=== PATIENT | female | born 1950 | race Caucasian/White ===

== ENCOUNTER 2023-12-30 10:17 | Inpatient (IN) | payer MEDICARE, SELFPAY ==
[2023-12-30] VITALS (24 sets, daily range): BP systolic 133–184; BP diastolic 42–66; PULSE 55–78; RESP 16–25; TEMP 36.4–36.9; O2SAT 89–100; BMI 45.6
--- NOTE | ~2023-12-30 | XR_ITS ---
EXAMINATION: XR chest 1V portable DATE: 12/30/2023 11:42 INDICATION: Cough. Chest pain. TECHNIQUE: A single frontal view of the chest was obtained. COMPARISON: Chest 2 views 08/08/2015 FINDINGS: There is mild atelectasis in left lower lung zone. No pleural effusion or pneumothorax. The heart size is normal. Epidural electrodes are noted. IMPRESSION: 1. Mild atelectasis in left lower lung zone. Reviewed, dictated and finalized at location A.
--- NOTE | ~2023-12-30 | US_ITS ---
EXAMINATION: US venous doppler [facility] DATE: 12/31/2023 09:12 INDICATION: Bilateral lower limb pain and swelling TECHNIQUE: Grayscale ultrasound images without and with compression and Doppler ultrasound images of the bilateral lower extremity veins were obtained. COMPARISON: None. FINDINGS: The visualized portions of right common femoral vein, profunda (deep) femoral vein, femoral vein, pop liteal vein, posterior tibial veins, peroneal veins, gastrocnemius vein and greater saphenous vein ou tflow are patent. The visualized portions of left common femoral vein, profunda femoral vein, femoral vein, popliteal v ein, posterior tibial veins, peroneal veins, gastrocnemius vein and greater saphenous vein outflow ar e patent. Small anechoic Harris's cyst at the left popliteal fossa. IMPRESSION: 1. No deep venous thrombosis in either lower limb. 2. Small left Harris's cyst. Reviewed, dictated and finalized at location B.
--- NOTE | ~2023-12-30 | US_ITS ---
EXAMINATION: US retroperitoneal comp DATE: 12/31/2023 14:00 INDICATION: Renal failure TECHNIQUE: Multiple ultrasound grayscale images of the kidneys were obtained. COMPARISON: CT dated 11/30/2013 and 11/02/2010 FINDINGS: The right kidney measures 11.1 x 4.9 x 5.1 cm. The left kidney measures 11.2 x 5.3 x 2.5 cm. The kidn eys demonstrate normal echogenicity. 1.2 cm hypoechoic lesion at the periphery of the left kidney. Th ere is no hydronephrosis in either kidney. No stones identified. The bladder is normal. IMPRESSION: 1. Indeterminate 1.2 cm hypoechoic lesion at the periphery of the left kidney which is too small to definitively characterize by ultrasound but appears to correspond to a low-attenuation cyst which can be seen on CT dating back to contrast-enhanced CT dated 11/02/2010 at which time it measured 5 mm in maximal diameter. Otherwise normal kidneys without hydronephrosis. Reviewed, dictated and finalized at location B. IMPRESSION: 1. Indeterminate 1.2 cm hypoechoic lesion at the periphery of the left kidney which is too small to definitively characterize by ultrasound but appears to co rrespond to a low-attenuation cyst which can be seen on CT dating back to contr ast-enhanced CT dated 11/02/2010 at which time it measured [address] maximal [address] ter. Otherwise normal kidneys without hydronephrosis.
--- NOTE | 2023-12-30 10:21 | ECG_ITS ---
Measurements Intervals [place] Rate: 58 P: 68 GA: 181 QRS: 9 QRSD: 85 T: 83 QT: 401 QTc: 397 Interpretive Statements SINUS BRADYCARDIA NONSPECIFIC ST-T WAVE ABNORMALITY- HIGH LATERAL LEADS BASELINE ARTIFACT- I, II, III, AVR, AVL, AVF BORDERLINE ECG NO PREVIOUS ECG AVAILABLE FOR COMPARISON Electronically Signed On 12-30-2023 10:40:54 CDT by Misha Reyez D.O.
--- NOTE | 2023-12-30 10:54 | ED.SOB ---
HPI - SOB/Dyspnea General Chief Complaint: Shortness of Breath/Dyspnea Stated Complaint: sob Time Seen by Provider: 12/30/23 10:32 History of Present Illness HPI Narrative: Patient has history of COPD, CAD, presents here with cough, difficulty breathing, chest tightness for the last 5 days. Also having some nasal congestion. Has been trying breathing treatments at home without much improvement. Related Data Home Medications Medication Instructions Recorded Confirmed rosuvastatin 20 mg tablet 20 mg DAILY 10/30/19 04/18/21 bumetanide 2 mg tablet 2 mg PO DAILY 11/24/23 Allergies Allergy/AdvReac Type Severity Reaction Status Date / Time morphine Allergy Unknown Itching Verified 02/24/23 13:44 Sulfa (Sulfonamide Allergy Unknown HIVES Verified 02/24/23 13:44 Antibiotics) Review of Systems Review of Systems: CONST: No fever. HEENT: Congestion C/V: Chest tightness RESP: Cough GI: Epigastric pain : No dysuria. M/S: No joint pain. SKIN: No rash. NEURO: [No headache or focal numbness or weakness] PSYCH: [No depression] [facility] Past Medical History Medical History (Updated 12/30/23 @ 13:58 by Ileana Gonzales MD) Diabetes mellitus HLD (hyperlipidemia) Tobacco abuse Family History Family History Mother Family history of malignant neoplasm Patient's mother is Father Family history of diabetes mellitus in first degree relative Patient's father is Social History Social History Smoking status: Current every day smoker Alcohol intake: never Lack of Transportation: No Lack of Food: Never True Current Housing: I Have Housing Concerned About Future Housing: No Difficulty Paying Gas/Electric Bills: No Difficulty Paying for Meds: No Currently Unemployed: No Education: High School Diploma/GED Difficulty w/ Childcare or Family Care: No Exam Narrative: EXAMINATION OF ORGAN SYSTEMS/BODY AREAS: Constitutional: Vital signs per nursing GENERAL: Mild respiratory distress HEAD: Normal with no signs of head trauma. EYES: EOMI, conjunctiva normal ENT: Hearing grossly intact LUNGS: Wheezing bilaterally, tachypneic with some distress and accessory muscle usage HEART: [Regular rate and rhythm] ABD: [Soft], [nontender to palpation] EXT: Normal range of motion SKIN: [No rashes or lesions.] NEURO: [Alert and oriented x 3. No gross focal sensory or strength deficits.] PSYCH: Normal affect Course Vital Signs Vital signs: Vital Signs Temperature 97.5 F L 12/30/23 10:17 Pulse Rate 63 12/30/23 10:17 Respiratory Rate 25 H 12/30/23 10:17 Blood Pressure 149/53 H 12/30/23 10:17 Pulse Oximetry 89 L 12/30/23 10:17 Oxygen Delivery Room Air 12/30/23 10:17 Temperature 97.5 F L 12/30/23 10:17 Pulse Rate 61 12/30/23 13:30 Respiratory Rate 22 H 12/30/23 13:30 Blood Pressure 149/50 H 12/30/23 13:30 Pulse Oximetry 100 12/30/23 12:15 Oxygen Delivery Nasal Cannula 12/30/23 10:41 Oxygen Flow Rate 2 12/30/23 10:41 MDM - SOB/Dyspnea MDM Narrative Medical decision making narrative: 1) Differential diagnosis: COPD, CAD, HTN, pneumonia 2) Comorbidities: CAD, hypertension, diabetes, COPD 3) External notes reviewed: PCP notes 4) History sources independently obtained from: The patient's daughter at bedside, PCP notes 5) Discussion of management with: Hospitalist, flavor room worker 6) Independent interpretation of: EKG: Shows sinus bradycardia at rate 58, normal WA interval, QRS, QTC, normal axis. No obvious signs of ischemia. Chest x-ray without any obvious opacities. 7) Diagnostic tests or therapies considered but not ordered: n/a 8) Social determinants of health: n/a 9) Shared decision makin-year-old female history of COPD, CAD, CKD, presents here with cough and shortness of breath for the last 5 d
[2023-12-30 11:20] LABS: Basophils Absolute Auto 0.1 K/mm3 (0.0-0.1); Basophils Percent Auto 0.4 % (0.2-1.2); Eosinophils Absolute Auto 0.4 K/mm3 (0-0.3); Eosinophils Percent Auto 3.2 % (0-4.4); Hemoglobin 9.5 g/dL (12.0-15.0); Immature Granulocyte Absolute 0.11 K/mm3 (0.00-0.031); Immature Granulocyte Percent A 0.9 % (0-0.5); Lymphocytes Absolute Auto 3.17 K/mm3 (0.9-3.2); Lymphocytes Percent Auto 26.4 % (18.3-44.2); Mean Corpuscular HGB Conc 28.8 g/dl (32-36); Mean Corpuscular Hemoglobin 24.1 pg (26-34); Mean Corpuscular Volume 83.5 fl (80-100); Monocytes Absolute Auto 0.7 K/mm3 (0.1-0.6); Monocytes Percent Auto 5.4 % (2.6-8.5); Neutrophils Absolute Auto 7.7 K/mm3 (1.3-6.7); Neutrophils Percent Auto 63.7 % (45.5-73.1); Platelet Count Result 266 k/mm3 (150-375); Red Blood Count 3.95 M/mm3 (4.2-5.4); Red Cell Distribution Width 19.9 % (11.5-14.5)
[2023-12-30] MEDS: ALBUTEROL SULFATE NEB 2.5 MG/3 ML INH 15 MG INHALATION (11:20)
[2023-12-30] MEDS: IPRATROPIUM BR 0.02% INH SOLN 0.5 MG/2.5 ML VIAL 1 MG INHALATION (11:21)
[2023-12-30] MEDS: predniSONE 20 MG TABLET 40 MG PO (11:37)
[2023-12-30 11:52] LABS: Hypochromasia 1+ (NORMAL); Ovalocytes 1+ (NORMAL); Platelet Estimate Adequate (Adequate); Schistocytes None Seen (NORMAL)
[2023-12-30 11:56] LABS: Influenza A QL RT-PCR Negative (Negative); Influenza B QL RT-PCR Negative (Negative); RSV RNA, RT-PCR Negative (Negative); SARS-CoV-2 RNA PCR Negative (Negative)
[2023-12-30 12:15] LABS: NT Pro B Type Natriuretic Pept 498 pg/mL (19.9-100); Troponin I < 0.012 ng/mL (0.000-0.034)
[2023-12-30 12:18] LABS: Alanine Aminotransferase 13 U/L (6-35); Albumin Level 4.1 g/dL (3.5-5.1); Alkaline Phosphatase 116 U/L (38-126); Anion Gap 7 mmol/L (8-16); Aspartate Amino Transferase 16 U/L (14-36); Bilirubin,Total 0.3 mg/dL (0.2-1.3); Blood Urea Nitrogen 56 mg/dL (7-17); Calcium 8.8 mg/dL (8.4-10.2); Carbon Dioxide 22 mmol/L (22-30); Chloride 112 mmol/L (98-107); Estimated CRCL calculation 29 ml/min; Estimated Glomerular Filt Rate 26; Glucose 95 mg/dL (65-110); Potassium 6.2 mmol/L (3.4-5.0); Sodium 141 mmol/L (137-145)
[2023-12-30] MEDS: LACTATED RINGERS 1,000 ML 999 ML IV CONT (12:35)
[2023-12-30 13:06] LABS: Anion Gap 7 mmol/L (8-16); Blood Urea Nitrogen 56 mg/dL (7-17); Calcium 8.6 mg/dL (8.4-10.2); Carbon Dioxide 23 mmol/L (22-30); Chloride 111 mmol/L (98-107); Estimated CRCL calculation 29 ml/min; Estimated Glomerular Filt Rate 26; Glucose 91 mg/dL (65-110); Potassium 6.6 mmol/L (3.4-5.0); Sodium 141 mmol/L (137-145)
[2023-12-30] MEDS: FUROSEMIDE INJ 40 MG/4 ML VIAL IV PUSH (13:49)
[2023-12-30] MEDS: DEXTROSE 50% 25 GM/50 ML SYRINGE IV PUSH ×2 (13:49→19:19)
[2023-12-30] MEDS: SODIUM POLYSTYRENE SULFONONATE 15 GM/60 ML BTL 30 GM PO (13:49)
[2023-12-30] MEDS: CALCIUM GLUCONATE 1,000 MG/10 ML VIAL 1000 MG IV PUSH (13:49)
[2023-12-30] MEDS: INSULIN HUMAN REGULAR (*BKC) 100 UNITS/ML 10 UNITS IV PUSH ×2 (13:49→19:22)
[2023-12-30] MEDS: ALBUTEROL SULFATE NEB 2.5 MG/3 ML INH 10 MG INHALATION (13:59)
--- NOTE | 2023-12-30 14:41 | ADMGEN ---
This patient, Giovanna Hurtado, was admitted to IMU Room 214-01. Patient/family oriented to hospital policies and general routines including ID bracelet, bed and alarms, visiting hours, pain management, procedures, bathroom and other care routines, personal items, smoking policy, room service/diet, and visiting hours. Information on how to activate the Rapid Response Team has been discussed. Patient/Family are encouraged to report perceived risks to care and to ask questions if they do not understand what they are told or what they should do.
--- NOTE | 2023-12-30 16:53 | PM.IMHP ---
H&P: HPI History of Present Illness Date/Time: 12/30/23 17:00 Chief Complaint: Cough and shortness of breath. Narrative: This is a 73-year-old female smoker with chronic obstructive pulmonary disease, coronary artery disease with history of multiple stents, chronic kidney disease, hypertension, hyperlipidemia, type 2 diabetes mellitus, gastroesophageal reflux disease, and other comorbidities who presented to the emergency department from home for evaluation of cough and shortness of breath. The patient provides the following history. She reports multiple symptoms ongoing for last 5 days including cough, sinus congestion, shortness of breath with exertion, and mild chest tightness which thinks may be related to GERD (not tender to palpation, not similar to prior MA). She has been using her nebulizer treatments which are not providing much relief. She has significant swelling in her legs but denies calf pain, orthopnea, and paroxysmal nocturnal dyspnea. She denies fever, chills, sweats, nausea, vomiting, pleuritic pain, palpitations, diarrhea, and dysuria. In the ED: She was afebrile on arrival. Blood pressures have been running in the 140s to 160s systolic. SpO2 was 89% and she is currently on 2 L nasal cannula. Labs were significant for WBC count of 12.0, hemoglobin 9.5, potassium 6.2, BUN 56, creatinine 1.90, proBNP 498, troponin less than 0.012. She tested negative for influenza, RSV, and COVID. Chest x-ray showed mild atelectasis in the left lung zone. EKG showed sinus bradycardia with nonspecific ST-T-wave abnormalities in the high lateral leads. She was given a nebulizer treatment and appropriate therapy for hyperkalemia and she is being admitted to the IMU for further treatment and evaluation. With further questioning she reports that she was recently referred to Nephrology but has no known history of chronic kidney disease. She has not noticed a decrease in urine output. Several hours after she was admitted to the floor she began complaining of chest tightness. Repeat troponin was negative an EKG did not demonstrate any acute ST segment changes. Suspect GI related though given her strong cardiac history she is requesting to see her construction recruiter in consultation. Review of Systems Review of Systems: 12 systems were reviewed and are negative except for as per HPI. [facility] Past Medical History Medical History (Updated 12/30/23 @ 21:54 by Roseann Yoo PA-C) Chronic kidney disease Chronic obstructive pulmonary disease Chronic pain syndrome Coronary artery disease Hyperlipidemia Hypertension Osteoarthritis Tobacco abuse Type 2 diabetes mellitus Surgical History Surgical History (Updated 12/30/23 @ 16:58 by Roseann Yoo PA-C) History of cardiac catheterization History of cholecystectomy History of coronary artery stent placement Stents to right coronary artery x3, left anterior descending, circumflex, 2nd marginal, and known occlusion of stent to 1st marginal branch History of tonsillectomy Status post insertion of spinal cord stimulator Family History Family History Mother Family history of malignant neoplasm Patient's mother is Ovarian cancer Father Family history of diabetes mellitus in first degree relative Patient's father is Coronary atherosclerosis of bypass graft Social History Social History Social History: Surrogate medical decision maker: Serina Campos, daughter. Code status: Full code. Smoking packs per day: 1 Smoking cigarettes per day: 20.0 Years smoked: 60 Smoking pack-years: 60.00 Smoking status: Current every day smoker Tobacco type: cigarettes Alcohol intake: never Substance use: never Do You Feel Safe in your Home?: Yes Lack of Transportation: No Lack of Food: Never True Current Housing: I Have Housing Co
--- NOTE | 2023-12-30 17:51 | ECG_ITS ---
Measurements Intervals [place] Rate: 76 P: 66 [place]: 181 QRS: 6 QRSD: 84 T: 86 QT: 367 QTc: 413 Interpretive Statements SINUS RHYTHM LOW QRS VOLTAGE IN PRECORDIAL LEADS CONSIDER ANTERIOR INFARCT, AGE INDETERMINATE ST-T WAVE ABNORMALITY IN HIGH LATERAL LEADS- CONSIDER ISCHEMIA BASELINE ARTIFACT- I, II, AVR, V3 ABNORMAL ECG COMPARED TO ECG 12/30/2023 10:38:01 SINUS RHYTHM NOW PRESENT ST-T WAVE ABNORMALITY NOW PRESENT Electronically Signed On 12-30-2023 20:06:16 CDT by Misha Reyez D.O.
[2023-12-30 18:09] LABS: Anion Gap 8 mmol/L (8-16); Blood Urea Nitrogen 56 mg/dL (7-17); Calcium 9.1 mg/dL (8.4-10.2); Carbon Dioxide 22 mmol/L (22-30); Chloride 109 mmol/L (98-107); Estimated CRCL calculation 27 ml/min; Estimated Glomerular Filt Rate 24; Glucose 191 mg/dL (65-110); Magnesium 2.4 mg/dL (1.6-2.3); Potassium 6.4 mmol/L (3.4-5.0); Sodium 139 mmol/L (137-145)
[2023-12-30] MEDS: NITROGLYCERIN SL 0.4 MG TABLET SUBLINGUAL (18:09)
[2023-12-30 18:16] LABS: Troponin I < 0.012 ng/mL (0.000-0.034)
--- NOTE | 2023-12-30 18:38 | ECG_ITS ---
Measurements Intervals [place] Rate: 71 P: 62 NM: 186 QRS: 10 QRSD: 88 T: 95 QT: 377 QTc: 410 Interpretive Statements SINUS RHYTHM CONSIDER ANTERIOR INFARCT, AGE INDETERMINATE ST-T WAVE ABNORMALITY IN HIGH LATERAL LEADS- CONSIDER ISCHEMIA BASELINE ARTIFACT- I, III, AVR, AVL, AVF, V1-V2 ABNORMAL ECG COMPARED TO ECG 12/30/2023 17:56:33 NO SIGNIFICANT CHANGES Electronically Signed On 12-30-2023 20:20:43 CDT by Misha Reyez D.O.
[2023-12-30 18:41] LABS: Iron 48 ug/dL (37-170)
[2023-12-30 18:51] LABS: Percent Iron Saturation 12 % (20-50)
[2023-12-30 19:11] LABS: Folic Acid 5.4 ng/mL (2.76->20)
[2023-12-30 19:18] LABS: Ferritin 5.68 ng/mL (11.1-264)
[2023-12-30] MEDS: CALCIUM GLUC 1,000 MG/NS 50 ML 1,000 MG/50 ML BAG 100 MG IVPB (20:20)
[2023-12-30] MEDS: guaiFENesin 12 HR 600 MG TABCR PO (20:20)
[2023-12-30] MEDS: SODIUM ZIRCONIUM CYCLOSILICATE 10 GM POWD.PACK PO (20:20)
[2023-12-30] MEDS: cloNIDine HCL 0.1 MG TABLET PO (20:20)
[2023-12-30] MEDS: INSULIN ASPART (*BKC) 100 UNITS/ML SUB-Q (20:21)
[2023-12-30 20:25] LABS: Glucose Point of Care 334 mg/dl (65-105)
[2023-12-30] MEDS: IPRATROPIUM 0.5 MG/ALBUTEROL SULFATE 2.5 MG AMPUL.NEB 3 ML INHALATION (21:15)
[2023-12-30 21:35] LABS: Troponin I < 0.012 ng/mL (0.000-0.034)
[2023-12-30] MEDS: BELLADONNA ALK/PHENOB ELIX 10 ML, MAG HYDROX/ALUMINUM HYD/SIMETH 30 ML, LIDOCAINE HCL 2... PO (22:26)
[2023-12-30 23:19] LABS: Anion Gap 10 mmol/L (8-16); Blood Urea Nitrogen 55 mg/dL (7-17); Calcium 9.2 mg/dL (8.4-10.2); Carbon Dioxide 22 mmol/L (22-30); Chloride 106 mmol/L (98-107); Estimated CRCL calculation 27 ml/min; Estimated Glomerular Filt Rate 24; Glucose 318 mg/dL (65-110); Potassium 5.5 mmol/L (3.4-5.0); Sodium 138 mmol/L (137-145)
[2023-12-30 23:31] LABS: Troponin I < 0.012 ng/mL (0.000-0.034)
[2023-12-30] MEDS: FUROSEMIDE INJ 40 MG/4 ML VIAL 20 MG IV PUSH (23:48)
[2023-12-31] VITALS (28 sets, daily range): BP systolic 129–155; BP diastolic 37–88; PULSE 60–129; RESP 16–18; TEMP 36.4–37.1; O2SAT 90–99
[2023-12-31] MEDS: PANTOPRAZOLE SODIUM IV 40 MG VIAL IV PUSH (00:04)
[2023-12-31 05:00] LABS: Hematocrit 31.5 % (37.0-47.0); Hemoglobin 8.9 g/dL (12.0-15.0); Mean Corpuscular HGB Conc 28.3 g/dl (32-36); Mean Corpuscular Hemoglobin 23.5 pg (26-34); Mean Corpuscular Volume 83.1 fl (80-100); Mean Platelet Volume 10.9 fl (7.4-10.4); Platelet Count Result 256 k/mm3 (150-375); Red Blood Count 3.79 M/mm3 (4.2-5.4); Red Cell Distribution Width 19.4 % (11.5-14.5); White Blood Count 13.5 K/mm3 (4.5-10.0)
[2023-12-31 05:08] LABS: Anion Gap 8 mmol/L (8-16); Blood Urea Nitrogen 56 mg/dL (7-17); Carbon Dioxide 25 mmol/L (22-30); Chloride 106 mmol/L (98-107); Estimated CRCL calculation 27 ml/min; Estimated Glomerular Filt Rate 24; Glucose 108 mg/dL (65-110); Sodium 139 mmol/L (137-145)
[2023-12-31 07:18] LABS: Glucose Point of Care 101 mg/dl (65-105)
[2023-12-31] MEDS: IPRATROPIUM 0.5 MG/ALBUTEROL SULFATE 2.5 MG AMPUL.NEB 3 ML INHALATION ×3 (08:18→20:27)
[2023-12-31] MEDS: BUMETANIDE 1 MG TABLET 2 MG PO (09:14)
[2023-12-31] MEDS: ENOXAPARIN 40 MG/0.4 ML SYRINGE SUB-Q (09:14)
[2023-12-31] MEDS: ROSUVASTATIN 10 MG TABLET 20 MG PO (09:14)
[2023-12-31] MEDS: ISOSORBIDE MONONITRATE 30 MG TAB.ER.24H 90 MG PO (09:14)
[2023-12-31] MEDS: LORATADINE 10 MG TABLET PO (09:15)
[2023-12-31] MEDS: cloNIDine HCL 0.1 MG TABLET PO (09:15)
[2023-12-31] MEDS: PANTOPRAZOLE 40 MG TABLET PO (09:15)
[2023-12-31] MEDS: amLODIPine BESYLATE 5 MG TABLET PO (09:15)
[2023-12-31] MEDS: predniSONE 20 MG TABLET 40 MG PO (09:15)
[2023-12-31] MEDS: guaiFENesin 12 HR 600 MG TABCR PO ×2 (09:15→20:15)
[2023-12-31] MEDS: carvediloL 12.5 MG TABLET PO ×2 (09:16→20:15)
--- NOTE | 2023-12-31 09:43 | PM.CNNEP ---
Assessment and Plan Assessment and plan (1) Chronic kidney disease, stage 3b: Code(s): N18.32 - Chronic kidney disease, stage 3b Status: Acute Assessment and Plan: The patient has chronic kidney disease. Her baseline creatinine seems to range between 1 and 1.5. In April a little higher than it had been in 2021. In December of this year the creatinine was up to 1.83 and while in the hospital is been 1.9-2.0. Etiology of the chronic kidney disease may be related to diabetes and hypertension. She also has coronary artery disease, hyperlipidemia, and she smokes so she likely has some vascular disease in the kidneys as well. There other causes of chronic kidney disease as well including inflammation infiltration etc.. Will check labs to rule these out but they are unlikely to be playing much of a role. Patient also has acute kidney injury as her creatinine has risen over the last few days. This could be progression of kidney disease. Between April and February her creatinine erlin from 1.5-1.8. The patient is also on diuretics which could make the creatinine higher. She also has a URI and infection can make the creatinine higher as well. Will check urine electrolytes, fraction excretion of urea, CPK, renal ultrasound, and evaluation for chronic kidney disease as above. (2) Hyperkalemia: Code(s): E87.5 - Hyperkalemia Status: Acute Assessment and Plan: Hyperkalemia is probably due to the worsening creatinine, intake of bananas, and meloxicam plus losartan. The patient's potassium is down. She was advised to avoid high potassium foods. Will stop the meloxicam. Hold losartan but possibly reintroduce this later on if the GFR stabilizes or improves. (3) Hypertension: Code(s): I10 - Essential (primary) hypertension Status: Acute Assessment and Plan: Blood pressure is mildly high. She is currently on amlodipine 5 bumetanide to carvedilol 12.5 clonidine 0.1. Will stop the clonidine because this can interact with carvedilol. Increase the carvedilol to twice a day. Consider increasing amlodipine depending on how much protein she is spilling. (4) Diabetes mellitus: Qualifiers: Diabetes mellitus type: type 2 Diabetes mellitus intermediate manager insulin use: without mcfp use Diabetes mellitus complication status: without complication Qualified Code(s): E11.9 - Type 2 diabetes mellitus without complications Code(s): E11.9 - Type 2 diabetes mellitus without complications Status: Acute Assessment and Plan: On Accu-Cheks and sliding-scale insulin. Management per hospitalists. (5) Tobacco abuse: Code(s): Z72.0 - Tobacco use Status: Acute Assessment and Plan: Patient was advised to stop smoking she has tried in the past. She is working with her primary care physician. (6) Coronary artery disease: Code(s): I25.10 - Atherosclerotic heart disease of [place] coronary artery without angina pectoris Status: Acute Assessment and Plan: Multiple stents in place. Troponins were negative on admission. History of Present Illness Reason for Consult Consult date: 12/31/23 Chief Complaint Chief complaint: Hyperkalemia History of Present Illness Narrative: Giovanna is a very pleasant 73-year-old lady who has multiple medical problems including chronic kidney disease, COPD, diabetes, hypertension, ongoing cigarette smoking, osteoarthritis, high body mass index, hyperlipidemia, coronary disease status post stents. Patient sees Dr. robertson in the office. He noted that her creatinine had been slowly rising so she was referred to Nephrology. The visit in our office is in January. The patient was well in till about 5 days before admission when she started developing cough and shortness of breath. She had some chest tightness as well. She went to the ER and she was evaluated. Her blood pressure was a bit high. Test for viruses were negative. Creatinine wa
--- NOTE | 2023-12-31 10:37 | PM.CNCAR ---
Assessment and Plan Assessment and plan (1) Chest discomfort: Code(s): R07.89 - Other chest pain Status: Acute Assessment and Plan: Atypical. Troponins are negative. In the setting of COPD exacerbation. No further cardiac workup at this time. Follow up with me in clinic as already scheduled. (2) Coronary artery disease: Code(s): I25.10 - Atherosclerotic heart disease of [place] coronary artery without angina pectoris Status: Acute Assessment and Plan: Stable. Continue ASA, statin, home antianginal regimen. (3) Acute exacerbation of chronic obstructive pulmonary disease: Code(s): J44.1 - Chronic obstructive pulmonary disease with (acute) exacerbation Status: Acute Assessment and Plan: Management as per primary team. (4) Acute hyperkalemia: Code(s): E87.5 - Hyperkalemia Status: Acute Assessment and Plan: Potassium was 6.6 on admission, now improved. Nephrology consulted. (5) Hypertension: Code(s): I10 - Essential (primary) hypertension Status: Acute Assessment and Plan: Dr. Shahid stopping Clonidine, increased Coreg (6) HLD (hyperlipidemia): Code(s): E78.5 - Hyperlipidemia, unspecified Status: Acute Assessment and Plan: Continue statin (7) Diabetes mellitus: Qualifiers: Diabetes mellitus type: type 2 Diabetes mellitus cattle dipper insulin use: without cattle dipper use Diabetes mellitus complication status: without complication Qualified Code(s): E11.9 - Type 2 diabetes mellitus without complications Code(s): E11.9 - Type 2 diabetes mellitus without complications Status: Acute Assessment and Plan: Management as per primary team. Plan Cardiology will sign off at this time. She already has an upcoming appointment with me in the office. History of Present Illness History of Present Illness Consult date/time: 12/31/23 10:37 Requesting physician: Roseann Yoo PA-C Consult reason: chest pain Reason For Visit: Hyperkalemia Narrative: We are consulted for chest pain. This is a 73 year old female who is a patient of Dr. Garcia's (will be seeing me as a new patient once Dr. Garcia retires). Giovanna has known coronary artery disease s/p multiple interventions (proximal and distal RCA stents, occluded OM stent, mid LAD stent), hypertension, hyperlipidemia, diabetes mellitus, CKD stage 3, tobacco dependence. She presented to [facility] for shortness of breath and chest pain. She is admitted with a COPD exacerbation. Given her chest pain, patient has requested to be seen by us. Patient states this morning that she is feeling much better now and her chest pain has resolved. Describes central chest pain that occasionally gets worse with movement and with laying down. Does not worsen with inspiration. Troponins are negative. EKGs with sinus rhythm with nonspecific STTW abnormalites. Review of Systems Review of Systems: All systems reviewed & are unremarkable except as noted in HPI and below (HPI) [facility] Past Medical History Medical History Chronic kidney disease Chronic obstructive pulmonary disease Chronic pain syndrome Coronary artery disease Hyperlipidemia Hypertension Osteoarthritis Tobacco abuse Type 2 diabetes mellitus Surgical History Surgical History History of cardiac catheterization History of cholecystectomy History of coronary artery stent placement Stents to right coronary artery x3, left anterior descending, circumflex, 2nd marginal, and known occlusion of stent to 1st marginal branch History of tonsillectomy Status post insertion of spinal cord stimulator Family History Family History Mother Family history of malignant neoplasm Patient's mother is Ovarian cancer Father
[2023-12-31 11:18] LABS: Creatine Kinase 60 U/L (30-135)
[2023-12-31 11:25] LABS: Complement C3 141 mg/dL (88-165)
[2023-12-31 11:39] LABS: Parathyroid Intact 143.1 pg/mL (7.5-53.5)
[2023-12-31 11:52] LABS: Glucose Point of Care 146 mg/dl (65-105)
[2023-12-31 12:04] LABS: Erythrocyte Sedimentation Rate 113 mm/hr (0-20)
[2023-12-31 12:08] LABS: Cortisol Random 7.86 ug/dL
[2023-12-31 17:36] LABS: Glucose Point of Care 406 mg/dl (65-105)
[2023-12-31] MEDS: INSULIN ASPART (*BKC) 100 UNITS/ML SUB-Q ×2 (17:44→20:14)
--- NOTE | 2023-12-31 18:16 | PM.IMPN ---
Progress Note: A&P Assessment and Plan (1) URI with cough and congestion: Code(s): J06.9 - Acute upper respiratory infection, unspecified Status: Acute (2) Sinus congestion: Code(s): R09.81 - Nasal congestion Status: Acute (3) Diabetes mellitus: Qualifiers: Diabetes mellitus type: type 2 Diabetes mellitus joint terminal attack controller insulin use: without joint terminal attack controller use Diabetes mellitus complication status: without complication Qualified Code(s): E11.9 - Type 2 diabetes mellitus without complications Code(s): E11.9 - Type 2 diabetes mellitus without complications Status: Acute (4) HLD (hyperlipidemia): Code(s): E78.5 - Hyperlipidemia, unspecified Status: Acute (5) Tobacco abuse: Code(s): Z72.0 - Tobacco use Status: Acute (6) Hypertension: Code(s): I10 - Essential (primary) hypertension Status: Acute (7) Post-menopause: Code(s): Z78.0 - Asymptomatic menopausal state Status: Acute (8) Dysuria: Code(s): R30.0 - Dysuria Status: Acute (9) Urinary frequency: Code(s): R35.0 - Frequency of micturition Status: Acute (10) Lumbar spondylosis: Code(s): M47.816 - Spondylosis without myelopathy or radiculopathy, lumbar region Status: Acute (11) CHF (congestive heart failure): Code(s): I50.9 - Heart failure, unspecified Status: Acute (12) URI with cough and congestion: Code(s): J06.9 - Acute upper respiratory infection, unspecified Status: Acute (13) Hyperlipidemia: Code(s): E78.5 - Hyperlipidemia, unspecified Status: Acute (14) Coronary artery disease: Code(s): I25.10 - Atherosclerotic heart disease of [place] coronary artery without angina pectoris Status: Acute (15) Chest discomfort: Code(s): R07.89 - Other chest pain Status: Acute Plan Admit patient to medical unit under full inpatient status Came with the mild hyperkalemia which has resolved with treatment in the ER on the floor Continue with supportive management for cough and URI Patient has mild worsening of her renal functions Nephrology consult ordered for evaluation and further treatment recommendations Patient complaining of atypical chest pains with the negative cardiac enzymes Cardiology consult given for evaluation Fluid and electrolyte management as per Nephrology DC planning in a.m. if patient remains stable and cleared by both Nephrology and cardiology ? Patient seen and examined at bedside during my morning rounds ? Collaborated with patient's nurse at the bedside in detail and addressed all concerns ? Labs, electrolytes, radiology, investigations and test results reviewed ? Consult/Nursing/Ancilliary notes on the chart reviewed and appreciated ? Spoke with patient/family at the bedside and answered all the questions that they had Repeat labs in a.m. Electrolyte replacement as per protocol. Patient will be monitored very closely on the floor. Further recommendations as per the hospital course. Dependence on nicotine from cigarettes: Tobacco abuse counseling: Patient smokes cigarettes on a chronic basis. Strictly advised patient to cut down on or quit smoking. Nicotine patch ordered. ~5 minutes spent on tobacco cessation counseling with the patient. Websites - http://smokefree.gov & http://www.goBramble.com ? Quitlines - 0-342-JSZP-NOW ( ) ? [employer] Apps - [employer] Aristides ? Text Messages - SmokefreeTXT ([place] [id number]) Time Spent With Patient Time with patient: 15 - 25 minutes Subjective Date/time seen: 12/31/23 18:16 Interval history: Patient seen in bed side. Feeling weak and tired but better since yesterday. She wants to go home Review of Systems Review of Systems: 14 systems were reviewed with pertinent positives and negatives per HPI. Except as documented in the HPI/progress notes, all other systems were reviewed and are n
[2023-12-31 19:41] LABS: Sodium Urine Random 80 meq/L
[2023-12-31 19:46] LABS: Creatinine Urine 54.2 mg/dL; Total Protein Urine Random 8 mg/dL; Ur Ttl Prot Creatinine Ratio 0.15 mg/mg (0-0.20); Urea Random Urine 426 MG/DL
[2023-12-31 20:25] LABS: Glucose Point of Care 328 mg/dl (65-105)
--- NOTE | 2023-12-31 23:00 | PC.NURSE ---
Patient endorsing chest discomfort at the beginning of shift around 1999. Patient describes chest pain as dull, aching pain that worsens on inspiration. RN asked patient if she had been coughing and patient states that I've had a cough for the last week. RN explained to patient that chest pain was most likely musculoskeletal in nature. Previous 3 troponins resulted negative (<0.012) and EKG's obtained showed no change per MD. Patient stated that she has a history of GERD and was thinking that maybe the pain was more heartburn related. CHRISTIAN Chahuan, notified of patient's complaints and orders were received for stat troponin and to administer a GI cocktail. Fourth troponin obtained and resulted negative (<0.012). GI cocktail administered and patient found no relief. Patient continues to endorse chest discomfort. Patient stated that she does take 40 mg protonix PO daily and had not had her dose for the day. CHRISTIAN Chauhan, notified of this and received an order for a one time dose of 40 mg IVP Protonix. Patient found relief with Protonix IV and did not endorse anymore chest pain or discomfort throughout the night. Will continue to monitor.
[2024-01-01] VITALS (16 sets, daily range): BP systolic 160–169; BP diastolic 43–73; PULSE 59–131; RESP 16–22; TEMP 36.2–36.6; O2SAT 91–100
--- NOTE | 2024-01-01 01:38 | PC.NURSE ---
Orders acknowledged for 24 hour urine specimen to be obtained. Collection began 12/31/2023 at 1999 and will end 01/01/2024 at 1999. Patient aware of collection and all questions answered. Will continue to monitor.
[2024-01-01] MEDS: IPRATROPIUM 0.5 MG/ALBUTEROL SULFATE 2.5 MG AMPUL.NEB 3 ML INHALATION ×4 (02:37→21:35)
[2024-01-01 04:55] LABS: Basophils Percent Auto 0.1 % (0.2-1.2); Eosinophils Percent Auto 0.1 % (0-4.4); Hematocrit 29.4 % (37.0-47.0); Hemoglobin 8.6 g/dL (12.0-15.0); Immature Granulocyte Absolute 0.12 K/mm3 (0.00-0.031); Lymphocytes Absolute Auto 3.48 K/mm3 (0.9-3.2); Lymphocytes Percent Auto 30.2 % (18.3-44.2); Mean Corpuscular HGB Conc 29.3 g/dl (32-36); Mean Corpuscular Volume 81.9 fl (80-100); Mean Platelet Volume 11.3 fl (7.4-10.4); Monocytes Absolute Auto 0.8 K/mm3 (0.1-0.6); Monocytes Percent Auto 6.5 % (2.6-8.5); Neutrophils Absolute Auto 7.2 K/mm3 (1.3-6.7); Neutrophils Percent Auto 62.1 % (45.5-73.1); Platelet Count Result 252 k/mm3 (150-375); Red Blood Count 3.59 M/mm3 (4.2-5.4); Red Cell Distribution Width 19.3 % (11.5-14.5); White Blood Count 11.5 K/mm3 (4.5-10.0)
[2024-01-01 05:10] LABS: Albumin Level 3.8 g/dL (3.5-5.1); Anion Gap 4 mmol/L (8-16); Blood Urea Nitrogen 59 mg/dL (7-17); Calcium 8.5 mg/dL (8.4-10.2); Carbon Dioxide 27 mmol/L (22-30); Chloride 105 mmol/L (98-107); Estimated CRCL calculation 27 ml/min; Estimated Glomerular Filt Rate 26; Glucose 156 mg/dL (65-110); Phosphorus 4.8 mg/dL (2.5-4.5); Potassium 4.8 mmol/L (3.4-5.0); Sodium 136 mmol/L (137-145)
[2024-01-01 05:27] LABS: Platelet Estimate Adequate (Adequate)
[2024-01-01 05:28] LABS: Hypochromasia 1+; Ovalocytes 1+
[2024-01-01 05:37] LABS: Schistocytes None Seen
[2024-01-01 08:22] LABS: Glucose Point of Care 156 mg/dl (65-105)
[2024-01-01] MEDS: ISOSORBIDE MONONITRATE 30 MG TAB.ER.24H 90 MG PO (09:51)
[2024-01-01] MEDS: carvediloL 12.5 MG TABLET PO ×2 (09:51→20:11)
[2024-01-01] MEDS: guaiFENesin 12 HR 600 MG TABCR PO ×2 (09:51→20:11)
[2024-01-01] MEDS: BUMETANIDE 1 MG TABLET 2 MG PO (09:52)
[2024-01-01] MEDS: amLODIPine BESYLATE 5 MG TABLET PO (09:52)
[2024-01-01] MEDS: predniSONE 20 MG TABLET 40 MG PO (09:52)
[2024-01-01] MEDS: ROSUVASTATIN 10 MG TABLET 20 MG PO (09:52)
[2024-01-01] MEDS: ENOXAPARIN 40 MG/0.4 ML SYRINGE SUB-Q (09:52)
[2024-01-01] MEDS: PANTOPRAZOLE 40 MG TABLET PO (09:52)
[2024-01-01] MEDS: LORATADINE 10 MG TABLET PO (09:52)
[2024-01-01] MEDS: FLUTICASONE PROPIONATE 0.05% NA SPR 16 GM BTL (*BKC) 1 SPRAY NASAL ×2 (12:20→12:21)
[2024-01-01 12:22] LABS: Glucose Point of Care 161 mg/dl (65-105)
--- NOTE | 2024-01-01 13:43 | PM.PNNEP ---
Progress Note: A&P Assessment and Plan (1) Chronic kidney disease, stage 3b: Code(s): N18.32 - Chronic kidney disease, stage 3b Status: Acute Assessment and Plan: The patient has chronic kidney disease. Her baseline creatinine seems to have ranged between 1 and 1.5. a couple of years ago but lately had crept up to the 1.5 to 2 range. Etiology of the chronic kidney disease may be related to diabetes and hypertension. She may have ascular disease in the kidneys as well. evaluation pending She may have an element of EMERITA as well. FeUrea is prerenal. UA bland US shows good kidneys without echogenicity but a small hypoechoic lesion which is in the same place but larger than the cyst seen on CT in 2014. creatinine is stable (2) Hyperkalemia: Code(s): E87.5 - Hyperkalemia Status: Acute Assessment and Plan: resolved. (3) Hypertension: Code(s): I10 - Essential (primary) hypertension Status: Acute Assessment and Plan: Blood pressure is mildly high. She is currently on amlodipine 5 bumetanide to carvedilol 12.5 clonidine 0.1. Will stop the clonidine because this can interact with carvedilol. Increase the carvedilol to twice a day. increase amlodipine since she is spilling very little protein (4) Diabetes mellitus: Qualifiers: Diabetes mellitus type: type 2 Diabetes mellitus buttermaker insulin use: without buttermaker use Diabetes mellitus complication status: without complication Qualified Code(s): E11.9 - Type 2 diabetes mellitus without complications Code(s): E11.9 - Type 2 diabetes mellitus without complications Status: Acute Assessment and Plan: On Accu-Cheks and sliding-scale insulin. Management per hospitalists. (5) Tobacco abuse: Code(s): Z72.0 - Tobacco use Status: Acute Assessment and Plan: Patient was advised to stop smoking she has tried in the past. She is working with her primary care physician. (6) Coronary artery disease: Code(s): I25.10 - Atherosclerotic heart disease of [place] coronary artery without angina pectoris Status: Acute Assessment and Plan: Multiple stents in place. Troponins were negative on admission. Subjective Date/time seen: 01/01/24 13:43 Interval history: alert. feels okay no sob Review of Systems Cardiovascular: Cardiovascular: Reports no additional cardiovascular complaints Respiratory: Respiratory: Reports no additional respiratory complaints Gastrointestinal: Gastrointestinal: Reports no additional gastrointestinal complaints Genitourinary: Genitourinary: Reports no additional female genitourinary complaints Exam Narrative: WDWN in NAD skin no rash head ncat lungs clear cor reg no rub abd BS+ nontender and soft ext no edema. Objective Data Vital Signs Vital Signs: Vital Signs - 24 hr 12/31/23 13:54 12/31/23 14:01 12/31/23 14:00 Temperature Pulse Rate 86 82 109 H Respiratory Rate 18 18 Blood Pressure Pulse Oximetry Oxygen Delivery Oxygen Flow Rate Fraction of Inspired Oxygen 12/31/23 16:00 12/31/23 16:00 12/31/23 16:00 Temperature 98.8 F Pulse Rate 129 H 65 65 Respiratory Rate 18 18 Blood Pressure 140/51 L Pulse Oximetry 98 98 Oxygen Delivery Nasal Cannula Oxygen Flow Rate 1 Fraction of Inspired Oxygen 21 12/31/23 18:00 12/31/23 19:50 12/31/23 20:15 Temperature 97.7 F Pulse Rate 65 65 67 Respiratory Rate 18 Blood Pressure 137/46 L Pulse Oximetry 95 Oxygen Delivery Oxygen Flow Rate Fraction of Inspired Oxygen 12/31/23 20:28 12/31/23 20:35 12/31/23 20:00 Temperature Pulse Rate 63 62 Respiratory Rate 18 Blood Pressure Pulse Oximetry 96 Oxygen Delivery Room Air Oxygen Flow Rate Fraction of Inspired Oxygen 12/31/23 20:00 12/31/23 22:00 12/31/23 23:02 Temperature 97.6 F Pulse Rate 63 64 66 Respiratory Rate 18 18
--- NOTE | 2024-01-01 13:50 | PC.NURSE ---
This patient, Giovanna Potter Rolen, was received from IMU on 01/01/24 at 1325. Report received from ROSY Shrestha. Patient/family oriented to unit policies and routines
--- NOTE | 2024-01-01 15:04 | PC.NURSE ---
This patient, Giovanna Hurtado, was transferred to [[id number] ] on 01/01/24 at 1320. Personal belongings sent with patient. Report given to [ROSY Wolfe @ 1300]. Appropriate documentation sent with patient.
[2024-01-01 16:31] LABS: Glucose Point of Care 317 mg/dl (65-105)
[2024-01-01] MEDS: INSULIN ASPART (*BKC) 100 UNITS/ML SUB-Q ×2 (16:56→20:13)
--- NOTE | 2024-01-01 17:54 | PM.IMPN ---
Progress Note: A&P Assessment and Plan (1) URI with cough and congestion: Code(s): J06.9 - Acute upper respiratory infection, unspecified Status: Acute (2) Sinus congestion: Code(s): R09.81 - Nasal congestion Status: Acute (3) Diabetes mellitus: Qualifiers: Diabetes mellitus type: type 2 Diabetes mellitus assistant terminal manager insulin use: without assistant terminal manager use Diabetes mellitus complication status: without complication Qualified Code(s): E11.9 - Type 2 diabetes mellitus without complications Code(s): E11.9 - Type 2 diabetes mellitus without complications Status: Acute (4) HLD (hyperlipidemia): Code(s): E78.5 - Hyperlipidemia, unspecified Status: Acute (5) Tobacco abuse: Code(s): Z72.0 - Tobacco use Status: Acute (6) Hypertension: Code(s): I10 - Essential (primary) hypertension Status: Acute (7) Post-menopause: Code(s): Z78.0 - Asymptomatic menopausal state Status: Acute (8) Dysuria: Code(s): R30.0 - Dysuria Status: Acute (9) Urinary frequency: Code(s): R35.0 - Frequency of micturition Status: Acute (10) Lumbar spondylosis: Code(s): M47.816 - Spondylosis without myelopathy or radiculopathy, lumbar region Status: Acute (11) CHF (congestive heart failure): Code(s): I50.9 - Heart failure, unspecified Status: Acute (12) Coronary artery disease: Code(s): I25.10 - Atherosclerotic heart disease of [place] coronary artery without angina pectoris Status: Acute (13) Chest discomfort: Code(s): R07.89 - Other chest pain Status: Acute Plan Admit patient to medical unit under full inpatient status Came with the mild hyperkalemia which has resolved with treatment in the ER on the floor Continue with supportive management for cough and URI Her leukocytosis is slowly downtrending Patient has mild worsening of her renal functions Nephrology consult ordered for evaluation and further treatment recommendations Nephrology ordered 24 hours urine collection Phosphate level is the elevated at 4.8 today, to be addressed by Nephrology Fluid and electrolyte management as per Nephrology Patient complaining of atypical chest pains with negative cardiac enzymes Cardiology consult given for evaluation who evaluated the patient and sign of as she needs no further workup Patient has an upcoming appointment with rink rat in the office DC planning in a.m. if patient remains stable and cleared by Nephrology ? Patient seen and examined at bedside during my morning rounds ? Collaborated with patient's nurse at the bedside in detail and addressed all concerns ? Labs, electrolytes, radiology, investigations and test results reviewed ? Consult/Nursing/Ancilliary notes on the chart reviewed and appreciated ? Spoke with patient/family at the bedside and answered all the questions that they had Repeat labs in a.m. Electrolyte replacement as per protocol. Patient will be monitored very closely on the floor. Further recommendations as per the hospital course. Dependence on nicotine from cigarettes: Tobacco abuse counseling: Patient smokes cigarettes on a chronic basis. Strictly advised patient to cut down on or quit smoking. Nicotine patch ordered. ~5 minutes spent on tobacco cessation counseling with the patient. Websites - http://smokefree.gov & http://www.Purplu.com ? Quitlines - 5-568-RWJZ-NOW ( ) ? [employer] Apps - [employer]ert[employer] Aristides ? Text Messages - SmokefreeTXT ([place] [id number]) Time Spent With Patient Time with patient: 15 - 25 minutes Subjective Date/time seen: 01/01/24 17:54 Interval history: Patient lying in bed during my morning rounds. She is under 24 hour urine collection. She wants to go home. Review of Systems Review of Systems: 14 systems were reviewed with pertinent positives and negatives per HPI. Except as documented in the
[2024-01-01] MEDS: BELLADONNA ALK/PHENOB ELIX 10 ML, MAG HYDROX/ALUMINUM HYD/SIMETH 30 ML, LIDOCAINE HCL 2... PO (18:23)
[2024-01-01 20:55] LABS: Glucose Point of Care 337 mg/dl (65-105)
[2024-01-02] VITALS (9 sets, daily range): BP systolic 170; BP diastolic 62–68; PULSE 64–83; RESP 18–20; TEMP 36.1–36.3; O2SAT 92–95
[2024-01-02] MEDS: IPRATROPIUM 0.5 MG/ALBUTEROL SULFATE 2.5 MG AMPUL.NEB 3 ML INHALATION ×3 (02:52→13:36)
[2024-01-02 07:43] LABS: Anion Gap 6 mmol/L (8-16); Blood Urea Nitrogen 56 mg/dL (7-17); Carbon Dioxide 28 mmol/L (22-30); Chloride 105 mmol/L (98-107); Estimated CRCL calculation 34 ml/min; Estimated Glomerular Filt Rate 31; Glucose 148 mg/dL (65-110); Potassium 4.4 mmol/L (3.4-5.0); Sodium 139 mmol/L (137-145)
[2024-01-02 07:52] LABS: Basophils Percent Auto 0.3 % (0.2-1.2); Eosinophils Percent Auto 0.2 % (0-4.4); Hematocrit 34.1 % (37.0-47.0); Hemoglobin 9.9 g/dL (12.0-15.0); Immature Granulocyte Absolute 0.15 K/mm3 (0.00-0.031); Immature Granulocyte Percent A 1.2 % (0-0.5); Lymphocytes Absolute Auto 3.65 K/mm3 (0.9-3.2); Lymphocytes Percent Auto 29.3 % (18.3-44.2); Mean Corpuscular Hemoglobin 23.9 pg (26-34); Mean Corpuscular Volume 82.4 fl (80-100); Mean Platelet Volume 11.3 fl (7.4-10.4); Monocytes Absolute Auto 1.1 K/mm3 (0.1-0.6); Monocytes Percent Auto 8.7 % (2.6-8.5); Neutrophils Absolute Auto 7.5 K/mm3 (1.3-6.7); Neutrophils Percent Auto 60.3 % (45.5-73.1); Platelet Count Result 293 k/mm3 (150-375); Red Blood Count 4.14 M/mm3 (4.2-5.4); Red Cell Distribution Width 19.1 % (11.5-14.5); White Blood Count 12.5 K/mm3 (4.5-10.0)
[2024-01-02] MEDS: predniSONE 20 MG TABLET 40 MG PO (08:15)
[2024-01-02] MEDS: guaiFENesin 12 HR 600 MG TABCR PO (08:15)
[2024-01-02] MEDS: amLODIPine BESYLATE 5 MG TABLET 10 MG PO (08:16)
[2024-01-02] MEDS: FLUTICASONE PROPIONATE 0.05% NA SPR 16 GM BTL (*BKC) 1 SPRAY NASAL (08:16)
[2024-01-02] MEDS: BUMETANIDE 1 MG TABLET 2 MG PO (08:16)
[2024-01-02] MEDS: LORATADINE 10 MG TABLET PO (08:16)
[2024-01-02] MEDS: PANTOPRAZOLE 40 MG TABLET PO (08:16)
[2024-01-02] MEDS: ISOSORBIDE MONONITRATE 30 MG TAB.ER.24H 90 MG PO (08:16)
[2024-01-02] MEDS: ROSUVASTATIN 10 MG TABLET 20 MG PO (08:16)
[2024-01-02] MEDS: carvediloL 12.5 MG TABLET PO (08:16)
[2024-01-02] MEDS: ENOXAPARIN 40 MG/0.4 ML SYRINGE SUB-Q (08:19)
[2024-01-02 08:38] LABS: Glucose Point of Care 150 mg/dl (65-105)
--- NOTE | 2024-01-02 09:05 | PM.PNNEP ---
Progress Note: A&P Assessment and Plan (1) Chronic kidney disease, stage 3b: Code(s): N18.32 - Chronic kidney disease, stage 3b Status: Acute Assessment and Plan: The patient has chronic kidney disease. Her baseline creatinine seems to have ranged between 1 and 1.5. a couple of years ago but lately had crept up to the 1.5 to 2 range. Etiology of the chronic kidney disease may be related to diabetes and hypertension. She may have ascular disease in the kidneys as well. Complements are okay. ESR is 113 LINN, immunofixation, and kappa lambda pending Urine protein is only 150. UA shows small blood Most likely the chronic kidney disease is due to hypertension and vascular disease. The high sed rate is a little bit of a concern. It is unclear whether this is related will see what the rest of the serology shows. She may have an element of EMERITA as well. FeUrea is prerenal. UA bland US shows good kidneys without echogenicity but a small hypoechoic lesion which is in the same place but larger than the cyst seen on CT in 2013. Most likely her higher creatinine is a result of pre renal azotemia, and meloxicam. creatinine is stable (2) Hyperkalemia: Code(s): E87.5 - Hyperkalemia Status: Acute Assessment and Plan: resolved. (3) Hypertension: Code(s): I10 - Essential (primary) hypertension Status: Acute Assessment and Plan: Blood pressure is mildly high. She is currently on amlodipine 5 bumetanide to carvedilol 12.5 clonidine 0.1. Yesterday we stopped the clonidine because this can interact with carvedilol. Now on carvedilol twice a day and higher dose of amlodipine. She received the 1st dose of the latter today. Down the line, when hydration okay, she might do better with the addition of a diuretic. (4) Diabetes mellitus: Qualifiers: Diabetes mellitus type: type 2 Diabetes mellitus fci insulin use: without termite treater helper use Diabetes mellitus complication status: without complication Qualified Code(s): E11.9 - Type 2 diabetes mellitus without complications Code(s): E11.9 - Type 2 diabetes mellitus without complications Status: Acute Assessment and Plan: On Accu-Cheks and sliding-scale insulin. Management per hospitalists. (5) Tobacco abuse: Code(s): Z72.0 - Tobacco use Status: Acute Assessment and Plan: Patient was advised to stop smoking she has tried in the past. She is working with her primary care physician. (6) Coronary artery disease: Code(s): I25.10 - Atherosclerotic heart disease of [place] coronary artery without angina pectoris Status: Acute Assessment and Plan: Multiple stents in place. Troponins were negative on admission. Subjective Date/time seen: 01/02/24 09:05 Interval history: Patient feels okay. Sitting up at the side of the bed. No chest pain or shortness of breath cough is better. Exam Narrative: WDWN in NAD skin no rash or subcu nodule head ncat lungs clear cor reg no rub or gallop abd BS+ nontender and soft ext no edema. Objective Data Vital Signs Vital Signs: Vital Signs - 24 hr 01/01/24 09:51 01/01/24 14:00 01/01/24 14:00 Temperature 97.6 F Pulse Rate 69 65 71 Respiratory Rate 18 18 Blood Pressure 166/43 H Pulse Oximetry 91 Oxygen Delivery 01/01/24 14:13 01/01/24 20:11 01/01/24 20:00 Temperature 97.5 F L Pulse Rate 77 79 77 Respiratory Rate 18 16 Blood Pressure 169/73 H Pulse Oximetry 94 Oxygen Delivery 01/01/24 21:48 01/01/24 21:48 01/02/24 02:52 Temperature Pulse Rate 68 65 Respiratory Rate 18 18 Blood Pressure Pulse Oximetry 92 Oxygen Delivery Room Air 01/02/24 03:00 01/02/24 06:00 01/02/24 06:00 Temperature 97.0 F L Pulse Rate 72 64 Respiratory Rate 18 20 Blood Pressure 170/68 H Pulse Oximetry 95 Oxygen Delivery 01/02/24 08:54 01/02/24 08:54 Tem
[2024-01-02 11:53] LABS: Glucose Point of Care 231 mg/dl (65-105)
[2024-01-02] MEDS: INSULIN ASPART (*BKC) 100 UNITS/ML SUB-Q (12:13)
--- NOTE | 2024-01-02 15:04 | PM.DS ---
DS: Admitting Diagnosis Discharge Date 01/02/2024: Admitting Diagnosis (1) Acute exacerbation of chronic obstructive pulmonary disease: ?Code(s): J44.1 - Chronic obstructive pulmonary disease with (acute) exacerbation ?Status:?Acute (2) Hyperkalemia: ?Code(s): E87.5 - Hyperkalemia ?Status:?Acute (3) Chest discomfort: ?Code(s): R07.89 - Other chest pain ?Status:?Acute (4) Chronic kidney disease: ?Code(s): N18.9 - Chronic kidney disease, unspecified ?Status:?Acute (5) Normocytic anemia: ?Code(s): D64.9 - Anemia, unspecified ?Status:?Acute (6) Type 2 diabetes mellitus: ?Code(s): E11.9 - Type 2 diabetes mellitus without complications ?Status:?Acute (7) Hypertension: ?Code(s): I10 - Essential (primary) hypertension ?Status:?Acute (8) Coronary artery disease: ?Code(s): I25.10 - Atherosclerotic heart disease of [place] coronary artery without angina pectoris ?Status:?Acute (9) Tobacco abuse: ?Code(s): Z72.0 - Tobacco use ?Status:?Acute DS: Discharge Diagnosis Discharge Diagnosis (1) URI with cough and congestion: Code(s): J06.9 - Acute upper respiratory infection, unspecified Status: Acute (2) Diabetes mellitus: Qualifiers: Diabetes mellitus type: type 2 Diabetes mellitus long-term insulin use: without long-term use Diabetes mellitus complication status: without complication Qualified Code(s): E11.9 - Type 2 diabetes mellitus without complications Code(s): E11.9 - Type 2 diabetes mellitus without complications Status: Acute (3) HLD (hyperlipidemia): Code(s): E78.5 - Hyperlipidemia, unspecified Status: Acute (4) Tobacco abuse: Code(s): Z72.0 - Tobacco use Status: Acute (5) Hypertension: Code(s): I10 - Essential (primary) hypertension Status: Acute (6) Post-menopause: Code(s): Z78.0 - Asymptomatic menopausal state Status: Acute (7) Sinus congestion: Code(s): R09.81 - Nasal congestion Status: Acute (8) Dysuria: Code(s): R30.0 - Dysuria Status: Acute (9) Lumbar spondylosis: Code(s): M47.816 - Spondylosis without myelopathy or radiculopathy, lumbar region Status: Acute (10) Hyperlipidemia: Code(s): E78.5 - Hyperlipidemia, unspecified Status: Acute (11) Coronary artery disease: Code(s): I25.10 - Atherosclerotic heart disease of [place] coronary artery without angina pectoris Status: Acute (12) Chronic obstructive pulmonary disease: Code(s): J44.9 - Chronic obstructive pulmonary disease, unspecified Status: Acute (13) Chronic kidney disease: Code(s): N18.9 - Chronic kidney disease, unspecified Status: Acute DS: Summary Hospital Course Reason for hospitalization: Patient admitted with cough and shortness of breath Hospital Course: H&P: HPI History of Present Illness Date/Time: 12/30/23? 17:00 Chief Complaint: Cough and shortness of breath. Narrative: This is a 73-year-old female smoker with chronic obstructive pulmonary disease, coronary artery disease with history of multiple stents, chronic kidney disease, hypertension, hyperlipidemia, type 2 diabetes mellitus, gastroesophageal reflux disease, and other comorbidities who presented to the emergency department from home for evaluation of cough and shortness of breath. The patient provides the following history. She reports multiple symptoms ongoing for last 5 days including cough, sinus congestion, shortness of breath with exertion, and mild chest tightness which thinks may be related to GERD (not tender to palpation, not similar to prior AR). She has been using her nebulizer treatments which are not providing much relief. She has significant swelling in her legs but denies calf pain, orthopnea, and paroxysmal nocturnal dyspnea. She denies fever, chills, sweats, nausea, vomiting, pleuritic pain, palp
[2024-01-02 21:11] LABS: Kappa\\Lambda Light Chains 2.06 (0.26-1.65)
[2024-01-03 15:42] LABS: Complement Total CH50 >60 U/mL (31-60)
[2024-01-05 18:10] LABS: ANA Pattern Nuclear, Speckled
== END 2024-01-02 16:09 | disposition home or self-care (01) | DRG 191 ==
LOC: ANHED 13:58 → ANHIMU 14:34 → ANH3MEDSUR 01-01 13:20
PROVIDERS: Internal Medicine Nephrology; Physician Assistant; Admitting Provider Internal Medicine; Emergency Provider Emergency Medicine; PCP Emergency Medicine; Visit Provider Family Medicine
DX: J44.1 Chronic obstructive pulmonary disease with (acute) exacerbation (principal); N17.9 Acute kidney failure, unspecified; Z68.42 Body mass index [BMI] 45.0-49.9, adult; E87.5 Hyperkalemia; J06.9 Acute upper respiratory infection, unspecified; R07.89 Other chest pain; E11.22 Type 2 diabetes mellitus with diabetic chronic kidney disease; I12.9 Hypertensive chronic kidney disease with stage 1 through stage 4 chronic kidney disease, or unspecified chronic kidney disease; N18.32 Chronic kidney disease, stage 3b; Z20.822 Contact with and (suspected) exposure to COVID-19; M47.816 Spondylosis without myelopathy or radiculopathy, lumbar region; K21.9 Gastro-esophageal reflux disease without esophagitis; E78.5 Hyperlipidemia, unspecified; I25.10 Atherosclerotic heart disease of native coronary artery without angina pectoris; M19.90 Unspecified osteoarthritis, unspecified site; G89.4 Chronic pain syndrome; D64.9 Anemia, unspecified; F17.210 Nicotine dependence, cigarettes, uncomplicated; Z95.5 Presence of coronary angioplasty implant and graft; Z90.49 Acquired absence of other specified parts of digestive tract; Z79.4 Long term (current) use of insulin; E66.01 Morbid (severe) obesity due to excess calories
CPT/HCPCS: 36415; 71045; 76770; 80048; 80053; 80069; 82533; 82550; 82570; 82607; 82728; 82746; 82948; 83540; 83550; 83735; 83880; 83883; 83970; 84156; 84300; 84443; 84484; 84540; 85025; 85027; 85652; 86038; 86039; 86160; 86162; 86334; 86335; 87637; 93005; 93970; 94640; 96360; 99285; A9270; C9113; J0612; J1650; J1815; J1940; J2060; J7120; J7512

== ENCOUNTER 2024-01-12 09:51 | Emergency (ER) | payer MEDICARE, SELFPAY ==
--- NOTE | ~2024-01-12 | XR_ITS ---
XR chest 1V portable 01/12/2024 10:24 Indication: Chest pain Procedure: AP portable chest Comparison: 12/30/2023 Findings: Heart size normal. Chronic bibasilar atelectasis. No focal air space disease, pulmonary yolande ma, pleural effusion or suspected pneumothorax. Spinal stimulator leads overlie the mid thoracic spin e. Impression: 1: No acute cardiopulmonary disease. Reviewed, dictated and finalized at location B. Impression: 1: No acute cardiopulmonary disease.
[2024-01-12 09:48] VITALS: BP 176/43; PULSE 69; RESP 17; TEMP 36.6; O2SAT 94
--- NOTE | 2024-01-12 10:00 | ECG_ITS ---
Measurements Intervals [place] Rate: 67 P: 62 IN: 185 QRS: 15 QRSD: 89 T: 75 QT: 367 QTc: 390 Interpretive Statements SINUS RHYTHM NONSPECIFIC ST-TWAVE ABNORMALITY- LAT/HIGH LAT LEADS BASELINE ARTIFACT- I, II, III, AVR, AVL, AVF, V1, V3 BORDERLINE ECG COMPARED TO ECG 12/30/2023 18:47:23 NO SIGNIFICANT CHANGES Electronically Signed On 01-12-2024 10:03:15 CDT by Misha Reyez D.O.
[2024-01-12 10:02] VITALS: PULSE 69; O2SAT 95
[2024-01-12 10:03] LABS: Glucose Point of Care 274 mg/dl (65-105)
[2024-01-12 10:08] LABS: Basophils Percent Auto 0.3 % (0.2-1.2); Eosinophils Absolute Auto 0.4 K/mm3 (0-0.3); Eosinophils Percent Auto 3.2 % (0-4.4); Hematocrit 34.4 % (37.0-47.0); Immature Granulocyte Absolute 0.07 K/mm3 (0.00-0.031); Immature Granulocyte Percent A 0.6 % (0-0.5); Lymphocytes Absolute Auto 3.08 K/mm3 (0.9-3.2); Lymphocytes Percent Auto 24.3 % (18.3-44.2); Mean Corpuscular HGB Conc 29.1 g/dl (32-36); Mean Corpuscular Hemoglobin 24.1 pg (26-34); Mean Corpuscular Volume 82.9 fl (80-100); Mean Platelet Volume 11.6 fl (7.4-10.4); Monocytes Percent Auto 7.6 % (2.6-8.5); Neutrophils Absolute Auto 8.1 K/mm3 (1.3-6.7); Platelet Count Result 242 k/mm3 (150-375); Red Blood Count 4.15 M/mm3 (4.2-5.4); Red Cell Distribution Width 19.5 % (11.5-14.5); White Blood Count 12.7 K/mm3 (4.5-10.0)
[2024-01-12 10:19] LABS: Alanine Aminotransferase 15 U/L (6-35); Albumin Level 3.8 g/dL (3.5-5.1); Alkaline Phosphatase 110 U/L (38-126); Anion Gap 7 mmol/L (8-16); Aspartate Amino Transferase 15 U/L (14-36); Bilirubin,Total 0.3 mg/dL (0.2-1.3); Blood Urea Nitrogen 49 mg/dL (7-17); Calcium 8.9 mg/dL (8.4-10.2); Carbon Dioxide 22 mmol/L (22-30); Chloride 108 mmol/L (98-107); Estimated CRCL calculation 33 ml/min; Estimated Glomerular Filt Rate 31; Glucose 258 mg/dL (65-110); Lipase 285 U/L (23-300); Potassium 5.1 mmol/L (3.4-5.0); Sodium 137 mmol/L (137-145)
[2024-01-12 10:25] LABS: Anisocytosis 1+; Platelet Estimate Adequate (Adequate); Schistocytes None Seen
[2024-01-12 10:30] LABS: Troponin I < 0.012 ng/mL (0.000-0.034)
[2024-01-12] MEDS: MAG HYDROX/AL HYDROX/SIMETH 30 ML UDC PO (10:46)
[2024-01-12] MEDS: FAMOTIDINE 20 MG/2 ML VIAL IV PUSH (10:47)
[2024-01-12 10:59] VITALS: PULSE 66; RESP 20; O2SAT 95
--- NOTE | 2024-01-12 11:05 | ED.CHESTPAIN ---
HPI - Chest Pain General Chief Complaint: Chest Pain Stated Complaint: CP & upper abd pain Time Seen by Provider: 01/12/24 10:20 History of Present Illness HPI narrative: Pt describes epigastric abdominal pain radiating through to back for two days constantly. Pt had this while in hospital recently and thinks it's GERD. Pt says they gave her pill and it got better. Pt denies SOB. Pain is not exertional. Pt has history of CAD. Related Data Home Medications Medication Instructions Recorded Confirmed rosuvastatin 20 mg tablet 20 mg PO DAILY 10/30/19 01/12/24 bumetanide 2 mg tablet 2 mg PO DAILY 11/24/23 01/12/24 carvedilol 12.5 mg tablet 12.5 mg PO DAILY 12/30/23 01/12/24 clonidine HCl 0.1 mg tablet 0.1 mg PO BID 12/30/23 01/12/24 fluticasone propionate 50 1 spray intranasal DAILY 12/30/23 01/12/24 mcg/actuation nasal spray,suspension isosorbide mononitrate 60 mg 90 mg PO DAILY 12/30/23 01/12/24 tablet,extended release 24 hr meloxicam 7.5 mg tablet 7.5 mg PO DAILY 12/30/23 01/12/24 metformin 1,000 mg tablet 1,000 mg PO BID 12/30/23 01/12/24 pantoprazole 40 mg tablet,delayed 40 mg PO DAILY 12/30/23 01/12/24 release Allergies Allergy/AdvReac Type Severity Reaction Status Date / Time morphine Allergy Unknown Itching Verified 01/12/24 10:04 Sulfa (Sulfonamide Allergy Unknown HIVES Verified 01/12/24 10:04 Antibiotics) Review of Systems Review of Systems: All systems reviewed & are unremarkable except as noted in HPI and below PMFSH Past Medical History Medical History Chronic kidney disease Chronic obstructive pulmonary disease Chronic pain syndrome Coronary artery disease Hyperlipidemia Hypertension Osteoarthritis Tobacco abuse Type 2 diabetes mellitus Surgical History Surgical History History of cardiac catheterization History of cholecystectomy History of coronary artery stent placement Stents to right coronary artery x3, left anterior descending, circumflex, 2nd marginal, and known occlusion of stent to 1st marginal branch History of tonsillectomy Status post insertion of spinal cord stimulator Family History Family History Mother Family history of malignant neoplasm Patient's mother is Ovarian cancer Father Family history of diabetes mellitus in first degree relative Patient's father is Coronary atherosclerosis of bypass graft Social History Social History Social History: Surrogate medical decision maker: Serina Campos, daughter. Code status: Full code. Smoking packs per day: 1 Smoking cigarettes per day: 20.0 Years smoked: 50 Smoking pack-years: 50.00 Smoking status: Current every day smoker Tobacco type: cigarettes Alcohol intake: never Substance use: never Do You Feel Safe in your Home?: Yes Lack of Transportation: No Lack of Food: Never True Current Housing: I Have Housing Concerned About Future Housing: No Difficulty Paying Gas/Electric Bills: No Difficulty Paying for Meds: No Currently Unemployed: No Education: High School Diploma/GED Difficulty w/ Childcare or Family Care: No Spiritual care concerns: No Exam Const: General: healthy appearing Nutritional Appearance: well nourished Orientation/consciousness: patient oriented x3 Limitations: no limitations Neck: Neck: normal visual inspection and no lymphadenopathy Resp: Effort & Inspection: normal respiratory effort Auscultation: clear to auscultation bilaterally Cardio: Rate: regular rate Rhythm: regular rhythm GI: GI Palp: Yes Soft to palpation Auscultation: normal bowel sounds Skin: General skin exam: normal color Rashes: no rashes Wounds: no wounds Neuro: General: patient oriented x3, moves all extremities, n
== END 2024-01-12 11:44 | disposition home or self-care (01) ==
PROVIDERS: Emergency Provider Emergency Medicine; PCP Emergency Medicine
DX: K21.9 Gastro-esophageal reflux disease without esophagitis (principal); E11.22 Type 2 diabetes mellitus with diabetic chronic kidney disease; I12.9 Hypertensive chronic kidney disease with stage 1 through stage 4 chronic kidney disease, or unspecified chronic kidney disease; N18.9 Chronic kidney disease, unspecified; I25.10 Atherosclerotic heart disease of native coronary artery without angina pectoris; J44.9 Chronic obstructive pulmonary disease, unspecified; M19.90 Unspecified osteoarthritis, unspecified site; Z95.5 Presence of coronary angioplasty implant and graft; Z96.82 Presence of neurostimulator; Z90.49 Acquired absence of other specified parts of digestive tract; Z79.84 Long term (current) use of oral hypoglycemic drugs; F17.210 Nicotine dependence, cigarettes, uncomplicated; R94.31 Abnormal electrocardiogram [ECG] [EKG]
CPT/HCPCS: 36415; 71045; 80053; 82948; 83690; 84484; 85025; 85610; 85730; 93005; 96374; 99284; A9270

== ENCOUNTER 2024-01-12 13:11 | Inpatient (IN) | payer MEDICARE, SELFPAY ==
[2024-01-12] VITALS (11 sets, daily range): BP systolic 143–188; BP diastolic 37–74; PULSE 63–73; RESP 12–22; TEMP 36.2–36.6; O2SAT 94–100
--- NOTE | ~2024-01-12 | XR_ITS ---
XR chest 2V 01/12/2024 14:28 Indication: Chest pain Procedure: 2 view chest Comparison: Comparison to multiple prior studies sequentially, with oldest reviewed study dated 12/2014. Findings: Borderline heart size. Mild interstitial edema. No significant effusion. No pneumothorax. S piyush leads are present. Impression: 1: Cardiomegaly with mild interstitial edema. Reviewed, dictated and finalized at location B. Impression: 1: Cardiomegaly with mild interstitial edema.
--- NOTE | ~2024-01-12 | CT_ITS ---
EXAMINATION: CT abdomen pelvis w con DATE: 01/12/2024 14:17 INDICATION: Epigastric pain TECHNIQUE: Computed tomography (CT) of the abdomen and pelvis was performed with 100 mL Omnipaque-350 intravenous contrast. Automated exposure control and iterative reconstruction technique were employe d. The dose-length product was 1363.87 mGy-cm. COMPARISON: 11/30/2013 FINDINGS: There are few small calcified nodules in the left lower lobe consistent with old granulomatous diseas e. Additional 3 mm noncalcified subpleural granuloma in the left lower lobe unchanged since thoracic spine CT dated 09/09/2012. Mild dependent atelectasis in the right lower lobe. Mild cardiomegaly. Ath erosclerotic coronary artery calcific lesion. No pericardial or pleural effusion. Cholecystectomy cli ps the gallbladder fossa. Liver, spleen, pancreas, bilateral adrenal glands are normal. Multiple smal l bilateral renal lesions which are of lower density than the surrounding kidney statistically most l ikely to represent renal cysts, many of which are too small to definitively characterized. There are however a couple larger lesions measuring 1.5 cm on the right and 1.2 cm on the left which demonstrat es greater than simple fluid attenuation which remain indeterminate for complex bony/hemorrhagic cyst versus solid neoplasm. There are few scattered clonic diverticula predominantly along the sigmoid co maria esther which are without adjacent inflammation presenting to suggest diverticular colitis. Small bowel a nd appendix are normal. Bladder, uterus and bilateral adnexa are unremarkable. No free intraperitonea l gas or fluid. No pathologically enlarged abdominal aorta lymphadenopathy. There is moderate 50-70% stenosis at the proximal superior mesenteric artery. Spinal stimulator power supply in the subcutaneo us tissues at the left flank with leads extending cephalad within the lower thoracic central canal ex tending to at least the cephalad margin of the field of imaging at T7. Severe disc height loss with v acuum phenomena at L4-L5. L5 is partially sacralized on the right. There are also bilateral hypoplast ic riblets at T12. IMPRESSION: 1. No acute intra-abdominal/pelvic process. 2. Cardiomegaly. 3. A couple indeterminate renal lesions measuring 1.5 cm on the right and 1.2 cm on the left most lik stella proteinaceous/hemorrhagic cysts although differential includes renal cell carcinoma. Recommend fu rther evaluation with pre and postcontrast MRI. 4. Scattered atherosclerotic calcification with 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 Reviewed, dictated and finalized at location A. IMPRESSION: 1. No acute intra-abdominal/pelvic process. 2. Cardiomegaly. 3. A couple indeterminate renal lesions measuring 1.5 cm on the right and 1.2 c m on the left most likely proteinaceous/hemorrhagic cysts although differential includes renal cell carcinoma. Recommend further evaluation with pre and postc ontrast MRI. 4. Scattered atherosclerotic calcification with moderate stenosis at the proxim al superior mesenteric artery.
--- NOTE | 2024-01-12 13:11 | ECG_ITS ---
Measurements Intervals [place] Rate: 73 P: 54 [place]: 189 QRS: 5 QRSD: 84 T: 85 QT: 361 QTc: 399 Interpretive Statements SINUS RHYTHM ST-T WAVE ABNORMALITY IN HIGH LATERAL LEADS- CONSIDER ISCHEMIA BASELINE ARTIFACT- I, III, AVR, AVL, AVF, V1-V3 ABNORMAL ECG COMPARED TO ECG 01/12/2024 09:58:10 ST-T WAVE ABNORMALITY NOW PRESENT Electronically Signed On 01-12-2024 13:22:06 CDT by Misha Reyez D.O.
--- NOTE | 2024-01-12 13:27 | ED.CHESTPAIN ---
HPI - Chest Pain General Chief Complaint: Chest Pain Stated Complaint: chest pain Time Seen by Provider: 01/12/24 13:23 History of Present Illness HPI narrative: Pt seen here this morning for same complaint by me. Pt had epigastric pain which resolved here with Mylanta and pepcid. Cardiac work up fine here. Pt says when she left the epigastric pain came back and is worse. Pt denies SOB. Related Data Home Medications Medication Instructions Recorded Confirmed rosuvastatin 20 mg tablet 20 mg PO DAILY 10/30/19 01/12/24 bumetanide 2 mg tablet 2 mg PO DAILY 11/24/23 01/12/24 carvedilol 12.5 mg tablet 12.5 mg PO DAILY 12/30/23 01/12/24 clonidine HCl 0.1 mg tablet 0.1 mg PO BID 12/30/23 01/12/24 fluticasone propionate 50 1 spray intranasal DAILY 12/30/23 01/12/24 mcg/actuation nasal spray,suspension isosorbide mononitrate 60 mg 90 mg PO DAILY 12/30/23 01/12/24 tablet,extended release 24 hr meloxicam 7.5 mg tablet 7.5 mg PO DAILY 12/30/23 01/12/24 metformin 1,000 mg tablet 1,000 mg PO BID 12/30/23 01/12/24 pantoprazole 40 mg tablet,delayed 40 mg PO DAILY 12/30/23 01/12/24 release Allergies Allergy/AdvReac Type Severity Reaction Status Date / Time morphine Allergy Unknown Itching Verified 01/12/24 10:04 Sulfa (Sulfonamide Allergy Unknown HIVES Verified 01/12/24 10:04 Antibiotics) Review of Systems Review of Systems: All systems reviewed & are unremarkable except as noted in HPI and below PMFSH Past Medical History Medical History Chronic kidney disease Chronic obstructive pulmonary disease Chronic pain syndrome Coronary artery disease Hyperlipidemia Hypertension Osteoarthritis Tobacco abuse Type 2 diabetes mellitus Surgical History Surgical History History of cardiac catheterization History of cholecystectomy History of coronary artery stent placement Stents to right coronary artery x3, left anterior descending, circumflex, 2nd marginal, and known occlusion of stent to 1st marginal branch History of tonsillectomy Status post insertion of spinal cord stimulator Family History Family History Mother Family history of malignant neoplasm Patient's mother is Ovarian cancer Father Family history of diabetes mellitus in first degree relative Patient's father is Coronary atherosclerosis of bypass graft Social History Social History Social History: Surrogate medical decision maker: Serina Campos, daughter. Code status: Full code. Smoking packs per day: 1 Smoking cigarettes per day: 20.0 Years smoked: 50 Smoking pack-years: 50.00 Smoking status: Current every day smoker Tobacco type: cigarettes Alcohol intake: never Substance use: never Do You Feel Safe in your Home?: Yes Lack of Transportation: No Lack of Food: Never True Current Housing: I Have Housing Concerned About Future Housing: No Difficulty Paying Gas/Electric Bills: No Difficulty Paying for Meds: No Currently Unemployed: No Education: High School Diploma/GED Difficulty w/ Childcare or Family Care: No Spiritual care concerns: No Exam Const: General: healthy appearing Nutritional Appearance: obese Orientation/consciousness: patient oriented x3 Limitations: no limitations Resp: Effort & Inspection: normal respiratory effort Auscultation: clear to auscultation bilaterally Cardio: Rate: regular rate Rhythm: regular rhythm GI: GI Palp: Yes Soft to palpation and Yes Tenderness to palpation present (GI) (epigastric) Skin: General skin exam: normal color Rashes: no rashes Neuro: General: patient oriented x3, moves all extremities, no meningeal signs, no focal motor deficits and CN's II-XI intact bilaterally Speech: normal speech Extrem:
[2024-01-12] MEDS: fentaNYL CITRATE INJ (*CRX) 100 MCG/2 ML VIAL 50 MCG IV PUSH (13:42)
[2024-01-12 13:49] LABS: Basophils Percent Auto 0.2 % (0.2-1.2); Eosinophils Absolute Auto 0.3 K/mm3 (0-0.3); Eosinophils Percent Auto 2.5 % (0-4.4); Hematocrit 34.1 % (37.0-47.0); Immature Granulocyte Absolute 0.09 K/mm3 (0.00-0.031); Immature Granulocyte Percent A 0.7 % (0-0.5); Lymphocytes Absolute Auto 3.34 K/mm3 (0.9-3.2); Lymphocytes Percent Auto 24.5 % (18.3-44.2); Mean Corpuscular HGB Conc 29.3 g/dl (32-36); Mean Corpuscular Volume 81.8 fl (80-100); Mean Platelet Volume 11.6 fl (7.4-10.4); Monocytes Absolute Auto 0.8 K/mm3 (0.1-0.6); Monocytes Percent Auto 6.1 % (2.6-8.5); Platelet Count Result 263 k/mm3 (150-375); Red Blood Count 4.17 M/mm3 (4.2-5.4); Red Cell Distribution Width 19.3 % (11.5-14.5); White Blood Count 13.6 K/mm3 (4.5-10.0)
[2024-01-12 13:58] LABS: Alanine Aminotransferase 15 U/L (6-35); Alkaline Phosphatase 121 U/L (38-126); Anion Gap 7 mmol/L (8-16); Aspartate Amino Transferase 16 U/L (14-36); Bilirubin,Total 0.3 mg/dL (0.2-1.3); Blood Urea Nitrogen 46 mg/dL (7-17); Calcium 9.1 mg/dL (8.4-10.2); Carbon Dioxide 22 mmol/L (22-30); Chloride 108 mmol/L (98-107); Estimated CRCL calculation 36 ml/min; Estimated Glomerular Filt Rate 34; Glucose 225 mg/dL (65-110); Lipase 254 U/L (23-300); Potassium 5.4 mmol/L (3.4-5.0); Sodium 137 mmol/L (137-145)
[2024-01-12 14:21] LABS: Troponin I 0.042 ng/mL (0.000-0.034)
--- NOTE | 2024-01-12 14:27 | ECG_ITS ---
Measurements Intervals [place] Rate: 67 P: 58 CO: 193 QRS: 12 QRSD: 90 T: 96 QT: 378 QTc: 402 Interpretive Statements SINUS RHYTHM ST-T WAVE ABNORMALITY IN HIGH LATERAL LEADS- CONSIDER ISCHEMIA BASELINE ARTIFACT- I, II, AVR, AVL, AVF ABNORMAL ECG COMPARED TO ECG 01/12/2024 13:16:54 NO SIGNIFICANT CHANGES Electronically Signed On 01-12-2024 14:38:33 CDT by Misha Reyez D.O.
[2024-01-12 14:28] LABS: INR 1.1; Prothrombin Time 14.2 Seconds (11.1-14.7)
[2024-01-12 14:29] LABS: Partial Thromboplastin Time 31.2 Seconds (22.3-36.8)
--- NOTE | 2024-01-12 14:30 | ECG_ITS ---
Measurements Intervals [place] Rate: 63 P: 56 [place]: 200 QRS: 8 QRSD: 85 T: 79 QT: 383 QTc: 392 Interpretive Statements SINUS RHYTHM ST-T WAVE ABNORMALITY IN HIGH LATERAL LEADS- CONSIDER ISCHEMIA BASELINE WANDER- II, III, AVL, AVF ABNORMAL ECG COMPARED TO ECG 01/12/2024 14:35:36 NO SIGNIFICANT CHANGES Electronically Signed On 01-12-2024 16:57:05 CDT by Misha Reyez D.O.
[2024-01-12] MEDS: HYDROmorphone HCL INJ (*CRX) 1 MG/ML SYR 0.5 MG IV PUSH (15:08)
[2024-01-12 15:13] LABS: Hypochromasia 1+; Platelet Estimate Adequate (Adequate); Schistocytes None Seen
[2024-01-12 15:14] LABS: Anisocytosis 2+
[2024-01-12] MEDS: NITROGLYCERIN SL 0.4 MG TABLET SUBLINGUAL (15:23)
[2024-01-12] MEDS: NITROGLYCERIN OINTMENT 1 INCH DOSE TRANSDERM (16:41)
[2024-01-12 17:13] LABS: Troponin I 0.092 ng/mL (0.000-0.034)
--- NOTE | 2024-01-12 17:29 | ADMGEN ---
This patient, Giovanna Hurtado, was admitted to IMU Room 200-01. Patient/family oriented to hospital policies and general routines including ID bracelet, bed and alarms, visiting hours, pain management, procedures, bathroom and other care routines, personal items, smoking policy, room service/diet, and visiting hours. Information on how to activate the Rapid Response Team has been discussed. Patient/Family are encouraged to report perceived risks to care and to ask questions if they do not understand what they are told or what they should do.
[2024-01-12 19:42] LABS: Troponin I 0.247 ng/mL (0.000-0.034)
[2024-01-12 20:23] LABS: Glucose Point of Care 281 mg/dl (65-105)
--- NOTE | 2024-01-12 21:48 | ECG_ITS ---
Measurements Intervals [place] Rate: 65 P: 68 CT: 211 QRS: 17 QRSD: 85 T: 80 QT: 394 QTc: 412 Interpretive Statements SINUS RHYTHM WITH FIRST DEGREE AV BLOCK NONSPECIFIC ST & T-WAVE ABNORMALITY- LAT/HIGH LAT LEADS BORDERLINE ECG COMPARED TO ECG 01/12/2024 16:19:21 FIRST DEGREE AV BLOCK NOW PRESENT Electronically Signed On 01-13-2024 6:22:07 CDT by Misha Reyez D.O.
[2024-01-12] MEDS: NITROGLYCERIN OINTMENT 1 INCH DOSE 0.5 INCH TRANSDERM (21:54)
[2024-01-12] MEDS: fentaNYL CITRATE INJ (*CRX) 100 MCG/2 ML VIAL 25 MCG IV PUSH (21:55)
--- NOTE | 2024-01-12 21:59 | PM.IMHP ---
H&P: HPI History of Present Illness Date/Time: 01/12/24 19:00 Chief Complaint: Chest/epigastric pain. Narrative: This is a very pleasant 73-year-old female smoker with chronic obstructive pulmonary disease, coronary artery disease with history of multiple stents, chronic kidney disease, hypertension, hyperlipidemia, type 2 diabetes mellitus, gastroesophageal reflux disease, and other comorbidities who presented to the emergency department from home for evaluation of chest pain. The patient provides the following history. She is known to myself and the hospitalist service from an admission about 2 weeks ago for COPD exacerbation and chest pain. Troponins were negative for acute coronary syndrome and she was evaluated by Cardiology who felt her chest discomfort was not cardiac related and was likely due to GERD. She has been doing okay since discharge however the last 2 days she has once again developed pain in the mid to low chest and it sometimes into the epigastric region. It is described as tight but occasionally burning in sensation. It does not radiate, is not exertional, and does not seem to be related to food. She has some mild shortness of breath when the pain is severe. She denies lightheadedness, dizziness, sweats, pleuritic pain, palpitations, sensations of racing heart, bloating, belching, nausea, and vomiting. She was seen emergency department this morning for these complaints and her symptoms improved with a GI cocktail. She was discharged home with plans for follow-up however after couple of hours her pain returned and was more severe and she came back to the ER. Her EKG looked similar to prior tracings but her troponin was mildly elevated and she was given aspirin 324 mg and nitro paste. She is being admitted in this setting for close monitoring and further workup. Review of Systems Review of Systems: Twelve systems were reviewed and are negative except for as per HPI. [facility] Past Medical History Medical History (Updated 01/12/24 @ 22:08 by Roseann Yoo PA-C) Atherosclerosis Scattered atherosclerotic calcification with 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 Chronic kidney disease Chronic obstructive pulmonary disease Chronic pain syndrome Coronary artery disease Hyperlipidemia Hypertension Osteoarthritis Tobacco abuse Type 2 diabetes mellitus Surgical History Surgical History History of cardiac catheterization History of cholecystectomy History of coronary artery stent placement Stents to right coronary artery x3, left anterior descending, circumflex, 2nd marginal, and known occlusion of stent to 1st marginal branch History of tonsillectomy Status post insertion of spinal cord stimulator Family History Family History Mother Family history of malignant neoplasm Patient's mother is Ovarian cancer Father Family history of diabetes mellitus in first degree relative Patient's father is Coronary atherosclerosis of bypass graft Social History Social History Social History: Surrogate medical decision maker: Serina Campos, daughter. Code status: Full code. Smoking packs per day: 1 Smoking cigarettes per day: 20.0 Years smoked: 50 Smoking pack-years: 50.00 Smoking status: Current every day smoker Tobacco type: cigarettes Alcohol intake: never Substance use: never Do You Feel Safe in your Home?: Yes Lack of Transportation: No Lack of Food: Never True Current Housing: I Have Housing Concerned About Future Housing: No Difficulty Paying Gas/Electric Bills: No Difficulty Paying for Meds: No Currently Unemployed: No Education: High School Diploma/GED Difficulty w/ Childcare or Family Care: No Spiritual care concerns: No Meds Bruce
[2024-01-12] MEDS: HEPARIN SODIUM 5,000 UNITS/ML VIAL 4000 UNITS IV PUSH (22:36)
[2024-01-12] MEDS: HEPARIN SOD/D5W 100 UNITS/ML 25,000 UNITS/250 ML BAG 9 UNITS IV CONT (22:37)
[2024-01-12 22:38] LABS: Glucose Point of Care 229 mg/dl (65-105)
[2024-01-12] MEDS: INSULIN ASPART (*BKC) 100 UNITS/ML SUB-Q (22:40)
[2024-01-12 22:45] LABS: Basophils Percent Auto 0.2 % (0.2-1.2); Eosinophils Absolute Auto 0.2 K/mm3 (0-0.3); Hematocrit 31.7 % (37.0-47.0); Hemoglobin 9.1 g/dL (12.0-15.0); Immature Granulocyte Absolute 0.08 K/mm3 (0.00-0.031); Immature Granulocyte Percent A 0.7 % (0-0.5); Lymphocytes Absolute Auto 3.66 K/mm3 (0.9-3.2); Lymphocytes Percent Auto 30.2 % (18.3-44.2); Mean Corpuscular HGB Conc 28.7 g/dl (32-36); Mean Corpuscular Hemoglobin 23.7 pg (26-34); Mean Corpuscular Volume 82.6 fl (80-100); Mean Platelet Volume 11.1 fl (7.4-10.4); Monocytes Percent Auto 8.5 % (2.6-8.5); Neutrophils Absolute Auto 7.1 K/mm3 (1.3-6.7); Neutrophils Percent Auto 58.4 % (45.5-73.1); Platelet Count Result 197 k/mm3 (150-375); Red Blood Count 3.84 M/mm3 (4.2-5.4); Red Cell Distribution Width 19.3 % (11.5-14.5); White Blood Count 12.1 K/mm3 (4.5-10.0)
[2024-01-12] MEDS: FAMOTIDINE 20 MG TABLET PO (22:53)
[2024-01-12 23:15] LABS: Troponin I 0.354 ng/mL (0.000-0.034)
[2024-01-12 23:25] LABS: Anisocytosis 1+; Platelet Estimate Adequate (Adequate)
[2024-01-12 23:26] LABS: Hypochromasia 1+; Ovalocytes 1+; Schistocytes None Seen
[2024-01-13] VITALS (33 sets, daily range): BP systolic 104–156; BP diastolic 31–111; PULSE 53–84; RESP 12–22; TEMP 36.1–36.5; O2SAT 91–100
--- NOTE | 2024-01-13 | ECHO_ITS ---
Patient Info Name: Giovanna Hurtado Age: 73 years : 1950 Gender: Female Ht: 63 in Wt: 262 lbs BSA: 2.37 m2 HR: 77 bpm BP: 153 / 48 mmHg Heart Rhythm: Sinus Rhythm Technical Quality: Fair Exam Date: 01/13/2024 9:14 AM Exam Location: Echo Lab Patient Status: Inpatient Admit Date: 01/13/2024 Staff Ordering Physician: Sophia Rangel APRN Priest: Katty Elizabeth RDCS Attending Provider: Jaime Kaur MD Referring Physician: Juan Carlos ROSE; Exam Type: CA echo dop color flow w con Study Info Indications R07.9 - Chest pain, unspecified I21.4 - Non-ST elevation (NSTEMI) myocardial infarction Complete two-dimensional, color flow and Doppler transthoracic echocardiogram is performed with contrast to opacify the left ventricle and to improve the deliniation of the left ventricle endocardial borders. Contrast/Agitated Saline Contrast/Ag. Saline: Definity Amount: 3.00 ml Existing IV Access: Yes Summary 1. Left ventricular chamber dimension is normal. 2. Left ventricular systolic function is normal, estimated at >70%. 3. There is mildly increased left ventricular wall thickness. 4. The left ventricular diastolic function is grade I diastolic dysfunction. 5. Right ventricular systolic function is normal. 6. There is mild tricuspid valve regurgitation. Left Ventricle Left ventricular chamber dimension is normal. Left ventricular systolic function is normal, estimated at >70%. There is mildly increased left ventricular wall thickness. The left ventricular diastolic function is grade I diastolic dysfunction. Right Ventricle Right ventricular chamber dimension is normal. Right ventricular systolic function is normal. Left Atria Left atrial chamber dimension is normal. Right Atria Right atrial chamber dimension is normal. Atrial Septum Intact interatrial septum visualized by color flow imaging. Aortic Valve The aortic valve is probable trileaflet. There is no aortic valve stenosis. There is no aortic valve regurgitation. There is mild aortic valve calcification. Pulmonic Valve The pulmonic valve is not well visualized. There is trace pulmonic regurgitation. Mitral Valve There is trace mitral valve regurgitation. The mitral valve annulus is moderately calcified. Tricuspid Valve There is mild tricuspid valve regurgitation. Pericardium/Pleural The pericardium appears epicardial fat pad. There is no pericardial effusion. Inferior Vena Cava Normal inferior vena cava with >50% collapse upon inspiration consistent with normal right atrial pressure, 3 mmHg. Aorta The aortic root size at the sinus of Valsalva is normal. Left Ventricular Outflow Tract Name Value Normal LVOT 2D LVOT Diameter 2.10 cm LVOT Doppler LVOT Peak Gradient 9 mmHg LVOT Mean Gradient 4 mmHg LVOT VTI 35.64 cm LVOT VTI/AV VTI Ratio 0.82 LVOT Stroke Volume 123.57 ml LVOT CO 6.73 l/min LVOT CI 2.84 L/min/m2 Pulmonic Valve
[2024-01-13 00:09] LABS: INR 1.1; Prothrombin Time 14.1 Seconds (11.1-14.7)
[2024-01-13 00:10] LABS: Partial Thromboplastin Time 32.1 Seconds (22.3-36.8)
[2024-01-13] MEDS: ACETAMINOPHEN 325 MG TABLET 650 MG PO (04:46)
[2024-01-13 04:55] LABS: Basophils Percent Auto 0.3 % (0.2-1.2); Eosinophils Absolute Auto 0.3 K/mm3 (0-0.3); Eosinophils Percent Auto 2.8 % (0-4.4); Hematocrit 31.5 % (37.0-47.0); Immature Granulocyte Absolute 0.06 K/mm3 (0.00-0.031); Immature Granulocyte Percent A 0.5 % (0-0.5); Lymphocytes Absolute Auto 3.39 K/mm3 (0.9-3.2); Lymphocytes Percent Auto 28.3 % (18.3-44.2); Mean Corpuscular HGB Conc 28.6 g/dl (32-36); Mean Corpuscular Hemoglobin 23.6 pg (26-34); Mean Corpuscular Volume 82.7 fl (80-100); Mean Platelet Volume 11.4 fl (7.4-10.4); Monocytes Absolute Auto 1.3 K/mm3 (0.1-0.6); Monocytes Percent Auto 10.6 % (2.6-8.5); Neutrophils Absolute Auto 6.9 K/mm3 (1.3-6.7); Neutrophils Percent Auto 57.5 % (45.5-73.1); Platelet Count Result 206 k/mm3 (150-375); Red Blood Count 3.81 M/mm3 (4.2-5.4); Red Cell Distribution Width 19.2 % (11.5-14.5)
[2024-01-13 05:06] LABS: Partial Thromboplastin Time 54.3 Seconds (22.3-36.8)
[2024-01-13 05:15] LABS: Anion Gap 4 mmol/L (8-16); Blood Urea Nitrogen 39 mg/dL (7-17); Calcium 8.5 mg/dL (8.4-10.2); Carbon Dioxide 24 mmol/L (22-30); Chloride 108 mmol/L (98-107); Estimated CRCL calculation 36 ml/min; Estimated Glomerular Filt Rate 34; Glucose 129 mg/dL (65-110); Magnesium 2.3 mg/dL (1.6-2.3); Potassium 5.1 mmol/L (3.4-5.0); Sodium 136 mmol/L (137-145)
[2024-01-13] MEDS: HEPARIN SODIUM 5,000 UNITS/ML VIAL 4000 UNITS IV PUSH (05:20)
[2024-01-13] MEDS: ISOSORBIDE MONONITRATE 30 MG TAB.ER.24H 90 MG PO (08:15)
[2024-01-13] MEDS: ROSUVASTATIN 10 MG TABLET 20 MG PO (08:16)
[2024-01-13] MEDS: carvediloL 12.5 MG TABLET PO (08:16)
[2024-01-13] MEDS: PANTOPRAZOLE 40 MG TABLET PO (08:16)
[2024-01-13] MEDS: cloNIDine HCL 0.1 MG TABLET PO ×2 (08:16→20:47)
[2024-01-13] MEDS: LOSARTAN POTASSIUM 100 MG TABLET PO (08:17)
[2024-01-13] MEDS: FAMOTIDINE 20 MG TABLET PO (08:17)
[2024-01-13 08:27] LABS: Glucose Point of Care 153 mg/dl (65-105)
[2024-01-13] MEDS: amLODIPine BESYLATE 5 MG TABLET 10 MG PO (08:41)
--- NOTE | 2024-01-13 08:47 | P.PNIM_ITS ---
Progress Note: A&P Assessment and Plan (1) Non-ST elevation myocardial infarction (NSTEMI): Code(s): I21.4 - Non-ST elevation (NSTEMI) myocardial infarction Status: Acute (2) Epigastric pain: Code(s): R10.13 - Epigastric pain Status: Acute (3) Atherosclerosis: Code(s): I70.90 - Unspecified atherosclerosis Status: Acute (4) Chronic kidney disease: Code(s): N18.9 - Chronic kidney disease, unspecified Status: Acute (5) Chronic obstructive pulmonary disease: Code(s): J44.9 - Chronic obstructive pulmonary disease, unspecified Status: Acute (6) Coronary artery disease: Code(s): I25.10 - Atherosclerotic heart disease of [place] coronary artery without angina pectoris Status: Acute (7) Hypertension: Code(s): I10 - Essential (primary) hypertension Status: Acute (8) Type 2 diabetes mellitus: Code(s): E11.9 - Type 2 diabetes mellitus without complications Status: Acute (9) Renal lesion: Code(s): N28.9 - Disorder of kidney and ureter, unspecified Status: Acute (10) Tobacco abuse: Code(s): Z72.0 - Tobacco use Status: Acute Plan Chest pain/NSTEMI * Intermittent chest pain * HX of stents * serial troponins x3 q.6 hours continue to trend up follow-up the same 0.042->0.092->0.247->0.354 * Heparin GTT per protocol * EKG without ischemic changes q.6 hours * cardiology consulted * NPO after midnight * Cardiac cath with successful PCI of the restenosis of the RCA * continuous cardiac monitoring * cardiac risk factors: CAD, HTN, COPD, DM, SMoker * smoking cessation * lifestyle modifications/heart healthy diet CAD * HX of stents * Monitor hemoglobin A1c * adjust or add statin * lipid panel * LDL goal less than 80. * Keep BMI less than 25. * Advised low-salt low carb diet. . * echocardiogram pending HTN * Mild hypertensive * resume home medications * BP per protocol Diabetes * Accu-Cheks a.c. HS * sliding scale insulin * hold oral diabetic medications * resume patient's home long-acting * Hemoglobin A1c goal less than 7 pending * lipid panel pending * Diabetic diet * consult to dietitian * encourage lifestyle modifications and weight loss * Optimize Michael inhibitors and statins. * Watch for hypoglycemia/hypoglycemic protocol ordered chronic renal failure * Stage III * 1.5 at baseline * nephrology consulted * Avoid nephrotoxic drugs. * Monitor antihypertensive drug therapy. * Avoid NSAIDs. * Routine CMP monitoring GFR. * Monitor electrolytes especially potassium. * Antibiotic doses depending on creatinine clearance. * Pharmacy does medications. COPD * Stable * Inhaler PRN * Smoking cessation counseling done * Follow-up with engineering illustrator as an outpatient Smoking * smoking cessation education * nicotine patch daily * remove at night * recommend prescription for nicotine patches at discharge Obesity * encourage increased on physical activity and lifestyle modifications * Stress monitoring and eating disorder evaluation. * encourage outpatient weight loss clinic * BMI . * Diet exercise counseling done. * consult to dietitian Code status: Full code per patient DVT prophylaxis: Heparin GTT Stress ulcer prophylaxis: Protonix 40 daily PT/OT notes: On hold Disposition: Patient admitted to the cardiac unit in the
--- NOTE | 2024-01-13 08:47 | PM.IMPN ---
Progress Note: A&P Assessment and Plan (1) Non-ST elevation myocardial infarction (NSTEMI): Code(s): I21.4 - Non-ST elevation (NSTEMI) myocardial infarction Status: Acute (2) Epigastric pain: Code(s): R10.13 - Epigastric pain Status: Acute (3) Atherosclerosis: Code(s): I70.90 - Unspecified atherosclerosis Status: Acute (4) Chronic kidney disease: Code(s): N18.9 - Chronic kidney disease, unspecified Status: Acute (5) Chronic obstructive pulmonary disease: Code(s): J44.9 - Chronic obstructive pulmonary disease, unspecified Status: Acute (6) Coronary artery disease: Code(s): I25.10 - Atherosclerotic heart disease of [place] coronary artery without angina pectoris Status: Acute (7) Hypertension: Code(s): I10 - Essential (primary) hypertension Status: Acute (8) Type 2 diabetes mellitus: Code(s): E11.9 - Type 2 diabetes mellitus without complications Status: Acute (9) Renal lesion: Code(s): N28.9 - Disorder of kidney and ureter, unspecified Status: Acute (10) Tobacco abuse: Code(s): Z72.0 - Tobacco use Status: Acute Plan Chest pain/NSTEMI Intermittent chest pain HX of stents serial troponins x3 q.6 hours continue to trend up follow-up the same 0.042->0.092->0.247->0.354 Heparin GTT per protocol EKG without ischemic changes q.6 hours cardiology consulted NPO after midnight Cardiac cath with successful PCI of the restenosis of the RCA continuous cardiac monitoring cardiac risk factors: CAD, HTN, COPD, DM, SMoker smoking cessation lifestyle modifications/heart healthy diet CAD HX of stents Monitor hemoglobin A1c adjust or add statin lipid panel LDL goal less than 80. Keep BMI less than 25. Advised low-salt low carb diet. . echocardiogram pending HTN Mild hypertensive resume home medications BP per protocol Diabetes Accu-Cheks a.c. HS sliding scale insulin hold oral diabetic medications resume patient's home long-acting Hemoglobin A1c goal less than 7 pending lipid panel pending Diabetic diet consult to dietitian encourage lifestyle modifications and weight loss Optimize Michael inhibitors and statins. Watch for hypoglycemia/hypoglycemic protocol ordered chronic renal failure Stage III 1.5 at baseline nephrology consulted Avoid nephrotoxic drugs. Monitor antihypertensive drug therapy. Avoid NSAIDs. Routine CMP monitoring GFR. Monitor electrolytes especially potassium. Antibiotic doses depending on creatinine clearance. Pharmacy does medications. COPD Stable Inhaler PRN Smoking cessation counseling done Follow-up with shovel loader operator as an outpatient Smoking smoking cessation education nicotine patch daily remove at night recommend prescription for nicotine patches at discharge Obesity encourage increased on physical activity and lifestyle modifications Stress monitoring and eating disorder evaluation. encourage outpatient weight loss clinic BMI . Diet exercise counseling done. consult to dietitian Code status: Full code per patient DVT prophylaxis: Heparin GTT Stress ulcer prophylaxis: Protonix 40 daily PT/OT notes: On hold Disposition: Patient admitted to the cardiac unit in the setting of NSTEMI, remains on a heparin drip, cardiology consult in if need for cardiac catheterization patient will need to be transferred out currently laboratory mechanical technician is non operational due to recall. Time Spent With Patient Time with patient: 15 - 25 minutes Subjective Date/time seen: 01/13/24 08:47 Interval history: Admission: Medical Record This is a very pleasant 73-year-old female smoker with chronic obstructive pulmonary disease, coronary artery disease with history of multiple stents, chronic kidney disease, hypertension, hyperlipidemia, type 2 diabetes mellitus,
[2024-01-13] MEDS: PERFLUTREN LIPID MICROSPHERES 1.5 ML VIAL DILUTED TO 10 ML TOTAL VOLUME IV PUSH (10:15)
--- NOTE | 2024-01-13 11:09 | PM.CNCAR ---
Assessment and Plan Assessment and plan (1) Acute non-ST elevation myocardial infarction (NSTEMI): Code(s): I21.4 - Non-ST elevation (NSTEMI) myocardial infarction Status: Acute Assessment and Plan: Troponin trend: 0.042 / 0.092 / 0.247 / 0.354 / 0.380 EKGs show sinus rhythm with nonspecific STTW abnormality, no changes compared to prior EKGs. Given NSTEMI, recommended cardiac catheterization. Discussed indication for the procedure, procedure details, risks vs benefits, alternative management options, etc. with the patient. Patient agreeable to proceed with [facility]. Will plan for [facility] today. ASA 81mg once daily. Continue Heparin drip. Continue Rosuvastatin 20mg once daily. Continue Imdur 90mg once daily. Continue Coreg 12.5mg BID. Further recommendations and plan pending results of LHC. (2) Coronary artery disease: Code(s): I25.10 - Atherosclerotic heart disease of [place] coronary artery without angina pectoris Status: Acute Assessment and Plan: S/p multiple interventions (proximal and distal RCA stents, occluded OM stent, mid LAD stent). As above. (3) HLD (hyperlipidemia): Code(s): E78.5 - Hyperlipidemia, unspecified Status: Acute Assessment and Plan: LDL 70 as of 12/20/2023. Continue Rosuvastatin 20mg once daily. 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 (5) Hypertension: Code(s): I10 - Essential (primary) hypertension Status: Acute Assessment and Plan: Blood pressures are elevated. Will need to optimize her antihypertensive regmien. (6) Tobacco abuse: Code(s): Z72.0 - Tobacco use Status: Acute Assessment and Plan: Counseled on smoking cessation. (7) Chronic kidney disease: Code(s): N18.9 - Chronic kidney disease, unspecified Status: Acute Assessment and Plan: Renal function is stable. History of Present Illness History of Present Illness Consult date/time: 01/13/24 11:09 Requesting physician: Roseann Yoo PA-C Consult reason: chest pain Reason For Visit: NSTEMI/CP Narrative: We are consulted for NSTEMI. This is a 73 year old female who is a patient of Dr. Garcia's (will be seeing me as a new patient once Dr. Garcia retires). Giovanna has known coronary artery disease s/p multiple interventions (proximal and distal RCA stents, occluded OM stent, mid LAD stent), hypertension, hyperlipidemia, type 2 diabetes mellitus, CKD stage 3, tobacco dependence, COPD, GERD, morbid obesity with BMI of 47. Patient was recently admitted to [facility] for COPD exacerbation. She had atypical chest pain at that time. Troponins were negative at that time. She had been doing well since hospital discharge on 01/01, however, patient reports severe pain that began on Friday and lasted for about 2 days. She is currently without any chest pain. Reports she had chest pain last night that occurred with laying down and improved with sitting up. She was initially seen in the ER yesterday morning, and her symptoms improved with a GI cocktail. She was discharged home with plans for outpatient follow up, however, she returned to the ER later yesterday for recurrence of chest pain. Her EKGs show sinus rhythm with nonspecific STTW abnormality, no changes compared to prior EKGs. However, her troponins are now positive. She was started on Heparin drip. Review of Systems Review of Systems: All systems reviewed & are unremarkable except as noted in HPI and below (HPI) [facility] Past Medical History Medical History (Reviewed 01/13/24 @ 11:14 by Wilfrido Fuentes
--- NOTE | 2024-01-13 11:11 | PC.NURSE ---
Pt to [employer] via bed. Heparin gtt paused for procedure
--- NOTE | 2024-01-13 11:22 | WPDMODSED ---
Moderate Sedation Note-Pt Data Patient Data Diagnosis: NSTEMI Present Complaint: NSTEMI Procedure to be performed/Plan: Coronary angiography, left heart cath, +/- PCI Allergies Allergy/AdvReac Type Severity Reaction Status Date / Time morphine Allergy Unknown Itching Verified 01/12/24 10:04 Sulfa (Sulfonamide Allergy Unknown HIVES Verified 01/12/24 10:04 Antibiotics) Home Medications Medication Instructions Recorded Confirmed Type rosuvastatin 20 mg tablet 20 mg PO DAILY 10/30/19 01/12/24 History insulin syringe-needle U-100 0.5 #200 ea 02/20/22 01/12/24 Rx mL 29 gauge x 1/2 (BD Insulin Syringe) losartan 100 mg tablet 100 mg PO DAILY #90 tabs 11/11/22 01/12/24 Rx loratadine 10 mg tablet (Claritin) 10 mg PO DAILY #90 tabs 03/24/23 01/12/24 Rx albuterol sulfate 2.5 mg/3 mL 2.5 mg (3 mL) inhalation Q4-6H PRN 10/14/23 01/12/24 Rx (0.083 %) solution for nebulization shortness of breath or wheezing #180 mL bumetanide 2 mg tablet 2 mg PO DAILY 11/24/23 01/12/24 History carvedilol 12.5 mg tablet 12.5 mg PO DAILY 12/30/23 01/12/24 History clonidine HCl 0.1 mg tablet 0.1 mg PO BID 12/30/23 01/12/24 History fluticasone propionate 50 1 spray intranasal DAILY 12/30/23 01/12/24 History mcg/actuation nasal spray,suspension isosorbide mononitrate 60 mg 90 mg PO DAILY 12/30/23 01/12/24 History tablet,extended release 24 hr meloxicam 7.5 mg tablet 7.5 mg PO DAILY 12/30/23 01/12/24 History metformin 1,000 mg tablet 1,000 mg PO BID 12/30/23 01/12/24 History pantoprazole 40 mg tablet,delayed 40 mg PO DAILY 12/30/23 01/12/24 History release amlodipine 5 mg tablet (Norvasc) 10 mg PO DAILY #30 tabs 01/02/24 01/12/24 Rx famotidine 20 mg tablet (Pepcid) 20 mg PO BID #30 tabs 01/12/24 01/12/24 Rx lansoprazole 30 mg capsule,delayed 30 mg PO DAILY #30 caps 01/12/24 01/12/24 Rx release (Prevacid) Current Medications: Active Medications Acetaminophen (Acetaminophen 325 Mg Tablet) 650 mg PO Q6H PRN PRN Reason: Mild Pain (1-3) or Fever Last Admin: 01/13/24 04:46 Dose: 650 mg Albuterol (Albuterol Sulfate Neb 2.5 Mg/3 Ml Inh) 2.5 mg INHALATION Q4-6H PRN PRN Reason: shortness of breath or wheezing Amlodipine Besylate (Amlodipine Besylate 5 Mg Tablet) 10 mg PO DAILY [facility] Last Admin: 01/13/24 08:41 Dose: 10 mg Aspirin (Aspirin 81 Mg Enteric Tablet) 81 mg PO QAM [facility] Bumetanide (Bumetanide 1 Mg Tablet) 2 mg PO DAILY [facility] Carvedilol (Carvedilol 12.5 Mg Tablet) 12.5 mg PO DAILY [facility] Last Admin: 01/13/24 08:16 Dose: 12.5 mg Clonidine HCl (Clonidine Hcl 0.1 Mg Tablet) 0.1 mg PO Q12HR [facility] Last Admin: 01/13/24 08:16 Dose: 0.1 mg Dextrose (Dextrose 50% 25 Gm/50 Ml Syringe) 12.5 gm IV PUSH PRN PRN; Protocol PRN Reason: Hypoglycemia Famotidine (Famotidine 20 Mg Tablet) 20 mg PO BID [facility] Last Admin: 01/13/24 08:17 Dose: 20 mg Fluticasone Propionate (Fluticasone Propionate 0.05% Na Spr 16 Gm Btl (*Bkc)) 1 spray NASAL DAILY [facility] Glucagon (Glucagon For Inj 1 Mg Vial) 1 mg IM PRN PRN; Protocol PRN Reason: Hypoglycemia Glucose (Glucose Oral Gel 15 Gm Of Glucse In 37.5 Gm Tube) 15 gm PO PRN PRN; Protocol PRN Reason: Hypoglycemia Heparin Sodium (Porcine) (Heparin Sodium 5,000 Units/Ml Vial) 4,000 units IV PUSH PRN PRN PRN Reason: aPTT less than 55 seconds Last Admin: 01/13/24 05:20 Dose: 4,000 units Heparin Sodium (Porcine) (Heparin Sodium 5,000 Units/Ml Vial) 3,000 units IV PUSH PRN PRN PRN Reason: aPTT 55 - 70 seconds Dextrose (Dextrose 5% 1,000 Ml) 1,000 mls @ 100 mls/hr IVPB PRN PRN; Protocol PRN Reason: Hypoglycemia Heparin Sodium/Dextrose (Heparin Sodium/D5w 100 Units/Ml) 25,000 units in 250 mls @ 0 mls/hr IV CONT .Q0M ADRIAN; Protocol Last Titration: 01/13/24 11:12 Dose: 0 units/hr, 0 mls/hr Insulin Aspart (Insulin Aspart (*Bkc) 100 Units/Ml) 3 - 6 units SUB-Q TIDWM ADRIAN; Protocol Last Admin: 01/13/24 08:12 Dose: Not Given Insulin Aspart (Insulin Aspart (*Bkc) 100 Units/Ml) 1 - 3
--- NOTE | 2024-01-13 11:25 | WPDCARDPROC ---
Cardiac Cath Procedure Note Date of procedure:: 01/13/24 Performing physician:: CATHETERIZATION LABORATORY REPORT Procedure Date: 01/13/2024 Environmental Coordinator: Wilfrido Hernandez M.D., [facility]? Referring Physician: Wilfrido Hernandez M.D. ? Anesthesia: Versed and Fentanyl were ordered and given in my presence at 11:37, procedure ended at 12:44. Supervision of nurse monitored moderate sedation with Versed and Fentanyl was provided for 67 minutes. Total of Versed 3mg and Fentanyl 150mcg were administered by the Special Procedure Technologist RN Carmen Lucas. Pre-op Diagnosis: NSTEMI Post-op Diagnosis: 1. Significant in-stent restenosis of the mid RCA s/p successful PCI with GLYNN x 1 (3.5mm x 35mm Orsiro GLYNN, proximal portion of the stent post-dilated to 4.0mm). 2. EQUITIES TRADER of OM 3. Patent mid LAD stent Procedure(s): 1. Moderate sedation. 2. Ultrasound-guided access of the right radial artery 3. Coronary angiography 4. PCI of the RCA with GLYNN x 1, with pre and post dilatation 5. IVUS of the RCA Access Site: Right radial artery Brief History and Clinical Indications: Patient is a 73 year old female with coronary artery disease s/p multiple interventions (proximal and distal RCA stents, occluded OM stent, mid LAD stent), hypertension, hyperlipidemia, type 2 diabetes mellitus, CKD stage 3, tobacco dependence, COPD, GERD, morbid obesity with BMI of 47. Patient is referred for [facility] for NSTEMI. All risks, benefits and alternatives to left heart catheterization with or without percutaneous coronary intervention was discussed at length with the patient. Risk of complications including but not limited to bleeding, infection, arrhythmia, stroke, worsening kidney function, blood loss, groin hematoma, limb loss, emergency coronary artery bypass grafting, and even were discussed with the patient and all questions were answered. The patient understood and wished to proceed. Time out called, patient name, date of , medical record number, allergies, procedure performed, identify Environmental Coordinator, patient and staff member concurred with accurate data, procedure carried on. Findings: LEFT HEART CATHETERIZATION FINDINGS: 1. Left main: The left main coronary artery is widely patent without any significant obstructive disease. 2. Left anterior descending: The LAD has a patent stent in the mid portion. Distal to the stent, there is a moderate stenosis of 50-60%. The diagonal branch has mild diffuse disease. 3. Ramus: The Ramus has moderate disease in its proximal portion, with mild diffuse disease in remainder of vessel. 4. Left circumflex: The left circumflex artery has mild diffuse disease. The OM is EQUITIES TRADER in its proximal portion. 5. Right coronary artery: The RCA is the dominant vessel. There is significant in-stent restenosis of the mid RCA of about 70-80%. There are [id number] collaterals to the distal RCA territory. Description of Procedure and PCI: Informed consent signed and placed in the chart. Patient transferred to cathodic protection technician room. Prepped and draped in usual sterile fashion. 2% lidocaine injected subcutaneously in right wrist area. 22-gauge venipuncture catheter used to access the right radial artery under ultrasound guidance. 6-FR slender sheath placed in right radial artery. Nitroglycerine and Verapamil were given intraarterial through the sheath. Versacore wire advanced under fluoroscopy 5F Tig 4 diagnostic catheter engaged Left Main Coronary Artery. 5F Tig 4 diagnostic catheter engaged Right Coronary Artery Multiple orthogonal angiogram obtained and reviewed. Angiomax was used for anticoagulation. 6F FR 4 guide catheter was used to intubate the RCA. 0.014 [place] coronary wire was passed in to the distal RCA. The lesion was pre-dilated with a 2.5 mm x 15 mm balloon inflated to high KAREN. IVUS catheter advanced distal to the lesion. IVUS showed that the mid-distal stent was slightly underexpanded, calcific disease in the mid RC noted. The lesion
--- NOTE | 2024-01-13 11:51 | IVDEFINITY ---
Prior to administration of IV Definity the patient was educated on the risks and benefits of the imaging enhancing agent including potential adverse side effects. The patient verbalized understanding. Allergies were verified. No exclusion criteria were identified and at least one of the following inclusion criteria were met: 1) physician request, 2) patient technically difficult to image (per the [place] [employer] guidelines of two or more segments not discernable within the apical view), or 3) questionable left ventricular function. ?
--- NOTE | 2024-01-13 17:27 | PC.NURSE ---
Pt returned from microbiological laboratory technician via bed. No issues noted
[2024-01-13] MEDS: SODIUM CHLORIDE 0.9% IV 1,000 ML 125 ML IV CONT (17:32)
[2024-01-13] MEDS: BUMETANIDE 1 MG TABLET 2 MG PO (17:33)
[2024-01-13] MEDS: INSULIN ASPART (*BKC) 100 UNITS/ML SUB-Q ×2 (17:33→20:48)
[2024-01-13 17:41] LABS: Glucose Point of Care 290 mg/dl (65-105)
[2024-01-13 20:32] LABS: Glucose Point of Care 258 mg/dl (65-105)
[2024-01-13] MEDS: TICAGRELOR 90 MG TABLET PO (20:47)
[2024-01-14] VITALS (8 sets, daily range): BP systolic 131–148; BP diastolic 42–63; PULSE 65–102; RESP 17–20; TEMP 36.4–36.8; O2SAT 93–97
[2024-01-14] MEDS: ACETAMINOPHEN 325 MG TABLET 650 MG PO (03:44)
[2024-01-14 04:59] LABS: Hematocrit 29.5 % (37.0-47.0); Hemoglobin 8.4 g/dL (12.0-15.0); Mean Corpuscular HGB Conc 28.5 g/dl (32-36); Mean Corpuscular Hemoglobin 23.3 pg (26-34); Mean Corpuscular Volume 81.9 fl (80-100); Mean Platelet Volume 11.6 fl (7.4-10.4); Platelet Count Result 233 k/mm3 (150-375); Red Cell Distribution Width 19.3 % (11.5-14.5); White Blood Count 13.6 K/mm3 (4.5-10.0)
[2024-01-14 05:13] LABS: Alanine Aminotransferase 14 U/L (6-35); Albumin Level 3.6 g/dL (3.5-5.1); Alkaline Phosphatase 100 U/L (38-126); Anion Gap 6 mmol/L (4-12); Aspartate Amino Transferase 16 U/L (14-36); Bilirubin,Total 0.3 mg/dL (0.2-1.3); Blood Urea Nitrogen 38 mg/dL (7-17); Calcium 8.3 mg/dL (8.4-10.2); Carbon Dioxide 22 mmol/L (22-30); Chloride 108 mmol/L (98-107); Estimated CRCL calculation 29 ml/min; Estimated Glomerular Filt Rate 26; Glucose 139 mg/dL (65-110); Potassium 5.1 mmol/L (3.4-5.0); Sodium 136 mmol/L (137-145)
[2024-01-14 07:40] LABS: Glucose Point of Care 199 mg/dl (65-105)
[2024-01-14] MEDS: LORATADINE 10 MG TABLET PO (08:13)
[2024-01-14] MEDS: ROSUVASTATIN 10 MG TABLET 20 MG PO (08:13)
[2024-01-14] MEDS: carvediloL 12.5 MG TABLET PO (08:13)
[2024-01-14] MEDS: FLUTICASONE PROPIONATE 0.05% NA SPR 16 GM BTL (*BKC) 1 SPRAY NASAL (08:13)
[2024-01-14] MEDS: ASPIRIN 81 MG ENTERIC TABLET PO (08:13)
[2024-01-14] MEDS: PANTOPRAZOLE 40 MG TABLET PO (08:14)
[2024-01-14] MEDS: LOSARTAN POTASSIUM 100 MG TABLET PO (08:14)
[2024-01-14] MEDS: amLODIPine BESYLATE 5 MG TABLET 10 MG PO (08:14)
[2024-01-14] MEDS: BUMETANIDE 1 MG TABLET 2 MG PO (08:14)
[2024-01-14] MEDS: TICAGRELOR 90 MG TABLET PO (08:15)
[2024-01-14] MEDS: FAMOTIDINE 20 MG TABLET PO (08:15)
[2024-01-14] MEDS: ISOSORBIDE MONONITRATE 60 MG TAB.ER.24H 120 MG PO (08:15)
[2024-01-14] MEDS: cloNIDine HCL 0.1 MG TABLET PO (08:15)
[2024-01-14 11:38] LABS: Glucose Point of Care 234 mg/dl (65-105)
--- NOTE | 2024-01-14 11:51 | PM.PNCARD ---
Progress Note: A&P Assessment and Plan (1) Acute non-ST elevation myocardial infarction (NSTEMI): Code(s): I21.4 - Non-ST elevation (NSTEMI) myocardial infarction Status: Acute Assessment and Plan: Troponin trend: 0.042 / 0.092 / 0.247 / 0.354 / 0.380 EKGs show sinus rhythm with nonspecific STTW abnormality, no changes compared to prior EKGs. Given NSTEMI, recommended cardiac catheterization, which showed: 1. Significant in-stent restenosis of the mid RCA s/p successful PCI with GLYNN x 1 (3.5mm x 35mm Orsiro GLYNN, proximal portion of the stent post-dilated to 4.0mm). 2. 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 Patent mid LAD stent Continue ASA 81mg once daily. Loaded with Brilinta 180mg x 1 prior to PCI, continue Brilinta 90mg BID. Will need to be on DAPT for at least 1 year. Continue Rosuvastatin 20mg once daily. Increased Imdur to 120mg once daily. Continue Coreg 12.5mg BID. Okay to discharge home from a cardiac standpoint. She will follow up with me in clinic. (2) Coronary artery disease: Code(s): I25.10 - Atherosclerotic heart disease of [place] coronary artery without angina pectoris Status: Acute Assessment and Plan: S/p multiple interventions (proximal and distal RCA stents, occluded OM stent, mid LAD stent). As above. (3) HLD (hyperlipidemia): Code(s): E78.5 - Hyperlipidemia, unspecified Status: Acute Assessment and Plan: LDL 70 as of 12/20/2023. Continue Rosuvastatin 20mg once daily. (4) Diabetes mellitus: Qualifiers: Diabetes mellitus type: type 2 Diabetes mellitus group home insulin use: without group home use Diabetes mellitus complication status: without complication Qualified Code(s): E11.9 - Type 2 diabetes mellitus without complications Code(s): E11.9 - Type 2 diabetes mellitus without complications Status: Acute Assessment and Plan: Management as per primary team. (5) Hypertension: Code(s): I10 - Essential (primary) hypertension Status: Acute Assessment and Plan: Continue current antihypertensive regimen. (6) Tobacco abuse: Code(s): Z72.0 - Tobacco use Status: Acute Assessment and Plan: Needs to stop smoking. Counseled on smoking cessation. (7) Chronic kidney disease: Code(s): N18.9 - Chronic kidney disease, unspecified Status: Acute Assessment and Plan: Renal function is stable. Subjective Date/time seen: 01/14/24 11:51 Interval history: Reason for visit: NSTEMI HPI: We are consulted for NSTEMI. This is a 73 year old female who is a patient of Dr. Garcia's (will be seeing me as a new patient once Dr. Garcia retires). Giovanna has known coronary artery disease s/p multiple interventions (proximal and distal RCA stents, occluded OM stent, mid LAD stent), hypertension, hyperlipidemia, type 2 diabetes mellitus, CKD stage 3, tobacco dependence, COPD, GERD, morbid obesity with BMI of 47. Patient was recently admitted to [facility] for COPD exacerbation. She had atypical chest pain at that time. Troponins were negative at that time. She had been doing well since hospital discharge on 01/01, however, patient reports severe pain that began on Friday and lasted for about 2 days. She is currently without any chest pain. Reports she had chest pain last night that occurred with laying down and improved with sitting up. She was initially seen in the ER yesterday morning, and her symptoms improved with a GI cocktail. She was discharged home with plans for outpatient follow up, however, she returned to the ER later yesterday for recurrence of chest pain. Her EKGs show sinus rhythm with nonspecific STTW abnormality, no changes compared to prior EKGs. However, her troponins are now positive. She was started on Heparin drip. Date of service 01/13: Feeling well this morning. Wants to go home. Review of Systems Review of Systems: All systems reviewed & are unremarkable except as noted in HPI and below
--- NOTE | 2024-01-14 12:11 | PM.DS ---
DS: Admitting Diagnosis Discharge Date 01/14/24 Admitting Diagnosis Chest pain DS: Discharge Diagnosis Discharge Diagnosis (1) Non-ST elevation myocardial infarction (NSTEMI): Code(s): I21.4 - Non-ST elevation (NSTEMI) myocardial infarction Status: Acute (2) Epigastric pain: Code(s): R10.13 - Epigastric pain Status: Acute (3) Atherosclerosis: Code(s): I70.90 - Unspecified atherosclerosis Status: Acute (4) Chronic kidney disease: Code(s): N18.9 - Chronic kidney disease, unspecified Status: Acute (5) Chronic obstructive pulmonary disease: Code(s): J44.9 - Chronic obstructive pulmonary disease, unspecified Status: Acute (6) Coronary artery disease: Code(s): I25.10 - Atherosclerotic heart disease of [place] coronary artery without angina pectoris Status: Acute (7) Hypertension: Code(s): I10 - Essential (primary) hypertension Status: Acute (8) Type 2 diabetes mellitus: Code(s): E11.9 - Type 2 diabetes mellitus without complications Status: Acute (9) Renal lesion: Code(s): N28.9 - Disorder of kidney and ureter, unspecified Status: Acute (10) Tobacco abuse: Code(s): Z72.0 - Tobacco use Status: Acute DS: Summary Hospital Course Hospital Course: This is a 73-year-old female with a past medical history of tobacco dependence, COPD, CAD, multiple cardiac stents, CKD, hypertension, hyperlipidemia, type 2 diabetes, GERD that presented to the ED on 01/12/2024 for evaluation of chest pain. Patient recently admitted the hospital for COPD exacerbation and chest pain. Troponins were negative for acute coronary syndrome and she was evaluated by Cardiology who felt her chest discomfort was not cardiac related and was likely due to GERD. She has been doing okay since discharge however the 2 days prior to presentation she once again developed pain in the mid to low chest and it sometimes into the epigastric region. It is described as tight but occasionally burning in sensation. It does not radiate, is not exertional, and does not seem to be related to food. She has some mild shortness of breath when the pain is severe. She denies lightheadedness, dizziness, sweats, pleuritic pain, palpitations, sensations of racing heart, bloating, belching, nausea, and vomiting. She was seen emergency department this morning for these complaints and her symptoms improved with a GI cocktail. She was discharged home with plans for follow-up however after couple of hours her pain returned and was more severe and she came back to the ER. Her EKG looked similar to prior tracings but her troponin was mildly elevated and she was given aspirin 324 mg and nitro paste. Due to elevated troponins patient was started on a heparin drip. Cardiology was consulted and patient underwent restenoses of the RCA with a successful PCI. Patient was then transitioned off of heparin drip and put back on aspirin. Brilinta ordered for the patient per per Cardiology request. Patient did well post procedure. Cardiology cleared patient for discharge. Her labs above signs are stable she is negative for discharge at this time. Time Spent with Patient Time attestation: Total time spent providing and/or coordinating discharge services: Exam Narrative: GENERAL: Comfortable, no acute distress, obesity HENMT: moist mucous membranes EYES: EOM intact b/l NECK: no lymphadenopathy RESPIRATORY: clear to auscultation, no increased respiratory effort CARDIO: Regular rate and rhythm GI: soft, nontender, bowel sounds present SKIN/EXTREMITIES: no rashes, no edema, no redness or tenderness NEURO: PROM intact, answers questions appropriately, A&O x4 DS: Data Data Completed and Pending Labs on day of discharge: Labs from last 24 hours 01/14/24 01/14/24 01/14/24 11:16 07:23 03:44 WBC 13.6 H RBC 3.60 L Hgb 8.4 L Hct 29.5 L MCV 81.9 MCH 23.3 L MCH
[2024-01-14] MEDS: INSULIN ASPART (*BKC) 100 UNITS/ML SUB-Q (12:24)
--- NOTE | 2024-01-14 14:20 | WPDGICN ---
Assessment and Plan Assessment and plan (1) Epigastric pain: Code(s): R10.13 - Epigastric pain Status: Acute Assessment and Plan: this was cardiac in nature most likely treated with a new stent no EGD since she had recent cardiac cath after NSTEMI she is tolerating diet, denies dysphagia if more gerd symptom then she can follow-up in office (2) Acute non-ST elevation myocardial infarction (NSTEMI): Code(s): I21.4 - Non-ST elevation (NSTEMI) myocardial infarction Status: Acute Assessment and Plan: treated with cardiac cath and stent placement (3) Gastroesophageal reflux disease: Code(s): K21.9 - Gastro-esophageal reflux disease without esophagitis Status: Inactive (4) Diabetes mellitus: Qualifiers: Diabetes mellitus type: type 2 Diabetes mellitus alf insulin use: without alf use Diabetes mellitus complication status: without complication Qualified Code(s): E11.9 - Type 2 diabetes mellitus without complications Code(s): E11.9 - Type 2 diabetes mellitus without complications Status: Acute (5) Chronic obstructive pulmonary disease: Code(s): J44.9 - Chronic obstructive pulmonary disease, unspecified Status: Acute GI Consult Note Consult date/time: 01/14/24 14:20 Reason for consult: gerd, chest pain HPI: Giovanna Hurtado is a 73 year old female with?known coronary artery disease s/p multiple interventions (proximal and distal RCA stents, occluded OM stent, mid LAD stent), hypertension, hyperlipidemia, type 2 diabetes mellitus, CKD stage 3, tobacco dependence, COPD, GERD, morbid obesity with BMI of 47. She had recent hospitalization for COPD and chest pain, this time she is back after more severe epigastric/chest pain, also had positive troponin, started on heparin gtt and cardiology evaluated patient. She underwent cardiac cath and had significant in-stent restenosis of the mid RCA s/p successful PCI with GLYNN x 1 (3.5mm x 35mm Orsiro GLYNN, proximal portion of the stent post-dilated to 4.0mm). She is feeling better now. No recent EGD. Review of Systems Constitutional: Constitutional: Denies chills Eyes: Eyes: Denies blurry vision ENT: Reports Normal hearing present Cardiovascular: Cardiovascular: Reports chest pain Respiratory: Respiratory: Reports dyspnea on exertion Gastrointestinal: Gastrointestinal: Reports abdominal pain Genitourinary: Genitourinary: Denies hematuria Musculoskeletal: Musculoskeletal: Denies neck pain Integumentary/Breasts: Skin/Breast: Denies rash Neurologic: Denies Abnormal speech present Psychiatric: Psychiatric: Denies behavioral changes [facility] Past Medical History Medical History Atherosclerosis Scattered atherosclerotic calcification with 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 Chronic kidney disease Chronic obstructive pulmonary disease Chronic pain syndrome Coronary artery disease Hyperlipidemia Hypertension Osteoarthritis Tobacco abuse Type 2 diabetes mellitus Surgical History Surgical History History of cardiac catheterization History of cholecystectomy History of coronary artery stent placement Stents to right coronary artery x3, left anterior descending, circumflex, 2nd marginal, and known occlusion of stent to 1st marginal branch History of tonsillectomy Status post insertion of spinal cord stimulator Family History Family History Mother Family history of malignant neoplasm Patient's mother is Ovarian cancer Father Family history of diabetes mellitus in first degree relative Patient's father is Coronary atherosclerosis of bypass graft Social History Social History Social History: Surrogate medica
== END 2024-01-14 13:32 | disposition home or self-care (01) | DRG 321 ==
LOC: ANHED 14:59 → ANHIMU 16:48
PROVIDERS: Emergency Medicine; Internal Medicine; Nurse Practitioner Family; Physician Assistant; Admitting Provider Internal Medicine; Emergency Provider Emergency Medicine; PCP Emergency Medicine; Visit Provider Family Medicine
PROC: 027034Z Dilation of Coronary Artery, One Artery with Drug-eluting Intraluminal Device, Percutaneous Approach (ICD-10-PCS; CPT 93454; principal; 2024-01-13 11:00)
PROC: 027034Z Dilation of Coronary Artery, One Artery with Drug-eluting Intraluminal Device, Percutaneous Approach (ICD-10-PCS; 2024-01-13 11:00)
PROC: 027034Z Dilation of Coronary Artery, One Artery with Drug-eluting Intraluminal Device, Percutaneous Approach (ICD-10-PCS; 2024-01-13 11:00)
DX: T82.855A Stenosis of coronary artery stent, initial encounter (principal); I21.4 Non-ST elevation (NSTEMI) myocardial infarction; Z68.42 Body mass index [BMI] 45.0-49.9, adult; I70.90 Unspecified atherosclerosis; J44.9 Chronic obstructive pulmonary disease, unspecified; I12.9 Hypertensive chronic kidney disease with stage 1 through stage 4 chronic kidney disease, or unspecified chronic kidney disease; E11.22 Type 2 diabetes mellitus with diabetic chronic kidney disease; N18.30 Chronic kidney disease, stage 3 unspecified; I25.10 Atherosclerotic heart disease of native coronary artery without angina pectoris; N28.9 Disorder of kidney and ureter, unspecified; K21.9 Gastro-esophageal reflux disease without esophagitis; E66.01 Morbid (severe) obesity due to excess calories; E78.5 Hyperlipidemia, unspecified; F17.210 Nicotine dependence, cigarettes, uncomplicated; Z95.5 Presence of coronary angioplasty implant and graft; Z79.4 Long term (current) use of insulin
CPT/HCPCS: 36415; 71045; 71046; 74177; 80048; 80053; 82948; 83690; 83735; 84484; 85025; 85027; 85610; 85730; 92978; 93005; 93454; 96365; 96366; 96374; 96375; 96376; 99284; 99285; A9270; C1725; C1753; C1769; C1887; C1894; C8929; C9600; G0378; J0461; J0583; J1170; J1644; J1815; J2250; J2305; J2405; J3010; J7030; J7040; Q9957; Q9967

== ENCOUNTER 2024-01-18 13:13 | Inpatient (IN) | payer MEDICARE, SELFPAY ==
[2024-01-18] VITALS (63 sets, daily range): BP systolic 69–174; BP diastolic 44–116; PULSE 55–122; RESP 15–32; TEMP 36.6–37.3; O2SAT 88–100
--- NOTE | ~2024-01-18 | XR_ITS ---
XR chest 1V portable DATE: 01/18/2024 13:33 INDICATION: Shortness of breath. Weakness. TECHNIQUE: Portable upright AP chest on 01/18/2024 at 1332 hours COMPARISON: 01/12/2024 AP and lateral chest FINDINGS: This is a limited rotated single portable AP view of the chest. Normal transmitted leads overlie the lower thoracic spinal canal. Cardiomegaly. Aortic calcification and unfolding. There is pulmonary vascular redistribution consistent with pulmonary venous hypertension. There is mi ld infiltrate or atelectasis in the lower lung zones. Small pleural effusions are suggested. No pneum othorax. IMPRESSION: Cardiomegaly, mild congestive heart failure, appearing slightly increased since 01/12/2024 Mild bilateral lower lung infiltrate and/or atelectasis Reviewed, dictated and finalized at location A. IMPRESSION: Cardiomegaly, mild congestive heart failure, appearing slightly inc reased since 01/12/2024 Mild bilateral lower lung infiltrate and/or atelectasis
--- NOTE | ~2024-01-18 | XR_ITS ---
XR chest 1V portable 01/20/2024 08:54 Indication: Dyspnea Procedure: AP portable chest Comparison: 01/19/2024 Findings: Heart size normal. Left basilar atelectasis. No focal pneumonia, edema or pneumothorax. No acute osseous abnormality. Impression: 1: Left basilar atelectasis. Reviewed, dictated and finalized at location B. Impression: 1: Left basilar atelectasis.
--- NOTE | ~2024-01-18 | CT_ITS ---
EXAMINATION: CT brain wo con DATE: 01/18/2024 14:58 INDICATION: Numbness of the lower extremity. Left-sided weakness. TECHNIQUE: Computed tomography (CT) of the head was performed without intravenous contrast. The mA wa s adjusted according to patient size. Iterative reconstruction technique was employed. The dose-lengt h product was 681.00 mGy-cm. COMPARISON: Head CT 09/15/2006 FINDINGS: There are scattered areas of low attenuation in the cerebral white matter. There is no intr acranial hemorrhage, acute infarction, or abnormal intracranial mass lesion. The ventricles are kylee l in size. There is mild mucosal thickening in the ethmoid sinuses. The mastoid air cells are normal. The orbits are normal. IMPRESSION: 1. Moderate nonspecific cerebral white matter disease, which likely represents chronic small vessel i schemic disease. Reviewed, dictated and finalized at location E. IMPRESSION: 1. Moderate nonspecific cerebral white matter disease, which likely represents chronic small vessel ischemic disease.
--- NOTE | ~2024-01-18 | XR_ITS ---
EXAMINATION: XR chest 1V portable DATE: 01/19/2024 08:31 INDICATION: Pulmonary edema. TECHNIQUE: A single frontal view of the chest was obtained. COMPARISON: Chest single view 01/18/2024, chest CT 01/18/2024 FINDINGS: There is mild atelectasis at the lung bases. No pleural effusion or pneumothorax. Cardiomeg marcy is noted. Epidural electrodes overlie the spine. IMPRESSION: 1. Mild atelectasis at the lung bases. 2. Cardiomegaly. Reviewed, dictated and finalized at location A.
--- NOTE | ~2024-01-18 | US_ITS ---
EXAMINATION: US renal BI DATE: 01/21/2024 17:06 INDICATION: Acute renal insufficiency TECHNIQUE: Multiple ultrasound grayscale images of the kidneys were obtained. COMPARISON: 01/12/2024 FINDINGS: The right kidney measures 11.7 x 5.3 x 4.5 cm. The left kidney measures 11.9 x 6.3 x 5.5 cm. The kidn eys demonstrate normal echogenicity. There is no hydronephrosis in either kidney. No stones identifi ed. The bladder is nonvisualized and likely decompressed with a Brown catheter reportedly in place. IMPRESSION: 1. Normal kidneys without hydronephrosis. Reviewed, dictated and finalized at location A.
--- NOTE | ~2024-01-18 | CT_ITS ---
EXAMINATION:CT diagnostic chest wo con DATE: 01/18/2024 15:13 INDICATION: Shortness of breath. TECHNIQUE: Computed tomography (CT) of the chest was performed without intravenous contrast. Automate d exposure control and iterative reconstruction technique were employed. The dose-length product (DLP ) was 968.64 mGy-cm. COMPARISON: CT abdomen and pelvis 01/12/2024, chest CT 08/23/2011 FINDINGS: There is mild emphysema. There is mild atelectasis bilaterally. There are a few scattered n odules in the lungs measuring up to 5 mm, likely benign. There is mild bronchiectasis in the inferior lungs. Calcified left lung nodules and calcified left hilar lymph nodes are consistent with old gran ulomatous disease. No pleural effusion. Cardiomegaly is noted. There are coronary artery calcificatio ns. No pericardial effusion. There is a 12 mm cyst in left kidney. There are changes of cholecystecto my. There are persistent bilateral contrast nephrograms, consistent with decreased kidney function. T here is mild thoracic spondylosis. Epidural electrodes are noted. IMPRESSION: 1. Mild emphysema. 2. Mild bronchiectasis in the inferior lungs. Reviewed, dictated and finalized at location E.
--- NOTE | 2024-01-18 13:19 | ED.SOB ---
HPI - SOB/Dyspnea General Chief Complaint: Shortness of Breath/Dyspnea Stated Complaint: SOB Time Seen by Provider: 01/18/24 13:58 History of Present Illness HPI Narrative: 73 YEARS OLD WHITE FEMALE LIVES ALONE, CALL 911 TODAY BECAUSE OF SHORTNESS OF BREATH STARTED THIS MORNING. PATIENT REPORTS COUGHING AND CHILLS FOR THE LAST 4 DAYS. NOT ON OXYGEN. SHE RECEIVED DUONEB AND SOLU-MEDROL 125 MG IV BY AMBULANCE PRIOR TO ARRIVAL. PATIENT IS STATUS POST CORONARY STENT PLACEMENT 1 WEEK AGO HISTORY OF N STEMI 1 WEEK AGO, ATHEROSCLEROSIS, CHRONIC KIDNEY DISEASE, COPD, CORONARY ARTERY DISEASE, HYPERTENSION, TYPE 2 DIABETES, TOBACCO ABUSE, Related Data Home Medications Medication Instructions Recorded Confirmed rosuvastatin 20 mg tablet 20 mg PO DAILY 10/30/19 01/12/24 bumetanide 2 mg tablet 2 mg PO DAILY 11/24/23 01/12/24 carvedilol 12.5 mg tablet 12.5 mg PO DAILY 12/30/23 01/12/24 clonidine HCl 0.1 mg tablet 0.1 mg PO BID 12/30/23 01/12/24 fluticasone propionate 50 1 spray intranasal DAILY 12/30/23 01/12/24 mcg/actuation nasal spray,suspension meloxicam 7.5 mg tablet 7.5 mg PO DAILY 12/30/23 01/12/24 metformin 1,000 mg tablet 1,000 mg PO BID 12/30/23 01/12/24 pantoprazole 40 mg tablet,delayed 40 mg PO DAILY 12/30/23 01/12/24 release Allergies Allergy/AdvReac Type Severity Reaction Status Date / Time morphine Allergy Unknown Itching Verified 01/18/24 13:26 Sulfa (Sulfonamide Allergy Unknown HIVES Verified 01/18/24 13:26 Antibiotics) Review of Systems Review of Systems: All systems reviewed & are unremarkable except as noted in HPI and below PMFSH Past Medical History Medical History Atherosclerosis Scattered atherosclerotic calcification with 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 Chronic kidney disease Chronic obstructive pulmonary disease Chronic pain syndrome Coronary artery disease Hyperlipidemia Hypertension Osteoarthritis Tobacco abuse Type 2 diabetes mellitus Surgical History Surgical History History of cardiac catheterization History of cholecystectomy History of coronary artery stent placement Stents to right coronary artery x3, left anterior descending, circumflex, 2nd marginal, and known occlusion of stent to 1st marginal branch History of tonsillectomy Status post insertion of spinal cord stimulator Family History Family History Mother Family history of malignant neoplasm Patient's mother is Ovarian cancer Father Family history of diabetes mellitus in first degree relative Patient's father is Coronary atherosclerosis of bypass graft Social History Social History Social History: Surrogate medical decision maker: Serina Campos, daughter. Code status: Full code. Smoking packs per day: 1 Smoking cigarettes per day: 20.0 Years smoked: 50 Smoking pack-years: 50.00 Smoking status: Current every day smoker Tobacco type: cigarettes Alcohol intake: never Substance use: never Do You Feel Safe in your Home?: Yes Lack of Transportation: No Lack of Food: Never True Current Housing: I Have Housing Concerned About Future Housing: No Difficulty Paying Gas/Electric Bills: No Difficulty Paying for Meds: No Currently Unemployed: No Education: Grade School Difficulty w/ Childcare or Family Care: No Spiritual care concerns: No Exam Narrative: GENERAL APPEARANCE: WELL-DEVELOPED, WELL-NOURISHED WITH SLIGHT LABORED BREATHING SKIN: NORMAL COLOR HEAD: NORMOCEPHALIC, NONTRAUMATIC EYES: CLEAR CONJUNCTIVA ENT: OROPHARYNX NORMAL, EARS NORMAL, NOSE NORMAL NECK: SUPPLE, NONTENDER CHEST AND RESPIRATORY: GENERALIZE FIND WHEEZING BILATERALLY, INTERMITTENT PRODUCTIVE COUGH HEART: REGULAR RAT
--- NOTE | 2024-01-18 13:25 | ECG_ITS ---
Measurements Intervals [place] Rate: 53 P: ND: 0 QRS: -45 QRSD: 112 T: 77 QT: 437 QTc: 411 Interpretive Statements SINUS BRADYCARDIA WITH MARKED FIRST DEGREE AV BLOCK LOW QRS VOLTAGE IN PRECORDIAL LEADS LEFT ANTERIOR FASCICULAR BLOCK BORDERLINE ST-T WAVE ABNORMALITY- HIGH LATERAL LEADS BASELINE ARTIFACT- I, III, AVR, AVL, AVF ABNORMAL ECG COMPARED TO ECG 01/12/2024 22:03:19 SINUS BRADYCARDIA NOW PRESENT LEFT ANTERIOR FASCICULAR BLOCK NOW PRESENT Electronically Signed On 01-18-2024 19:49:51 CDT by Misha Reyez D.O.
[2024-01-18] MEDS: IPRATROPIUM 0.5 MG/ALBUTEROL SULFATE 2.5 MG AMPUL.NEB 3 ML INHALATION ×4 (13:41→21:18)
[2024-01-18] MEDS: MORPHINE SULFATE (*CRX) 2 MG/ML INJ IV PUSH (14:05)
[2024-01-18] MEDS: ONDANSETRON INJ 4 MG/2 ML VIAL IV PUSH ×2 (14:05→19:57)
[2024-01-18 14:15] LABS: Alveolar/Arterial O2 Gradient 100.7 mmHg; Base Excess ABG -12.1 mEq/l (+/-2.0); Fractional Inspired Oxygen 30 %; HCO3 ABG 13.6 mEq/l (22.0-26.0); Oxygen Content ABG 12.5 %vol (16.0-22.0); Oxygen Saturation ABG 94.2 % (95.0-100.0); Oxyhemoglobin 91.6 % THb (90.0-100.0); Total Hemoglobin 9.6 g/dL (12.0-18.0)
--- NOTE | 2024-01-18 14:16 | ECG_ITS ---
Measurements Intervals [place] Rate: 56 P: NE: 0 QRS: -46 QRSD: 97 T: 81 QT: 413 QTc: 401 Interpretive Statements SINUS BRADYCARDIA WITH FIRST DEGREE AV BLOCK LOW QRS VOLTAGE IN PRECORDIAL LEADS LEFT ANTERIOR FASCICULAR BLOCK BORDERLINE ST-T WAVE ABNORMALITY- HIGH LATERAL LEADS BASELINE ARTIFACT- I, III, AVL ABNORMAL ECG COMPARED TO ECG 01/18/2024 13:27:56 SINUS BRADYCARDIA NOW PRESENT LEFT ANTERIOR FASCICULAR BLOCK NOW PRESENT Electronically Signed On 01-18-2024 19:58:51 CDT by Misha Reyez D.O.
[2024-01-18 14:18] LABS: Device NON-INVASIVE VENT; Modified Allen's Test Pass; Site Drawn LEFT RADIAL; pH ABG 7.273 (7.350-7.450)
[2024-01-18 14:19] LABS: Non-Invasive Expiratory Pressure 6 CMH2O; Non-Invasive Inspiratory Pressure 12 CMH2O; Non-Invasive Vent Rate 14 /MIN
[2024-01-18 14:24] LABS: Basophils Percent Auto 0.3 % (0.2-1.2); Eosinophils Percent Auto 0.3 % (0-4.4); Hematocrit 30.2 % (37.0-47.0); Hemoglobin 8.6 g/dL (12.0-15.0); Immature Granulocyte Absolute 0.06 K/mm3 (0.00-0.031); Immature Granulocyte Percent A 0.6 % (0-0.5); Lymphocytes Percent Auto 18.8 % (18.3-44.2); Mean Corpuscular HGB Conc 28.5 g/dl (32-36); Mean Corpuscular Hemoglobin 23.8 pg (26-34); Mean Corpuscular Volume 83.7 fl (80-100); Mean Platelet Volume 11.6 fl (7.4-10.4); Monocytes Absolute Auto 0.2 K/mm3 (0.1-0.6); Monocytes Percent Auto 2.3 % (2.6-8.5); Neutrophils Absolute Auto 7.9 K/mm3 (1.3-6.7); Neutrophils Percent Auto 77.7 % (45.5-73.1); Platelet Count Result 253 k/mm3 (150-375); Red Blood Count 3.61 M/mm3 (4.2-5.4); Red Cell Distribution Width 19.5 % (11.5-14.5); White Blood Count 10.1 K/mm3 (4.5-10.0)
[2024-01-18] MEDS: FUROSEMIDE INJ 40 MG/4 ML VIAL 60 MG IV PUSH (14:24)
[2024-01-18 14:39] LABS: Lactic Acid Reflex 3.8 mmol/L (0.7-2.0)
[2024-01-18 14:40] LABS: INR 1.1; Prothrombin Time 14.5 Seconds (11.1-14.7)
[2024-01-18 14:41] LABS: Partial Thromboplastin Time 34.2 Seconds (22.3-36.8)
[2024-01-18 14:47] LABS: Alanine Aminotransferase 19 U/L (6-35); Albumin Level 4.1 g/dL (3.5-5.1); Alkaline Phosphatase 107 U/L (38-126); Anion Gap 13 mmol/L (4-12); Aspartate Amino Transferase 16 U/L (14-36); Bilirubin,Total 0.3 mg/dL (0.2-1.3); Blood Urea Nitrogen 66 mg/dL (7-17); Calcium 8.2 mg/dL (8.4-10.2); Carbon Dioxide 13 mmol/L (22-30); Chloride 110 mmol/L (98-107); Estimated CRCL calculation 6 ml/min; Estimated Glomerular Filt Rate 4; Glucose 127 mg/dL (65-110); Magnesium 2.3 mg/dL (1.6-2.3); Platelet Estimate Adequate (Adequate); Potassium 8.8 mmol/L (3.4-5.0); Sodium 136 mmol/L (137-145)
[2024-01-18 14:48] LABS: Anisocytosis 3+; Hypochromasia 1+; Schistocytes None Seen
[2024-01-18 14:53] LABS: Glucose Point of Care 164 mg/dl (65-105)
[2024-01-18 14:54] LABS: NT Pro B Type Natriuretic Pept 2740 pg/mL (19.9-100); Troponin I 0.088 ng/mL (0.000-0.034)
[2024-01-18 15:35] LABS: Alanine Aminotransferase 18 U/L (6-35); Albumin Level 3.8 g/dL (3.5-5.1); Alkaline Phosphatase 101 U/L (38-126); Anion Gap 11 mmol/L (4-12); Aspartate Amino Transferase 19 U/L (14-36); Bilirubin,Total 0.3 mg/dL (0.2-1.3); Blood Urea Nitrogen 68 mg/dL (7-17); Calcium 7.8 mg/dL (8.4-10.2); Carbon Dioxide 13 mmol/L (22-30); Chloride 111 mmol/L (98-107); Estimated CRCL calculation 6 ml/min; Estimated Glomerular Filt Rate 4; Glucose 138 mg/dL (65-110); Potassium 9.3 mmol/L (3.4-5.0); Sodium 135 mmol/L (137-145)
[2024-01-18] MEDS: INSULIN HUMAN REGULAR (*BKC) 100 UNITS/ML 10 UNITS IV PUSH ×2 (15:35→17:56)
[2024-01-18] MEDS: DEXTROSE 50% 25 GM/50 ML SYRINGE IV PUSH ×2 (15:36→17:55)
[2024-01-18] MEDS: SODIUM BICARBONATE 8.4% 50 MEQ/50 ML SYRINGE IV PUSH (15:44)
[2024-01-18] MEDS: CALCIUM GLUCONATE 1,000 MG/10 ML VIAL 1000 MG IV PUSH ×2 (15:46→18:03)
[2024-01-18] MEDS: SODIUM POLYSTYRENE SULFONONATE 15 GM/60 ML BTL 30 GM PO (15:46)
--- NOTE | 2024-01-18 16:06 | PC.NURSE ---
provider aware of heart rhythm and rate and BP. provider spoke with family and update given.
[2024-01-18] MEDS: ALBUTEROL SULFATE NEB 2.5 MG/3 ML INH 15 MG INHALATION (16:21)
--- NOTE | 2024-01-18 16:25 | PM.IMHP ---
H&P: HPI History of Present Illness Date/Time: 01/18/24 16:05 Chief Complaint: Shortness of breath. Narrative: This is a very pleasant 73-year-old female smoker with chronic obstructive pulmonary disease, coronary artery disease with history of multiple stents, chronic kidney disease, hypertension, hyperlipidemia, type 2 diabetes mellitus, gastroesophageal reflux disease, and other comorbidities who presented to the emergency department via EMS from home for evaluation of shortness of breath. The patient provides the following history. She is known to myself and the hospitalist service from a few recent admissions, the last being 01/12/2024 at which time she was admitted with non STEMI after presenting with chest pain. Cardiac catheterization done at that time showed significant in stent restenoses of the mid RCA status post successful PCI with drug-eluting stent x1. She was discharged home 4 days ago feeling okay however she has had a cough since that time with occasional chills and some loose stools. This morning she was much more short of breath from baseline, was wheezing, and she called 911. She was reportedly hypoxic on EMS arrival and was placed on CPAP at 12 L. She denies known fever, headache, sinus congestion, sore throat, chest pain, pleuritic pain, abdominal pain nausea, and vomiting. In the ED: She was afebrile on arrival with stable blood pressures. She was bradycardic with heart rates occasionally in the low 30s. Labs were significant for a WBC count of 10.1, hemoglobin 8.6, sodium 135, potassium 9.3, chloride 111, carbon dioxide 13, BUN 68, creatinine 9.00, lactic acid 3.8, calcium 7.8, troponin 0.088, proBNP 2740. Head CT did not show any acute findings. Chest CT showed mild emphysema with mild bronchiectasis in the inferior lungs. With further questioning she has not noticed a decrease in urine output. She was started on aspirin, Brilinta, and isosorbide mononitrate with her most recent hospitalizations and those are her only new medications. She endorses weakness in the extremities without focal findings at this time. Review of Systems Review of Systems: Twelve systems were reviewed and are negative except for as per HPI. [facility] Past Medical History Medical History Atherosclerosis Scattered atherosclerotic calcification with 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 Chronic anemia Chronic kidney disease Chronic obstructive pulmonary disease Chronic pain syndrome Coronary artery disease Hyperlipidemia Hypertension Osteoarthritis Tobacco abuse Type 2 diabetes mellitus Surgical History Surgical History History of cardiac catheterization History of cholecystectomy History of coronary artery stent placement Stents to right coronary artery x4, left anterior descending, circumflex, 2nd marginal, and known occlusion of stent to 1st marginal branch. History of tonsillectomy Status post insertion of spinal cord stimulator Family History Family History Mother Family history of malignant neoplasm Patient's mother is Ovarian cancer Father Family history of diabetes mellitus in first degree relative Patient's father is Coronary atherosclerosis of bypass graft Social History Social History Social History: Surrogate medical decision maker: Serina Campos, daughter. Code status: Full code. Smoking packs per day: 1 Smoking cigarettes per day: 20.0 Years smoked: 50 Smoking pack-years: 50.00 Smoking status: Current every day smoker Tobacco type: cigarettes Alcohol intake: never Substance use: never Do You Feel Safe in your Home?: Yes Lack of Transportation: No Lack of Food: Never True Current Housing: I Hav
--- NOTE | 2024-01-18 16:30 | PC.NURSE ---
Patient arrived via stretcher from ED without distress on BiPaP. Dr. Michael notified by [employer].
[2024-01-18 16:41] LABS: Influenza A QL RT-PCR Negative (Negative); Influenza B QL RT-PCR Negative (Negative); RSV RNA, RT-PCR Negative (Negative); SARS-CoV-2 RNA PCR Negative (Negative)
--- NOTE | 2024-01-18 16:51 | PM.CNNEP ---
Assessment and Plan Assessment and plan (1) Acute on chronic kidney failure: Code(s): N17.9 - Acute kidney failure, unspecified; N18.9 - Chronic kidney disease, unspecified Status: Acute Plan The patient has acute kidney injury. Her creatinine went from 1.9-9.1. Etiology of this may be contrast or cholesterol emboli. She does not have any lesions on her feet to suggest the latter though. This is too fast to rise in the creatinine to be explained by allergic interstitial nephritis and she also does not have a rash or eosinophilia. Vascular issues could be going on as well, however liver enzymes are not elevated which would usually be the case if she had an arterial embolism. Would be unusual for her to have had this high a rise in creatinine if 1 kidney was lost to obstruction or stones etc. bilateral obstruction is possible if bladder outlet obstructions going on. Will get an ultrasound and a bladder ultrasound as well. We can get a bladder scan today as well. Other causes such as rhabdomyolysis and glomerulonephritis are less likely. At this point we will get the dialysis catheter placed. Will put her on dialysis. I had a long discussion with the patient and also a separate discussion with the family. We discussed the risk benefits alternatives in the process of hemodialysis and they agree to proceed. Her very high potassium as well as her heart situation could make things relatively unstable making nurse a little higher risk for something happening during the treatment. However if we do not treat her than I do not think she could survive with this level of potassium and creatinine. We will dialyze with a 1 K bath for an hour and a 2 K bath for 2-1/2 hours. We should be able to remove some fluid hopefully. Will start removing fluid 1 hour after she starts dialysis so this gives a chance for the potassium to come down and make things more stable for fluid removal. Will also give her IV diuretics since she is making some urine and possibly this will help us get rid of fluid as well. Hopefully the renal function will recover. Because of her underlying chronic kidney disease and her other comorbidities the likelihood for recovery is less than if she was completely healthy otherwise. However there is a good chance that the kidneys might recover. The patient has chronic kidney disease as well pain most likely this is due to hypertension and diabetes and possibly vascular disease. The serology showed a high sed rate and a positive LINN. Will repeat the sed rate and get expanded serology to investigate this. The potassium is high. It has been high in the past. She does not eat a whole lot of high potassium foods by her description. She was on meloxicam and losartan and metformin before. Not sure if she still on these currently. But these will all be held. Lactic acid is slightly high at 3.8. Will repeat this in a few hours. If metformin is why her lactic acid is high, dialysis will remove the metformin. Notably she does have a low CO2 but her anion gap is normal so I doubt if lactic acid is playing a role. Most likely the low CO2 was due to the renal failure. The patient has hypertension. Her blood pressure is under good control. The patient has anemia. Will follow this along. Long discussion with the patient, the family could Dr. Barrow, and CHRISTIAN Yoo. 25 min in all were spent in discussions apart from clinical activity. History of Present Illness Reason for Consult Consult date: 01/18/24 Chief Complaint Chief complaint: Hyperkalemia/EMERITA History of Present Illness Narrative: Giovanna is a very pleasant 73-year-old lady who has multiple medical problems including diabetes, current cigarette smoking, hypertension, hyperlipidemia, coronary disease status post recent stent, peripheral vascular disease with moderate stenosis of the proximal superior mesenteric artery, COPD with some reversible airways disease, chronic
--- NOTE | 2024-01-18 17:03 | ADMGEN ---
This patient, Giovanna Hurtado, was admitted to Intensive Care Unit-6. Patient/family oriented to hospital policies and general routines including ID bracelet, bed and alarms, visiting hours, pain management, procedures, bathroom and other care routines, personal items, smoking policy, room service/diet, and visiting hours. Information on how to activate the Rapid Response Team has been discussed. Patient/Family are encouraged to report perceived risks to care and to ask questions if they do not understand what they are told or what they should do.
--- NOTE | 2024-01-18 17:11 | PCRCNOTE ---
PT. WAS TRANSPORTED FROM ED TO ICU ON THE V60 BIPAP WITH A CONTINUOUS NEBULIZER RUNNING. THE TREATMENT WAS STARTED AT 1621, REPORT WAS GIVEN TO THE ICU THERAPIST WHO TOOK OVER UPON ARRIVAL TO ICU.
[2024-01-18 17:18] LABS: Reflex Lactic Acid Yes or No Add Lactic
[2024-01-18] MEDS: SODIUM BICARBONATE 8.4% 50 MEQ/50 ML SYRINGE 100 MEQ IV PUSH (17:54)
[2024-01-18] MEDS: ALBUTEROL SULFATE NEB 2.5 MG/3 ML INH 10 MG INHALATION (17:56)
[2024-01-18] MEDS: fentaNYL CITRATE INJ (*CRX) 100 MCG/2 ML VIAL 25 MCG IV PUSH (18:18)
[2024-01-18 18:23] LABS: Lactic Acid 3.9 mmol/L (0.7-2.0)
[2024-01-18 18:23] LABS: Creatine Kinase 71 U/L (30-135)
[2024-01-18 18:26] LABS: MRSA (PCR) NOT DETECTED (NOT DETECTE)
[2024-01-18 18:30] LABS: CRP 1.7 mg/dL (<1.0); Creatine Kinase 70 U/L (30-135); Magnesium 2.3 mg/dL (1.6-2.3)
[2024-01-18 18:31] LABS: Complement C3 156 mg/dL (88-165)
[2024-01-18 18:32] LABS: Anion Gap 15 mmol/L (4-12); Blood Urea Nitrogen 71 mg/dL (7-17); Calcium 8.4 mg/dL (8.4-10.2); Carbon Dioxide 14 mmol/L (22-30); Chloride 109 mmol/L (98-107); Estimated CRCL calculation 6 ml/min; Estimated Glomerular Filt Rate 4; Glucose 121 mg/dL (65-110); Potassium 8.6 mmol/L (3.4-5.0); Sodium 138 mmol/L (137-145)
[2024-01-18 18:34] LABS: Erythrocyte Sedimentation Rate 111 mm/hr (0-20)
--- NOTE | 2024-01-18 18:47 | P.OP_ITS ---
Procedure Note - Detailed Date of Procedure 01/18/24 Pre-op Diagnosis Hyperkalemia/EMERITA Post-op Diagnosis Same Procedure Performed Placement right femoral central venous catheter with pigtail catheter for acute dialysis Surgeon Rufus Michael MD Anesthesia Local Indications Patient is short of breath and came to the emergency room. She was noted to have acute kidney injury with creatinine of 8, congestive heart failure, and severe hyperkalemia. I was asked to place a central venous catheter for acute dialysis emergently. Findings Catheter placed right femoral vein-flushed and aspirated blood easily. Description of Procedure Patient is morbidly obese with a large panniculus. She was in her intensive care unit bed. We moved her abdominal panniculus so that the right groin was visible and easily accessed. The panniculus was taped in place to keep it there for the procedure. We then washed the right groin with soap and water. The groin was prepped with ChloraPrep. Sterile gown, gloves, and a mask were used. Full sterile draping was used. Local anesthetic was infiltrated in the area of the right femoral vein. The right femoral vein was then cannulated and venous blood returned. A guidewire was then able to be passed through the needle in Seldinger technique. The needle was removed. A small skin opening was made at the entrance of the guidewire. Serial dilators were then passed over the guidewire and the fully flushed dual lumen central venous catheter with pigtail was passed over the guidewire and the guidewire removed. Additional local was infiltrated where the catheter would be sutured to the skin. 3-0 nylon suture was used to secure it with 2 such sutures. Both of the dialysis ports aspirated blood and flushed easily with saline. Each of these ports was capped and cla mped. The pigtail port was flushed with saline as well and capped, then clamped. The area was then cleaned and the draping removed. Sterile Tegaderm dressing was then placed over the entrance site. 4x4s were placed over the Tegaderm. The abdominal panniculus was placed in its normal position. The patient tolerated the procedure well. No complications were evident. Estimated Blood Loss -10 Drains No Packing No Pathology None sent Complications No immediate complications Condition Critical Disposition No change (ICU) [facility] Billing Surgery - Charge Forward: Surgery Billing (Placement right femoral central venous catheter for acute dialysis.)
--- NOTE | 2024-01-18 19:38 | PC.NURSE ---
Dr. Michael at bedside, right groin dialysis catheter placed per MD. Fentanyl IVP given for chest pain. Chest pain resolved.
[2024-01-18 20:10] LABS: Glucose Point of Care 100 mg/dl (65-105)
[2024-01-18 20:29] LABS: Hepatitis B Surface Antigen Negative (Negative)
[2024-01-18 20:46] LABS: Hepatitis B Surface Anti Res Negative
--- NOTE | 2024-01-18 21:49 | PC.NURSE ---
Called Roseann re elevated BP during dialysis, inquired if any BP medication intervention was needed at this time (173/57) - no. May order home dose of Clonidine later, call back if SBP sustains over 180. Will continue to monitor.
[2024-01-18] MEDS: CENTRAL LINE FLUSH 10 ML IV PUSH (22:00)
[2024-01-18] MEDS: TICAGRELOR 90 MG TABLET PO (22:12)
[2024-01-19] VITALS (46 sets, daily range): BP systolic 99–179; BP diastolic 33–86; PULSE 70–88; RESP 15–27; TEMP 37–37.8; O2SAT 86–98
[2024-01-19] MEDS: carvediloL 12.5 MG TABLET PO ×2 (00:47→08:44)
[2024-01-19 01:42] LABS: Lactic Acid Reflex 1.9 mmol/L (0.7-2.0)
[2024-01-19 01:44] LABS: Anion Gap 11 mmol/L (4-12); Blood Urea Nitrogen 27 mg/dL (7-17); Calcium 8.3 mg/dL (8.4-10.2); Carbon Dioxide 29 mmol/L (22-30); Chloride 97 mmol/L (98-107); Estimated CRCL calculation 13 ml/min; Estimated Glomerular Filt Rate 10; Glucose 76 mg/dL (65-110); Potassium 4.6 mmol/L (3.4-5.0); Sodium 137 mmol/L (137-145)
--- NOTE | 2024-01-19 05:15 | PC.NURSE ---
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 patient did have Albuterol. No new orders at this time.
[2024-01-19 05:24] LABS: Hematocrit 27.9 % (37.0-47.0); Hemoglobin 8.3 g/dL (12.0-15.0); Mean Corpuscular HGB Conc 29.7 g/dl (32-36); Mean Corpuscular Hemoglobin 23.6 pg (26-34); Mean Corpuscular Volume 79.5 fl (80-100); Mean Platelet Volume 11.4 fl (7.4-10.4); Platelet Count Result 221 k/mm3 (150-375); Red Blood Count 3.51 M/mm3 (4.2-5.4); Red Cell Distribution Width 19.5 % (11.5-14.5); White Blood Count 13.3 K/mm3 (4.5-10.0)
[2024-01-19 05:26] LABS: Appearance Urine Clear (Clear); Bacteria Urine 1+ /hpf; Bilirubin Urine Negative (Negative); Blood Urine 2+ (Negative); Color Urine Yellow (Yellow); Glucose Urine UA Negative (Negative); Ketones Urine Negative (Negative); Leukocyte Esterase Ur 2+ LEU/UL (Negative); Nitrate Urine Negative (Negative); Protein Urine 3+ mg/dL (Negative); RBC Urine >100 /hpf (0-2); Specific Grav Ur 1.011 (1.001-1.035); Squamous Epithelial Cell Urine Occasional /hpf (Few); Urobilinogen Urine 0.2 mg/dL (<2.0); WBC Urine 51-100 /hpf (0-3); pH Urine 7.5 (5.0-9.0)
[2024-01-19 05:34] LABS: Alanine Aminotransferase 21 U/L (6-35); Albumin Level 3.8 g/dL (3.5-5.1); Alkaline Phosphatase 106 U/L (38-126); Anion Gap 8 mmol/L (4-12); Aspartate Amino Transferase 22 U/L (14-36); Bilirubin,Total 0.4 mg/dL (0.2-1.3); Blood Urea Nitrogen 28 mg/dL (7-17); Calcium 8.2 mg/dL (8.4-10.2); Carbon Dioxide 30 mmol/L (22-30); Chloride 98 mmol/L (98-107); Estimated CRCL calculation 11 ml/min; Estimated Glomerular Filt Rate 8; Glucose 92 mg/dL (65-110); Phosphorus 6.5 mg/dL (2.5-4.5); Potassium 5.7 mmol/L (3.4-5.0); Sodium 136 mmol/L (137-145)
[2024-01-19 05:36] LABS: Creatinine Urine 31.7 mg/dL; Urea Random Urine 112 MG/DL
[2024-01-19 05:42] LABS: Sodium Urine Random 114 meq/L
[2024-01-19 05:55] LABS: Eosinophil Urine None Seen % (None Seen)
[2024-01-19 05:56] LABS: Urine Eos QC 2nd Tech Confirmed
[2024-01-19] MEDS: CENTRAL LINE FLUSH 10 ML IV PUSH ×3 (06:00→23:01)
[2024-01-19 06:03] LABS: Total Protein Urine Random 268 mg/dL; Ur Ttl Prot Creatinine Ratio 8.45 mg/mg (0-0.20)
[2024-01-19 06:14] LABS: Add Urine Microscopic? YES
[2024-01-19] MEDS: IPRATROPIUM 0.5 MG/ALBUTEROL SULFATE 2.5 MG AMPUL.NEB 3 ML INHALATION ×3 (07:44→21:27)
[2024-01-19 07:45] LABS: Glucose Point of Care 126 mg/dl (65-105)
--- NOTE | 2024-01-19 08:17 | WPDCNINT ---
Assessment and Plan Assessment and plan (1) Acute hyperkalemia: Code(s): E87.5 - Hyperkalemia Status: Acute Assessment and Plan: Patient initially presented with shortness of breath, on admission was found to have severe hyperkalemia with potassium levels of 9.1 and repeat potassium levels of 9.3 along with acute on chronic kidney disease with a creatinine of 8.8 -patient was initially treated in the ER for her hyperkalemia -nephrology was consulted, given the level of hyperkalemia surgery was consulted for dialysis catheter placement and patient was started on dialysis on 01/18/2024 with 2500 mL in fluid removal -potassium did come down to 4.6 post dialysis -this morning patient's potassium is 5.7 -hyperkalemia could be multifactorial -nephrology following -will possibly get dialysis again today (2) Acute on chronic kidney failure: Code(s): N17.9 - Acute kidney failure, unspecified; N18.9 - Chronic kidney disease, unspecified Status: Acute Assessment and Plan: Acute on chronic kidney failure likely related to multiple factors, patient recently got contrast for NSTEMI and stent placement, history of chronic kidney disease, hypertension, diabetes, patient on losartan, metformin, bumetanide at home -dialyzed on 01/18/2024 -nephrology following the patient -dialysis will be done per Nephrology -low urine output, will continue to monitor urine output, renal function and electrolyte (3) Acute hypoxic respiratory failure: Code(s): J96.01 - Acute respiratory failure with hypoxia Status: Acute Assessment and Plan: Acute respiratory failure likely related to volume overload secondary to acute on chronic kidney disease -chest x-ray showed mild pulmonary edema -this could also be related to COPD exacerbation -patient dialyzed with 2500 mL in fluid removal on 01/18/2024 -continue bronchodilators -currently on 2 L nasal cannula with adequate O2 sat -patient is feeling much better (4) Chronic obstructive pulmonary disease: Code(s): J44.9 - Chronic obstructive pulmonary disease, unspecified Status: Acute Assessment and Plan: Continue DuoNebs and supplemental oxygen -no wheezing was noted, hold steroids for now (5) Hypertension: Code(s): I10 - Essential (primary) hypertension Status: Acute Assessment and Plan: Continue carvedilol, clonidine for now, will add hydralazine p.r.n. (6) Hyperlipidemia: Code(s): E78.5 - Hyperlipidemia, unspecified Status: Acute Assessment and Plan: Continue rosuvastatin (7) Diabetes mellitus: Qualifiers: Diabetes mellitus type: type 2 Diabetes mellitus correction insulin use: without correction use Diabetes mellitus complication status: without complication Qualified Code(s): E11.9 - Type 2 diabetes mellitus without complications Code(s): E11.9 - Type 2 diabetes mellitus without complications Status: Acute Assessment and Plan: Accu-Cheks and sliding scale insulin (8) Coronary artery disease: Code(s): I25.10 - Atherosclerotic heart disease of [place] coronary artery without angina pectoris Status: Acute Assessment and Plan: Recent InStent stenosis status post GLYNN x1 to mid RCA on 01/13/2024 -continue aspirin, Brilinta, Coreg, rosuvastatin -holding losartan secondary to acute on chronic kidney disease Plan DVT prophylaxis: Heparin SQ Stress ulcer prophylaxis: On Protonix Nutrition: Renal diet Code Status: Full code Critical Care Time Spent: 49 minutes Due to a high probability of clinically significant, life threatening deterioration, the patient required my highest level of preparedness to intervene emergently and I personally spent this critical care time directly and personally managing the patient. This critical care time included obtaining a history; examining the patient; pulse oximetry; ordering and review of studies; arranging urgent treatment w
[2024-01-19] MEDS: LORATADINE 10 MG TABLET PO (08:44)
[2024-01-19] MEDS: ISOSORBIDE MONONITRATE 60 MG TAB.ER.24H 120 MG PO (08:44)
[2024-01-19] MEDS: ASPIRIN 81 MG ENTERIC TABLET PO (08:44)
[2024-01-19] MEDS: ROSUVASTATIN 10 MG TABLET 20 MG PO (08:44)
[2024-01-19] MEDS: PANTOPRAZOLE 40 MG TABLET PO (08:44)
[2024-01-19] MEDS: FAMOTIDINE 20 MG TABLET PO ×2 (08:44→21:39)
[2024-01-19] MEDS: TICAGRELOR 90 MG TABLET PO ×2 (08:45→22:59)
[2024-01-19] MEDS: INSULIN HUMAN REGULAR (*BKC) 100 UNITS/ML 10 UNITS IV PUSH (08:45)
[2024-01-19] MEDS: DEXTROSE 50% 25 GM/50 ML SYRINGE IV PUSH (08:45)
[2024-01-19] MEDS: SODIUM ZIRCONIUM CYCLOSILICATE 10 GM POWD.PACK PO (08:45)
[2024-01-19] MEDS: cloNIDine HCL 0.1 MG TABLET PO ×2 (08:48→21:40)
[2024-01-19] MEDS: ALBUTEROL SULFATE NEB 2.5 MG/3 ML INH 10 MG INHALATION (08:48)
[2024-01-19] MEDS: HEPARIN SODIUM 5,000 UNITS/ML VIAL 5000 UNITS SUB-Q ×2 (08:56→22:58)
[2024-01-19 11:14] LABS: Anion Gap 7 mmol/L (4-12); Blood Urea Nitrogen 33 mg/dL (7-17); Calcium 7.8 mg/dL (8.4-10.2); Carbon Dioxide 31 mmol/L (22-30); Chloride 97 mmol/L (98-107); Estimated CRCL calculation 10 ml/min; Estimated Glomerular Filt Rate 7; Glucose 166 mg/dL (65-110); Potassium 5.5 mmol/L (3.4-5.0); Sodium 135 mmol/L (137-145)
[2024-01-19 11:28] LABS: Glucose Point of Care 182 mg/dl (65-105)
[2024-01-19 16:44] LABS: Glucose Point of Care 157 mg/dl (65-105)
--- NOTE | 2024-01-19 17:11 | PM.PNNEP ---
Progress Note: A&P Assessment and Plan (1) EMERITA (acute kidney injury): Code(s): N17.9 - Acute kidney failure, unspecified Status: Acute Assessment and Plan: etiology not entirely clear - possibilities include: contrast cholesterol emboli acute interstitial nephritis acute glomerulonephritis rhabdomyolysis no skin lesions noted; no eosinophilia; no rash noted s/p emergent hemodialysis yesterday evening due to hyperkalemia and volume overload HD today due to rebound hyperkalemia as well as further fluid removal follow-up on serological testing follow repeat labs and UOP for potential renal recovery (2) Chronic kidney disease, stage 3b: Code(s): N18.32 - Chronic kidney disease, stage 3b Status: Chronic Assessment and Plan: baseline creatinine seems to run ~ 1.5 - 2.0mg/dl secondary to hypertension, diabetes, vascular disease and age-related change (3) Hyperkalemia: Code(s): E87.5 - Hyperkalemia Status: Acute Assessment and Plan: quite severe on admission due to EMERITA along with ARB use s/p medical management and emergent dialysis follow trend of K+ levels (4) Acute hypoxic respiratory failure: Code(s): J96.01 - Acute respiratory failure with hypoxia Status: Acute Assessment and Plan: secondary to volume overload and pulmnary edema based on admission imaging complicated by known history of COPD fluid removal with dialysis supplemental oxygen bronchodilator therapy follow respiratory status (5) Hypertension: Code(s): I10 - Essential (primary) hypertension Status: Chronic Assessment and Plan: reasonable control continue current medications follow trend of hemodynamics (6) Coronary artery disease: Code(s): I25.10 - Atherosclerotic heart disease of [place] coronary artery without angina pectoris Status: Chronic Assessment and Plan: recent Iin-stent stenosis status post GLYNN x 1 to mid RCA on 01/13/2024 continue aspirin, Brilinta, Coreg, rosuvastatin ARB on hold due to #1 (7) Anemia: Code(s): D64.9 - Anemia, unspecified Status: Acute Assessment and Plan: due to recent procedures, hospitalizations, EMERITA and CKD Epogen with HD follow trend of H/H (8) Type 2 diabetes mellitus: Code(s): E11.9 - Type 2 diabetes mellitus without complications Status: Chronic Assessment and Plan: follow accu-cheks glycemic control per hospitalists Will continue to follow. Subjective Date/time seen: 01/19/24 17:11 Interval history: Follow-up for acute kidney injury/acute renal failure on chronic kidney disease and hyperkalemia. Chart reviewed -- assuming care from Dr. Shahid; seen earlier today and currently while patient is on dialysis which she appears to be tolerating well (seen on HD at 5:00PM); s/p emergent dialysis yesterday evening for fluid overload and severe hyperkalemia; no apparent distress at this time; breathing/respiratory status doing better. Exam Narrative: General: large female sitting up in bed in NAD Heart: normal S1 and S2; no rub Lungs: clear anteriorly; decreased at bases Abdomen: soft, nontender, nondistended, positive bowel sounds Extremities: no cyanosis or clubbing; 1+ edema Skin: warm and dry Objective Data Vital Signs Vital Signs: Vital Signs Temp Pulse Resp BP Pulse Ox O2 Del Method O2 Flow Rate 01/19/24 16:08 99.9 F H 73 23 H 129/37 L 92 01/19/24 16:08 2 01/19/24 16:00 95 Nasal Cannula 2 01/19/24 16:00 74 01/19/24 16:00 99.9 F H 74 22 H 129/37 L 91 01/19/24 14:00 76 01/19/24 13:38 73 18 01/19/24 13:25 73 20 01/19/24 10:30 98 Nasal Cannula 2 01/19/24 12:00 77 01/19/24 12:00 95 Nasal Cannula 1 01/19/24 12:00 99.7 F H 75 22 H 153/56 H 91 01/19/24 10:00 75 01/19/24 10:00
--- NOTE | 2024-01-19 17:11 | P.PNNP_ITS ---
Progress Note: A&P Assessment and Plan (1) EMERITA (acute kidney injury): Code(s): N17.9 - Acute kidney failure, unspecified Status: Acute Assessment and Plan: * etiology not entirely clear - possibilities include: * contrast * cholesterol emboli * acute interstitial nephritis * acute glomerulonephritis * rhabdomyolysis * no skin lesions noted; no eosinophilia; no rash noted * s/p emergent hemodialysis yesterday evening due to hyperkalemia and volume overload * HD today due to rebound hyperkalemia as well as further fluid removal * follow-up on serological testing * follow repeat labs and UOP for potential renal recovery (2) Chronic kidney disease, stage 3b: Code(s): N18.32 - Chronic kidney disease, stage 3b Status: Chronic Assessment and Plan: * baseline creatinine seems to run ~ 1.5 - 2.0mg/dl * secondary to hypertension, diabetes, vascular disease and age-related change (3) Hyperkalemia: Code(s): E87.5 - Hyperkalemia Status: Acute Assessment and Plan: * quite severe on admission * due to EMERITA along with ARB use * s/p medical management and emergent dialysis * follow trend of K+ levels (4) Acute hypoxic respiratory failure: Code(s): J96.01 - Acute respiratory failure with hypoxia Status: Acute Assessment and Plan: * secondary to volume overload and pulmnary edema based on admission imaging * complicated by known history of COPD * fluid removal with dialysis * supplemental oxygen * bronchodilator therapy * follow respiratory status (5) Hypertension: Code(s): I10 - Essential (primary) hypertension Status: Chronic Assessment and Plan: * reasonable control * continue current medications * follow trend of hemodynamics (6) Coronary artery disease: Code(s): I25.10 - Atherosclerotic heart disease of [place] coronary artery without angina pectoris Status: Chronic Assessment and Plan: * recent Iin-stent stenosis status post GLYNN x 1 to mid RCA on 01/13/2024 * continue aspirin, Brilinta, Coreg, rosuvastatin * ARB on hold due to #1 (7) Anemia: Code(s): D64.9 - Anemia, unspecified Status: Acute Assessment and Plan: * due to recent procedures, hospitalizations, EMERITA and CKD * Epogen with HD * follow trend of H/H (8) Type 2 diabetes mellitus: Code(s): E11.9 - Type 2 diabetes mellitus without complications Status: Chronic Assessment and Plan: * follow accu-cheks * glycemic control per hospitalists Will continue to follow. Subjective Date/time seen: 01/19/24 17:11 Interval history: Follow-up for acute kidney injury/acute renal failure on chronic kidney disease and hyperkalemia. Chart reviewed -- assuming care from Dr. Shahid; seen earlier today and currently while patient is on dialysis which she appears to be tolerating well (seen on HD at 5:00PM); s/p emergent dialysis yesterday evening for fluid overload and severe hyperkalemia; no apparent distress at this time; breathing/respiratory status doing better. Exam Narrative: General: large female sitting up in bed in NAD Heart: normal S1 and S2; no rub Lungs: clear anteriorly; decreased at bases Abdomen: soft, nontender, nondistended, positive bowel sounds Extremities: no cyanosis or clubbing; 1+ edema Skin: warm and dry Objective Data Vital Signs Vital Signs:
[2024-01-19] MEDS: EPOETIN ALFA-EPBX 10,000 UNITS/ML VIAL 10000 UNITS IV PUSH (19:20)
--- NOTE | 2024-01-19 22:10 | PC.NURSE ---
Bedside report given to Bharati GALLEGOS and Angelique GALLEGOS. Pt transfered to IMU.
--- NOTE | 2024-01-19 22:37 | PC.NURSE ---
This patient, Giovanna Potter Rolen, was received from [ICU 6 ] on 01/19/24 at 2210. Patient/family oriented to unit policies and routines. Patient notified daughter of transfer to IMU room 210.
[2024-01-19] MEDS: INSULIN ASPART (*BKC) 100 UNITS/ML SUB-Q (23:01)
[2024-01-19 23:11] LABS: Glucose Point of Care 206 mg/dl (65-105)
[2024-01-20] VITALS (25 sets, daily range): BP systolic 120–188; BP diastolic 27–57; PULSE 65–85; RESP 18–22; TEMP 36.2–36.6; O2SAT 90–97
[2024-01-20 05:01] LABS: Basophils Percent Auto 0.3 % (0.2-1.2); Eosinophils Absolute Auto 0.1 K/mm3 (0-0.3); Eosinophils Percent Auto 0.8 % (0-4.4); Hematocrit 26.6 % (37.0-47.0); Hemoglobin 7.7 g/dL (12.0-15.0); Immature Granulocyte Absolute 0.02 K/mm3 (0.00-0.031); Immature Granulocyte Percent A 0.3 % (0-0.5); Lymphocytes Absolute Auto 1.94 K/mm3 (0.9-3.2); Lymphocytes Percent Auto 24.5 % (18.3-44.2); Mean Corpuscular HGB Conc 28.9 g/dl (32-36); Mean Corpuscular Hemoglobin 23.8 pg (26-34); Mean Corpuscular Volume 82.4 fl (80-100); Mean Platelet Volume 11.8 fl (7.4-10.4); Monocytes Absolute Auto 0.8 K/mm3 (0.1-0.6); Monocytes Percent Auto 10.1 % (2.6-8.5); Neutrophils Absolute Auto 5.1 K/mm3 (1.3-6.7); Platelet Count Result 203 k/mm3 (150-375); Red Blood Count 3.23 M/mm3 (4.2-5.4); Red Cell Distribution Width 19.2 % (11.5-14.5); White Blood Count 7.9 K/mm3 (4.5-10.0)
[2024-01-20 05:14] LABS: Lactic Acid Reflex 2.2 mmol/L (0.7-2.0)
[2024-01-20 05:17] LABS: Alanine Aminotransferase 18 U/L (6-35); Albumin Level 3.4 g/dL (3.5-5.1); Alkaline Phosphatase 85 U/L (38-126); Anion Gap 8 mmol/L (4-12); Aspartate Amino Transferase 16 U/L (14-36); Bilirubin,Total 0.3 mg/dL (0.2-1.3); Blood Urea Nitrogen 23 mg/dL (7-17); Calcium 7.7 mg/dL (8.4-10.2); Carbon Dioxide 27 mmol/L (22-30); Chloride 101 mmol/L (98-107); Estimated CRCL calculation 13 ml/min; Estimated Glomerular Filt Rate 11; Glucose 138 mg/dL (65-110); Potassium 4.4 mmol/L (3.4-5.0); Sodium 136 mmol/L (137-145)
[2024-01-20] MEDS: CENTRAL LINE FLUSH 10 ML IV PUSH ×3 (06:08→21:02)
[2024-01-20 07:59] LABS: Reflex Lactic Acid Yes or No Add Lactic
[2024-01-20] MEDS: IPRATROPIUM 0.5 MG/ALBUTEROL SULFATE 2.5 MG AMPUL.NEB 3 ML INHALATION ×3 (08:04→20:40)
[2024-01-20 08:31] LABS: Glucose Point of Care 110 mg/dl (65-105)
[2024-01-20] MEDS: HEPARIN SODIUM 5,000 UNITS/ML VIAL 5000 UNITS SUB-Q ×2 (08:59→20:33)
[2024-01-20] MEDS: LORATADINE 10 MG TABLET PO (09:00)
[2024-01-20] MEDS: cloNIDine HCL 0.1 MG TABLET PO ×2 (09:00→17:35)
[2024-01-20] MEDS: TICAGRELOR 90 MG TABLET PO ×2 (09:00→20:33)
[2024-01-20] MEDS: ASPIRIN 81 MG ENTERIC TABLET PO (09:00)
[2024-01-20] MEDS: carvediloL 12.5 MG TABLET PO (09:01)
[2024-01-20] MEDS: FAMOTIDINE 20 MG TABLET PO ×2 (09:02→17:35)
[2024-01-20] MEDS: ISOSORBIDE MONONITRATE 60 MG TAB.ER.24H 120 MG PO (09:03)
[2024-01-20] MEDS: ROSUVASTATIN 10 MG TABLET 20 MG PO (09:04)
[2024-01-20] MEDS: PANTOPRAZOLE 40 MG TABLET PO (09:08)
[2024-01-20 10:01] LABS: Lactic Acid 2.8 mmol/L (0.7-2.0)
--- NOTE | 2024-01-20 10:06 | P.PNNP_ITS ---
Progress Note: A&P Assessment and Plan (1) EMERITA (acute kidney injury): Code(s): N17.9 - Acute kidney failure, unspecified Status: Acute Assessment and Plan: * etiology not entirely clear - possibilities include: * contrast * cholesterol emboli * acute interstitial nephritis * acute glomerulonephritis * rhabdomyolysis * no skin lesions; no eosinophilia; no rash noted (argues against atheroemboli and AIN) * s/p emergent hemodialysis on 01/17 evening due to severe hyperkalemia and volume overload * HD on 01/18 due to rebound hyperkalemia as well as further fluid removal * hold HD today * follow-up on serological testing * follow repeat labs and UOP for potential renal recovery (2) Chronic kidney disease, stage 3b: Code(s): N18.32 - Chronic kidney disease, stage 3b Status: Chronic Assessment and Plan: * baseline creatinine seems to run ~ 1.5 - 2.0mg/dl * secondary to hypertension, diabetes, vascular disease and age-related change (3) Hyperkalemia: Code(s): E87.5 - Hyperkalemia Status: Acute Assessment and Plan: * improved/resolved * quite severe on admission * due to EMERITA along with ARB use * s/p medical management and emergent dialysis * follow trend of K+ levels (4) Acute hypoxic respiratory failure: Code(s): J96.01 - Acute respiratory failure with hypoxia Status: Acute Assessment and Plan: * secondary to volume overload and pulmnary edema based on admission imaging * complicated by known history of COPD * fluid removal with dialysis * supplemental oxygen * bronchodilator therapy * follow respiratory status (5) Hypertension: Code(s): I10 - Essential (primary) hypertension Status: Chronic Assessment and Plan: * reasonable control * continue current medications * follow trend of hemodynamics (6) Coronary artery disease: Code(s): I25.10 - Atherosclerotic heart disease of [place] coronary artery without angina pectoris Status: Chronic Assessment and Plan: * recent in-stent stenosis status post GLYNN x 1 to mid RCA on 01/13/2024 * continue aspirin, Brilinta, Coreg, rosuvastatin * ARB on hold due to #1 (7) Anemia: Code(s): D64.9 - Anemia, unspecified Status: Acute Assessment and Plan: * due to recent procedures, hospitalizations, EMERITA and CKD * Epogen with HD * follow trend of H/H (8) Type 2 diabetes mellitus: Code(s): E11.9 - Type 2 diabetes mellitus without complications Status: Chronic Assessment and Plan: * follow accu-cheks * glycemic control per hospitalists Will continue to follow. Subjective Date/time seen: 01/20/24 10:06 Interval history: Follow-up for acute kidney injury/acute renal failure on chronic kidney disease and hyperkalemia. Tolerated dialysis treatment yesterday without any issue or problems; transferred out of ICU yesterday evening; potassium and breathing/respiratory status continue to improve with dialysis/ultrafiltration; still not making much urine; no other acute issues/complaints voiced at this time. Exam Narrative: General: large female sitting up in bed in NAD Heart: normal S1 and S2; no rub Lungs: clear anteriorly; decreased at bases Abdomen: soft, nontender, nondistended, positive bowel sounds Extremities: no cyanosis or clubbing; trace edema Skin: warm and intact Objective Data Vital Signs Vital Signs:
--- NOTE | 2024-01-20 10:06 | PM.PNNEP ---
Progress Note: A&P Assessment and Plan (1) EMERITA (acute kidney injury): Code(s): N17.9 - Acute kidney failure, unspecified Status: Acute Assessment and Plan: etiology not entirely clear - possibilities include: contrast cholesterol emboli acute interstitial nephritis acute glomerulonephritis rhabdomyolysis no skin lesions; no eosinophilia; no rash noted (argues against atheroemboli and AIN) s/p emergent hemodialysis on 01/17 evening due to severe hyperkalemia and volume overload HD on 01/18 due to rebound hyperkalemia as well as further fluid removal hold HD today follow-up on serological testing follow repeat labs and UOP for potential renal recovery (2) Chronic kidney disease, stage 3b: Code(s): N18.32 - Chronic kidney disease, stage 3b Status: Chronic Assessment and Plan: baseline creatinine seems to run ~ 1.5 - 2.0mg/dl secondary to hypertension, diabetes, vascular disease and age-related change (3) Hyperkalemia: Code(s): E87.5 - Hyperkalemia Status: Acute Assessment and Plan: improved/resolved quite severe on admission due to EMERITA along with ARB use s/p medical management and emergent dialysis follow trend of K+ levels (4) Acute hypoxic respiratory failure: Code(s): J96.01 - Acute respiratory failure with hypoxia Status: Acute Assessment and Plan: secondary to volume overload and pulmnary edema based on admission imaging complicated by known history of COPD fluid removal with dialysis supplemental oxygen bronchodilator therapy follow respiratory status (5) Hypertension: Code(s): I10 - Essential (primary) hypertension Status: Chronic Assessment and Plan: reasonable control continue current medications follow trend of hemodynamics (6) Coronary artery disease: Code(s): I25.10 - Atherosclerotic heart disease of [place] coronary artery without angina pectoris Status: Chronic Assessment and Plan: recent in-stent stenosis status post GLYNN x 1 to mid RCA on 01/13/2024 continue aspirin, Brilinta, Coreg, rosuvastatin ARB on hold due to #1 (7) Anemia: Code(s): D64.9 - Anemia, unspecified Status: Acute Assessment and Plan: due to recent procedures, hospitalizations, EMERITA and CKD Epogen with HD follow trend of H/H (8) Type 2 diabetes mellitus: Code(s): E11.9 - Type 2 diabetes mellitus without complications Status: Chronic Assessment and Plan: follow accu-cheks glycemic control per hospitalists Will continue to follow. Subjective Date/time seen: 01/20/24 10:06 Interval history: Follow-up for acute kidney injury/acute renal failure on chronic kidney disease and hyperkalemia. Tolerated dialysis treatment yesterday without any issue or problems; transferred out of ICU yesterday evening; potassium and breathing/respiratory status continue to improve with dialysis/ultrafiltration; still not making much urine; no other acute issues/complaints voiced at this time. Exam Narrative: General: large female sitting up in bed in NAD Heart: normal S1 and S2; no rub Lungs: clear anteriorly; decreased at bases Abdomen: soft, nontender, nondistended, positive bowel sounds Extremities: no cyanosis or clubbing; trace edema Skin: warm and intact Objective Data Vital Signs Vital Signs: Vital Signs Temp Pulse Resp BP Pulse Ox O2 Del Method O2 Flow Rate 01/20/24 09:32 97.3 F L 72 18 129/47 L 97 01/20/24 08:00 93 Nasal Cannula 1 01/20/24 09:01 66 01/20/24 08:15 66 20 01/20/24 08:04 72 20 01/20/24 08:04 93 Nasal Cannula 2 01/20/24 07:48 97.1 F L 71 22 H 188/57 H 91 01/20/24 06:00 65 01/20/24 04:00 67 01/20/24 04:24 97.8 F 73 19 138/49 L 96 01/20/24 04:00 67 96 Nasal Cannula 2 01/20/24 02:00 65 01/20/24 00:00
[2024-01-20 11:48] LABS: Glucose Point of Care 211 mg/dl (65-105)
[2024-01-20] MEDS: INSULIN ASPART (*BKC) 100 UNITS/ML SUB-Q (12:05)
--- NOTE | 2024-01-20 16:36 | PM.IMPN ---
Progress Note: A&P Assessment and Plan (1) Acute hyperkalemia: Code(s): E87.5 - Hyperkalemia Status: Acute Assessment and Plan: Patient presented with shortness of breath and was found to have severe hyperkalemia to 9.3 along with acute on chronic kidney disease with a creatinine of 8.8 Patient was initially treated in the ER for her hyperkalemia Nephrology consulted and appreciate their input. Hemodialysis Femoral catheter placed by Bryce Patient started on dialysis on 01/18/24 with 2500 mL in fluid removal Potassium better and back to normal Continue to use HD to control potassium level Continue Renal dialysis diet (2) Acute on chronic kidney failure: Code(s): N17.9 - Acute kidney failure, unspecified; N18.9 - Chronic kidney disease, unspecified Status: Acute Assessment and Plan: Acute on chronic kidney failure likely multifactorial: CKD with recent contrast for NSTEMI and stent placement, HTN, DM and meds (losartan, metformin, bumetanide) As above. HD 01/18/24 and 01/18 Nephrology following Hemodialysis schedule per nephrology Monitor UOP, electrolytes and renal function (3) Acute hypoxic respiratory failure: Code(s): J96.01 - Acute respiratory failure with hypoxia Status: Acute Assessment and Plan: Acute respiratory failure likely related to volume overload secondary to acute on chronic kidney disease CXR showed mild pulmonary edema Consider also be related to COPD exacerbation Patient dialyzed with 2500 mL in fluid removal on 01/18/2024 Clinical improvement and weaned to room air Continue bronchodilators; HD per nephrology instruction (4) Chronic obstructive pulmonary disease: Code(s): J44.9 - Chronic obstructive pulmonary disease, unspecified Status: Acute Assessment and Plan: Cough with course BS. Continue DuoNebs and supplemental oxygen prn Consider steroids if no improvement (5) Coronary artery disease: Code(s): I25.10 - Atherosclerotic heart disease of [place] coronary artery without angina pectoris Status: Chronic Assessment and Plan: Recent InStent stenosis status post GLYNN x1 to mid RCA on 01/13/2024 -continue aspirin, Brilinta, Coreg, rosuvastatin -holding losartan secondary to acute on chronic kidney disease (6) Hypertension: Code(s): I10 - Essential (primary) hypertension Status: Chronic Assessment and Plan: Patient's blood pressure was reviewed on 01/19 Blood pressure remains well controlled. Will continue carvedilol, clonidine. Hydralazine available p.r.n. (7) Hyperlipidemia: Code(s): E78.5 - Hyperlipidemia, unspecified Status: Acute Assessment and Plan: Stable. LFTs normal. Continue rosuvastatin (8) Diabetes mellitus: Qualifiers: Diabetes mellitus complication status: without complication Diabetes mellitus assisted insulin use: without watermaster use Diabetes mellitus type: type 2 Qualified Code(s): E11.9 - Type 2 diabetes mellitus without complications Code(s): E11.9 - Type 2 diabetes mellitus without complications Status: Acute Assessment and Plan: The patient's blood glucose was reviewed on 01/19 Glucose remains elevated at times Continue AccuCheks covering with sliding scale. Hypoglycemia protocol available as needed. Continue to monitor for now Plan DVT prophylaxis: Heparin SQ Stress ulcer prophylaxis: On Protonix Nutrition: Renal diet Code Status: Full code Subjective Date/time seen: 01/20/24 16:36 Interval history: 73yo female with tobacco abuse, COPD, CAD w/ hx of multiple stents, CKD, HTN and DM here shortness of breath.? Assuming care. Chart reviewed. She is feeling well. No n/v. Did not wear the bipap last night. No Cp or SOB. eating okay. Has a nonproductive cough. Exam Narrative: Tm 100.1 97.8 141/41 70 18 90% ra Gen - NARD Chest - coarse expiratory wheeze. CV - RRR S1
[2024-01-20 17:11] LABS: Glucose Point of Care 160 mg/dl (65-105)
[2024-01-20] MEDS: SALINE 0.65% NAS SOLN 44 ML BTL 1 SPRAY NASAL (17:36)
[2024-01-20] MEDS: guaiFENesin 12 HR 600 MG TABCR PO (20:33)
--- NOTE | 2024-01-20 21:22 | PCRCNOTE ---
Patient refused use of bipap tonight.
[2024-01-20 21:48] LABS: Glucose Point of Care 170 mg/dl (65-105)
[2024-01-21] VITALS (40 sets, daily range): BP systolic 135–189; BP diastolic 39–72; PULSE 61–78; RESP 16–20; TEMP 36.2–37.8; O2SAT 92–99
[2024-01-21] MEDS: IPRATROPIUM 0.5 MG/ALBUTEROL SULFATE 2.5 MG AMPUL.NEB 3 ML INHALATION ×4 (02:20→21:13)
[2024-01-21 04:56] LABS: Basophils Percent Auto 0.3 % (0.2-1.2); Eosinophils Absolute Auto 0.4 K/mm3 (0-0.3); Eosinophils Percent Auto 4.2 % (0-4.4); Hematocrit 26.3 % (37.0-47.0); Hemoglobin 7.6 g/dL (12.0-15.0); Immature Granulocyte Absolute 0.05 K/mm3 (0.00-0.031); Immature Granulocyte Percent A 0.6 % (0-0.5); Lymphocytes Absolute Auto 2.38 K/mm3 (0.9-3.2); Lymphocytes Percent Auto 27.1 % (18.3-44.2); Mean Corpuscular HGB Conc 28.9 g/dl (32-36); Mean Corpuscular Hemoglobin 23.7 pg (26-34); Mean Corpuscular Volume 81.9 fl (80-100); Monocytes Absolute Auto 0.8 K/mm3 (0.1-0.6); Monocytes Percent Auto 9.4 % (2.6-8.5); Neutrophils Absolute Auto 5.1 K/mm3 (1.3-6.7); Neutrophils Percent Auto 58.4 % (45.5-73.1); Platelet Count Result 188 k/mm3 (150-375); Red Blood Count 3.21 M/mm3 (4.2-5.4); Red Cell Distribution Width 18.8 % (11.5-14.5); White Blood Count 8.8 K/mm3 (4.5-10.0)
[2024-01-21 05:10] LABS: Albumin Level 3.4 g/dL (3.5-5.1); Anion Gap 6 mmol/L (4-12); Blood Urea Nitrogen 39 mg/dL (7-17); Calcium 7.4 mg/dL (8.4-10.2); Carbon Dioxide 30 mmol/L (22-30); Chloride 100 mmol/L (98-107); Estimated CRCL calculation 9 ml/min; Estimated Glomerular Filt Rate 7; Glucose 127 mg/dL (65-110); Phosphorus 6.3 mg/dL (2.5-4.5); Potassium 3.9 mmol/L (3.4-5.0); Sodium 136 mmol/L (137-145)
[2024-01-21 05:21] LABS: Anisocytosis 1+; Hypochromasia 1+; Ovalocytes 1+; Platelet Estimate Adequate (Adequate); Schistocytes None Seen
[2024-01-21] MEDS: CENTRAL LINE FLUSH 10 ML IV PUSH ×3 (06:07→20:59)
[2024-01-21 08:05] LABS: Glucose Point of Care 138 mg/dl (65-105)
[2024-01-21] MEDS: ROSUVASTATIN 10 MG TABLET 20 MG PO (08:23)
[2024-01-21] MEDS: FAMOTIDINE 20 MG TABLET PO ×2 (08:23→17:21)
[2024-01-21] MEDS: guaiFENesin 12 HR 600 MG TABCR PO ×2 (08:23→20:18)
[2024-01-21] MEDS: ASPIRIN 81 MG ENTERIC TABLET PO (08:24)
[2024-01-21] MEDS: PANTOPRAZOLE 40 MG TABLET PO (08:24)
[2024-01-21] MEDS: LORATADINE 10 MG TABLET PO (08:24)
[2024-01-21] MEDS: cloNIDine HCL 0.1 MG TABLET PO ×2 (08:25→17:21)
[2024-01-21] MEDS: carvediloL 12.5 MG TABLET PO (08:25)
[2024-01-21] MEDS: HEPARIN SODIUM 5,000 UNITS/ML VIAL 5000 UNITS SUB-Q ×2 (08:25→20:18)
[2024-01-21] MEDS: SALINE 0.65% NAS SOLN 44 ML BTL 1 SPRAY NASAL (08:27)
[2024-01-21] MEDS: TICAGRELOR 90 MG TABLET PO ×2 (08:27→20:18)
[2024-01-21] MEDS: ISOSORBIDE MONONITRATE 60 MG TAB.ER.24H 120 MG PO (08:32)
[2024-01-21] MEDS: EPOETIN ALFA-EPBX 10,000 UNITS/ML VIAL 10000 UNITS IV PUSH (11:27)
--- NOTE | 2024-01-21 12:25 | PM.PNNEP ---
Progress Note: A&P Assessment and Plan (1) EMERITA (acute kidney injury): Code(s): N17.9 - Acute kidney failure, unspecified Status: Acute Assessment and Plan: etiology not entirely clear - possibilities include: contrast cholesterol emboli acute interstitial nephritis acute glomerulonephritis rhabdomyolysis no skin lesions; no eosinophilia; no rash noted (argues against atheroemboli and AIN) s/p emergent hemodialysis on 01/17 evening due to severe hyperkalemia and volume overload HD on 01/18 due to rebound hyperkalemia as well as further fluid removal HD today follow-up on serological testing follow repeat labs and UOP for potential renal recovery slighlty better UOP -- follow trend (2) Chronic kidney disease, stage 3b: Code(s): N18.32 - Chronic kidney disease, stage 3b Status: Chronic Assessment and Plan: baseline creatinine seems to run ~ 1.5 - 2.0mg/dl secondary to hypertension, diabetes, vascular disease and age-related change (3) Hyperkalemia: Code(s): E87.5 - Hyperkalemia Status: Acute Assessment and Plan: improved/resolved quite severe on admission due to EMERITA along with ARB use s/p medical management and emergent dialysis follow trend of K+ levels (4) Acute hypoxic respiratory failure: Code(s): J96.01 - Acute respiratory failure with hypoxia Status: Acute Assessment and Plan: secondary to volume overload and pulmnary edema based on admission imaging complicated by known history of COPD fluid removal with dialysis supplemental oxygen bronchodilator therapy follow respiratory status (5) Hypertension: Code(s): I10 - Essential (primary) hypertension Status: Chronic Assessment and Plan: reasonable control continue current medications follow trend of hemodynamics (6) Coronary artery disease: Code(s): I25.10 - Atherosclerotic heart disease of [place] coronary artery without angina pectoris Status: Chronic Assessment and Plan: recent in-stent stenosis status post GLYNN x 1 to mid RCA on 01/13/2024 continue aspirin, Brilinta, Coreg, rosuvastatin ARB on hold due to #1 (7) Anemia: Code(s): D64.9 - Anemia, unspecified Status: Acute Assessment and Plan: due to recent procedures, hospitalizations, EMERITA and CKD Epogen with HD follow trend of H/H (8) Type 2 diabetes mellitus: Code(s): E11.9 - Type 2 diabetes mellitus without complications Status: Chronic Assessment and Plan: follow accu-cheks glycemic control per hospitalists Will continue to follow. Subjective Date/time seen: 01/21/24 12:25 Interval history: Follow-up for acute kidney injury/acute renal failure on chronic kidney disease and hyperkalemia. Tolerating dialysis treatment today without any issue or problems (seen on HD at 12:15PM); mild improvement in urine output in the last 24 hours and potassium remains stable but noted rise in BUN and creatinine; breathing/respiratory status stable; no apparent distress noted. Exam Narrative: General: large female sitting up in bed in NAD Heart: normal S1 and S2; no rub Lungs: clear anteriorly; decreased at bases Abdomen: soft, nontender, nondistended, positive bowel sounds Extremities: no cyanosis or clubbing; trace edema Skin: no rash Objective Data Vital Signs Vital Signs: Vital Signs Temp Pulse Resp BP Pulse Ox O2 Del Method O2 Flow Rate 01/21/24 12:15 69 152/62 H 01/21/24 12:00 67 165/65 H 01/21/24 11:30 73 168/60 H 01/21/24 10:00 72 01/21/24 08:00 98 Nasal Cannula 2 01/21/24 08:00 75 01/21/24 11:00 76 189/71 H 01/21/24 10:30 72 173/65 H 01/21/24 10:15 71 159/67 H 01/21/24 11:45 70 173/70 H 01/21/24 11:15 73 177/66 H 01/21/24 10:45 72 176/66 H 01/21/24 10:00 71 178/68 H
--- NOTE | 2024-01-21 12:25 | P.PNNP_ITS ---
Progress Note: A&P Assessment and Plan (1) EMERITA (acute kidney injury): Code(s): N17.9 - Acute kidney failure, unspecified Status: Acute Assessment and Plan: * etiology not entirely clear - possibilities include: * contrast * cholesterol emboli * acute interstitial nephritis * acute glomerulonephritis * rhabdomyolysis * no skin lesions; no eosinophilia; no rash noted (argues against atheroemboli and AIN) * s/p emergent hemodialysis on 01/17 evening due to severe hyperkalemia and volume overload * HD on 01/18 due to rebound hyperkalemia as well as further fluid removal * HD today * follow-up on serological testing * follow repeat labs and UOP for potential renal recovery * slighlty better UOP -- follow trend (2) Chronic kidney disease, stage 3b: Code(s): N18.32 - Chronic kidney disease, stage 3b Status: Chronic Assessment and Plan: * baseline creatinine seems to run ~ 1.5 - 2.0mg/dl * secondary to hypertension, diabetes, vascular disease and age-related change (3) Hyperkalemia: Code(s): E87.5 - Hyperkalemia Status: Acute Assessment and Plan: * improved/resolved * quite severe on admission * due to EMERITA along with ARB use * s/p medical management and emergent dialysis * follow trend of K+ levels (4) Acute hypoxic respiratory failure: Code(s): J96.01 - Acute respiratory failure with hypoxia Status: Acute Assessment and Plan: * secondary to volume overload and pulmnary edema based on admission imaging * complicated by known history of COPD * fluid removal with dialysis * supplemental oxygen * bronchodilator therapy * follow respiratory status (5) Hypertension: Code(s): I10 - Essential (primary) hypertension Status: Chronic Assessment and Plan: * reasonable control * continue current medications * follow trend of hemodynamics (6) Coronary artery disease: Code(s): I25.10 - Atherosclerotic heart disease of [place] coronary artery without angina pectoris Status: Chronic Assessment and Plan: * recent in-stent stenosis status post GLYNN x 1 to mid RCA on 01/13/2024 * continue aspirin, Brilinta, Coreg, rosuvastatin * ARB on hold due to #1 (7) Anemia: Code(s): D64.9 - Anemia, unspecified Status: Acute Assessment and Plan: * due to recent procedures, hospitalizations, EMERITA and CKD * Epogen with HD * follow trend of H/H (8) Type 2 diabetes mellitus: Code(s): E11.9 - Type 2 diabetes mellitus without complications Status: Chronic Assessment and Plan: * follow accu-cheks * glycemic control per hospitalists Will continue to follow. Subjective Date/time seen: 01/21/24 12:25 Interval history: Follow-up for acute kidney injury/acute renal failure on chronic kidney disease and hyperkalemia. Tolerating dialysis treatment today without any issue or problems (seen on HD at 12:15PM); mild improvement in urine output in the last 24 hours and potassium remains stable but noted rise in BUN and creatinine; breathing/respiratory status stable; no apparent distress noted. Exam 2 Narrative: General: large female sitting up in bed in NAD Heart: normal S1 and S2; no rub Lungs: clear anteriorly; decreased at bases Abdomen: soft, nontender, nondistended, positive bowel sounds Extremities: no cyanosis or clubbing; trace edema Skin: no rash Objective Data Vital Signs
[2024-01-21] MEDS: HEPARIN SODIUM 1,000 UNITS/ML VIAL 3000 UNITS IV PUSH (12:57)
[2024-01-21 16:38] LABS: Glucose Point of Care 199 mg/dl (65-105)
--- NOTE | 2024-01-21 17:08 | PM.IMPN ---
Progress Note: A&P Assessment and Plan (1) Acute hyperkalemia: Code(s): E87.5 - Hyperkalemia Status: Acute Assessment and Plan: Patient presented with shortness of breath and was found to have severe hyperkalemia to 9.3 along with acute on chronic kidney disease with a creatinine of 8.8 Patient was initially treated in the ER for her hyperkalemia Nephrology consulted and appreciate their input. Hemodialysis Femoral catheter placed by Bryce pt receiving dialysis 3 rd session today (2) Acute on chronic kidney failure: Code(s): N17.9 - Acute kidney failure, unspecified; N18.9 - Chronic kidney disease, unspecified Status: Acute Assessment and Plan: Acute on chronic kidney failure likely multifactorial: CKD with recent contrast for NSTEMI and stent placement, HTN, DM and meds (losartan, metformin, bumetanide) As above. HD 01/18/24 and 01/18 Nephrology following Hemodialysis schedule per nephrology Monitor UOP, electrolytes and renal function (3) Acute hypoxic respiratory failure: Code(s): J96.01 - Acute respiratory failure with hypoxia Status: Acute Assessment and Plan: Acute respiratory failure likely related to volume overload secondary to acute on chronic kidney disease CXR showed mild pulmonary edema Consider also be related to COPD exacerbation Patient dialyzed with 2500 mL in fluid removal on 01/18/2024 Clinical improvement and weaned to room air Continue bronchodilators; HD per nephrology instruction (4) Chronic obstructive pulmonary disease: Code(s): J44.9 - Chronic obstructive pulmonary disease, unspecified Status: Acute Assessment and Plan: Cough with course BS. Continue DuoNebs and supplemental oxygen prn Consider steroids if no improvement (5) Coronary artery disease: Code(s): I25.10 - Atherosclerotic heart disease of [place] coronary artery without angina pectoris Status: Chronic Assessment and Plan: Recent InStent stenosis status post GLYNN x1 to mid RCA on 01/13/2024 -continue aspirin, Brilinta, Coreg, rosuvastatin -holding losartan secondary to acute on chronic kidney disease (6) Hypertension: Code(s): I10 - Essential (primary) hypertension Status: Chronic Assessment and Plan: Patient's blood pressure was reviewed on 01/19 Blood pressure remains well controlled. Will continue carvedilol, clonidine. Hydralazine available p.r.n. (7) Hyperlipidemia: Code(s): E78.5 - Hyperlipidemia, unspecified Status: Acute Assessment and Plan: Stable. LFTs normal. Continue rosuvastatin (8) Diabetes mellitus: Qualifiers: Diabetes mellitus type: type 2 Diabetes mellitus retirement insulin use: without terminal system operator use Diabetes mellitus complication status: without complication Qualified Code(s): E11.9 - Type 2 diabetes mellitus without complications Code(s): E11.9 - Type 2 diabetes mellitus without complications Status: Acute Assessment and Plan: The patient's blood glucose was reviewed on 01/19 Glucose remains elevated at times Continue AccuCheks covering with sliding scale. Hypoglycemia protocol available as needed. Continue to monitor for now Subjective Date/time seen: 01/21/24 17:08 Interval history: 73yo female with tobacco abuse, COPD, CAD w/ hx of multiple stents, CKD, HTN and DM here shortness of breath.? sp 3 rd round of dialysis pt feels better Creat down from 9 to 5 plan dialysis again friday and then tunneled catheter prior to dc will likely need permanent dilaysis Review of Systems Review of Systems: no specfic complaints Exam Narrative: older lady pleasant chronically ill appearing Chest - clear lung brewer CV - RRR S1/S2. Tele showing no significant dysrhythmias Abd -soft. Obese. Nontender. - Brown secured draining clear yellow urine Ext -minimal pedal edema. Right femoral dialysis line
[2024-01-21 18:23] LABS: Complement Total CH50 >60 U/mL (31-60)
[2024-01-21 19:06] LABS: RNP Antibodies <1.0; SS-A <1.0; SS-B <1.0
[2024-01-21 20:48] LABS: Glucose Point of Care 212 mg/dl (65-105)
[2024-01-21] MEDS: INSULIN ASPART (*BKC) 100 UNITS/ML SUB-Q (20:58)
[2024-01-22] VITALS (16 sets, daily range): BP systolic 130–174; BP diastolic 43–62; PULSE 60–74; RESP 14–22; TEMP 35.8–36.9; O2SAT 93–100
[2024-01-22] MEDS: IPRATROPIUM 0.5 MG/ALBUTEROL SULFATE 2.5 MG AMPUL.NEB 3 ML INHALATION ×4 (02:57→21:00)
[2024-01-22 06:22] LABS: Hematocrit 26.6 % (37.0-47.0); Hemoglobin 7.5 g/dL (12.0-15.0); Mean Corpuscular HGB Conc 28.2 g/dl (32-36); Mean Corpuscular Hemoglobin 23.7 pg (26-34); Mean Corpuscular Volume 83.9 fl (80-100); Mean Platelet Volume 10.9 fl (7.4-10.4); Platelet Count Result 166 k/mm3 (150-375); Red Blood Count 3.17 M/mm3 (4.2-5.4); Red Cell Distribution Width 18.2 % (11.5-14.5); White Blood Count 10.2 K/mm3 (4.5-10.0)
[2024-01-22 06:37] LABS: Anion Gap 2 mmol/L (4-12); Blood Urea Nitrogen 25 mg/dL (7-17); Calcium 7.8 mg/dL (8.4-10.2); Carbon Dioxide 29 mmol/L (22-30); Chloride 105 mmol/L (98-107); Estimated CRCL calculation 13 ml/min; Estimated Glomerular Filt Rate 11; Glucose 138 mg/dL (65-110); Sodium 136 mmol/L (137-145)
[2024-01-22] MEDS: CENTRAL LINE FLUSH 10 ML IV PUSH ×3 (06:58→20:34)
[2024-01-22 07:57] LABS: Glucose Point of Care 167 mg/dl (65-105)
[2024-01-22] MEDS: HEPARIN SODIUM 5,000 UNITS/ML VIAL 5000 UNITS SUB-Q ×2 (09:14→20:31)
[2024-01-22] MEDS: LORATADINE 10 MG TABLET PO (09:16)
[2024-01-22] MEDS: guaiFENesin 12 HR 600 MG TABCR PO ×2 (09:17→20:26)
[2024-01-22] MEDS: PANTOPRAZOLE 40 MG TABLET PO (09:17)
[2024-01-22] MEDS: ISOSORBIDE MONONITRATE 60 MG TAB.ER.24H 120 MG PO (09:18)
[2024-01-22] MEDS: ROSUVASTATIN 10 MG TABLET 20 MG PO (09:18)
[2024-01-22] MEDS: FAMOTIDINE 20 MG TABLET PO ×2 (09:19→17:31)
[2024-01-22] MEDS: TICAGRELOR 90 MG TABLET PO ×2 (09:19→20:26)
[2024-01-22] MEDS: ASPIRIN 81 MG ENTERIC TABLET PO (09:19)
[2024-01-22] MEDS: carvediloL 12.5 MG TABLET PO (09:20)
[2024-01-22] MEDS: cloNIDine HCL 0.1 MG TABLET PO ×2 (09:21→17:31)
[2024-01-22 11:41] LABS: Glucose Point of Care 235 mg/dl (65-105)
[2024-01-22] MEDS: INSULIN ASPART (*BKC) 100 UNITS/ML SUB-Q ×2 (11:44→20:35)
[2024-01-22 12:26] LABS: Chloride Rand Ur 84 mmol/L (32-290); Chloride/Creatinine Rand Ur 233 (38-318); Creatinine Random Urine 36 mg/dL (20-275)
--- NOTE | 2024-01-22 13:02 | P.PNNP_ITS ---
Progress Note: A&P Assessment and Plan (1) EMERITA (acute kidney injury): Code(s): N17.9 - Acute kidney failure, unspecified Status: Acute Assessment and Plan: * etiology not entirely clear - possibilities include: * contrast * cholesterol emboli * acute interstitial nephritis * acute glomerulonephritis * rhabdomyolysis * no skin lesions; no eosinophilia; no rash noted (argues against atheroemboli and AIN) * s/p emergent hemodialysis on 01/17 evening due to severe hyperkalemia and volume overload * HD on 01/18 due to rebound hyperkalemia as well as further fluid removal * hold HD today * possible HD tomorrow depending on labs * follow-up on serological testing * follow repeat labs and UOP for potential renal recovery * better UOP in the last 24 hours -- possible recovery? (2) Chronic kidney disease, stage 3b: Code(s): N18.32 - Chronic kidney disease, stage 3b Status: Chronic Assessment and Plan: * baseline creatinine seems to run ~ 1.5 - 2.0mg/dl * secondary to hypertension, diabetes, vascular disease and age-related change (3) Hyperkalemia: Code(s): E87.5 - Hyperkalemia Status: Acute Assessment and Plan: * improved/resolved * quite severe on admission * due to EMERITA along with ARB use * s/p medical management and emergent dialysis * follow trend of K+ levels (4) Acute hypoxic respiratory failure: Code(s): J96.01 - Acute respiratory failure with hypoxia Status: Acute Assessment and Plan: * stable if not improving * secondary to volume overload and pulmnary edema based on admission imaging * complicated by known history of COPD * s/p fluid removal with dialysis * supplemental oxygen * bronchodilator therapy * follow respiratory status (5) Hypertension: Code(s): I10 - Essential (primary) hypertension Status: Chronic Assessment and Plan: * reasonable control * continue current medications * follow trend of hemodynamics (6) Coronary artery disease: Code(s): I25.10 - Atherosclerotic heart disease of [place] coronary artery without angina pectoris Status: Chronic Assessment and Plan: * recent in-stent stenosis status post GLYNN x 1 to mid RCA on 01/13/2024 * continue aspirin, Brilinta, Coreg, rosuvastatin * ARB on hold due to #1 (7) Anemia: Code(s): D64.9 - Anemia, unspecified Status: Acute Assessment and Plan: * due to recent procedures, hospitalizations, EMERITA and CKD * Epogen with HD * follow trend of H/H (8) UTI (urinary tract infection): Qualifiers: Hematuria presence: without hematuria Urinary tract infection type: site unspecified Qualified Code(s): N39.0 - Urinary tract infection, site not specified Code(s): N39.0 - Urinary tract infection, site not specified Status: Acute Assessment and Plan: * urine culture with Klebsiella * on antibiotics (9) Type 2 diabetes mellitus: Code(s): E11.9 - Type 2 diabetes mellitus without complications Status: Chronic Assessment and Plan: * follow accu-cheks * glycemic control per hospitalists Will continue to follow. Subjective Date/time seen: 01/22/24 13:02 Interval history: Follow-up for acute kidney injury/acute renal failure on chronic kidney disease and hyperkalemia. Tolerated dialysis treatment yesterday without any issues or problems; increased urine output in the last 24 hours; breathing/respiratory st
--- NOTE | 2024-01-22 13:02 | PM.PNNEP ---
Progress Note: A&P Assessment and Plan (1) EMERITA (acute kidney injury): Code(s): N17.9 - Acute kidney failure, unspecified Status: Acute Assessment and Plan: etiology not entirely clear - possibilities include: contrast cholesterol emboli acute interstitial nephritis acute glomerulonephritis rhabdomyolysis no skin lesions; no eosinophilia; no rash noted (argues against atheroemboli and AIN) s/p emergent hemodialysis on 01/17 evening due to severe hyperkalemia and volume overload HD on 01/18 due to rebound hyperkalemia as well as further fluid removal hold HD today possible HD tomorrow depending on labs follow-up on serological testing follow repeat labs and UOP for potential renal recovery better UOP in the last 24 hours -- possible recovery? (2) Chronic kidney disease, stage 3b: Code(s): N18.32 - Chronic kidney disease, stage 3b Status: Chronic Assessment and Plan: baseline creatinine seems to run ~ 1.5 - 2.0mg/dl secondary to hypertension, diabetes, vascular disease and age-related change (3) Hyperkalemia: Code(s): E87.5 - Hyperkalemia Status: Acute Assessment and Plan: improved/resolved quite severe on admission due to EMERITA along with ARB use s/p medical management and emergent dialysis follow trend of K+ levels (4) Acute hypoxic respiratory failure: Code(s): J96.01 - Acute respiratory failure with hypoxia Status: Acute Assessment and Plan: stable if not improving secondary to volume overload and pulmnary edema based on admission imaging complicated by known history of COPD s/p fluid removal with dialysis supplemental oxygen bronchodilator therapy follow respiratory status (5) Hypertension: Code(s): I10 - Essential (primary) hypertension Status: Chronic Assessment and Plan: reasonable control continue current medications follow trend of hemodynamics (6) Coronary artery disease: Code(s): I25.10 - Atherosclerotic heart disease of [place] coronary artery without angina pectoris Status: Chronic Assessment and Plan: recent in-stent stenosis status post GLYNN x 1 to mid RCA on 01/13/2024 continue aspirin, Brilinta, Coreg, rosuvastatin ARB on hold due to #1 (7) Anemia: Code(s): D64.9 - Anemia, unspecified Status: Acute Assessment and Plan: due to recent procedures, hospitalizations, EMERITA and CKD Epogen with HD follow trend of H/H (8) UTI (urinary tract infection): Qualifiers: Hematuria presence: without hematuria Urinary tract infection type: site unspecified Qualified Code(s): N39.0 - Urinary tract infection, site not specified Code(s): N39.0 - Urinary tract infection, site not specified Status: Acute Assessment and Plan: urine culture with Klebsiella on antibiotics (9) Type 2 diabetes mellitus: Code(s): E11.9 - Type 2 diabetes mellitus without complications Status: Chronic Assessment and Plan: follow accu-cheks glycemic control per hospitalists Will continue to follow. Subjective Date/time seen: 01/22/24 13:02 Interval history: Follow-up for acute kidney injury/acute renal failure on chronic kidney disease and hyperkalemia. Tolerated dialysis treatment yesterday without any issues or problems; increased urine output in the last 24 hours; breathing/respiratory status and as potassium level remains stable; limited mobility at this time due to presence of temporary femoral HD catheter; no apparent distress noted. Exam Narrative: General: large female sitting up in bed in NAD Heart: normal S1 and S2; no rub Lungs: clear anteriorly; decreased at bases Abdomen: soft, nontender, nondistended, positive bowel sounds Extremities: no cyanosis or clubbing; trace edema Skin: no nodules Objective Data Vital Signs Vital Signs: Vital Signs Temp
--- NOTE | 2024-01-22 13:35 | PM.IMPN ---
Progress Note: A&P Assessment and Plan (1) Acute hyperkalemia: Code(s): E87.5 - Hyperkalemia Status: Acute Assessment and Plan: Patient presented with shortness of breath and was found to have severe hyperkalemia to 9.3 along with acute on chronic kidney disease with a creatinine of 8.8 Patient was initially treated in the ER for her hyperkalemia Nephrology consulted and appreciate their input. Hemodialysis Femoral catheter placed by Bryce pt receiving dialysis 3 rd session today (2) Acute on chronic kidney failure: Code(s): N17.9 - Acute kidney failure, unspecified; N18.9 - Chronic kidney disease, unspecified Status: Acute Assessment and Plan: Acute on chronic kidney failure likely multifactorial: CKD with recent contrast for NSTEMI and stent placement, HTN, DM and meds (losartan, metformin, bumetanide) As above. HD 01/18/24 and 01/18 Nephrology following Hemodialysis schedule per nephrology Monitor UOP, electrolytes and renal function Suspected UTI Iv rocephin on board (3) Acute hypoxic respiratory failure: Code(s): J96.01 - Acute respiratory failure with hypoxia Status: Acute Assessment and Plan: Acute respiratory failure likely related to volume overload secondary to acute on chronic kidney disease CXR showed mild pulmonary edema Consider also be related to COPD exacerbation Patient dialyzed with 2500 mL in fluid removal on 01/18/2024 Clinical improvement and weaned to room air Continue bronchodilators; HD per nephrology instruction (4) Chronic obstructive pulmonary disease: Code(s): J44.9 - Chronic obstructive pulmonary disease, unspecified Status: Acute Assessment and Plan: Cough with course BS. Continue DuoNebs and supplemental oxygen prn Consider steroids if no improvement (5) Coronary artery disease: Code(s): I25.10 - Atherosclerotic heart disease of [place] coronary artery without angina pectoris Status: Chronic Assessment and Plan: Recent InStent stenosis status post GLYNN x1 to mid RCA on 01/13/2024 -continue aspirin, Brilinta, Coreg, rosuvastatin -holding losartan secondary to acute on chronic kidney disease (6) Hypertension: Code(s): I10 - Essential (primary) hypertension Status: Chronic Assessment and Plan: Patient's blood pressure was reviewed on 01/19 Blood pressure remains well controlled. Will continue carvedilol, clonidine. Hydralazine change to scheduled (7) Hyperlipidemia: Code(s): E78.5 - Hyperlipidemia, unspecified Status: Acute Assessment and Plan: Stable. LFTs normal. Continue rosuvastatin (8) Diabetes mellitus: Qualifiers: Diabetes mellitus type: type 2 Diabetes mellitus nursing home insulin use: without long term care pharmacist use Diabetes mellitus complication status: without complication Qualified Code(s): E11.9 - Type 2 diabetes mellitus without complications Code(s): E11.9 - Type 2 diabetes mellitus without complications Status: Acute Assessment and Plan: The patient's blood glucose was reviewed on 01/19 Glucose remains elevated at times Continue AccuCheks covering with sliding scale. Hypoglycemia protocol available as needed. Continue to monitor for now Plan Severe anemia order iv venofer watch hb levels Subjective Date/time seen: 01/22/24 13:35 Interval history: 73yo female with tobacco abuse, COPD, CAD w/ hx of multiple stents, CKD, HTN and DM here shortness of breath.?Acute on chronic kidney failure and UTI 01/21/2024 sp 3 rd round of dialysis pt feels better Creat down from 9 to 5 plan dialysis again friday and then tunneled catheter prior to dc will likely need permanent dialysis 01/22/2024 creat is down to 4 pt having good UO today, pt is on IV Rocephin awaiting full culture report Review of Systems Review of Systems: No specific complaints Exam Narrative: older lad
--- NOTE | 2024-01-22 14:39 | PC.NURSE ---
On 01/22/24, the student, [ Viviana Kemp], provided care and completed [facility] documentation on this patient. I have reviewed the student's documentation and agree with the findings.
[2024-01-22] MEDS: IRON SUCROSE COMPLEX 100 MG in SODIUM CHLORIDE 0.9% IV 50 ML 220 MG IVPB (15:14)
[2024-01-22 16:15] LABS: Glucose Point of Care 133 mg/dl (65-105)
[2024-01-22] MEDS: hydrALAZINE 10 MG TABLET PO (17:31)
--- NOTE | 2024-01-22 18:00 | PC.NURSE ---
This patient, Giovanna Beltránn, was received from [facility] on 01/22/24 at 1750. Patient/family oriented to unit policies and routines
[2024-01-22 20:39] LABS: Glucose Point of Care 228 mg/dl (65-105)
[2024-01-23] VITALS (13 sets, daily range): BP systolic 117–149; BP diastolic 35–50; PULSE 61–77; RESP 16–20; TEMP 36.3–36.5; O2SAT 92–96
[2024-01-23 02:12] LABS: Anti Glomerular Basement Memb <1.0 AI (<1.0)
[2024-01-23] MEDS: IPRATROPIUM 0.5 MG/ALBUTEROL SULFATE 2.5 MG AMPUL.NEB 3 ML INHALATION ×4 (02:25→21:01)
[2024-01-23] MEDS: CENTRAL LINE FLUSH 10 ML IV PUSH ×3 (05:56→20:02)
[2024-01-23 06:28] LABS: Hematocrit 27.4 % (37.0-47.0); Hemoglobin 7.6 g/dL (12.0-15.0); Mean Corpuscular HGB Conc 27.7 g/dl (32-36); Mean Corpuscular Hemoglobin 23.4 pg (26-34); Mean Corpuscular Volume 84.3 fl (80-100); Mean Platelet Volume 11.2 fl (7.4-10.4); Platelet Count Result 194 k/mm3 (150-375); Red Blood Count 3.25 M/mm3 (4.2-5.4); Red Cell Distribution Width 18.3 % (11.5-14.5); White Blood Count 10.8 K/mm3 (4.5-10.0)
[2024-01-23 06:40] LABS: Anion Gap 5 mmol/L (4-12); Blood Urea Nitrogen 30 mg/dL (7-17); Carbon Dioxide 23 mmol/L (22-30); Chloride 107 mmol/L (98-107); Estimated CRCL calculation 13 ml/min; Estimated Glomerular Filt Rate 10; Glucose 147 mg/dL (65-110); Potassium 3.8 mmol/L (3.4-5.0); Sodium 135 mmol/L (137-145)
[2024-01-23 06:53] LABS: Albumin Level 3.4 g/dL (3.5-5.1); Phosphorus 4.5 mg/dL (2.5-4.5)
--- NOTE | 2024-01-23 07:21 | PM.IMPN ---
Progress Note: A&P Assessment and Plan (1) Acute hyperkalemia: Code(s): E87.5 - Hyperkalemia Status: Acute Assessment and Plan: 01/22/24 Patient presented with shortness of breath and was found to have severe hyperkalemia to 9.3 along with acute on chronic kidney disease with a creatinine of 8.8 Patient was initially treated in the ER for her hyperkalemia Nephrology consulted and appreciate their input. Hemodialysis Femoral catheter placed by Bryce pt receiving dialysis 3 rd session today 01/23/24: Potassium is 3.8, remains stable Nephrology is following Patient had 3 rounds of HD while inpatient, she continues with a HD catheter in her right groin Urine output has been picking up, will defer to Nephrology (2) Acute on chronic kidney failure: Code(s): N17.9 - Acute kidney failure, unspecified; N18.9 - Chronic kidney disease, unspecified Status: Acute Assessment and Plan: 01/22/24: Acute on chronic kidney failure likely multifactorial: CKD with recent contrast for NSTEMI and stent placement, HTN, DM and meds (losartan, metformin, bumetanide) As above. HD 01/18/24 and 01/18 Nephrology following Hemodialysis schedule per nephrology Monitor UOP, electrolytes and renal function Suspected UTI Iv rocephin on board 01/23/24: BUN 30, creatinine 4.2, potassium 3.8 Nephrology following Hemodialysis catheter and right groin Patient has had 3 rounds of HD this admission Urine output has picked up (3) Acute hypoxic respiratory failure: Code(s): J96.01 - Acute respiratory failure with hypoxia Status: Acute Assessment and Plan: 01/22/24: Acute respiratory failure likely related to volume overload secondary to acute on chronic kidney disease CXR showed mild pulmonary edema Consider also be related to COPD exacerbation Patient dialyzed with 2500 mL in fluid removal on 01/18/2024 Clinical improvement and weaned to room air Continue bronchodilators; HD per nephrology instruction 01/23/24: Expiratory wheezing noted today Continue with DuoNeb Continue bronchodilators (4) Chronic obstructive pulmonary disease: Code(s): J44.9 - Chronic obstructive pulmonary disease, unspecified Status: Acute Assessment and Plan: 01/22/24: Cough with course BS. Continue DuoNebs and supplemental oxygen prn Consider steroids if no improvement 01/23/24: Continue with DuoNebs Currently on 1 L nasal cannula (5) Coronary artery disease: Code(s): I25.10 - Atherosclerotic heart disease of [place] coronary artery without angina pectoris Status: Chronic Assessment and Plan: 01/22/24: Recent InStent stenosis status post GLYNN x1 to mid RCA on 01/13/2024 -continue aspirin, Brilinta, Coreg, rosuvastatin -holding losartan secondary to acute on chronic kidney disease 01/23/24: Continue with current treatment plan (6) Hypertension: Code(s): I10 - Essential (primary) hypertension Status: Chronic Assessment and Plan: 01/22/24: Patient's blood pressure was reviewed on 01/19 Blood pressure remains well controlled. Will continue carvedilol, clonidine. Hydralazine change to scheduled 01/23/24: Blood pressure is running 135/62 to 149/50 Continue current treatment (7) Hyperlipidemia: Code(s): E78.5 - Hyperlipidemia, unspecified Status: Acute Assessment and Plan: 01/22/24: Stable. LFTs normal. Continue rosuvastatin 01/23/24: Continue with current treatment plan (8) Diabetes mellitus: Qualifiers: Diabetes mellitus complication status: without complication Diabetes mellitus remelt sugar boiler insulin use: without intermediate use Diabetes mellitus type: type 2 Qualified Code(s): E11.9 - Type 2 diabetes mellitus without complications Code(s): E11.9 - Type 2 diabetes mellitus without complications Status: Acute Assessment and Plan: 01/22/24: The patient's blood glucose was reviewed on 01/19 Glucose
[2024-01-23 08:32] LABS: Glucose Point of Care 141 mg/dl (65-105)
[2024-01-23] MEDS: ASPIRIN 81 MG ENTERIC TABLET PO (08:32)
[2024-01-23] MEDS: ROSUVASTATIN 10 MG TABLET 20 MG PO (08:32)
[2024-01-23] MEDS: ISOSORBIDE MONONITRATE 60 MG TAB.ER.24H 120 MG PO (08:32)
[2024-01-23] MEDS: hydrALAZINE 10 MG TABLET PO (08:32)
[2024-01-23] MEDS: IRON SUCROSE COMPLEX 100 MG in SODIUM CHLORIDE 0.9% IV 50 ML 220 MG IVPB (08:32)
[2024-01-23] MEDS: PANTOPRAZOLE 40 MG TABLET PO (08:32)
[2024-01-23] MEDS: carvediloL 12.5 MG TABLET PO (08:33)
[2024-01-23] MEDS: guaiFENesin 12 HR 600 MG TABCR PO ×2 (08:33→20:00)
[2024-01-23] MEDS: LORATADINE 10 MG TABLET PO (08:33)
[2024-01-23] MEDS: TICAGRELOR 90 MG TABLET PO ×2 (08:33→20:00)
[2024-01-23] MEDS: FAMOTIDINE 20 MG TABLET PO ×2 (08:33→17:15)
[2024-01-23] MEDS: cloNIDine HCL 0.1 MG TABLET PO ×2 (08:33→17:15)
[2024-01-23] MEDS: HEPARIN SODIUM 5,000 UNITS/ML VIAL 5000 UNITS SUB-Q ×2 (08:35→20:01)
--- NOTE | 2024-01-23 10:17 | PM.PNNEP ---
Progress Note: A&P Assessment and Plan (1) EMERITA (acute kidney injury): Code(s): N17.9 - Acute kidney failure, unspecified Status: Acute Assessment and Plan: etiology not entirely clear - possibilities include: contrast cholesterol emboli acute interstitial nephritis acute glomerulonephritis rhabdomyolysis relative hypotension/ATN no skin lesions, no eosinophilia, and no rash noted (argues against atheroemboli and AIN) s/p emergent hemodialysis on 01/17 evening due to severe hyperkalemia and volume overload HD on 01/18 due to rebound hyperkalemia as well as further fluid removal improved urine output and relative stability in creatinine creatinine 4.1mg/dl on 01/21 --> creatinine 4.2mg/dl today (01/22) hold HD today reassess need for HD tomorrow depending on labs and UOP consider d/c HD catheter tomorrow to reduce risk of infection -- may need tunneled line if further dialysis needed follow-up on serological testing (dsDNA-Ab mildly elevated but other tests pending) continue to follow repeat labs and UOP for potential renal recovery (2) Chronic kidney disease, stage 3b: Code(s): N18.32 - Chronic kidney disease, stage 3b Status: Chronic Assessment and Plan: baseline creatinine seems to run ~ 1.5 - 2.0mg/dl secondary to hypertension, diabetes, vascular disease and age-related change (3) Hyperkalemia: Code(s): E87.5 - Hyperkalemia Status: Acute Assessment and Plan: improved/resolved quite severe on admission due to EMERITA along with ARB use s/p medical management and emergent dialysis follow trend of K+ levels (4) Acute hypoxic respiratory failure: Code(s): J96.01 - Acute respiratory failure with hypoxia Status: Acute Assessment and Plan: stable if not improving secondary to volume overload and pulmnary edema based on admission imaging complicated by known history of COPD s/p fluid removal with dialysis supplemental oxygen bronchodilator/nebulizer therapy follow respiratory status (5) Hypertension: Code(s): I10 - Essential (primary) hypertension Status: Chronic Assessment and Plan: reasonable control continue current medications follow trend of hemodynamics (6) Coronary artery disease: Code(s): I25.10 - Atherosclerotic heart disease of [place] coronary artery without angina pectoris Status: Chronic Assessment and Plan: recent in-stent stenosis status post GLYNN x 1 to mid RCA on 01/13/2024 continue aspirin, Brilinta, Coreg, rosuvastatin ARB on hold due to #1 (7) Anemia: Code(s): D64.9 - Anemia, unspecified Status: Acute Assessment and Plan: due to recent procedures, hospitalizations, EMERITA and CKD Epogen with HD since HD on hold, give one time dose today SQ follow trend of H/H (8) UTI (urinary tract infection): Qualifiers: Hematuria presence: without hematuria Urinary tract infection type: site unspecified Qualified Code(s): N39.0 - Urinary tract infection, site not specified Code(s): N39.0 - Urinary tract infection, site not specified Status: Acute Assessment and Plan: urine culture with Klebsiella on antibiotics (9) Type 2 diabetes mellitus: Code(s): E11.9 - Type 2 diabetes mellitus without complications Status: Chronic Assessment and Plan: follow accu-cheks glycemic control per hospitalists Will continue to follow. Subjective Date/time seen: 01/23/24 10:17 Interval history: Follow-up for acute kidney injury/acute renal failure on chronic kidney disease and hyperkalemia. Improved urine output noted in the last 24 - 48 hours with relative stability in renal function/creatinine by AM labs; potassium remains well controlled as well; getting breathing treatment at the time of my visit but reports overall stability in respiratory status; no issues/events overnight or chelsie
--- NOTE | 2024-01-23 10:17 | P.PNNP_ITS ---
Progress Note: A&P Assessment and Plan (1) EMERITA (acute kidney injury): Code(s): N17.9 - Acute kidney failure, unspecified Status: Acute Assessment and Plan: * etiology not entirely clear - possibilities include: * contrast * cholesterol emboli * acute interstitial nephritis * acute glomerulonephritis * rhabdomyolysis * relative hypotension/ATN * no skin lesions, no eosinophilia, and no rash noted (argues against atheroemboli and AIN) * s/p emergent hemodialysis on 01/17 evening due to severe hyperkalemia and v olume overload * HD on 01/18 due to rebound hyperkalemia as well as further fluid removal * improved urine output and relative stability in creatinine * creatinine 4.1mg/dl on 01/21 --> creatinine 4.2mg/dl today (01/22) * hold HD today * reassess need for HD tomorrow depending on labs and UOP * consider d/c HD catheter tomorrow to reduce risk of infection -- may need tunneled line if further dialysis needed * follow-up on serological testing (dsDNA-Ab mildly elevated but other tests pending) * continue to follow repeat labs and UOP for potential renal recovery (2) Chronic kidney disease, stage 3b: Code(s): N18.32 - Chronic kidney disease, stage 3b Status: Chronic Assessment and Plan: * baseline creatinine seems to run ~ 1.5 - 2.0mg/dl * secondary to hypertension, diabetes, vascular disease and age-related change (3) Hyperkalemia: Code(s): E87.5 - Hyperkalemia Status: Acute Assessment and Plan: * improved/resolved * quite severe on admission * due to EMERITA along with ARB use * s/p medical management and emergent dialysis * follow trend of K+ levels (4) Acute hypoxic respiratory failure: Code(s): J96.01 - Acute respiratory failure with hypoxia Status: Acute Assessment and Plan: * stable if not improving * secondary to volume overload and pulmnary edema based on admission imaging * complicated by known history of COPD * s/p fluid removal with dialysis * supplemental oxygen * bronchodilator/nebulizer therapy * follow respiratory status (5) Hypertension: Code(s): I10 - Essential (primary) hypertension Status: Chronic Assessment and Plan: * reasonable control * continue current medications * follow trend of hemodynamics (6) Coronary artery disease: Code(s): I25.10 - Atherosclerotic heart disease of [place] coronary artery without angina pectoris Status: Chronic Assessment and Plan: * recent in-stent stenosis status post GLYNN x 1 to mid RCA on 01/13/2024 * continue aspirin, Brilinta, Coreg, rosuvastatin * ARB on hold due to #1 (7) Anemia: Code(s): D64.9 - Anemia, unspecified Status: Acute Assessment and Plan: * due to recent procedures, hospitalizations, EMERITA and CKD * Epogen with HD * since HD on hold, give one time dose today SQ * follow trend of H/H (8) UTI (urinary tract infection): Qualifiers: Hematuria presence: without hematuria Urinary tract infection type: site unspecified Qualified Code(s): N39.0 - Urinary tract infection, site not specified Code(s): N39.0 - Urinary tract infection, site not specified Status: Acute Assessment and Plan: * urine culture with Klebsiella * on antibiotics (9) Type 2 diabetes mellitus: Code(s): E11.9 - Type 2 diabetes mellitus without complications Status: Chronic Assessment and Plan: * follow accu-cheks * glycemic control per hospitalist
[2024-01-23 12:12] LABS: Glucose Point of Care 284 mg/dl (65-105)
[2024-01-23] MEDS: EPOETIN ALFA-EPBX 10,000 UNITS/ML VIAL 10000 UNITS SUB-Q (12:21)
[2024-01-23] MEDS: INSULIN ASPART (*BKC) 100 UNITS/ML SUB-Q (12:21)
[2024-01-23 17:18] LABS: Glucose Point of Care 141 mg/dl (65-105)
[2024-01-23 20:43] LABS: ANCA Screen Negative (Negative)
[2024-01-23 21:02] LABS: Glucose Point of Care 155 mg/dl (65-105)
[2024-01-24] VITALS (15 sets, daily range): BP systolic 103–157; BP diastolic 40–53; PULSE 60–71; RESP 16–20; TEMP 36.3–36.9; O2SAT 92–98
[2024-01-24] MEDS: IPRATROPIUM 0.5 MG/ALBUTEROL SULFATE 2.5 MG AMPUL.NEB 3 ML INHALATION ×4 (02:35→21:19)
[2024-01-24] MEDS: CENTRAL LINE FLUSH 10 ML IV PUSH (06:53)
[2024-01-24 07:12] LABS: Basophils Percent Auto 0.3 % (0.2-1.2); Eosinophils Absolute Auto 0.4 K/mm3 (0-0.3); Eosinophils Percent Auto 3.9 % (0-4.4); Hematocrit 27.6 % (37.0-47.0); Immature Granulocyte Percent A 1.9 % (0-0.5); Lymphocytes Percent Auto 22.3 % (18.3-44.2); Mean Corpuscular Volume 82.9 fl (80-100); Mean Platelet Volume 10.6 fl (7.4-10.4); Monocytes Absolute Auto 0.8 K/mm3 (0.1-0.6); Monocytes Percent Auto 7.7 % (2.6-8.5); Neutrophils Absolute Auto 6.9 K/mm3 (1.3-6.7); Neutrophils Percent Auto 63.9 % (45.5-73.1); Nucleated Red Blood Cells Perc 0.3 % (0.0-0.2); Platelet Count Result 237 k/mm3 (150-375); Red Blood Count 3.33 M/mm3 (4.2-5.4); Red Cell Distribution Width 19.1 % (11.5-14.5); White Blood Count 10.8 K/mm3 (4.5-10.0)
[2024-01-24 07:24] LABS: Alanine Aminotransferase 14 U/L (6-35); Albumin Level 3.5 g/dL (3.5-5.1); Alkaline Phosphatase 85 U/L (38-126); Anion Gap 6 mmol/L (4-12); Aspartate Amino Transferase 19 U/L (14-36); Bilirubin,Total 0.3 mg/dL (0.2-1.3); Blood Urea Nitrogen 30 mg/dL (7-17); Calcium 8.3 mg/dL (8.4-10.2); Carbon Dioxide 25 mmol/L (22-30); Chloride 106 mmol/L (98-107); Estimated CRCL calculation 14 ml/min; Estimated Glomerular Filt Rate 11; Glucose 155 mg/dL (65-110); Magnesium 1.7 mg/dL (1.6-2.3); Phosphorus 4.5 mg/dL (2.5-4.5); Sodium 137 mmol/L (137-145)
[2024-01-24 07:32] LABS: Platelet Estimate Adequate (Adequate)
[2024-01-24 07:33] LABS: Anisocytosis 2+; Hypochromasia 2+; Schistocytes Rare
[2024-01-24 08:13] LABS: Glucose Point of Care 156 mg/dl (65-105)
[2024-01-24] MEDS: carvediloL 12.5 MG TABLET PO (08:19)
[2024-01-24] MEDS: TICAGRELOR 90 MG TABLET PO ×2 (08:19→21:12)
[2024-01-24] MEDS: PANTOPRAZOLE 40 MG TABLET PO (08:19)
[2024-01-24] MEDS: LORATADINE 10 MG TABLET PO (08:19)
[2024-01-24] MEDS: FAMOTIDINE 20 MG TABLET PO ×2 (08:19→17:55)
[2024-01-24] MEDS: ASPIRIN 81 MG ENTERIC TABLET PO (08:19)
[2024-01-24] MEDS: ISOSORBIDE MONONITRATE 60 MG TAB.ER.24H 120 MG PO (08:19)
[2024-01-24] MEDS: guaiFENesin 12 HR 600 MG TABCR PO ×2 (08:20→21:12)
[2024-01-24] MEDS: cloNIDine HCL 0.1 MG TABLET PO ×2 (08:20→17:55)
[2024-01-24] MEDS: ROSUVASTATIN 10 MG TABLET 20 MG PO (08:26)
[2024-01-24] MEDS: HEPARIN SODIUM 5,000 UNITS/ML VIAL 5000 UNITS SUB-Q ×2 (08:26→21:12)
--- NOTE | 2024-01-24 08:29 | P.PNIM_ITS ---
Progress Note: A&P Assessment and Plan (1) Acute hyperkalemia: Code(s): E87.5 - Hyperkalemia Status: Acute Assessment and Plan: 01/22/24 Patient presented with shortness of breath and was found to have severe hyp erkalemia to 9.3 along with acute on chronic kidney disease with a creatinine of 8.8 Patient was initially treated in the ER for her hyperkalemia Nephrology consulted and appreciate their input. Hemodialysis Femoral catheter placed by Bryce pt receiving dialysis 3 rd session today 01/23/24: * Potassium is 3.8, remains stable * Nephrology is following * Patient had 3 rounds of HD while inpatient, she continues with a HD catheter in her right groin * Urine output has been picking up, will defer to Nephrology 01/24/24: * Resolved (2) Acute on chronic kidney failure: Code(s): N17.9 - Acute kidney failure, unspecified; N18.9 - Chronic kidney disease, unspecified Status: Acute Assessment and Plan: 01/22/24: Acute on chronic kidney failure likely multifactorial: CKD with recent contrast for NSTEMI and stent placement, HTN, DM and meds (losartan, metformin, bumetanide) As above. HD 01/18/24 and 01/18 Nephrology following Hemodialysis schedule per nephrology Monitor UOP, electrolytes and renal function Suspected UTI Iv rocephin on board 01/23/24: * BUN 30, creatinine 4.2, potassium 3.8 * Nephrology following * Hemodialysis catheter and right groin * Patient has had 3 rounds of HD this admission * Urine output has picked up 01/24/24: * BUN 30, creatinine 3.9 * Nephrology following * Will likely have hemodialysis catheter removed today per Nephrology * PT and OT ordered (3) Acute hypoxic respiratory failure: Code(s): J96.01 - Acute respiratory failure with hypoxia Status: Acute Assessment and Plan: 01/22/24: Acute respiratory failure likely related to volume overload secondary to acute on chronic kidney disease CXR showed mild pulmonary edema Consider also be related to COPD exacerbation Patient dialyzed with 2500 mL in fluid removal on 01/18/2024 Clinical improvement and weaned to room air Continue bronchodilators; HD per nephrology instruction 01/23/24: * Expiratory wheezing noted today * Continue with DuoNeb * Continue bronchodilators 01/24/24: * Continue with current treatment plan * Continue to wean for sat greater than 92% (4) Chronic obstructive pulmonary disease: Code(s): J44.9 - Chronic obstructive pulmonary disease, unspecified Status: Acute Assessment and Plan: 01/22/24: Cough with course BS. Continue DuoNebs and supplemental oxygen prn Consider steroids if no improvement 01/23/24: * Continue with DuoNebs * Currently on 1 L nasal cannula 01/24/24: * No change to current treatment plan (5) Coronary artery disease: Code(s): I25.10 - Atherosclerotic heart disease of [place] coronary artery without angina pectoris Status: Chronic Assessment and Plan: 01/22/24: Recent InStent stenosis status post GLYNN x1 to mid RCA on 01/13/2024 -continue aspirin, Brilinta, Coreg, rosuvastatin -holding losartan secondary to acute on chronic kidney disease 01/23/24: * Continue with current treatment plan (6) Hypertension: Code(s): I10 - Essential (primary) hypertension Status: Chronic Assessment and Plan: 01/22/24: Patient's blood pressure was reviewed on 01/19 Blood pressure remains well controlled. Will continue carvedilol, clonidin
--- NOTE | 2024-01-24 08:29 | PM.IMPN ---
Progress Note: A&P Assessment and Plan (1) Acute hyperkalemia: Code(s): E87.5 - Hyperkalemia Status: Acute Assessment and Plan: 01/22/24 Patient presented with shortness of breath and was found to have severe hyperkalemia to 9.3 along with acute on chronic kidney disease with a creatinine of 8.8 Patient was initially treated in the ER for her hyperkalemia Nephrology consulted and appreciate their input. Hemodialysis Femoral catheter placed by Bryce pt receiving dialysis 3 rd session today 01/23/24: Potassium is 3.8, remains stable Nephrology is following Patient had 3 rounds of HD while inpatient, she continues with a HD catheter in her right groin Urine output has been picking up, will defer to Nephrology 01/24/24: Resolved (2) Acute on chronic kidney failure: Code(s): N17.9 - Acute kidney failure, unspecified; N18.9 - Chronic kidney disease, unspecified Status: Acute Assessment and Plan: 01/22/24: Acute on chronic kidney failure likely multifactorial: CKD with recent contrast for NSTEMI and stent placement, HTN, DM and meds (losartan, metformin, bumetanide) As above. HD 01/18/24 and 01/18 Nephrology following Hemodialysis schedule per nephrology Monitor UOP, electrolytes and renal function Suspected UTI Iv rocephin on board 01/23/24: BUN 30, creatinine 4.2, potassium 3.8 Nephrology following Hemodialysis catheter and right groin Patient has had 3 rounds of HD this admission Urine output has picked up 01/24/24: BUN 30, creatinine 3.9 Nephrology following Will likely have hemodialysis catheter removed today per Nephrology PT and OT ordered (3) Acute hypoxic respiratory failure: Code(s): J96.01 - Acute respiratory failure with hypoxia Status: Acute Assessment and Plan: 01/22/24: Acute respiratory failure likely related to volume overload secondary to acute on chronic kidney disease CXR showed mild pulmonary edema Consider also be related to COPD exacerbation Patient dialyzed with 2500 mL in fluid removal on 01/18/2024 Clinical improvement and weaned to room air Continue bronchodilators; HD per nephrology instruction 01/23/24: Expiratory wheezing noted today Continue with DuoNeb Continue bronchodilators 01/24/24: Continue with current treatment plan Continue to wean for sat greater than 92% (4) Chronic obstructive pulmonary disease: Code(s): J44.9 - Chronic obstructive pulmonary disease, unspecified Status: Acute Assessment and Plan: 01/22/24: Cough with course BS. Continue DuoNebs and supplemental oxygen prn Consider steroids if no improvement 01/23/24: Continue with DuoNebs Currently on 1 L nasal cannula 01/24/24: No change to current treatment plan (5) Coronary artery disease: Code(s): I25.10 - Atherosclerotic heart disease of [place] coronary artery without angina pectoris Status: Chronic Assessment and Plan: 01/22/24: Recent InStent stenosis status post GLYNN x1 to mid RCA on 01/13/2024 -continue aspirin, Brilinta, Coreg, rosuvastatin -holding losartan secondary to acute on chronic kidney disease 01/23/24: Continue with current treatment plan (6) Hypertension: Code(s): I10 - Essential (primary) hypertension Status: Chronic Assessment and Plan: 01/22/24: Patient's blood pressure was reviewed on 01/19 Blood pressure remains well controlled. Will continue carvedilol, clonidine. Hydralazine change to scheduled 01/23/24: Blood pressure is running 135/62 to 149/50 Continue current treatment plan 01/24/24: No change to current treatment plan (7) Hyperlipidemia: Code(s): E78.5 - Hyperlipidemia, unspecified Status: Acute Assessment and Plan: 01/22/24: Stable. LFTs normal. Continue rosuvastatin 01/23/24: Continue with current treatment plan (8) Diabetes mellitus: Qualifiers: Diabetes mellitus complication status: without com
[2024-01-24] MEDS: IRON SUCROSE COMPLEX 100 MG in SODIUM CHLORIDE 0.9% IV 50 ML 220 MG IVPB (08:40)
--- NOTE | 2024-01-24 08:48 | P.PNNP_ITS ---
Progress Note: A&P Assessment and Plan (1) EMERITA (acute kidney injury): Code(s): N17.9 - Acute kidney failure, unspecified Status: Acute Assessment and Plan: * etiology not entirely clear - possibilities include: * contrast * rhabdomyolysis * relative hypotension/ATN * no skin lesions, no eosinophilia, and no rash noted (argues against atheroemboli and AIN) * s/p emergent hemodialysis on 01/17 evening due to severe hyperkalemia and volume overload * HD on 01/18 due to rebound hyperkalemia as well as further fluid removal * improved urine output and relative stability in creatinine * creatinine down slightly to o3.9 * Creatinine stable for the last 3 days basically * okay to remove catheter * follow-up on serological testing (dsDNA-Ab mildly elevated but other tests pending) * most likely former baseline creatinine was around 1.5 (2) Chronic kidney disease, stage 3b: Code(s): N18.32 - Chronic kidney disease, stage 3b Status: Chronic Assessment and Plan: * baseline creatinine seems to run ~ 1.5 or so * secondary to hypertension, diabetes, vascular disease and age-related change (3) Hyperkalemia: Code(s): E87.5 - Hyperkalemia Status: Acute Assessment and Plan: * resolved (4) Acute hypoxic respiratory failure: Code(s): J96.01 - Acute respiratory failure with hypoxia Status: Acute Assessment and Plan: * gradually better. * now on 1L oxygen. (5) Hypertension: Code(s): I10 - Essential (primary) hypertension Status: Chronic Assessment and Plan: * systolic 110 to 150. * on carvedilol and clonidine. this is okay as an inpatient but best if not on these two at discharge. * she was on amlodipine, carvedilol, clonidine, losartan, * will restart amlodipine. try to wean clonidine. * follow trend of hemodynamics (6) Coronary artery disease: Code(s): I25.10 - Atherosclerotic heart disease of [place] coronary artery without angina pectoris Status: Chronic Assessment and Plan: * recent in-stent stenosis status post GLYNN x 1 to mid RCA on 01/13/2024 * continue aspirin, Brilinta, Coreg, rosuvastatin * ARB on hold due to #1 (7) Anemia: Code(s): D64.9 - Anemia, unspecified Status: Acute Assessment and Plan: * due to recent procedures, hospitalizations, EMERITA and CKD * Epogen with HD * since HD on hold, give one time dose today SQ * Hb 8: up a bit (8) UTI (urinary tract infection): Qualifiers: Hematuria presence: without hematuria Urinary tract infection type: site unspecified Qualified Code(s): N39.0 - Urinary tract infection, site not specified Code(s): N39.0 - Urinary tract infection, site not specified Status: Acute Assessment and Plan: * urine culture with Klebsiella * on ceftriaxone (9) Type 2 diabetes mellitus: Code(s): E11.9 - Type 2 diabetes mellitus without complications Status: Chronic Assessment and Plan: * follow accu-cheks * glycemic control per hospitalists Subjective Date/time seen: 01/24/24 08:48 Interval history: alert. feels better no cp or sob. Exam 2 Narrative: General: large female sitting up in bed in NAD Heart: normal S1 and S2; no rub or gallop Lungs: clear anteriorly; decreased at bases Abdomen: soft, nontender, nondistended, positive bowel sounds Extremities: no cyanosis or clubbing; trace edema
--- NOTE | 2024-01-24 08:48 | PM.PNNEP ---
Progress Note: A&P Assessment and Plan (1) EMERITA (acute kidney injury): Code(s): N17.9 - Acute kidney failure, unspecified Status: Acute Assessment and Plan: etiology not entirely clear - possibilities include: contrast rhabdomyolysis relative hypotension/ATN no skin lesions, no eosinophilia, and no rash noted (argues against atheroemboli and AIN) s/p emergent hemodialysis on 01/17 evening due to severe hyperkalemia and volume overload HD on 01/18 due to rebound hyperkalemia as well as further fluid removal improved urine output and relative stability in creatinine creatinine down slightly to o3.9 Creatinine stable for the last 3 days basically okay to remove catheter follow-up on serological testing (dsDNA-Ab mildly elevated but other tests pending) most likely former baseline creatinine was around 1.5 (2) Chronic kidney disease, stage 3b: Code(s): N18.32 - Chronic kidney disease, stage 3b Status: Chronic Assessment and Plan: baseline creatinine seems to run ~ 1.5 or so secondary to hypertension, diabetes, vascular disease and age-related change (3) Hyperkalemia: Code(s): E87.5 - Hyperkalemia Status: Acute Assessment and Plan: resolved (4) Acute hypoxic respiratory failure: Code(s): J96.01 - Acute respiratory failure with hypoxia Status: Acute Assessment and Plan: gradually better. now on 1L oxygen. (5) Hypertension: Code(s): I10 - Essential (primary) hypertension Status: Chronic Assessment and Plan: systolic 110 to 150. on carvedilol and clonidine. this is okay as an inpatient but best if not on these two at discharge. she was on amlodipine, carvedilol, clonidine, losartan, will restart amlodipine. try to wean clonidine. follow trend of hemodynamics (6) Coronary artery disease: Code(s): I25.10 - Atherosclerotic heart disease of [place] coronary artery without angina pectoris Status: Chronic Assessment and Plan: recent in-stent stenosis status post GLYNN x 1 to mid RCA on 01/13/2024 continue aspirin, Brilinta, Coreg, rosuvastatin ARB on hold due to #1 (7) Anemia: Code(s): D64.9 - Anemia, unspecified Status: Acute Assessment and Plan: due to recent procedures, hospitalizations, EMERITA and CKD Epogen with HD since HD on hold, give one time dose today SQ Hb 8: up a bit (8) UTI (urinary tract infection): Qualifiers: Hematuria presence: without hematuria Urinary tract infection type: site unspecified Qualified Code(s): N39.0 - Urinary tract infection, site not specified Code(s): N39.0 - Urinary tract infection, site not specified Status: Acute Assessment and Plan: urine culture with Klebsiella on ceftriaxone (9) Type 2 diabetes mellitus: Code(s): E11.9 - Type 2 diabetes mellitus without complications Status: Chronic Assessment and Plan: follow accu-cheks glycemic control per hospitalists Subjective Date/time seen: 01/24/24 08:48 Interval history: alert. feels better no cp or sob. Exam Narrative: General: large female sitting up in bed in NAD Heart: normal S1 and S2; no rub or gallop Lungs: clear anteriorly; decreased at bases Abdomen: soft, nontender, nondistended, positive bowel sounds Extremities: no cyanosis or clubbing; trace edema Skin: warm and dry without rash Objective Data Vital Signs Vital Signs: Vital Signs - 24 hr 01/23/24 09:05 01/23/24 09:07 01/23/24 09:13 Temperature Pulse Rate 68 70 Respiratory Rate 18 18 Blood Pressure Pulse Oximetry 92 Oxygen Delivery Nasal Cannula Oxygen Flow Rate 1 Fraction of Inspired Oxygen 01/23/24 13:34 01/23/24 13:41 01/23/24 15:08 Temperature 97.4 F L Pulse Rate 61 62 64 Respiratory Rate 18 16 20 Blood Pressure 117/43 L Pulse Oximetry 96 Oxygen Delivery Oxyg
[2024-01-24 12:20] LABS: Glucose Point of Care 201 mg/dl (65-105)
[2024-01-24] MEDS: INSULIN ASPART (*BKC) 100 UNITS/ML SUB-Q ×2 (12:34→21:13)
[2024-01-24] MEDS: amLODIPine BESYLATE 5 MG TABLET PO (15:55)
[2024-01-24 17:19] LABS: Glucose Point of Care 170 mg/dl (65-105)
[2024-01-24 20:38] LABS: Glucose Point of Care 238 mg/dl (65-105)
[2024-01-25] VITALS (13 sets, daily range): BP systolic 119–148; BP diastolic 40–54; PULSE 60–78; RESP 16–20; TEMP 36.7–37; O2SAT 92–98
[2024-01-25] MEDS: IPRATROPIUM 0.5 MG/ALBUTEROL SULFATE 2.5 MG AMPUL.NEB 3 ML INHALATION ×4 (02:58→21:10)
[2024-01-25 05:07] LABS: Basophils Percent Auto 0.4 % (0.2-1.2); Eosinophils Absolute Auto 0.4 K/mm3 (0-0.3); Eosinophils Percent Auto 3.9 % (0-4.4); Hematocrit 25.9 % (37.0-47.0); Hemoglobin 7.5 g/dL (12.0-15.0); Immature Granulocyte Absolute 0.33 K/mm3 (0.00-0.031); Immature Granulocyte Percent A 3.2 % (0-0.5); Lymphocytes Absolute Auto 2.57 K/mm3 (0.9-3.2); Lymphocytes Percent Auto 24.8 % (18.3-44.2); Mean Platelet Volume 10.9 fl (7.4-10.4); Monocytes Percent Auto 9.2 % (2.6-8.5); Neutrophils Absolute Auto 6.1 K/mm3 (1.3-6.7); Neutrophils Percent Auto 58.5 % (45.5-73.1); Nucleated Red Blood Cells Perc 0.7 % (0.0-0.2); Platelet Count Result 252 k/mm3 (150-375); Red Blood Count 3.12 M/mm3 (4.2-5.4); Red Cell Distribution Width 19.5 % (11.5-14.5); White Blood Count 10.4 K/mm3 (4.5-10.0)
[2024-01-25 05:19] LABS: Alanine Aminotransferase 12 U/L (6-35); Albumin Level 3.4 g/dL (3.5-5.1); Alkaline Phosphatase 87 U/L (38-126); Anion Gap 6 mmol/L (4-12); Aspartate Amino Transferase 15 U/L (14-36); Bilirubin,Total 0.3 mg/dL (0.2-1.3); Blood Urea Nitrogen 36 mg/dL (7-17); Calcium 8.6 mg/dL (8.4-10.2); Carbon Dioxide 23 mmol/L (22-30); Chloride 107 mmol/L (98-107); Estimated CRCL calculation 15 ml/min; Estimated Glomerular Filt Rate 12; Glucose 165 mg/dL (65-110); Magnesium 1.8 mg/dL (1.6-2.3); Phosphorus 4.5 mg/dL (2.5-4.5); Sodium 136 mmol/L (137-145)
[2024-01-25 06:03] LABS: Anisocytosis 2+; Hypochromasia 2+; Platelet Clumps Present; Platelet Estimate Adequate (Adequate)
[2024-01-25 06:04] LABS: Schistocytes None Seen
[2024-01-25] MEDS: carvediloL 12.5 MG TABLET PO (08:20)
[2024-01-25] MEDS: PANTOPRAZOLE 40 MG TABLET PO (08:21)
[2024-01-25] MEDS: LORATADINE 10 MG TABLET PO (08:21)
[2024-01-25] MEDS: ROSUVASTATIN 10 MG TABLET 20 MG PO (08:21)
[2024-01-25] MEDS: cloNIDine HCL 0.1 MG TABLET PO (08:21)
[2024-01-25] MEDS: TICAGRELOR 90 MG TABLET PO ×2 (08:21→20:39)
[2024-01-25] MEDS: ISOSORBIDE MONONITRATE 60 MG TAB.ER.24H 120 MG PO (08:21)
[2024-01-25] MEDS: guaiFENesin 12 HR 600 MG TABCR PO ×2 (08:21→20:39)
[2024-01-25] MEDS: ASPIRIN 81 MG ENTERIC TABLET PO (08:21)
[2024-01-25] MEDS: amLODIPine BESYLATE 5 MG TABLET PO (08:21)
[2024-01-25] MEDS: FAMOTIDINE 20 MG TABLET PO ×2 (08:21→17:12)
[2024-01-25] MEDS: HEPARIN SODIUM 5,000 UNITS/ML VIAL 5000 UNITS SUB-Q ×2 (08:21→20:40)
[2024-01-25] MEDS: IRON SUCROSE COMPLEX 100 MG in SODIUM CHLORIDE 0.9% IV 50 ML 220 MG IVPB (08:22)
[2024-01-25 08:46] LABS: Glucose Point of Care 157 mg/dl (65-105)
--- NOTE | 2024-01-25 09:38 | P.PNNP_ITS ---
Progress Note: A&P Assessment and Plan (1) EMERITA (acute kidney injury): Code(s): N17.9 - Acute kidney failure, unspecified Status: Acute Assessment and Plan: * etiology not entirely clear - possibilities include: * contrast * rhabdomyolysis * relative hypotension/ATN * no skin lesions, no eosinophilia, and no rash noted (argues against atheroemboli and AIN) * s/p emergent hemodialysis on 01/17 evening due to severe hyperkalemia and volume overload * HD on 01/18 due to rebound hyperkalemia as well as further fluid removal * Since then no more dialysis. * Since then her creatinine has slowly dropped from 4.2-3.9 and today it is 3.6. * I think it is okay to remove the Brown catheter. * Await the remainder of the serologic testing. * most likely former baseline creatinine was around 1.5 (2) Chronic kidney disease, stage 3b: Code(s): N18.32 - Chronic kidney disease, stage 3b Status: Chronic Assessment and Plan: * baseline creatinine seems to run ~ 1.5 or so * secondary to hypertension, diabetes, vascular disease and age-related change (3) Hyperkalemia: Code(s): E87.5 - Hyperkalemia Status: Acute Assessment and Plan: * resolved (4) Acute hypoxic respiratory failure: Code(s): J96.01 - Acute respiratory failure with hypoxia Status: Acute Assessment and Plan: * gradually better. * now on 2L oxygen. (5) Hypertension: Code(s): I10 - Essential (primary) hypertension Status: Chronic Assessment and Plan: * systolic 103-160. * on amlodipine, carvedilol and clonidine. * Holding off on losartan till she gets to baseline. * Reduce clonidine to p.r.n. and increase amlodipine to 10 (6) Coronary artery disease: Code(s): I25.10 - Atherosclerotic heart disease of [place] coronary artery without angina pectoris Status: Chronic Assessment and Plan: * recent in-stent stenosis status post GLYNN x 1 to mid RCA on 01/13/2024 * continue aspirin, Brilinta, Coreg, rosuvastatin * ARB on hold due to #1 (7) Anemia: Code(s): D64.9 - Anemia, unspecified Status: Acute Assessment and Plan: * due to recent procedures, hospitalizations, EMERITA and CKD * Epogen with HD * Continue EPO 3 times a week while here * Hb 7.5 today (8) UTI (urinary tract infection): Qualifiers: Urinary tract infection type: site unspecified Hematuria presence: without hematuria Qualified Code(s): N39.0 - Urinary tract infection, site not specified Code(s): N39.0 - Urinary tract infection, site not specified Status: Acute Assessment and Plan: * urine culture with Klebsiella * on ceftriaxone (9) Type 2 diabetes mellitus: Code(s): E11.9 - Type 2 diabetes mellitus without complications Status: Chronic Assessment and Plan: * follow accu-cheks * glycemic control per hospitalists Subjective Date/time seen: 01/25/24 09:38 Interval history: Dialysis catheter is gone. She walked around the room yesterday and this morning. Brown catheter is still and Exam Narrative: General: large female sitting up in bed in NAD Heart: normal S1 and S2; no rub or gallop Lungs: clear anteriorly; decreased at bases Abdomen: Bowel sounds positive nontender Extremities: trace edema Skin: No rash Objective Data Vital Signs Vital Signs: Vital
--- NOTE | 2024-01-25 09:38 | PM.PNNEP ---
Progress Note: A&P Assessment and Plan (1) EMERITA (acute kidney injury): Code(s): N17.9 - Acute kidney failure, unspecified Status: Acute Assessment and Plan: etiology not entirely clear - possibilities include: contrast rhabdomyolysis relative hypotension/ATN no skin lesions, no eosinophilia, and no rash noted (argues against atheroemboli and AIN) s/p emergent hemodialysis on 01/17 evening due to severe hyperkalemia and volume overload HD on 01/18 due to rebound hyperkalemia as well as further fluid removal Since then no more dialysis. Since then her creatinine has slowly dropped from 4.2-3.9 and today it is 3.6. I think it is okay to remove the Brown catheter. Await the remainder of the serologic testing. most likely former baseline creatinine was around 1.5 (2) Chronic kidney disease, stage 3b: Code(s): N18.32 - Chronic kidney disease, stage 3b Status: Chronic Assessment and Plan: baseline creatinine seems to run ~ 1.5 or so secondary to hypertension, diabetes, vascular disease and age-related change (3) Hyperkalemia: Code(s): E87.5 - Hyperkalemia Status: Acute Assessment and Plan: resolved (4) Acute hypoxic respiratory failure: Code(s): J96.01 - Acute respiratory failure with hypoxia Status: Acute Assessment and Plan: gradually better. now on 2L oxygen. (5) Hypertension: Code(s): I10 - Essential (primary) hypertension Status: Chronic Assessment and Plan: systolic 103-160. on amlodipine, carvedilol and clonidine. Holding off on losartan till she gets to baseline. Reduce clonidine to p.r.n. and increase amlodipine to 10 (6) Coronary artery disease: Code(s): I25.10 - Atherosclerotic heart disease of [place] coronary artery without angina pectoris Status: Chronic Assessment and Plan: recent in-stent stenosis status post GLYNN x 1 to mid RCA on 01/13/2024 continue aspirin, Brilinta, Coreg, rosuvastatin ARB on hold due to #1 (7) Anemia: Code(s): D64.9 - Anemia, unspecified Status: Acute Assessment and Plan: due to recent procedures, hospitalizations, EMERITA and CKD Epogen with HD Continue EPO 3 times a week while here Hb 7.5 today (8) UTI (urinary tract infection): Qualifiers: Urinary tract infection type: site unspecified Hematuria presence: without hematuria Qualified Code(s): N39.0 - Urinary tract infection, site not specified Code(s): N39.0 - Urinary tract infection, site not specified Status: Acute Assessment and Plan: urine culture with Klebsiella on ceftriaxone (9) Type 2 diabetes mellitus: Code(s): E11.9 - Type 2 diabetes mellitus without complications Status: Chronic Assessment and Plan: follow accu-cheks glycemic control per hospitalists Subjective Date/time seen: 01/25/24 09:38 Interval history: Dialysis catheter is gone. She walked around the room yesterday and this morning. Brown catheter is still and Exam Narrative: General: large female sitting up in bed in NAD Heart: normal S1 and S2; no rub or gallop Lungs: clear anteriorly; decreased at bases Abdomen: Bowel sounds positive nontender Extremities: trace edema Skin: No rash Objective Data Vital Signs Vital Signs: Vital Signs - 24 hr 01/24/24 13:39 01/24/24 13:50 01/24/24 15:00 Temperature 97.3 F L Pulse Rate 64 62 61 Respiratory Rate 20 20 18 Blood Pressure 125/45 L Pulse Oximetry 95 Oxygen Delivery Oxygen Flow Rate 01/24/24 20:00 01/24/24 19:59 01/24/24 21:20 Temperature 98.2 F Pulse Rate 63 Respiratory Rate 16 Blood Pressure 103/40 L Pulse Oximetry 98 97 94 Oxygen Delivery Nasal Cannula Nasal Cannula Oxygen Flow Rate 3 1 01/24/24 21:21 01/24/24 21:31 01/25/24 02:58 Temperature Pulse Rate 69 71 68 Respiratory Rate 18 18 18 Blo
--- NOTE | 2024-01-25 15:16 | P.PNIM_ITS ---
Progress Note: A&P Assessment and Plan (1) Acute on chronic kidney failure: Code(s): N17.9 - Acute kidney failure, unspecified; N18.9 - Chronic kidney disease, unspecified Status: Acute Assessment and Plan: 01/22/24: Acute on chronic kidney failure likely multifactorial: CKD with recent contrast for NSTEMI and stent placement, HTN, DM and meds (losartan, metformin, bumetanide) As above. HD 01/18/24 and 01/18 Nephrology following Hemodialysis schedule per nephrology Monitor UOP, electrolytes and renal function Suspected UTI Iv rocephin on board 01/23/24: * BUN 30, creatinine 4.2, potassium 3.8 * Nephrology following * Hemodialysis catheter and right groin * Patient has had 3 rounds of HD this admission * Urine output has picked up 01/24/24: * BUN 30, creatinine 3.9 * Nephrology following * Will likely have hemodialysis catheter removed today per Nephrology * PT and OT ordered 01/25/24: * Creatinine 3.6 * Nephrology following * Patient has adequate urine output at this time and Brown will be DC * Continue PT and OT * He continue to hold losartan until back to baseline (2) Acute hypoxic respiratory failure: Code(s): J96.01 - Acute respiratory failure with hypoxia Status: Acute Assessment and Plan: 01/22/24: Acute respiratory failure likely related to volume overload secondary to acute on chronic kidney disease CXR showed mild pulmonary edema Consider also be related to COPD exacerbation Patient dialyzed with 2500 mL in fluid removal on 01/18/2024 Clinical improvement and weaned to room air Continue bronchodilators; HD per nephrology instruction 01/23/24: * Expiratory wheezing noted today * Continue with DuoNeb * Continue bronchodilators 01/24/24: * Continue with current treatment plan * Continue to wean for sat greater than 92% 01/25/24: * Continue to wean for sat greater than 92% * Incentive spirometer ordered (3) Chronic obstructive pulmonary disease: Code(s): J44.9 - Chronic obstructive pulmonary disease, unspecified Status: Acute Assessment and Plan: 01/22/24: Cough with course BS. Continue DuoNebs and supplemental oxygen prn Consider steroids if no improvement 01/23/24: * Continue with DuoNebs * Currently on 1 L nasal cannula 01/24/24: * No change to current treatment plan (4) Coronary artery disease: Code(s): I25.10 - Atherosclerotic heart disease of [place] coronary artery without angina pectoris Status: Chronic Assessment and Plan: 01/22/24: Recent InStent stenosis status post GLYNN x1 to mid RCA on 01/13/2024 -continue aspirin, Brilinta, Coreg, rosuvastatin -holding losartan secondary to acute on chronic kidney disease 01/23/24: * Continue with current treatment plan (5) Hypertension: Code(s): I10 - Essential (primary) hypertension Status: Chronic Assessment and Plan: 01/22/24: Patient's blood pressure was reviewed on 01/19 Blood pressure remains well controlled. Will continue carvedilol, clonidine. Hydralazine change to scheduled 01/23/24: * Blood pressure is running 135/62 to 149/50 * Continue current treatment plan 01/24/24: * No change to current treatment plan (6) Hyperlipidemia: Code(s): E78.5 - Hyperlipidemia, unspecified Status: Acute Assessment and Plan: 01/22/24: Stable. LFTs normal. Continue rosuvastatin 01/23/24: * Continue with current treatment plan (7) Di
--- NOTE | 2024-01-25 15:16 | PM.IMPN ---
Progress Note: A&P Assessment and Plan (1) Acute on chronic kidney failure: Code(s): N17.9 - Acute kidney failure, unspecified; N18.9 - Chronic kidney disease, unspecified Status: Acute Assessment and Plan: 01/22/24: Acute on chronic kidney failure likely multifactorial: CKD with recent contrast for NSTEMI and stent placement, HTN, DM and meds (losartan, metformin, bumetanide) As above. HD 01/18/24 and 01/18 Nephrology following Hemodialysis schedule per nephrology Monitor UOP, electrolytes and renal function Suspected UTI Iv rocephin on board 01/23/24: BUN 30, creatinine 4.2, potassium 3.8 Nephrology following Hemodialysis catheter and right groin Patient has had 3 rounds of HD this admission Urine output has picked up 01/24/24: BUN 30, creatinine 3.9 Nephrology following Will likely have hemodialysis catheter removed today per Nephrology PT and OT ordered 01/25/24: Creatinine 3.6 Nephrology following Patient has adequate urine output at this time and Brown will be DC Continue PT and OT He continue to hold losartan until back to baseline (2) Acute hypoxic respiratory failure: Code(s): J96.01 - Acute respiratory failure with hypoxia Status: Acute Assessment and Plan: 01/22/24: Acute respiratory failure likely related to volume overload secondary to acute on chronic kidney disease CXR showed mild pulmonary edema Consider also be related to COPD exacerbation Patient dialyzed with 2500 mL in fluid removal on 01/18/2024 Clinical improvement and weaned to room air Continue bronchodilators; HD per nephrology instruction 01/23/24: Expiratory wheezing noted today Continue with DuoNeb Continue bronchodilators 01/24/24: Continue with current treatment plan Continue to wean for sat greater than 92% 01/25/24: Continue to wean for sat greater than 92% Incentive spirometer ordered (3) Chronic obstructive pulmonary disease: Code(s): J44.9 - Chronic obstructive pulmonary disease, unspecified Status: Acute Assessment and Plan: 01/22/24: Cough with course BS. Continue DuoNebs and supplemental oxygen prn Consider steroids if no improvement 01/23/24: Continue with DuoNebs Currently on 1 L nasal cannula 01/24/24: No change to current treatment plan (4) Coronary artery disease: Code(s): I25.10 - Atherosclerotic heart disease of [place] coronary artery without angina pectoris Status: Chronic Assessment and Plan: 01/22/24: Recent InStent stenosis status post GLYNN x1 to mid RCA on 01/13/2024 -continue aspirin, Brilinta, Coreg, rosuvastatin -holding losartan secondary to acute on chronic kidney disease 01/23/24: Continue with current treatment plan (5) Hypertension: Code(s): I10 - Essential (primary) hypertension Status: Chronic Assessment and Plan: 01/22/24: Patient's blood pressure was reviewed on 01/19 Blood pressure remains well controlled. Will continue carvedilol, clonidine. Hydralazine change to scheduled 01/23/24: Blood pressure is running 135/62 to 149/50 Continue current treatment plan 01/24/24: No change to current treatment plan (6) Hyperlipidemia: Code(s): E78.5 - Hyperlipidemia, unspecified Status: Acute Assessment and Plan: 01/22/24: Stable. LFTs normal. 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 Hypoglycemia pr
[2024-01-25 16:54] LABS: Glucose Point of Care 193 mg/dl (65-105)
[2024-01-25 17:09] LABS: Hepatitis B Core Ab Total Nonreactive (Nonreactive)
[2024-01-25 17:12] LABS: Glucose Point of Care 285 mg/dl (65-105)
[2024-01-25 20:41] LABS: Glucose Point of Care 207 mg/dl (65-105)
[2024-01-25] MEDS: INSULIN ASPART (*BKC) 100 UNITS/ML SUB-Q (20:47)
[2024-01-26] VITALS (15 sets, daily range): BP systolic 145–157; BP diastolic 34–58; PULSE 58–71; RESP 16–18; TEMP 36.4–36.9; O2SAT 94–98
[2024-01-26] MEDS: IPRATROPIUM 0.5 MG/ALBUTEROL SULFATE 2.5 MG AMPUL.NEB 3 ML INHALATION ×4 (02:02→19:15)
[2024-01-26 05:46] LABS: Basophils Absolute Auto 0.1 K/mm3 (0.0-0.1); Basophils Percent Auto 0.6 % (0.2-1.2); Eosinophils Absolute Auto 0.4 K/mm3 (0-0.3); Eosinophils Percent Auto 4.3 % (0-4.4); Hemoglobin 7.4 g/dL (12.0-15.0); Immature Granulocyte Absolute 0.43 K/mm3 (0.00-0.031); Immature Granulocyte Percent A 4.2 % (0-0.5); Lymphocytes Absolute Auto 2.63 K/mm3 (0.9-3.2); Lymphocytes Percent Auto 25.6 % (18.3-44.2); Mean Corpuscular HGB Conc 28.5 g/dl (32-36); Mean Corpuscular Hemoglobin 24.1 pg (26-34); Mean Corpuscular Volume 84.7 fl (80-100); Mean Platelet Volume 10.6 fl (7.4-10.4); Monocytes Absolute Auto 1.1 K/mm3 (0.1-0.6); Monocytes Percent Auto 10.9 % (2.6-8.5); Neutrophils Absolute Auto 5.6 K/mm3 (1.3-6.7); Neutrophils Percent Auto 54.4 % (45.5-73.1); Nucleated Red Blood Cells Perc 0.3 % (0.0-0.2); Platelet Count Result 277 k/mm3 (150-375); Red Blood Count 3.07 M/mm3 (4.2-5.4); Red Cell Distribution Width 19.9 % (11.5-14.5); White Blood Count 10.3 K/mm3 (4.5-10.0)
[2024-01-26 06:04] LABS: Alanine Aminotransferase 12 U/L (6-35); Albumin Level 3.5 g/dL (3.5-5.1); Alkaline Phosphatase 91 U/L (38-126); Anion Gap 3 mmol/L (4-12); Aspartate Amino Transferase 21 U/L (14-36); Bilirubin,Total 0.3 mg/dL (0.2-1.3); Blood Urea Nitrogen 33 mg/dL (7-17); Calcium 8.2 mg/dL (8.4-10.2); Carbon Dioxide 23 mmol/L (22-30); Chloride 107 mmol/L (98-107); Estimated CRCL calculation 17 ml/min; Estimated Glomerular Filt Rate 14; Glucose 201 mg/dL (65-110); Magnesium 1.7 mg/dL (1.6-2.3); Phosphorus 3.8 mg/dL (2.5-4.5); Potassium 3.8 mmol/L (3.4-5.0); Sodium 133 mmol/L (137-145)
[2024-01-26 06:23] LABS: Anisocytosis 1+; Hypochromasia 1+; Platelet Estimate Adequate (Adequate); Schistocytes None Seen
--- NOTE | 2024-01-26 07:31 | P.PNIM_ITS ---
Progress Note: A&P Assessment and Plan (1) Acute on chronic kidney failure: Code(s): N17.9 - Acute kidney failure, unspecified; N18.9 - Chronic kidney disease, unspecified Status: Acute Assessment and Plan: 01/22/24: Acute on chronic kidney failure likely multifactorial: CKD with recent contrast for NSTEMI and stent placement, HTN, DM and meds (losartan, metformin, bumetanide) As above. HD 01/18/24 and 01/18 Nephrology following Hemodialysis schedule per nephrology Monitor UOP, electrolytes and renal function Suspected UTI Iv rocephin on board 01/23/24: * BUN 30, creatinine 4.2, potassium 3.8 * Nephrology following * Hemodialysis catheter and right groin * Patient has had 3 rounds of HD this admission * Urine output has picked up 01/24/24: * BUN 30, creatinine 3.9 * Nephrology following * Will likely have hemodialysis catheter removed today per Nephrology * PT and OT ordered 01/25/24: * Creatinine 3.6 * Nephrology following * Patient has adequate urine output at this time and Brown will be DC * Continue PT and OT * He continue to hold losartan until back to baseline 01/26/24: * Creatinine 3.2 * Nephrology following * Continue PT and OT * Continue losartan * Brown was DC yesterday, patient is voiding without difficulty (2) Acute hypoxic respiratory failure: Code(s): J96.01 - Acute respiratory failure with hypoxia Status: Acute Assessment and Plan: 01/22/24: Acute respiratory failure likely related to volume overload secondary to acute on chronic kidney disease CXR showed mild pulmonary edema Consider also be related to COPD exacerbation Patient dialyzed with 2500 mL in fluid removal on 01/18/2024 Clinical improvement and weaned to room air Continue bronchodilators; HD per nephrology instruction 01/23/24: * Expiratory wheezing noted today * Continue with DuoNeb * Continue bronchodilators 01/24/24: * Continue with current treatment plan * Continue to wean for sat greater than 92% 01/25/24: * Continue to wean for sat greater than 92% * Incentive spirometer ordered 01/26/24: * No change to current treatment (3) Chronic obstructive pulmonary disease: Code(s): J44.9 - Chronic obstructive pulmonary disease, unspecified Status: Acute Assessment and Plan: 01/22/24: Cough with course BS. Continue DuoNebs and supplemental oxygen prn Consider steroids if no improvement 01/23/24: * Continue with DuoNebs * Currently on 1 L nasal cannula 01/24/24: * No change to current treatment plan (4) Coronary artery disease: Code(s): I25.10 - Atherosclerotic heart disease of [place] coronary artery without angina pectoris Status: Chronic Assessment and Plan: 01/22/24: Recent InStent stenosis status post GLYNN x1 to mid RCA on 01/13/2024 -continue aspirin, Brilinta, Coreg, rosuvastatin -holding losartan secondary to acute on chronic kidney disease 01/23/24: * Continue with current treatment plan (5) Hypertension: Code(s): I10 - Essential (primary) hypertension Status: Chronic Assessment and Plan: 01/22/24: Patient's blood pressure was reviewed on 01/19 Blood pressure remains well controlled. Will continue carvedilol, clonidine. Hydralazine change to scheduled 01/23/24: * Blood pressure is running 135/62 to 149/50 * Continue current treatment plan 01/24/24: * No change to current treatment plan (6) Hyperlipidemia: Code(s): E
--- NOTE | 2024-01-26 07:31 | PM.IMPN ---
Progress Note: A&P Assessment and Plan (1) Acute on chronic kidney failure: Code(s): N17.9 - Acute kidney failure, unspecified; N18.9 - Chronic kidney disease, unspecified Status: Acute Assessment and Plan: 01/22/24: Acute on chronic kidney failure likely multifactorial: CKD with recent contrast for NSTEMI and stent placement, HTN, DM and meds (losartan, metformin, bumetanide) As above. HD 01/18/24 and 01/18 Nephrology following Hemodialysis schedule per nephrology Monitor UOP, electrolytes and renal function Suspected UTI Iv rocephin on board 01/23/24: BUN 30, creatinine 4.2, potassium 3.8 Nephrology following Hemodialysis catheter and right groin Patient has had 3 rounds of HD this admission Urine output has picked up 01/24/24: BUN 30, creatinine 3.9 Nephrology following Will likely have hemodialysis catheter removed today per Nephrology PT and OT ordered 01/25/24: Creatinine 3.6 Nephrology following Patient has adequate urine output at this time and Brown will be DC Continue PT and OT He continue to hold losartan until back to baseline 01/26/24: Creatinine 3.2 Nephrology following Continue PT and OT Continue losartan Brown was DC yesterday, patient is voiding without difficulty (2) Acute hypoxic respiratory failure: Code(s): J96.01 - Acute respiratory failure with hypoxia Status: Acute Assessment and Plan: 01/22/24: Acute respiratory failure likely related to volume overload secondary to acute on chronic kidney disease CXR showed mild pulmonary edema Consider also be related to COPD exacerbation Patient dialyzed with 2500 mL in fluid removal on 01/18/2024 Clinical improvement and weaned to room air Continue bronchodilators; HD per nephrology instruction 01/23/24: Expiratory wheezing noted today Continue with DuoNeb Continue bronchodilators 01/24/24: Continue with current treatment plan Continue to wean for sat greater than 92% 01/25/24: Continue to wean for sat greater than 92% Incentive spirometer ordered 01/26/24: No change to current treatment (3) Chronic obstructive pulmonary disease: Code(s): J44.9 - Chronic obstructive pulmonary disease, unspecified Status: Acute Assessment and Plan: 01/22/24: Cough with course BS. Continue DuoNebs and supplemental oxygen prn Consider steroids if no improvement 4/5/24: Continue with DuoNebs Currently on 1 L nasal cannula 01/24/24: No change to current treatment plan (4) Coronary artery disease: Code(s): I25.10 - Atherosclerotic heart disease of [place] coronary artery without angina pectoris Status: Chronic Assessment and Plan: 01/22/24: Recent InStent stenosis status post GLYNN x1 to mid RCA on 01/13/2024 -continue aspirin, Brilinta, Coreg, rosuvastatin -holding losartan secondary to acute on chronic kidney disease 01/23/24: Continue with current treatment plan (5) Hypertension: Code(s): I10 - Essential (primary) hypertension Status: Chronic Assessment and Plan: 01/22/24: Patient's blood pressure was reviewed on 01/19 Blood pressure remains well controlled. Will continue carvedilol, clonidine. Hydralazine change to scheduled 01/23/24: Blood pressure is running 135/62 to 149/50 Continue current treatment plan 01/24/24: No change to current treatment plan (6) Hyperlipidemia: Code(s): E78.5 - Hyperlipidemia, unspecified Status: Acute Assessment and Plan: 01/22/24: Stable. LFTs normal. Continue rosuvastatin 01/23/24: Continue with current treatment plan (7) Diabetes mellitus: Qualifiers: Diabetes mellitus complication status: without complication Diabetes mellitus retirement insulin use: without termite control servicer use Diabetes mellitus type: type 2 Qualified Code(s): E11.9 - Type 2 diabetes mellitus without complications Code(s): E11.9 - Type 2 diabetes mellitus without complications S
[2024-01-26] MEDS: TICAGRELOR 90 MG TABLET PO ×2 (08:04→21:02)
[2024-01-26] MEDS: ROSUVASTATIN 10 MG TABLET 20 MG PO (08:04)
[2024-01-26] MEDS: amLODIPine BESYLATE 5 MG TABLET 10 MG PO (08:04)
[2024-01-26] MEDS: PANTOPRAZOLE 40 MG TABLET PO (08:05)
[2024-01-26] MEDS: HEPARIN SODIUM 5,000 UNITS/ML VIAL 5000 UNITS SUB-Q ×2 (08:05→20:59)
[2024-01-26] MEDS: FAMOTIDINE 20 MG TABLET PO ×2 (08:05→17:24)
[2024-01-26] MEDS: ISOSORBIDE MONONITRATE 60 MG TAB.ER.24H 120 MG PO (08:05)
[2024-01-26] MEDS: carvediloL 12.5 MG TABLET PO (08:05)
[2024-01-26] MEDS: LORATADINE 10 MG TABLET PO (08:05)
[2024-01-26] MEDS: IRON SUCROSE COMPLEX 100 MG in SODIUM CHLORIDE 0.9% IV 50 ML 220 MG IVPB (08:05)
[2024-01-26] MEDS: guaiFENesin 12 HR 600 MG TABCR PO ×2 (08:05→21:02)
[2024-01-26] MEDS: ASPIRIN 81 MG ENTERIC TABLET PO (08:05)
[2024-01-26] MEDS: EPOETIN ALFA-EPBX 10,000 UNITS/ML VIAL 10000 UNITS SUB-Q (08:06)
[2024-01-26] MEDS: INSULIN ASPART (*BKC) 100 UNITS/ML SUB-Q ×4 (08:15→21:02)
[2024-01-26 08:25] LABS: Glucose Point of Care 220 mg/dl (65-105)
--- NOTE | 2024-01-26 10:01 | PM.PNNEP ---
Progress Note: A&P Assessment and Plan (1) EMERITA (acute kidney injury): Code(s): N17.9 - Acute kidney failure, unspecified Status: Acute Assessment and Plan: slow improvement noted etiology not entirely clear - possibilities include: contrast rhabdomyolysis relative hypotension/ATN no skin lesions, no eosinophilia, and no rash noted (argues against atheroemboli and AIN) s/p emergent hemodialysis on 01/17 evening due to severe hyperkalemia and volume overload HD on 01/18 due to rebound hyperkalemia as well as further fluid removal last HD treatment on 01/20 (more so for clearance of uremic toxins) await the remainder of the serologic testing follow repeat labs and UOP (2) Chronic kidney disease, stage 3b: Code(s): N18.32 - Chronic kidney disease, stage 3b Status: Chronic Assessment and Plan: baseline creatinine seems to run ~ 1.5 or so secondary to hypertension, diabetes, vascular disease and age-related change (3) Hyperkalemia: Code(s): E87.5 - Hyperkalemia Status: Acute Assessment and Plan: resolved (4) Acute hypoxic respiratory failure: Code(s): J96.01 - Acute respiratory failure with hypoxia Status: Acute Assessment and Plan: slow improvement still requiring 1 - 2L supplemental oxygen related to underlying COPD (?) (5) Hypertension: Code(s): I10 - Essential (primary) hypertension Status: Chronic Assessment and Plan: reasonable control on amlodipine, carvedilol as well as PRN clonidine holding off on losartan till she gets to baseline follow trend of hemodynamics (6) Coronary artery disease: Code(s): I25.10 - Atherosclerotic heart disease of [place] coronary artery without angina pectoris Status: Chronic Assessment and Plan: recent in-stent stenosis status post GLYNN x 1 to mid RCA on 01/13/2024 continue aspirin, Brilinta, Coreg, rosuvastatin ARB on hold due to #1 (7) Anemia: Code(s): D64.9 - Anemia, unspecified Status: Acute Assessment and Plan: due to recent procedures, hospitalizations, EMERITA and CKD Epogen with HD Continue EPO 3 times a week while hospitalized follow H/H (8) UTI (urinary tract infection): Qualifiers: Urinary tract infection type: site unspecified Hematuria presence: without hematuria Qualified Code(s): N39.0 - Urinary tract infection, site not specified Code(s): N39.0 - Urinary tract infection, site not specified Status: Acute Assessment and Plan: urine culture with Klebsiella on ceftriaxone (9) Type 2 diabetes mellitus: Code(s): E11.9 - Type 2 diabetes mellitus without complications Status: Chronic Assessment and Plan: follow accu-cheks glycemic control per hospitalists Will continue to follow. Subjective Date/time seen: 01/26/24 10:01 Interval history: Follow-up for acute kidney injury/acute renal failure on chronic kidney disease and hyperkalemia. Chart reviewed since last seen -- renal function continues to slowly improve with good urine output and stability in potassium; major complaint is that of fatigue/weakness which limits ambulation in general; working with PT/OT as tolerated; no other issues/events overnight or earlier this morning. Exam Narrative: General: large female in NAD Heart: normal S1 and S2; no rub or gallop Lungs: clear anteriorly; decreased at bases Abdomen: Bowel sounds positive nontender Extremities: trace edema Skin: no nodules Objective Data Vital Signs Vital Signs: Vital Signs Temp Pulse Resp BP Pulse Ox O2 Del Method O2 Flow Rate 01/26/24 08:15 95 Nasal Cannula 2 01/26/24 08:41 61 18 01/26/24 08:35 68 18 95 Nasal Cannula 1 01/26/24 08:33 68 18 01/26/24 06:00 97.8 F 58 L 18 145/34 H 96 01/26/24 02:10 62 18 01/26/24 02:02 63 18
--- NOTE | 2024-01-26 10:01 | P.PNNP_ITS ---
Progress Note: A&P Assessment and Plan (1) EMERITA (acute kidney injury): Code(s): N17.9 - Acute kidney failure, unspecified Status: Acute Assessment and Plan: * slow improvement noted * etiology not entirely clear - possibilities include: * contrast * rhabdomyolysis * relative hypotension/ATN * no skin lesions, no eosinophilia, and no rash noted (argues against atheroemboli and AIN) * s/p emergent hemodialysis on 01/17 evening due to severe hyperkalemia and volume overload * HD on 01/18 due to rebound hyperkalemia as well as further fluid removal * last HD treatment on 01/20 (more so for clearance of uremic toxins) * await the remainder of the serologic testing * follow repeat labs and UOP (2) Chronic kidney disease, stage 3b: Code(s): N18.32 - Chronic kidney disease, stage 3b Status: Chronic Assessment and Plan: * baseline creatinine seems to run ~ 1.5 or so * secondary to hypertension, diabetes, vascular disease and age-related change (3) Hyperkalemia: Code(s): E87.5 - Hyperkalemia Status: Acute Assessment and Plan: * resolved (4) Acute hypoxic respiratory failure: Code(s): J96.01 - Acute respiratory failure with hypoxia Status: Acute Assessment and Plan: * slow improvement * still requiring 1 - 2L supplemental oxygen * related to underlying COPD (?) (5) Hypertension: Code(s): I10 - Essential (primary) hypertension Status: Chronic Assessment and Plan: * reasonable control * on amlodipine, carvedilol as well as PRN clonidine * holding off on losartan till she gets to baseline * follow trend of hemodynamics (6) Coronary artery disease: Code(s): I25.10 - Atherosclerotic heart disease of [place] coronary artery without angina pectoris Status: Chronic Assessment and Plan: * recent in-stent stenosis status post GLYNN x 1 to mid RCA on 01/13/2024 * continue aspirin, Brilinta, Coreg, rosuvastatin * ARB on hold due to #1 (7) Anemia: Code(s): D64.9 - Anemia, unspecified Status: Acute Assessment and Plan: * due to recent procedures, hospitalizations, EMERITA and CKD * Epogen with HD * Continue EPO 3 times a week while hospitalized * follow H/H (8) UTI (urinary tract infection): Qualifiers: Urinary tract infection type: site unspecified Hematuria presence: without hematuria Qualified Code(s): N39.0 - Urinary tract infection, site not specified Code(s): N39.0 - Urinary tract infection, site not specified Status: Acute Assessment and Plan: * urine culture with Klebsiella * on ceftriaxone (9) Type 2 diabetes mellitus: Code(s): E11.9 - Type 2 diabetes mellitus without complications Status: Chronic Assessment and Plan: * follow accu-cheks * glycemic control per hospitalists Will continue to follow. Subjective Date/time seen: 01/26/24 10:01 Interval history: Follow-up for acute kidney injury/acute renal failure on chronic kidney disease and hyperkalemia. Chart reviewed since last seen -- renal function continues to slowly improve with good urine output and stability in potassium; major complaint is that of fatigue/weakness which limits ambulation in general; working with PT/OT as tolerated; no other issues/events overnight or earlier this morning. Exam Narrative: General: large female in NAD Heart: normal S1 and S2; no rub or gallop Lungs:
[2024-01-26 11:51] LABS: Glucose Point of Care 208 mg/dl (65-105)
[2024-01-26 17:26] LABS: Glucose Point of Care 245 mg/dl (65-105)
[2024-01-26 21:19] LABS: Glucose Point of Care 252 mg/dl (65-105)
[2024-01-27] VITALS (11 sets, daily range): BP systolic 145–181; BP diastolic 47–59; PULSE 60–78; RESP 16–18; TEMP 36.1–36.7; O2SAT 90–100
[2024-01-27] MEDS: IPRATROPIUM 0.5 MG/ALBUTEROL SULFATE 2.5 MG AMPUL.NEB 3 ML INHALATION ×3 (01:17→15:11)
[2024-01-27 05:22] LABS: Basophils Absolute Auto 0.1 K/mm3 (0.0-0.1); Basophils Percent Auto 0.7 % (0.2-1.2); Eosinophils Absolute Auto 0.3 K/mm3 (0-0.3); Eosinophils Percent Auto 3.4 % (0-4.4); Hematocrit 26.1 % (37.0-47.0); Hemoglobin 7.4 g/dL (12.0-15.0); Immature Granulocyte Absolute 0.57 K/mm3 (0.00-0.031); Immature Granulocyte Percent A 5.7 % (0-0.5); Lymphocytes Percent Auto 25.8 % (18.3-44.2); Mean Corpuscular HGB Conc 28.4 g/dl (32-36); Mean Corpuscular Hemoglobin 24.2 pg (26-34); Mean Corpuscular Volume 85.3 fl (80-100); Mean Platelet Volume 10.4 fl (7.4-10.4); Monocytes Absolute Auto 1.4 K/mm3 (0.1-0.6); Monocytes Percent Auto 13.5 % (2.6-8.5); Neutrophils Absolute Auto 5.1 K/mm3 (1.3-6.7); Neutrophils Percent Auto 50.9 % (45.5-73.1); Nucleated Red Blood Cells Perc 0.6 % (0.0-0.2); Platelet Count Result 289 k/mm3 (150-375); Red Blood Count 3.06 M/mm3 (4.2-5.4); Red Cell Distribution Width 20.5 % (11.5-14.5); White Blood Count 10.1 K/mm3 (4.5-10.0)
[2024-01-27 05:32] LABS: Alanine Aminotransferase 12 U/L (6-35); Albumin Level 3.6 g/dL (3.5-5.1); Alkaline Phosphatase 89 U/L (38-126); Anion Gap 10 mmol/L (4-12); Aspartate Amino Transferase 16 U/L (14-36); Bilirubin,Total 0.3 mg/dL (0.2-1.3); Blood Urea Nitrogen 35 mg/dL (7-17); Calcium 8.5 mg/dL (8.4-10.2); Carbon Dioxide 20 mmol/L (22-30); Chloride 108 mmol/L (98-107); Estimated CRCL calculation 17 ml/min; Estimated Glomerular Filt Rate 14; Glucose 241 mg/dL (65-110); Magnesium 1.8 mg/dL (1.6-2.3); Phosphorus 3.9 mg/dL (2.5-4.5); Potassium 4.1 mmol/L (3.4-5.0); Sodium 138 mmol/L (137-145)
[2024-01-27 05:49] LABS: Anisocytosis 1+; Large Platelets Present; Platelet Estimate Adequate (Adequate)
[2024-01-27 05:50] LABS: Hypochromasia 2+; Ovalocytes 1+; Schistocytes None Seen; Stomatocytes 1+
[2024-01-27 08:27] LABS: Glucose Point of Care 232 mg/dl (65-105)
[2024-01-27] MEDS: FAMOTIDINE 20 MG TABLET PO (08:39)
[2024-01-27] MEDS: carvediloL 12.5 MG TABLET PO (08:39)
[2024-01-27] MEDS: guaiFENesin 12 HR 600 MG TABCR PO (08:39)
[2024-01-27] MEDS: amLODIPine BESYLATE 5 MG TABLET 10 MG PO (08:39)
[2024-01-27] MEDS: ASPIRIN 81 MG ENTERIC TABLET PO (08:39)
[2024-01-27] MEDS: IRON SUCROSE COMPLEX 100 MG in SODIUM CHLORIDE 0.9% IV 50 ML 220 MG IVPB (08:40)
[2024-01-27] MEDS: HEPARIN SODIUM 5,000 UNITS/ML VIAL 5000 UNITS SUB-Q (08:40)
[2024-01-27] MEDS: PANTOPRAZOLE 40 MG TABLET PO (08:41)
[2024-01-27] MEDS: ISOSORBIDE MONONITRATE 60 MG TAB.ER.24H 120 MG PO (08:41)
[2024-01-27] MEDS: TICAGRELOR 90 MG TABLET PO (08:41)
[2024-01-27] MEDS: LORATADINE 10 MG TABLET PO (08:41)
[2024-01-27] MEDS: ACETAMINOPHEN 325 MG TABLET 650 MG PO (08:41)
[2024-01-27] MEDS: ROSUVASTATIN 10 MG TABLET 20 MG PO (08:41)
[2024-01-27] MEDS: INSULIN ASPART (*BKC) 100 UNITS/ML SUB-Q ×2 (08:42→12:20)
--- NOTE | 2024-01-27 09:43 | PM.PNNEP ---
Progress Note: A&P Assessment and Plan (1) EMERITA (acute kidney injury): Code(s): N17.9 - Acute kidney failure, unspecified Status: Acute Assessment and Plan: slow improvement noted etiology not entirely clear - possibilities include: contrast rhabdomyolysis relative hypotension/ATN no skin lesions, no eosinophilia, and no rash noted (argues against atheroemboli and AIN) s/p emergent hemodialysis on 01/17 evening due to severe hyperkalemia and volume overload HD on 01/18 due to rebound hyperkalemia as well as further fluid removal last HD treatment on 01/20 (more so for clearance of uremic toxins) await the remainder of the serologic testing possible new baseline creatinine(?) follow repeat labs and UOP (2) Chronic kidney disease, stage 3b: Code(s): N18.32 - Chronic kidney disease, stage 3b Status: Chronic Assessment and Plan: baseline creatinine seems to run ~ 1.5 or so secondary to hypertension, diabetes, vascular disease and age-related change (3) Hyperkalemia: Code(s): E87.5 - Hyperkalemia Status: Acute Assessment and Plan: resolved (4) Acute hypoxic respiratory failure: Code(s): J96.01 - Acute respiratory failure with hypoxia Status: Acute Assessment and Plan: slow improvement off supplemental oxygen related to underlying COPD (?) (5) Hypertension: Code(s): I10 - Essential (primary) hypertension Status: Chronic Assessment and Plan: reasonable control on amlodipine, carvedilol as well as PRN clonidine holding off on losartan till she gets to baseline follow trend of hemodynamics (6) Coronary artery disease: Code(s): I25.10 - Atherosclerotic heart disease of [place] coronary artery without angina pectoris Status: Chronic Assessment and Plan: recent in-stent stenosis status post GLYNN x 1 to mid RCA on 01/13/2024 continue aspirin, Brilinta, Coreg, rosuvastatin ARB on hold due to #1 (7) Anemia: Code(s): D64.9 - Anemia, unspecified Status: Acute Assessment and Plan: due to recent procedures, hospitalizations, EMERITA and CKD Epogen with HD Continue EPO 3 times a week while hospitalized follow H/H (8) UTI (urinary tract infection): Qualifiers: Urinary tract infection type: site unspecified Hematuria presence: without hematuria Qualified Code(s): N39.0 - Urinary tract infection, site not specified Code(s): N39.0 - Urinary tract infection, site not specified Status: Acute Assessment and Plan: urine culture with Klebsiella on antibiotics (9) Type 2 diabetes mellitus: Code(s): E11.9 - Type 2 diabetes mellitus without complications Status: Chronic Assessment and Plan: follow accu-cheks glycemic control per hospitalists Will continue to follow. Subjective Date/time seen: 01/27/24 09:43 Interval history: Follow-up for acute kidney injury/acute renal failure on chronic kidney disease and hyperkalemia. Seems to be doing reasonably well at the time of my visit; breathing/respiratory status stable if not better; renal function stable if not better (although still not back to baseline) with ongoing stability in potassium level; no apparent distress noted; no issues/events overnight or earlier this AM. Exam Narrative: General: large female in NAD Heart: normal S1 and S2; no rub Lungs: clear anteriorly; decreased at bases Abdomen: Bbowel sounds positive nontender Extremities: trace edema Skin: warm and dry Objective Data Vital Signs Vital Signs: Vital Signs Temp Pulse Resp BP Pulse Ox O2 Del Method O2 Flow Rate 01/27/24 08:39 69 01/27/24 08:38 69 155/59 H 94 01/27/24 07:34 60 18 01/27/24 07:27 62 18 01/27/24 07:27 90 Room Air 01/27/24 04:08 98.1 F 78 18 145/47 H 100 01/27/24 01:28 69 18 01/27/24 0
--- NOTE | 2024-01-27 09:43 | P.PNNP_ITS ---
Progress Note: A&P Assessment and Plan (1) EMERITA (acute kidney injury): Code(s): N17.9 - Acute kidney failure, unspecified Status: Acute Assessment and Plan: * slow improvement noted * etiology not entirely clear - possibilities include: * contrast * rhabdomyolysis * relative hypotension/ATN * no skin lesions, no eosinophilia, and no rash noted (argues against atheroemboli and AIN) * s/p emergent hemodialysis on 01/17 evening due to severe hyperkalemia and volume overload * HD on 01/18 due to rebound hyperkalemia as well as further fluid removal * last HD treatment on 01/20 (more so for clearance of uremic toxins) * await the remainder of the serologic testing * possible new baseline creatinine(?) * follow repeat labs and UOP (2) Chronic kidney disease, stage 3b: Code(s): N18.32 - Chronic kidney disease, stage 3b Status: Chronic Assessment and Plan: * baseline creatinine seems to run ~ 1.5 or so * secondary to hypertension, diabetes, vascular disease and age-related change (3) Hyperkalemia: Code(s): E87.5 - Hyperkalemia Status: Acute Assessment and Plan: * resolved (4) Acute hypoxic respiratory failure: Code(s): J96.01 - Acute respiratory failure with hypoxia Status: Acute Assessment and Plan: * slow improvement * off supplemental oxygen * related to underlying COPD (?) (5) Hypertension: Code(s): I10 - Essential (primary) hypertension Status: Chronic Assessment and Plan: * reasonable control * on amlodipine, carvedilol as well as PRN clonidine * holding off on losartan till she gets to baseline * follow trend of hemodynamics (6) Coronary artery disease: Code(s): I25.10 - Atherosclerotic heart disease of [place] coronary artery without angina pectoris Status: Chronic Assessment and Plan: * recent in-stent stenosis status post GLYNN x 1 to mid RCA on 01/13/2024 * continue aspirin, Brilinta, Coreg, rosuvastatin * ARB on hold due to #1 (7) Anemia: Code(s): D64.9 - Anemia, unspecified Status: Acute Assessment and Plan: * due to recent procedures, hospitalizations, EMERITA and CKD * Epogen with HD * Continue EPO 3 times a week while hospitalized * follow H/H (8) UTI (urinary tract infection): Qualifiers: Urinary tract infection type: site unspecified Hematuria presence: without hematuria Qualified Code(s): N39.0 - Urinary tract infection, site not specified Code(s): N39.0 - Urinary tract infection, site not specified Status: Acute Assessment and Plan: * urine culture with Klebsiella * on antibiotics (9) Type 2 diabetes mellitus: Code(s): E11.9 - Type 2 diabetes mellitus without complications Status: Chronic Assessment and Plan: * follow accu-cheks * glycemic control per hospitalists Will continue to follow. Subjective Date/time seen: 01/27/24 09:43 Interval history: Follow-up for acute kidney injury/acute renal failure on chronic kidney disease and hyperkalemia. Seems to be doing reasonably well at the time of my visit; breathing/respiratory status stable if not better; renal function stable if not better (although still not back to baseline) with ongoing stability in potassium level; no apparent distress noted; no issues/events overnight or earlier this AM. Exam Narrative: General: large female in NAD Heart: normal S1 and S2; no r
--- NOTE | 2024-01-27 10:03 | PM.DS ---
DS: Admitting Diagnosis Discharge Date 01/27/24 Admitting Diagnosis Acute on chronic kidney failure Hyperkalemia Metabolic acidosis Elevated troponin Acute hypoxic respiratory Coronary Artery disease COPD Hypertension Type 2 diabetes mellitus Chronic anemia Tobacco abuse DS: Discharge Diagnosis Discharge Diagnosis (1) Acute on chronic kidney failure: Code(s): N17.9 - Acute kidney failure, unspecified; N18.9 - Chronic kidney disease, unspecified Status: Acute (2) Acute hypoxic respiratory failure: Code(s): J96.01 - Acute respiratory failure with hypoxia Status: Acute (3) Chronic obstructive pulmonary disease: Code(s): J44.9 - Chronic obstructive pulmonary disease, unspecified Status: Acute (4) Coronary artery disease: Code(s): I25.10 - Atherosclerotic heart disease of [place] coronary artery without angina pectoris Status: Chronic (5) Hypertension: Code(s): I10 - Essential (primary) hypertension Status: Chronic (6) Hyperlipidemia: Code(s): E78.5 - Hyperlipidemia, unspecified Status: Acute (7) Diabetes mellitus: Qualifiers: Diabetes mellitus type: type 2 Diabetes mellitus senior living insulin use: without salvage determiner use Diabetes mellitus complication status: without complication Qualified Code(s): E11.9 - Type 2 diabetes mellitus without complications Code(s): E11.9 - Type 2 diabetes mellitus without complications Status: Acute DS: Summary Hospital Course Reason for hospitalization: Acute on chronic kidney failure Hyperkalemia Metabolic acidosis Elevated troponin Acute hypoxic respiratory Coronary Artery disease COPD Hypertension Type 2 diabetes mellitus Chronic anemia Tobacco abuse Hospital Course: 12/23/23: This is a 73-year-old female who came in on 01/18/2024 with complaints of shortness of breath and wheezing.? Workup in the hospital included a head CT which shown normal age-related changes, no acute infarct.? Chest CT shown mild emphysema, mild bronchiectasis in the inferior lungs.? Chest x-ray showed mild atelectasis at the lung bases.? Renal ultrasound showed normal kidneys without hydronephrosis.? Blood and urine cultures were obtained.? Blood is showing no growth today on preliminary read.? Urine culture showed Klebsiella pneumoniae on final read.? Initial white blood count was 10.1, hemoglobin 8.6, sodium 136, potassium 8.8, BUN 66, creatinine 9.1, lactic acid 3.8, troponin 0.088, proBNP 2740.? Patient received emergent hemodialysis on 01/18/24 and again HD on 01/19/2024 due to rebound hyperkalemia.? Prior to this admission patient was seen and treated for mid RCA non STEMI and had a stent placed on 01/13/2024.? Nephrology is on board and is following. She denies any new complaints today.? Her urine output has been picking up.? Labs today revealed white blood cell count 10.8, hemoglobin 7.6, sodium 135, potassium 3.8, BUN 30, creatinine 4.2, EGFR, blood sugars ranging 47-228.? Patient currently on Rocephin. 12/24/23: Patient denies any new complaints today.? Labs today reveal a white blood cell count of 10.8, hemoglobin 8.0, creatinine 3.90, blood sugars ranging 141-156.? Nephrology following.? Nephrology held off on any more hemodialysis now that her urine output has picked up.? Will likely get the HD catheter out today.? PT and OT ordered. 12/25/23: Patient denies any new complaints today.? Labs today show white blood cell count 10.4, hemoglobin 7 point, hematocrit 25.9, sodium 130, BUN 36, creatinine 3.6, E GFR 12.? Brown can be removed today.? She will continue with PT and OT at this time. 12/26/23: She denies any new complaints today.? Labs today showing white blood cell count of 10.3, hemoglobin 7.4, sodium 133, creatinine down to 3.2, EGFR 14.? Patient continues with weakness and only ambulating a few feet before becoming tired.? PT and OT continue to work with her.? She is currently still on 1 L nasal cannula. 12/27/23: S
--- NOTE | 2024-01-27 10:42 | PCOTNOTE ---
Patient refused to participate this A.M. Patient states she is going to be discharged and does not need therapy services.
--- NOTE | 2024-01-27 11:55 | PCPTNOTE ---
Patient refused treatment this session due to anticipated discharge.
[2024-01-27 12:05] LABS: Glucose Point of Care 347 mg/dl (65-105)
--- NOTE | 2024-01-27 14:50 | PCOTNOTE ---
Patient refused treatment due to discharge, patient reports leaving at 4. Following.
[2024-02-02 12:54] LABS: Renin 1.98 ng/mL/h (0.25-5.82)
[2024-02-03 12:30] LABS: PRA 0.91 ng/mL/h (0.25-5.82)
== END 2024-01-27 16:15 | disposition home or self-care (01) | DRG 682 ==
LOC: ANHED 16:08 → ANHICU 16:27 → ANHIMU 01-19 22:12 → ANH2MED 01-22 17:46
PROVIDERS: Family Medicine; Internal Medicine; Internal Medicine Nephrology; Physician Assistant; Admitting Provider Internal Medicine; Emergency Provider Emergency Medicine; PCP Emergency Medicine; Visit Provider Nurse Practitioner Acute Care
DX: N17.9 Acute kidney failure, unspecified (principal); J96.01 Acute respiratory failure with hypoxia; E87.21 Acute metabolic acidosis; N39.0 Urinary tract infection, site not specified; J44.1 Chronic obstructive pulmonary disease with (acute) exacerbation; B96.1 Klebsiella pneumoniae [K. pneumoniae] as the cause of diseases classified elsewhere; I25.10 Atherosclerotic heart disease of native coronary artery without angina pectoris; E11.22 Type 2 diabetes mellitus with diabetic chronic kidney disease; I12.9 Hypertensive chronic kidney disease with stage 1 through stage 4 chronic kidney disease, or unspecified chronic kidney disease; N18.32 Chronic kidney disease, stage 3b; E78.5 Hyperlipidemia, unspecified; E87.5 Hyperkalemia; D63.1 Anemia in chronic kidney disease; G89.4 Chronic pain syndrome; M19.90 Unspecified osteoarthritis, unspecified site; K21.9 Gastro-esophageal reflux disease without esophagitis; I25.2 Old myocardial infarction; Z90.49 Acquired absence of other specified parts of digestive tract; Z95.5 Presence of coronary angioplasty implant and graft; Z99.2 Dependence on renal dialysis; Z20.822 Contact with and (suspected) exposure to COVID-19
CPT/HCPCS: 36415; 36600; 70450; 71045; 71250; 76775; 80048; 80053; 80069; 81001; 82040; 82088; 82436; 82533; 82550; 82570; 82595; 82805; 82948; 83520; 83605; 83735; 83880; 84100; 84156; 84244; 84300; 84484; 84540; 85025; 85027; 85610; 85652; 85730; 85999; 86036; 86038; 86140; 86160; 86162; 86225; 86235; 86704; 86706; 87040; 87077; 87086; 87088; 87186; 87340; 87637; 87641; 93005; 94002; 94640; 96374; 96375; 97110; 97116; 97161; 97165; 97530; 97535; 99291; A9270; C1752; G0257; J0461; J0612; J0696; J1644; J1756; J1815; J1940; J2270; J2405; J3010; J7030; Q5105

== ENCOUNTER 2024-06-25 11:39 | Emergency (ER) | payer MEDICARE, SELFPAY ==
[2024-06-25] VITALS (10 sets, daily range): BP systolic 118–153; BP diastolic 38–70; PULSE 60–86; RESP 16–24; TEMP 35.8–36.4; O2SAT 93–100
--- NOTE | ~2024-06-25 | XR_ITS ---
EXAMINATION: XR chest 2V DATE: 06/25/2024 16:25 INDICATION: Shortness of breath. TECHNIQUE: Frontal and lateral views of the chest were obtained. COMPARISON: Chest single view 01/20/2024, chest CT 01/18/2024 FINDINGS: There is mild atelectasis in the lower lung zones. No pleural effusion or pneumothorax. Car diomegaly is noted.. Epidural electrodes are noted. There are prominent pericardial fat pads. IMPRESSION: 1. Mild atelectasis in the lower lung zones. 2. Cardiomegaly. Reviewed, dictated and finalized at location A.
--- NOTE | 2024-06-25 15:42 | ECG_ITS ---
Test Date: 2024-06-25 16:07:57 Measurements Intervals [place] Rate: 65 P: 68 RI: 188 QRS: 3 QRSD: 82 T: 80 QT: 391 QTc: 407 Interpretive Statements SINUS RHYTHM LOW QRS VOLTAGE IN PRECORDIAL LEADS NONSPECIFIC ST-T WAVE ABNORMALITY- HIGH LATERAL LEADS BASELINE ARTIFACT- I, II, AVR, AVF BORDERLINE ECG No previous ECG available for comparison Electronically Signed On 06-25-2024 16:15:23 CDT by Misha Reyez D.O.
[2024-06-25 16:12] LABS: Basophils Percent Auto 0.3 % (0.2-1.2); Eosinophils Absolute Auto 0.1 K/mm3 (0-0.3); Eosinophils Percent Auto 0.6 % (0-4.4); Hematocrit 35.1 % (37.0-47.0); Hemoglobin 10.6 g/dL (12.0-15.0); Immature Granulocyte Absolute 0.11 K/mm3 (0.00-0.031); Lymphocytes Absolute Auto 2.81 K/mm3 (0.9-3.2); Lymphocytes Percent Auto 25.9 % (18.3-44.2); Mean Corpuscular HGB Conc 30.2 g/dl (32-36); Mean Corpuscular Hemoglobin 26.1 pg (26-34); Mean Corpuscular Volume 86.5 fl (80-100); Mean Platelet Volume 11.1 fl (7.4-10.4); Monocytes Absolute Auto 0.6 K/mm3 (0.1-0.6); Monocytes Percent Auto 5.2 % (2.6-8.5); Neutrophils Absolute Auto 7.3 K/mm3 (1.3-6.7); Platelet Count Result 272 k/mm3 (150-375); Red Blood Count 4.06 M/mm3 (4.2-5.4); Red Cell Distribution Width 17.4 % (11.5-14.5); White Blood Count 10.9 K/mm3 (4.5-10.0)
[2024-06-25 16:26] LABS: Alanine Aminotransferase 15 U/L (6-35); Albumin Level 4.6 g/dL (3.5-5.1); Alkaline Phosphatase 100 U/L (38-126); Anion Gap 14 mmol/L (4-12); Aspartate Amino Transferase 20 U/L (14-36); Bilirubin,Total 0.2 mg/dL (0.2-1.3); Blood Urea Nitrogen 60 mg/dL (7-17); Calcium 8.8 mg/dL (8.4-10.2); Carbon Dioxide 21 mmol/L (22-30); Chloride 108 mmol/L (98-107); Estimated CRCL calculation 23 ml/min; Estimated Glomerular Filt Rate 20; Glucose 70 mg/dL (65-110); Potassium 5.6 mmol/L (3.4-5.0); Sodium 143 mmol/L (137-145)
[2024-06-25 17:10] LABS: NT Pro B Type Natriuretic Pept 733 pg/mL (19.9-100); Troponin I < 0.012 ng/mL (0.000-0.034)
[2024-06-25] MEDS: IPRATROPIUM BR 0.02% INH SOLN 0.5 MG/2.5 ML VIAL 1 MG INHALATION (17:55)
[2024-06-25] MEDS: ALBUTEROL SULFATE NEB 2.5 MG/3 ML INH 10 MG INHALATION (17:55)
[2024-06-25 18:11] LABS: D Dimer 0.34 ug/mL (<0.48)
[2024-06-25] MEDS: PSEUDOEPHEDRINE HCL 30 MG TABLET PO (18:19)
[2024-06-25] MEDS: methylPREDNISolone SOD SUCC 125 MG VIAL IV PUSH (18:20)
--- NOTE | 2024-06-25 18:25 | ED.SOB ---
HPI - SOB/Dyspnea General Chief Complaint: Shortness of Breath/Dyspnea <Otf Brumfield MD - Last Filed: 06/25/24 19:31> Stated Complaint: shortness of breath since friday <Otf Brumfield MD - Last Filed: 06/25/24 19:31> Time Seen by Provider: 06/25/24 15:42 <Otf Brumfield MD - Last Filed: 06/25/24 19:31> History of Present Illness HPI Narrative: This is a 74-year-old female with a past medical history significant for COPD, CKD, CAD hypertension, hyperlipidemia. Today patient presents to the emergency department she complained of difficulty in breathing. She states that was onset for last several days and acutely worsening. She states she is out of her nebulizer treatments at home for her COPD remedies. She has tried her albuterol inhaler without significant improvement. Feels very similar to her prior COPD exacerbation according to the patient. No productive cough, fever, chills, chest pain, pleuritic chest pain, back pain, abdominal pain. She is otherwise in her normal state of health. EMS was called and noted that she was about 88% on room air provider oxygen which he states felt improved her symptoms and she initially wanted to be discharged on my initial evaluation. She is not in any respiratory distress and converses in full sentences. She is afebrile, non tachycardic with normal vital signs other than requiring 2 L to maintain and a% saturation. <Otf Brumfield MD - Last Filed: 06/25/24 19:31> Related Data Home Medications: Home Medications Medication Instructions Recorded Confirmed rosuvastatin 20 mg tablet 20 mg PO DAILY 10/30/19 04/30/24 bumetanide 2 mg tablet 2 mg PO DAILY 11/24/23 04/30/24 carvedilol 12.5 mg tablet 12.5 mg PO DAILY 12/30/23 04/30/24 fluticasone propionate 50 1 spray intranasal DAILY 12/30/23 04/30/24 mcg/actuation nasal spray,suspension <Otf Brumfield MD - Last Filed: 06/25/24 19:31> Allergies/Adverse Reactions: Allergies Allergy/AdvReac Type Severity Reaction Status Date / Time morphine Allergy Unknown Itching Verified 04/30/24 10:35 Sulfa (Sulfonamide Allergy Unknown HIVES Verified 04/30/24 10:35 Antibiotics) <Otf Brumfield MD - Last Filed: 06/25/24 19:31> Review of Systems Review of Systems: As reviewed above in HPI <Otf Brumfield MD - Last Filed: 06/25/24 19:31> [facility] Past Medical History Medical History: Medical History Atherosclerosis Scattered atherosclerotic calcification with 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 Chronic anemia Chronic kidney disease Chronic obstructive pulmonary disease Chronic pain syndrome Coronary artery disease Hyperlipidemia Hypertension Osteoarthritis Tobacco abuse Type 2 diabetes mellitus <Otf Brumfield MD - Last Filed: 06/25/24 19:31> Surgical History Surgical History: Surgical History History of cardiac catheterization History of cholecystectomy History of coronary artery stent placement Stents to right coronary artery x4, left anterior descending, circumflex, 2nd marginal, and known occlusion of stent to 1st marginal branch. History of tonsillectomy Status post insertion of spinal cord stimulator <Otf Brumfield MD - Last Filed: 06/25/24 19:31> Family History Family History: Family History Mother Family history of malignant neoplasm Patient's mother is Ovarian cancer Father Family history of diabetes mellitus in first degree relative Patient's father is Coronary atherosclerosis of bypass graft <Otf Brumfield MD - Last Filed: 06/25/24 19:31> Social History Social History: Social History (Reviewed
[2024-06-25] MEDS: INSULIN HUMAN REGULAR (*BKC) 100 UNITS/ML IV PUSH (18:45)
[2024-06-25] MEDS: DEXTROSE 50% 25 GM/50 ML SYRINGE IV PUSH (18:45)
[2024-06-25] MEDS: LACTATED RINGERS 1,000 ML 999 ML IV CONT (18:45)
[2024-06-25 20:10] LABS: Anion Gap 14 mmol/L (4-12); Blood Urea Nitrogen 58 mg/dL (7-17); Calcium 8.9 mg/dL (8.4-10.2); Carbon Dioxide 22 mmol/L (22-30); Chloride 107 mmol/L (98-107); Estimated CRCL calculation 23 ml/min; Estimated Glomerular Filt Rate 20; Glucose 92 mg/dL (65-110); Sodium 143 mmol/L (137-145)
[2024-06-25 20:22] LABS: Troponin I < 0.012 ng/mL (0.000-0.034)
[2024-06-25 20:40] LABS: Glucose Point of Care 69 mg/dl (65-105)
[2024-06-25] MEDS: BENZONATATE 100 MG CAPSULE PO (20:58)
== END 2024-06-25 21:27 | disposition home or self-care (01) ==
PROVIDERS: Emergency Provider Student in an Organized Health Care Education/Training Program; PCP Emergency Medicine
DX: J44.1 Chronic obstructive pulmonary disease with (acute) exacerbation (principal); E87.5 Hyperkalemia; N18.9 Chronic kidney disease, unspecified; I25.10 Atherosclerotic heart disease of native coronary artery without angina pectoris; I12.9 Hypertensive chronic kidney disease with stage 1 through stage 4 chronic kidney disease, or unspecified chronic kidney disease; E78.5 Hyperlipidemia, unspecified; E11.22 Type 2 diabetes mellitus with diabetic chronic kidney disease; F17.210 Nicotine dependence, cigarettes, uncomplicated
CPT/HCPCS: 36415; 71046; 80048; 80053; 82948; 83880; 84484; 85025; 85380; 93005; 94640; 96361; 96374; 96375; 99284; A9270; J1815; J2919; J7120

== ENCOUNTER 2024-06-27 23:17 | Inpatient (IN) | payer MEDICARE, SELFPAY ==
[2024-06-27] VITALS (7 sets, daily range): BP systolic 143–148; BP diastolic 54–57; PULSE 66–79; RESP 16–24; TEMP 36.6; O2SAT 95–99
--- NOTE | ~2024-06-27 | XR_ITS ---
Portable chest x-ray Comparison: 06/25/2024 Clinical History: Shortness of breath Findings: There is mild bibasilar haziness, left worse than right. Cardiomediastinal silhouette is stable. Bones and soft tissues are unremarkable. Impression: Minimal bibasilar pulmonary edema/atelectasis, left worse than right. Reviewed, dictated and finalized at location . Impression: Minimal bibasilar pulmonary edema/atelectasis, left worse than right.
--- NOTE | ~2024-06-27 | XR_ITS ---
XR chest 1V portable Ordering provider: Viviana Valle APRN History: 74 years Female with . shortness of breath . Comparison: June 27, 2024 FINDINGS: MEDIASTINUM: The cardiac silhouette is not enlarged. LUNGS: No effusions or pneumothorax. Bilateral basal opacification suggestive of atelectasis versus p neumonia. Underlying emphysematous changes. OTHER: No free air under the diaphragm. Spinal stimulator is noted. IMPRESSION: Bibasilar atelectasis versus pneumonia more on the left side. Reviewed, dictated and finalized at location A.
--- NOTE | 2024-06-27 23:21 | ECG_ITS ---
Test Date: 2024-06-27 23:19:58 Measurements Intervals [place] Rate: 73 P: 76 RI: 181 QRS: 12 QRSD: 82 T: 79 QT: 364 QTc: 403 Interpretive Statements SINUS RHYTHM WITH MARKED SINUS ARRHYTHMIA LOW QRS VOLTAGE IN PRECORDIAL LEADS LEFT VENTRICULAR HYPERTROPHY WITH ST-T CHANGE BORDERLINE ECG Compared to ECG 06/25/2024 16:07:57 SINUS ARRHYTHMIA NOW PRESENT Electronically Signed On 06-28-2024 06:30:13 CDT by Misha Reyez D.O.
--- NOTE | 2024-06-27 23:35 | ED.SOB ---
HPI - SOB/Dyspnea General Chief Complaint: Shortness of Breath/Dyspnea Stated Complaint: resp distress Time Seen by Provider: 06/27/24 23:20 History of Present Illness HPI Narrative: Patient with history of COPD who had recently been seen for COPD exacerbation but is feeling worse again presents back here for shortness of breath. Got 1 breathing treatment with EMS Related Data Home Medications Medication Instructions Recorded Confirmed rosuvastatin 20 mg tablet 20 mg PO DAILY 10/30/19 04/30/24 bumetanide 2 mg tablet 2 mg PO DAILY 11/24/23 04/30/24 carvedilol 12.5 mg tablet 12.5 mg PO DAILY 12/30/23 04/30/24 fluticasone propionate 50 1 spray intranasal DAILY 12/30/23 04/30/24 mcg/actuation nasal spray,suspension Allergies Allergy/AdvReac Type Severity Reaction Status Date / Time morphine Allergy Unknown Itching Verified 06/27/24 23:20 Sulfa (Sulfonamide Allergy Unknown HIVES Verified 06/27/24 23:20 Antibiotics) Review of Systems Review of Systems: All systems reviewed & are unremarkable except as noted in HPI and below PMFSH Past Medical History Medical History Atherosclerosis Scattered atherosclerotic calcification with 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 Chronic anemia Chronic kidney disease Chronic obstructive pulmonary disease Chronic pain syndrome Coronary artery disease Hyperlipidemia Hypertension Osteoarthritis Tobacco abuse Type 2 diabetes mellitus Surgical History Surgical History History of cardiac catheterization History of cholecystectomy History of coronary artery stent placement Stents to right coronary artery x4, left anterior descending, circumflex, 2nd marginal, and known occlusion of stent to 1st marginal branch. History of tonsillectomy Status post insertion of spinal cord stimulator Family History Family History Mother Family history of malignant neoplasm Patient's mother is Ovarian cancer Father Family history of diabetes mellitus in first degree relative Patient's father is Coronary atherosclerosis of bypass graft Social History Social History Social History: Surrogate medical decision maker: Serina Campos, daughter. Code status: Full code. Smoking packs per day: 1 Smoking cigarettes per day: 20.0 Years smoked: 50 Smoking pack-years: 50.00 Smoking status: Current every day smoker Tobacco type: cigarettes Alcohol intake: never Substance use: never Current Housing: Decline to Answer Concerned About Future Housing: Decline to Answer Difficulty Paying Gas/Electric Bills: Decline to Answer Difficulty Paying for Meds: Decline to Answer Currently Unemployed: Decline to Answer Education: Decline to Answer Difficulty w/ Childcare or Family Care: Decline to Answer Spiritual care concerns: No Exam Narrative: EXAMINATION OF ORGAN SYSTEMS/BODY AREAS: Constitutional: Vital signs per nursing GENERAL: Appears slightly dyspneic HEAD: Normal with no signs of head trauma. EYES: EOMI, conjunctiva normal ENT: Hearing grossly intact LUNGS: Coarse lung sounds with wheezing bilaterally HEART: [Regular rate and rhythm] ABD: [Soft], nontender to palpation EXT: Normal range of motion SKIN: [No rashes or lesions.] NEURO: [Alert and oriented x 3. No gross focal sensory or strength deficits.] PSYCH: Normal affect Course Vital Signs Vital signs: Vital Signs Temperature 98 F 06/27/24 23:04 Pulse Rate 79 06/27/24 23:04 Respiratory Rate 22 H 06/27/24 23:04 Blood Pressure 148/57 H 06/27/24 23:04 Pulse Oximetry 95 06/27/24 23:04 Oxygen Delivery Nasal Cannula 06/27/24 23:04 Oxygen Flow Rate 3 06/27/24 2
[2024-06-27 23:42] LABS: Basophils Percent Auto 0.3 % (0.2-1.2); Hemoglobin 10.2 g/dL (12.0-15.0); Immature Granulocyte Absolute 0.22 K/mm3 (0.00-0.031); Immature Granulocyte Percent A 1.8 % (0-0.5); Lymphocytes Absolute Auto 1.88 K/mm3 (0.9-3.2); Lymphocytes Percent Auto 15.8 % (18.3-44.2); Mean Corpuscular Hemoglobin 26.2 pg (26-34); Mean Corpuscular Volume 87.4 fl (80-100); Mean Platelet Volume 10.8 fl (7.4-10.4); Monocytes Absolute Auto 0.4 K/mm3 (0.1-0.6); Monocytes Percent Auto 3.5 % (2.6-8.5); Neutrophils Absolute Auto 9.4 K/mm3 (1.3-6.7); Neutrophils Percent Auto 78.6 % (45.5-73.1); Platelet Count Result 262 k/mm3 (150-375); Red Blood Count 3.89 M/mm3 (4.2-5.4); Red Cell Distribution Width 17.4 % (11.5-14.5); White Blood Count 11.9 K/mm3 (4.5-10.0)
[2024-06-27 23:56] LABS: Alanine Aminotransferase 16 U/L (6-35); Albumin Level 4.5 g/dL (3.5-5.1); Alkaline Phosphatase 90 U/L (38-126); Anion Gap 14 mmol/L (4-12); Aspartate Amino Transferase 22 U/L (14-36); Bilirubin,Total 0.2 mg/dL (0.2-1.3); Blood Urea Nitrogen 76 mg/dL (7-17); Calcium 8.5 mg/dL (8.4-10.2); Carbon Dioxide 20 mmol/L (22-30); Chloride 109 mmol/L (98-107); Estimated CRCL calculation 23 ml/min; Estimated Glomerular Filt Rate 20; Glucose 73 mg/dL (65-110); Magnesium 2.3 mg/dL (1.6-2.3); Potassium 5.3 mmol/L (3.4-5.0); Sodium 143 mmol/L (137-145)
[2024-06-28] VITALS (28 sets, daily range): BP systolic 129–145; BP diastolic 43–66; PULSE 58–83; RESP 16–24; TEMP 36.1–36.6; O2SAT 95–100; BMI 44.8
--- NOTE | 2024-06-28 | ECHO_ITS ---
Patient Info Name: Giovanna Hurtado Age: 74 years : 1950 Gender: Female Ht: 63 in Wt: 253 lbs BSA: 2.33 m2 HR: 68 bpm BP: 132 / 58 mmHg Heart Rhythm: Sinus Rhythm Technical Quality: Fair Exam Date: 06/28/2024 9:52 AM Exam Location: Echo Lab Patient Status: Inpatient Admit Date: 06/28/2024 Staff Ordering Physician: Roldan Mcmahan MD Gate Tender: Katty Eilzabeth [facility] Attending Provider: Roldan Mcmahan MD Referring Physician: Marj SHEPHERD; Exam Type: CA echo doppler color flow Study Info Indications - leg swelling - copd - chf exac Complete two-dimensional, color flow and Doppler transthoracic echocardiogram is performed. Summary 1. Complete two-dimensional, color flow and Doppler transthoracic echocardiogram is performed. 2. Concentric left ventricular hypertrophy with hyperdynamic systolic function and grade 1 diastolic noncompliance. 3. Calcified mitral valve annulus. 4. Sinus rhythm. 5. Compared with echocardiogram from December of this year nothing has changed. Left Ventricle Left ventricular chamber dimension is normal. Left ventricular systolic function is hyperdynamic, estimated at >70%. There is mild concentric increased left ventricular wall thickness. The left ventricular diastolic function is grade I diastolic dysfunction. Right Ventricle Right ventricular chamber dimension is normal. Left Atria Left atrial chamber dimension is normal. Right Atria Right atrial chamber dimension is normal. Aortic Valve The aortic valve is trileaflet. There is mild aortic valve sclerosis. Pulmonic Valve The pulmonic valve is normal. Mitral Valve The mitral valve has normal leaflets. The mitral valve annulus is moderately calcified. Tricuspid Valve The tricuspid valve leaflets are normal. There is trace tricuspid valve regurgitation. Pericardium/Pleural The pericardium appears normal. Aorta The aortic root size at the sinus of Valsalva is normal. Left Ventricular Outflow Tract Name Value Normal LVOT 2D LVOT Diameter 2.0 cm LVOT Doppler LVOT Peak Gradient 9 mmHg LVOT Mean Gradient 4 mmHg LVOT VTI 34 cm LVOT VTI/AV VTI Ratio 0.8 LVOT Stroke Volume 105 ml LVOT CO 6.4 l/min LVOT CI 2.7 l/min/m2 Pulmonic Valve Name Value Normal PV Doppler PV Peak Gradient 6 mmHg Mitral Valve Name Value Normal MV Doppler MV Decel [place] 474 cm/s2 MV PHT 85 ms MV Area (PHT)
[2024-06-28 00:04] LABS: NT Pro B Type Natriuretic Pept 998 pg/mL (19.9-100)
--- NOTE | 2024-06-28 00:21 | PM.IMHP ---
H&P: HPI History of Present Illness Date/Time: 06/28/24 00:21 Chief Complaint: SOB Narrative: THIS IS A 74-YEAR-OLD FEMALE WITH PAST MEDICAL HISTORY SIGNIFICANT FOR MORBID OBESITY, COPD/EMPHYSEMA, TOBACCO DEPENDENCE, HYPERTENSION, GERD, TYPE 2 DIABETES MELLITUS, DYSLIPIDEMIA, CHRONIC KIDNEY DISEASE, CHRONIC PAIN SYNDROME, CORONARY ARTERY DISEASE, STATUS POST PTCI. PATIENT PRESENTS TO THE EMERGENCY ROOM DUE TO WORSENING SHORTNESS OF BREATH, WHEEZING, COUGH PRODUCTIVE OF WHITE PHLEGM, BILATERAL LOWER EXTREMITY SWELLING, POOR APPETITE, POOR PER ORALLY INTAKE, CHILLS. PATIENT DENIES ANY NAUSEA, VOMITING, DIARRHEA. IN EMERGENCY ROOM PATIENT WAS FOUND TO HAVE LOW OXYGEN SATURATION REQUIRING 2 L OF OXYGEN BY NASAL CANNULA. Review of Systems Review of Systems: WHEEZING, SHORTNESS OF BREATH, PRODUCTIVE COUGH, CHILLS, POOR PER ORALLY INTAKE, GENERALIZED WEAKNESS, BILATERAL LOWER EXTREMITY EDEMA PMFSH Past Medical History Medical History Atherosclerosis Scattered atherosclerotic calcification with 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 Chronic anemia Chronic kidney disease Chronic obstructive pulmonary disease Chronic pain syndrome Coronary artery disease Hyperlipidemia Hypertension Osteoarthritis Tobacco abuse Type 2 diabetes mellitus Surgical History Surgical History History of cardiac catheterization History of cholecystectomy History of coronary artery stent placement Stents to right coronary artery x4, left anterior descending, circumflex, 2nd marginal, and known occlusion of stent to 1st marginal branch. History of tonsillectomy Status post insertion of spinal cord stimulator Family History Family History Mother Family history of malignant neoplasm Patient's mother is Ovarian cancer Father Family history of diabetes mellitus in first degree relative Patient's father is Coronary atherosclerosis of bypass graft Social History Social History Social History: Surrogate medical decision maker: Serina Campos, daughter. Code status: Full code. Smoking packs per day: 1 Smoking cigarettes per day: 20.0 Years smoked: 50 Smoking pack-years: 50.00 Smoking status: Current every day smoker Alcohol intake: never Substance use: never Substance use type: does not use Do You Feel Safe in your Home?: Yes Lack of Transportation: No Lack of Food: Never True Current Housing: I Have Housing Concerned About Future Housing: No Difficulty Paying Gas/Electric Bills: No Difficulty Paying for Meds: No Currently Unemployed: No Education: Grade School Difficulty w/ Childcare or Family Care: No Spiritual care concerns: No Meds Home Medications and Allergies Home Medications Medication Instructions Recorded Confirmed Type rosuvastatin 20 mg tablet 20 mg PO DAILY 10/30/19 06/28/24 History insulin syringe-needle U-100 0.5 #200 ea 02/20/22 06/28/24 Rx mL 29 gauge x 1/2 (BD Insulin Syringe) losartan 100 mg tablet 100 mg PO DAILY #90 tabs 11/11/22 06/28/24 Rx albuterol sulfate 2.5 mg/3 mL 2.5 mg (3 mL) inhalation Q4-6H PRN 10/14/23 06/28/24 Rx (0.083 %) solution for nebulization shortness of breath or wheezing #180 mL bumetanide 2 mg tablet 2 mg PO DAILY 11/24/23 06/28/24 History carvedilol 12.5 mg tablet 12.5 mg PO DAILY 12/30/23 06/28/24 History amlodipine 5 mg tablet (Norvasc) 10 mg PO DAILY #30 tabs 01/02/24 06/28/24 Rx famotidine 20 mg tablet (Pepcid) 20 mg PO BID #30 tabs 01/12/24 06/28/24 Rx ticagrelor 90 mg tablet (Brilinta) 90 mg PO Q12HR #180 tabs 01/13/24 06/28/24 Rx isosorbide mononitrate 120 mg 120 mg PO QAM #90 tabs 01/14/24 06/28/24 Rx tablet,extended
[2024-06-28] MEDS: AZITHROMYCIN 500 MG/NS 250 ML 500 MG/250 ML BAG 250 MG IVPB ×2 (00:26→21:09)
[2024-06-28] MEDS: methylPREDNISolone SOD SUCC 40 MG VIAL IV PUSH (00:26)
[2024-06-28] MEDS: FUROSEMIDE INJ 40 MG/4 ML VIAL IV PUSH ×4 (00:27→16:17)
[2024-06-28] MEDS: IPRATROPIUM 0.5 MG/ALBUTEROL SULFATE 2.5 MG AMPUL.NEB 3 ML INHALATION ×4 (02:05→20:04)
[2024-06-28] MEDS: methylPREDNISolone SOD SUCC 125 MG VIAL IV PUSH (02:43)
[2024-06-28] MEDS: IPRATROPIUM 0.5 MG/ALBUTEROL SULFATE 2.5 MG AMPUL.NEB 3 ML 10 ML INHALATION (03:01)
[2024-06-28 08:52] LABS: Glucose Point of Care 137 mg/dl (65-105)
[2024-06-28] MEDS: BUMETANIDE 1 MG TABLET 2 MG PO (08:52)
[2024-06-28] MEDS: ISOSORBIDE MONONITRATE 60 MG TAB.ER.24H 120 MG PO (08:52)
[2024-06-28] MEDS: TICAGRELOR 90 MG TABLET PO ×2 (08:52→21:09)
[2024-06-28] MEDS: FAMOTIDINE 20 MG TABLET PO ×2 (08:52→16:21)
[2024-06-28] MEDS: LOSARTAN POTASSIUM 100 MG TABLET PO (08:53)
[2024-06-28] MEDS: carvediloL 12.5 MG TABLET PO ×2 (08:53→21:09)
[2024-06-28] MEDS: LORATADINE 10 MG TABLET PO (08:53)
[2024-06-28] MEDS: ROSUVASTATIN 20 MG TABLET PO (08:53)
[2024-06-28] MEDS: amLODIPine BESYLATE 10 MG TABLET PO (08:54)
[2024-06-28] MEDS: ASPIRIN 325 MG ENTERIC TABLET PO (08:54)
[2024-06-28] MEDS: PANTOPRAZOLE 40 MG TABLET PO (08:54)
[2024-06-28] MEDS: FERROUS SULFATE 325 MG TABLET DR PO (08:54)
[2024-06-28] MEDS: cloNIDine HCL 0.1 MG TABLET PO ×2 (08:55→16:21)
[2024-06-28] MEDS: INSULIN HUMAN ISOPHAN/REGULAR 70/30 (*BKC) 100 UNITS/ML 40 UNITS SUB-Q ×2 (08:56→16:47)
--- NOTE | 2024-06-28 09:01 | PM.IMPN ---
Progress Note: A&P Assessment and Plan (1) Acute exacerbation of chronic obstructive pulmonary disease: Code(s): J44.1 - Chronic obstructive pulmonary disease with (acute) exacerbation Status: Acute Assessment and Plan: SCHEDULED BREATHING TREATMENTS STARTED ON ROCEPHIN AND ZITHROMAX WBC 11.9 (2) Acute hypoxic respiratory failure: Code(s): J96.01 - Acute respiratory failure with hypoxia Status: Acute Assessment and Plan: ON SUPPLEMENTAL OXYGEN BY NASAL CANNULA. Wean to keep Sa02 >90%. (3) CHF (congestive heart failure): Code(s): I50.9 - Heart failure, unspecified Status: Acute Assessment and Plan: ECHOCARDIOGRAM IN A.M. WILL DIURESE DAILY INTAKE AND OUTPUT PATIENT WITH PEDAL AND ANKLE EDEMA ON PHYSICAL EXAM (4) Type 2 diabetes mellitus: Code(s): E11.9 - Type 2 diabetes mellitus without complications Status: Chronic Assessment and Plan: HOLDING MED FOR (5) Chronic kidney disease: Qualifiers: Chronic kidney disease stage: stage 4 (severe) Qualified Code(s): N18.4 - Chronic kidney disease, stage 4 (severe) Code(s): N18.9 - Chronic kidney disease, unspecified Status: Acute Assessment and Plan: BUN IS ELEVATED, Creatinine 2.40, GFR 20. CREATININE IS UNCHANGED CURRENTLY HOLDING MELOXICAM NEPHROLOGY CONSULT [place] IN FOR STRICT I'S AND O'S (6) Hypertension: Qualifiers: Hypertension type: unspecified Qualified Code(s): I10 - Essential (primary) hypertension Code(s): I10 - Essential (primary) hypertension Status: Chronic Assessment and Plan: RESUME HOME MEDS (7) Tobacco abuse: Code(s): Z72.0 - Tobacco use Status: Acute Assessment and Plan: NICOTINE PATCH NEEDED Subjective Date/time seen: 06/28/24 09:01 Interval history: Patient is a 74 year old female with medical history significant for morbid obesity, COPD, TOBACCO DEPENDENCE, HYPERTENSION, GERD, TYPE 2 DIABETES MELLITUS, DYSLIPIDEMIA, CHRONIC KIDNEY DISEASE, CHRONIC PAIN SYNDROME, CORONARY ARTERY DISEASE, STATUS POST PTCI. PATIENT PRESENTS TO THE EMERGENCY ROOM yesterday DUE TO WORSENING SHORTNESS OF BREATH, WHEEZING, COUGH PRODUCTIVE OF WHITE PHLEGM, BILATERAL LOWER EXTREMITY SWELLING. Denies chest pain, palpitations, nausea, vomiting, headache, or dizziness. WBC 11.9, H&H 10.2/34.0, Creatinine 2.40 stable. Patient reports feeling better today. Nephrology consult. Review of Systems Constitutional: Constitutional: Denies chills Cardiovascular: Cardiovascular: Denies chest pain and Denies palpitations Respiratory: Respiratory: Reports cough and Reports dyspnea on exertion Gastrointestinal: Gastrointestinal: Denies constipation, Denies nausea and Denies vomiting Neurologic: Denies headache(s) and Denies numbness Exam Const: General: comfortable, no acute distress, well developed, alert, awake, acute distress mild, respiratory and other ( ON SUPPLEMENTAL OXYGEN BY NASAL CANNULA 2 L), ill appearing and obese Nutritional Appearance: obese Orientation/consciousness: patient oriented x3 HENMT: Head: normal to inspection Ears: hearing grossly normal bilaterally Eyes: General: appearance normal, both eyes and all related structures EOM: EOMs intact bilaterally Neck: Neck: full ROM, no lymphadenopathy and no JVD Thyroid: thyroid normal Lymphatic: no lymphadenopathy noted Resp: Effort & Inspection: normal respiratory effort and able to speak in complete sentences Auscultation: rhonchi and diminished lung sounds Cardio: Jugular venous distension: no JVD Rate: regular rate Rhythm: regular rhythm Heart sounds: S1 normal heart sound present and S2 normal heart sound present Other: Telemetry 77. GI: Inspection: Pannus present and obesity : General: Yes deferred Skin: Rashes: no rashes Wounds: no wounds Neuro: General: patient oriented x3 Cranial
--- NOTE | 2024-06-28 11:01 | PM.CNNEP ---
Assessment and Plan Assessment and plan (1) Chronic kidney disease, stage IV (severe): Code(s): N18.4 - Chronic kidney disease, stage 4 (severe) Status: Chronic Assessment and Plan: creatinine ~ 2.3mg/dl in March 2024 suspect this is her new baseline creatinine given her recent EMERITA/ARF on CKD in January 2024 previous baseline creatinine around 1.5mg/dl etiology of CKD due to hypertension, diabetes, vascular disease, age and leftovers from previous EMERITA/ARF suspect some fluctuations with IV diuretics follow trend of labs and UOP (2) Acute hypoxic respiratory failure: Code(s): J96.01 - Acute respiratory failure with hypoxia Status: Acute Assessment and Plan: presumably due to COPD and CHF exacerbation see #3 and #4 follow respiratory status (3) Acute exacerbation of chronic obstructive pulmonary disease: Code(s): J44.1 - Chronic obstructive pulmonary disease with (acute) exacerbation Status: Acute Assessment and Plan: on supplemental oxygen on scheduled nebulizer treatments on antibiotics (4) CHF (congestive heart failure): Code(s): I50.9 - Heart failure, unspecified Status: Acute Assessment and Plan: elevated BNP noted admission CXR with some fluid in association with LE edema on IV diuretics follow dailys weights, I/Os, and exam repeat Echo ordered (5) Hypertension: Qualifiers: Hypertension type: unspecified Qualified Code(s): I10 - Essential (primary) hypertension Code(s): I10 - Essential (primary) hypertension Status: Chronic Assessment and Plan: reasonable control at this time follow trend of hemodynamics (6) Type 2 diabetes mellitus: Code(s): E11.9 - Type 2 diabetes mellitus without complications Status: Chronic Assessment and Plan: follow accu-cheks glycemic control per hospitalists I will continue to follow the patient with you while he remains hospitalized and make further recommendations as deemed necessary. Thank you for allowing me to participate in the care of this patient. History of Present Illness Reason for Consult Consult date: 06/28/24 Reason for consult: chronic renal failure Chief Complaint Chief complaint: COPD/CHF exac History of Present Illness Narrative: The patient is a 74-year-old female with a past medical history as outlined below who presented to [facility] Emergency room with complaints of shortness of breath and difficulty breathing. The patient was recently seen at [facility] ER approximately three days ago for similar symptoms which was felt to be due to a COPD exacerbation. She had clinical improvement in her symptoms with a nebulizer treatment and steroids and at that time, it was recommended admission to the hospital for further treatment but the patient refused since she felt better and was subsequently discharged home on a Medrol pack. She returns back to the ER yesterday evening with the same symptoms and feels that they have worsened since the last time she was here in the emergency room. Prior to her arrival to the emergency room, she utilized her albuterol inhaler but did not get any improvement with its use. This is further complicated by the fact that she ran out of medications for her nebulizer treatments at home. Given her worsening respiratory status in general, she returns back to the ER for further assessment. Workup and evaluation in the emergency room demonstrated the patient to be hemodynamically stable but in mild respiratory distress. She was initiated on nebulizer treatments as well as steroids with some clinical improvement in her symptoms. She was noted to be hypoxic and was requiring 2 L of oxygen to maintain her oxygen saturations. Routine labs did not demonstrate any significant abnormalities other than evidence of her renal insufficiency and her chest x-ray was suggestive of possible
[2024-06-28 12:03] LABS: Glucose Point of Care 179 mg/dl (65-105)
[2024-06-28 16:42] LABS: Glucose Point of Care 220 mg/dl (65-105)
[2024-06-29] VITALS (22 sets, daily range): BP systolic 110–159; BP diastolic 48–98; PULSE 58–75; RESP 14–20; TEMP 36.4–36.8; O2SAT 95–100
[2024-06-29] MEDS: IPRATROPIUM 0.5 MG/ALBUTEROL SULFATE 2.5 MG AMPUL.NEB 3 ML INHALATION ×4 (02:51→20:03)
[2024-06-29 06:08] LABS: Hematocrit 32.5 % (37.0-47.0); Hemoglobin 9.4 g/dL (12.0-15.0); Mean Corpuscular HGB Conc 28.9 g/dl (32-36); Mean Corpuscular Hemoglobin 25.5 pg (26-34); Mean Corpuscular Volume 88.1 fl (80-100); Mean Platelet Volume 11.2 fl (7.4-10.4); Platelet Count Result 253 k/mm3 (150-375); Red Blood Count 3.69 M/mm3 (4.2-5.4); Red Cell Distribution Width 17.1 % (11.5-14.5); White Blood Count 12.5 K/mm3 (4.5-10.0)
[2024-06-29 06:19] LABS: Alanine Aminotransferase 14 U/L (6-35); Albumin Level 4.2 g/dL (3.5-5.1); Alkaline Phosphatase 73 U/L (38-126); Anion Gap 13 mmol/L (4-12); Aspartate Amino Transferase 15 U/L (14-36); Bilirubin,Total 0.2 mg/dL (0.2-1.3); Blood Urea Nitrogen 95 mg/dL (7-17); Carbon Dioxide 22 mmol/L (22-30); Chloride 104 mmol/L (98-107); Estimated CRCL calculation 21 ml/min; Estimated Glomerular Filt Rate 18; Glucose 101 mg/dL (65-110); Potassium 5.2 mmol/L (3.4-5.0); Sodium 139 mmol/L (137-145)
[2024-06-29 08:10] LABS: Glucose Point of Care 109 mg/dl (65-105)
[2024-06-29] MEDS: ISOSORBIDE MONONITRATE 60 MG TAB.ER.24H 120 MG PO (08:46)
[2024-06-29] MEDS: ASPIRIN 325 MG ENTERIC TABLET PO (08:51)
[2024-06-29] MEDS: TICAGRELOR 90 MG TABLET PO ×2 (08:51→20:52)
[2024-06-29] MEDS: BUMETANIDE 1 MG TABLET 2 MG PO (08:51)
[2024-06-29] MEDS: FAMOTIDINE 20 MG TABLET PO ×2 (08:51→17:01)
[2024-06-29] MEDS: carvediloL 12.5 MG TABLET PO ×2 (08:52→20:52)
[2024-06-29] MEDS: LORATADINE 10 MG TABLET PO (08:52)
[2024-06-29] MEDS: ROSUVASTATIN 20 MG TABLET PO (08:52)
[2024-06-29] MEDS: amLODIPine BESYLATE 10 MG TABLET PO (08:52)
[2024-06-29] MEDS: PANTOPRAZOLE 40 MG TABLET PO (08:53)
[2024-06-29] MEDS: FUROSEMIDE INJ 40 MG/4 ML VIAL IV PUSH ×2 (08:53→16:07)
[2024-06-29] MEDS: INSULIN HUMAN ISOPHAN/REGULAR 70/30 (*BKC) 100 UNITS/ML 40 UNITS SUB-Q (08:53)
[2024-06-29] MEDS: cloNIDine HCL 0.1 MG TABLET PO ×2 (08:53→17:01)
[2024-06-29] MEDS: LOSARTAN POTASSIUM 100 MG TABLET PO (08:53)
[2024-06-29] MEDS: FERROUS SULFATE 325 MG TABLET DR PO (08:53)
--- NOTE | 2024-06-29 10:00 | PM.PNNEP ---
Progress Note: A&P Assessment and Plan (1) Chronic kidney disease, stage IV (severe): Code(s): N18.4 - Chronic kidney disease, stage 4 (severe) Status: Chronic Assessment and Plan: creatinine ~ 2.3mg/dl in March 2024 suspect this is her new baseline creatinine given her recent EMERITA/ARF on CKD in January 2024 previous baseline creatinine around 1.5mg/dl etiology of CKD due to hypertension, diabetes, vascular disease, age and leftovers from previous EMERITA/ARF suspect some fluctuations with use of IV diuretics follow trend of labs and UOP (2) Acute hypoxic respiratory failure: Code(s): J96.01 - Acute respiratory failure with hypoxia Status: Acute Assessment and Plan: presumably due to COPD and CHF exacerbation see #3 and #4 follow respiratory status (3) Acute exacerbation of chronic obstructive pulmonary disease: Code(s): J44.1 - Chronic obstructive pulmonary disease with (acute) exacerbation Status: Acute Assessment and Plan: on supplemental oxygen on scheduled nebulizer treatments on antibiotics (4) CHF (congestive heart failure): Code(s): I50.9 - Heart failure, unspecified Status: Acute Assessment and Plan: elevated BNP noted admission CXR with some fluid in association with LE edema on IV diuretics follow dailys weights, I/Os, and exam repeat Echo ordered (5) Hypertension: Qualifiers: Hypertension type: unspecified Qualified Code(s): I10 - Essential (primary) hypertension Code(s): I10 - Essential (primary) hypertension Status: Chronic Assessment and Plan: reasonable control at this time follow trend of hemodynamics (6) Type 2 diabetes mellitus: Code(s): E11.9 - Type 2 diabetes mellitus without complications Status: Chronic Assessment and Plan: follow accu-cheks glycemic control per hospitalists Will continue to follow. Subjective Date/time seen: 06/29/24 10:00 Interval history: Follow-up for chronic kidney disease. Overall, she reports improvement in her breathing/respiratory symptoms but still does not feel like she is at baseline; still requiring supplemental oxygen; no other issues/events overnight or earlier this morning. Exam Narrative: General: elderly but WD/WN female in NAD Heart: normal S1 and S2; no rub Lungs: coarse breath sound with bibasilar crackles and few scattered wheezes Abdomen: soft, nontender, nondistended, positive bowel sounds Extremities: no cyanosis or clubbing; trace edema Skin: warm and dry Objective Data Vital Signs Vital Signs: Vital Signs Temp Pulse Resp BP Pulse Ox O2 Del Method O2 Flow Rate 06/29/24 08:03 59 L 06/29/24 08:52 63 06/29/24 08:23 58 L 20 06/29/24 08:14 60 20 06/29/24 08:14 95 Nasal Cannula 3 06/29/24 07:50 18 100 Nasal Cannula 3 06/29/24 04:00 60 06/29/24 04:10 98.2 F 63 18 110/48 L 100 06/29/24 02:59 60 20 06/29/24 02:52 59 L 20 06/29/24 00:00 70 06/29/24 00:03 60 97 06/28/24 20:00 58 L 06/28/24 21:05 96 Nasal Cannula 2 06/28/24 21:09 70 06/28/24 20:17 70 20 06/28/24 20:08 96 Nasal Cannula 3 06/28/24 20:05 58 L 20 06/28/24 19:27 97.8 F 60 18 129/43 L 100 06/28/24 16:03 62 06/28/24 14:00 62 16 145/66 H 96 06/28/24 13:35 74 22 H Intake/Output Intake/Output: Intake & Output 06/26/24 06/27/24 06/28/24 06/29/24 23:59 23:59 23:59 23:59 Intake Total 2760 600 Output Total 800 300 Balance 1960 300 Meds/Results Medications: Active Medications Generic Name Dose Route Start Last Admin Trade Name Agq PRN Reason Stop Dose Admin Albuterol/Ipratropium 3 ml 06/28/24 02:00 06/29/24 08:13 Ipratropium 0.5 Mg/Albuterol Sulfate 2.5 Mg Ampul.Neb 3 Ml INHALATION 3 ml Q6HRT [facility] Admini
--- NOTE | 2024-06-29 10:00 | P.PNNP_ITS ---
Progress Note: A&P Assessment and Plan (1) Chronic kidney disease, stage IV (severe): Code(s): N18.4 - Chronic kidney disease, stage 4 (severe) Status: Chronic Assessment and Plan: * creatinine ~ 2.3mg/dl in March 2024 * suspect this is her new baseline creatinine given her recent EMERITA/ARF on CKD in January 2024 * previous baseline creatinine around 1.5mg/dl * etiology of CKD due to hypertension, diabetes, vascular disease, age and leftovers from previous EMERITA/ARF * suspect some fluctuations with use of IV diuretics * follow trend of labs and UOP (2) Acute hypoxic respiratory failure: Code(s): J96.01 - Acute respiratory failure with hypoxia Status: Acute Assessment and Plan: * presumably due to COPD and CHF exacerbation * see #3 and #4 * follow respiratory status (3) Acute exacerbation of chronic obstructive pulmonary disease: Code(s): J44.1 - Chronic obstructive pulmonary disease with (acute) exacerbation Status: Acute Assessment and Plan: * on supplemental oxygen * on scheduled nebulizer treatments * on antibiotics (4) CHF (congestive heart failure): Code(s): I50.9 - Heart failure, unspecified Status: Acute Assessment and Plan: * elevated BNP noted * admission CXR with some fluid in association with LE edema * on IV diuretics * follow dailys weights, I/Os, and exam * repeat Echo ordered (5) Hypertension: Qualifiers: Hypertension type: unspecified Qualified Code(s): I10 - Essential (primary) hypertension Code(s): I10 - Essential (primary) hypertension Status: Chronic Assessment and Plan: * reasonable control at this time * follow trend of hemodynamics (6) Type 2 diabetes mellitus: Code(s): E11.9 - Type 2 diabetes mellitus without complications Status: Chronic Assessment and Plan: * follow accu-cheks * glycemic control per hospitalists Will continue to follow. Subjective Date/time seen: 06/29/24 10:00 Interval history: Follow-up for chronic kidney disease. Overall, she reports improvement in her breathing/respiratory symptoms but still does not feel like she is at baseline; still requiring supplemental oxygen; no other issues/events overnight or earlier this morning. Exam Narrative: General: elderly but WD/WN female in NAD Heart: normal S1 and S2; no rub Lungs: coarse breath sound with bibasilar crackles and few scattered wheezes Abdomen: soft, nontender, nondistended, positive bowel sounds Extremities: no cyanosis or clubbing; trace edema Skin: warm and dry Objective Data Vital Signs Vital Signs: Vital Signs Temp Pulse Resp BP Pulse Ox O2 Del Method O2 Flow Rate 06/29/24 08:03 59 L 06/29/24 08:52 63 06/29/24 08:23 58 L 20 06/29/24 08:14 60 20 06/29/24 08:14 95 Nasal Cannula 3 06/29/24 07:50 18 100 Nasal Cannula 3 06/29/24 04:00 60 06/29/24 04:10 98.2 F 63 18 110/48 L 100 06/29/24 02:59 60 20 06/29/24 02:52 59 L 20 06/29/24 00:00 70 06/29/24 00:03 60 97 06/28/24 20:00 58 L 06/28/24 21:05 96 Nasal Cannula 2 06/28/24 21:09 70 06/28/24 20:17 70 20 06/28/24 20:08
--- NOTE | 2024-06-29 10:48 | PM.IMPN ---
Progress Note: A&P Assessment and Plan (1) Acute exacerbation of chronic obstructive pulmonary disease: Code(s): J44.1 - Chronic obstructive pulmonary disease with (acute) exacerbation Status: Acute Assessment and Plan: SCHEDULED BREATHING TREATMENTS STARTED ON ROCEPHIN AND ZITHROMAX WBC 12.5 PT/OT ordered. Added guaifenesin/ DM 10 ml q 4 PRN. Encourage hydration. (2) Acute hypoxic respiratory failure: Code(s): J96.01 - Acute respiratory failure with hypoxia Status: Acute Assessment and Plan: ON SUPPLEMENTAL OXYGEN BY NASAL CANNULA. Wean to keep Sa02 >90%. (3) CHF (congestive heart failure): Code(s): I50.9 - Heart failure, unspecified Status: Acute Assessment and Plan: ECHOCARDIOGRAM unchanged: Summary 1. Complete two-dimensional, color flow and Doppler transthoracic echocardiogram is performed. 2. Concentric left ventricular hypertrophy with hyperdynamic systolic function and grade 1 diastolic noncompliance. 3. Calcified mitral valve annulus. 4. Sinus rhythm. 5. Compared with echocardiogram from December of this year nothing has changed. Left ventricular systolic function is hyperdynamic, estimated at >70%. WILL DIURESE DAILY INTAKE AND OUTPUT PATIENT WITH PEDAL AND ANKLE EDEMA ON PHYSICAL EXAM (4) Type 2 diabetes mellitus: Code(s): E11.9 - Type 2 diabetes mellitus without complications Status: Chronic Assessment and Plan: HOLDING MED FOR (5) Chronic kidney disease: Qualifiers: Chronic kidney disease stage: stage 4 (severe) Qualified Code(s): N18.4 - Chronic kidney disease, stage 4 (severe) Code(s): N18.9 - Chronic kidney disease, unspecified Status: Acute Assessment and Plan: BUN IS ELEVATED, Creatinine 2.60, GFR 18. CREATININE IS UNCHANGED CURRENTLY HOLDING MELOXICAM NEPHROLOGY CONSULT [facility] IN FOR STRICT I'S AND O'S (6) Hypertension: Qualifiers: Hypertension type: unspecified Qualified Code(s): I10 - Essential (primary) hypertension Code(s): I10 - Essential (primary) hypertension Status: Chronic Assessment and Plan: RESUME HOME MEDS (7) Tobacco abuse: Code(s): Z72.0 - Tobacco use Status: Acute Assessment and Plan: NICOTINE PATCH NEEDED (8) Vitamin D deficiency: Code(s): E55.9 - Vitamin D deficiency, unspecified Status: Acute Assessment and Plan: Vitamin D level 16.8. Start Ergocalciferol 50,000 units PO weekly. Encourage Vitamin D rich foods. Subjective Date/time seen: 06/29/24 10:48 Interval history: Patient is a 74 year old female with medical history significant for morbid obesity, COPD, TOBACCO DEPENDENCE, HYPERTENSION, GERD, TYPE 2 DIABETES MELLITUS, DYSLIPIDEMIA, CHRONIC KIDNEY DISEASE, CHRONIC PAIN SYNDROME, CORONARY ARTERY DISEASE, STATUS POST PTCI. PATIENT PRESENTS TO THE EMERGENCY ROOM yesterday DUE TO WORSENING SHORTNESS OF BREATH, WHEEZING, COUGH PRODUCTIVE OF WHITE PHLEGM, BILATERAL LOWER EXTREMITY SWELLING. Denies chest pain, palpitations, nausea, vomiting, headache, or dizziness. WBC 12.5, H&H 9.4/32.5, Creatinine 2.60 stable. Patient reports feeling better today. Nephrology consult. Review of Systems Review of Systems: WHEEZING, SHORTNESS OF BREATH, PRODUCTIVE COUGH, CHILLS, POOR PER ORALLY INTAKE, GENERALIZED WEAKNESS, BILATERAL LOWER EXTREMITY EDEMA Constitutional: Constitutional: Denies chills and Denies headache(s) ENT: Denies headache(s) Cardiovascular: Cardiovascular: Denies chest pain, Denies palpitations and Reports dyspnea on exertion Respiratory: Respiratory: Reports cough and Reports dyspnea on exertion Gastrointestinal: Gastrointestinal: Denies constipation, Denies nausea and Denies vomiting Comments: Last BM 06/26. Musculoskeletal: Musculoskeletal: Denies numbness Neurologic: Denies headache(s) and Denies numbness Endocrine
[2024-06-29 11:31] LABS: Vitamin D 25 Hydroxy 16.8 ng/mL
[2024-06-29 12:12] LABS: Glucose Point of Care 220 mg/dl (65-105)
--- NOTE | 2024-06-29 14:50 | PC.NURSE ---
On 06/29/24, the student, [Teresa Arcos], provided care and completed [facility] documentation on this patient. I have reviewed the student's documentation and agree with the findings.
[2024-06-29 16:15] LABS: Glucose Point of Care 67 mg/dl (65-105)
[2024-06-29 16:48] LABS: Glucose Point of Care 86 mg/dl (65-105)
[2024-06-29 20:45] LABS: Glucose Point of Care 234 mg/dl (65-105)
[2024-06-29] MEDS: AZITHROMYCIN 500 MG/NS 250 ML 500 MG/250 ML BAG 250 MG IVPB (20:51)
[2024-06-29] MEDS: guaiFENesin/DEXTROMETHORPHAN 10 ML UDC PO (20:51)
[2024-06-29] MEDS: MELATONIN 3 MG TABLET PO (21:01)
[2024-06-30] VITALS (20 sets, daily range): BP systolic 100–142; BP diastolic 40–54; PULSE 56–70; RESP 18–20; TEMP 36.2–36.7; O2SAT 94–98
[2024-06-30] MEDS: IPRATROPIUM 0.5 MG/ALBUTEROL SULFATE 2.5 MG AMPUL.NEB 3 ML INHALATION ×4 (01:57→20:47)
[2024-06-30 05:17] LABS: Hematocrit 32.2 % (37.0-47.0); Hemoglobin 9.5 g/dL (12.0-15.0); Mean Corpuscular HGB Conc 29.5 g/dl (32-36); Mean Corpuscular Hemoglobin 26.2 pg (26-34); Mean Corpuscular Volume 88.7 fl (80-100); Mean Platelet Volume 11.5 fl (7.4-10.4); Platelet Count Result 236 k/mm3 (150-375); Red Blood Count 3.63 M/mm3 (4.2-5.4); Red Cell Distribution Width 17.2 % (11.5-14.5); White Blood Count 12.3 K/mm3 (4.5-10.0)
[2024-06-30] MEDS: guaiFENesin/DEXTROMETHORPHAN 10 ML UDC PO ×3 (05:25→22:28)
[2024-06-30 05:29] LABS: Alanine Aminotransferase 15 U/L (6-35); Alkaline Phosphatase 78 U/L (38-126); Anion Gap 13 mmol/L (4-12); Aspartate Amino Transferase 19 U/L (14-36); Bilirubin,Total 0.1 mg/dL (0.2-1.3); Blood Urea Nitrogen 112 mg/dL (7-17); Calcium 7.7 mg/dL (8.4-10.2); Carbon Dioxide 22 mmol/L (22-30); Chloride 105 mmol/L (98-107); Estimated CRCL calculation 19 ml/min; Estimated Glomerular Filt Rate 16; Glucose 87 mg/dL (65-110); Potassium 4.8 mmol/L (3.4-5.0); Sodium 140 mmol/L (137-145)
[2024-06-30 07:37] LABS: Glucose Point of Care 116 mg/dl (65-105)
[2024-06-30] MEDS: ASPIRIN 325 MG ENTERIC TABLET PO (09:32)
[2024-06-30] MEDS: ERGOCALCIFEROL 50,000 UNITS CAPSULE 50000 UNITS PO (09:32)
[2024-06-30] MEDS: FAMOTIDINE 20 MG TABLET PO ×2 (09:32→17:19)
[2024-06-30] MEDS: TICAGRELOR 90 MG TABLET PO ×2 (09:32→20:42)
[2024-06-30] MEDS: cloNIDine HCL 0.1 MG TABLET PO ×2 (09:32→17:19)
[2024-06-30] MEDS: PANTOPRAZOLE 40 MG TABLET PO (09:32)
[2024-06-30] MEDS: BUMETANIDE 1 MG TABLET 2 MG PO (09:32)
[2024-06-30] MEDS: amLODIPine BESYLATE 10 MG TABLET PO (09:32)
[2024-06-30] MEDS: ISOSORBIDE MONONITRATE 60 MG TAB.ER.24H 120 MG PO (09:32)
[2024-06-30] MEDS: ROSUVASTATIN 20 MG TABLET PO (09:32)
[2024-06-30] MEDS: FERROUS SULFATE 325 MG TABLET DR PO (09:32)
[2024-06-30] MEDS: carvediloL 12.5 MG TABLET PO ×2 (09:33→20:41)
[2024-06-30] MEDS: LOSARTAN POTASSIUM 100 MG TABLET PO (09:33)
[2024-06-30] MEDS: FUROSEMIDE INJ 40 MG/4 ML VIAL IV PUSH ×2 (09:37→17:19)
[2024-06-30] MEDS: INSULIN HUMAN ISOPHAN/REGULAR 70/30 (*BKC) 100 UNITS/ML 40 UNITS SUB-Q (09:41)
[2024-06-30] MEDS: LORATADINE 10 MG TABLET PO (09:54)
[2024-06-30] MEDS: polyethylene glycoL 3350 17 GM POWD.PACK PO (09:55)
--- NOTE | 2024-06-30 10:39 | PM.IMPN ---
Progress Note: A&P Assessment and Plan (1) Acute exacerbation of chronic obstructive pulmonary disease: Code(s): J44.1 - Chronic obstructive pulmonary disease with (acute) exacerbation Status: Acute Assessment and Plan: SCHEDULED BREATHING TREATMENTS STARTED ON ROCEPHIN AND ZITHROMAX WBC 12.3 PT/OT ordered. Added guaifenesin/ DM 10 ml q 4 PRN. Encourage hydration. (2) Acute hypoxic respiratory failure: Code(s): J96.01 - Acute respiratory failure with hypoxia Status: Acute Assessment and Plan: ON SUPPLEMENTAL OXYGEN BY NASAL CANNULA. Wean to keep Sa02 >90%. (3) CHF (congestive heart failure): Code(s): I50.9 - Heart failure, unspecified Status: Acute Assessment and Plan: ECHOCARDIOGRAM unchanged: Summary 1. Complete two-dimensional, color flow and Doppler transthoracic echocardiogram is performed. 2. Concentric left ventricular hypertrophy with hyperdynamic systolic function and grade 1 diastolic noncompliance. 3. Calcified mitral valve annulus. 4. Sinus rhythm. 5. Compared with echocardiogram from December of this year nothing has changed. Left ventricular systolic function is hyperdynamic, estimated at >70%. WILL DIURESE DAILY INTAKE AND OUTPUT PATIENT WITH PEDAL AND ANKLE EDEMA ON PHYSICAL EXAM (4) Type 2 diabetes mellitus: Code(s): E11.9 - Type 2 diabetes mellitus without complications Status: Chronic Assessment and Plan: HOLDING MED FOR (5) Chronic kidney disease: Qualifiers: Chronic kidney disease stage: stage 4 (severe) Qualified Code(s): N18.4 - Chronic kidney disease, stage 4 (severe) Code(s): N18.9 - Chronic kidney disease, unspecified Status: Acute Assessment and Plan: BUN IS ELEVATED, Creatinine 2.80, GFR 16. CREATININE IS UNCHANGED CURRENTLY HOLDING MELOXICAM NEPHROLOGY CONSULT and following. Strict I&O's. (6) Hypertension: Qualifiers: Hypertension type: unspecified Qualified Code(s): I10 - Essential (primary) hypertension Code(s): I10 - Essential (primary) hypertension Status: Chronic Assessment and Plan: RESUME HOME MEDS (7) Tobacco abuse: Code(s): Z72.0 - Tobacco use Status: Acute Assessment and Plan: NICOTINE PATCH NEEDED (8) Vitamin D deficiency: Code(s): E55.9 - Vitamin D deficiency, unspecified Status: Acute Assessment and Plan: Vitamin D level 16.8. Start Ergocalciferol 50,000 units PO weekly. Encourage Vitamin D rich foods. (9) Constipation: Code(s): K59.00 - Constipation, unspecified Status: Acute Assessment and Plan: Add Miralax daily and Colace 100 mg PO q 12 PRN. Encourage hydration. Subjective Date/time seen: 06/30/24 10:39 Interval history: Patient is a 74 year old female with medical history significant for morbid obesity, COPD, tobacco dependence, HTN, GERD, Type 2 DM, Dyslipidemia, CKD, chronic pain syndrome, CAD, status post PTCI. Present to the ER on 06/27 with worsening SOB, wheezing, cough productive with white phlegm, and bilateral lower extremity swelling. Denies chest pain, palpitations, nausea, vomiting, or headache. Patient reports some dizziness when coughing. Patient report last bowel movement 4 days ago. WBC 12.3, H&H 9.5/32.2, Creatinine 2.80 stable. Patient reports feeling better today. Nephrology following. Review of Systems Constitutional: Constitutional: Denies chills and Denies headache(s) ENT: Denies headache(s) Cardiovascular: Cardiovascular: Denies chest pain, Denies palpitations and Reports dyspnea on exertion Respiratory: Respiratory: Reports cough and Reports dyspnea on exertion Gastrointestinal: Gastrointestinal: Denies constipation, Denies nausea and Denies vomiting Musculoskeletal: Musculoskeletal: Denies numbness Neurologic: Denies headache(s) and Denies numbness Comments: dizziness when
[2024-06-30 11:42] LABS: Glucose Point of Care 204 mg/dl (65-105)
[2024-06-30] MEDS: INSULIN ASPART (*BKC) 100 UNITS/ML SUB-Q ×2 (12:05→20:41)
[2024-06-30] MEDS: ACETAMINOPHEN 325 MG TABLET 650 MG PO ×3 (12:42→22:07)
--- NOTE | 2024-06-30 12:50 | PM.PNNEP ---
Progress Note: A&P Assessment and Plan (1) Chronic kidney disease, stage IV (severe): Code(s): N18.4 - Chronic kidney disease, stage 4 (severe) Status: Chronic Assessment and Plan: creatinine ~ 2.3mg/dl in March 2024 suspect this is her new baseline creatinine given her recent EMERITA/ARF on CKD in January 2024 previous baseline creatinine around 1.5mg/dl etiology of CKD due to hypertension, diabetes, vascular disease, age and leftovers from previous EMERITA/ARF suspect some fluctuations with use of IV diuretics follow trend of labs and UOP (2) Acute hypoxic respiratory failure: Code(s): J96.01 - Acute respiratory failure with hypoxia Status: Acute Assessment and Plan: presumably due to COPD and CHF exacerbation see #3 and #4 follow respiratory status (3) Acute exacerbation of chronic obstructive pulmonary disease: Code(s): J44.1 - Chronic obstructive pulmonary disease with (acute) exacerbation Status: Acute Assessment and Plan: on supplemental oxygen - wean as tolerated on scheduled nebulizer treatments on antibiotics (4) CHF (congestive heart failure): Code(s): I50.9 - Heart failure, unspecified Status: Acute Assessment and Plan: elevated BNP noted admission CXR with some fluid; noted associated with LE edema on IV diuretics follow dailys weights, I/Os, and exam repeat Echo results noted (5) Hypertension: Qualifiers: Hypertension type: unspecified Qualified Code(s): I10 - Essential (primary) hypertension Code(s): I10 - Essential (primary) hypertension Status: Chronic Assessment and Plan: reasonable control at this time follow trend of hemodynamics (6) Type 2 diabetes mellitus: Code(s): E11.9 - Type 2 diabetes mellitus without complications Status: Chronic Assessment and Plan: follow accu-cheks glycemic control per hospitalists Will continue to follow. Subjective Date/time seen: 06/30/24 12:50 Interval history: Follow-up for chronic kidney disease. Renal function/creatinine fluctuating in the context of IV diuresis; breathing/respiratory status continues to slowly improve in general; no other acute complaints voiced at the time of my visit. Exam Narrative: General: elderly but WD/WN female in NAD Heart: normal S1 and S2; no rub Lungs: coarse breath sound with some bibasilar crackles Abdomen: soft, nontender, nondistended, positive bowel sounds Extremities: no cyanosis or clubbing; trace edema Skin: warm and intact Objective Data Vital Signs Vital Signs: Vital Signs Temp Pulse Resp BP Pulse Ox O2 Del Method O2 Flow Rate 06/30/24 12:00 62 06/30/24 09:35 95 Nasal Cannula 1 06/30/24 08:00 61 06/30/24 09:33 66 06/30/24 08:22 68 20 06/30/24 08:12 94 Nasal Cannula 1 06/30/24 08:10 67 20 06/30/24 05:15 97.1 F L 62 18 142/54 H 98 06/30/24 04:00 56 L 06/30/24 02:10 62 20 06/30/24 02:01 60 20 06/29/24 20:50 Nasal Cannula 3 06/30/24 00:00 62 06/29/24 20:00 61 06/29/24 20:05 97 Nasal Cannula 2 06/29/24 20:15 64 20 06/29/24 21:38 98.1 F 62 14 159/53 H 96 06/29/24 20:52 66 06/29/24 20:05 61 20 Intake/Output Intake/Output: Intake & Output 06/27/24 06/28/24 06/29/24 06/30/24 23:59 23:59 23:59 23:59 Intake Total 3010 1150 2560 Output Total 800 400 300 Balance 2210 750 2260 Meds/Results Medications: Active Medications Generic Name Dose Route Start Last Admin Trade Name Agq PRN Reason Stop Dose Admin Acetaminophen 650 mg 06/30/24 12:35 06/30/24 17:25 Acetaminophen 325 Mg Tablet PO 650 mg Q4H PRN Administration Mild Pain (1-3) or Fever Albuterol/Ipratropium 3 ml 06/28/24 02:00 06/30/24 14:31 Ipratropium 0.5 Mg/Albuterol Sulfate 2.5 Mg Ampul.Neb 3
--- NOTE | 2024-06-30 12:50 | P.PNNP_ITS ---
Progress Note: A&P Assessment and Plan (1) Chronic kidney disease, stage IV (severe): Code(s): N18.4 - Chronic kidney disease, stage 4 (severe) Status: Chronic Assessment and Plan: * creatinine ~ 2.3mg/dl in March 2024 * suspect this is her new baseline creatinine given her recent EMERITA/ARF on CKD in January 2024 * previous baseline creatinine around 1.5mg/dl * etiology of CKD due to hypertension, diabetes, vascular disease, age and leftovers from previous EMERITA/ARF * suspect some fluctuations with use of IV diuretics * follow trend of labs and UOP (2) Acute hypoxic respiratory failure: Code(s): J96.01 - Acute respiratory failure with hypoxia Status: Acute Assessment and Plan: * presumably due to COPD and CHF exacerbation * see #3 and #4 * follow respiratory status (3) Acute exacerbation of chronic obstructive pulmonary disease: Code(s): J44.1 - Chronic obstructive pulmonary disease with (acute) exacerbation Status: Acute Assessment and Plan: * on supplemental oxygen - wean as tolerated * on scheduled nebulizer treatments * on antibiotics (4) CHF (congestive heart failure): Code(s): I50.9 - Heart failure, unspecified Status: Acute Assessment and Plan: * elevated BNP noted * admission CXR with some fluid; noted associated with LE edema * on IV diuretics * follow dailys weights, I/Os, and exam * repeat Echo results noted (5) Hypertension: Qualifiers: Hypertension type: unspecified Qualified Code(s): I10 - Essential (primary) hypertension Code(s): I10 - Essential (primary) hypertension Status: Chronic Assessment and Plan: * reasonable control at this time * follow trend of hemodynamics (6) Type 2 diabetes mellitus: Code(s): E11.9 - Type 2 diabetes mellitus without complications Status: Chronic Assessment and Plan: * follow accu-cheks * glycemic control per hospitalists Will continue to follow. Subjective Date/time seen: 06/30/24 12:50 Interval history: Follow-up for chronic kidney disease. Renal function/creatinine fluctuating in the context of IV diuresis; breathing/respiratory status continues to slowly improve in general; no other acute complaints voiced at the time of my visit. Exam Narrative: General: elderly but WD/WN female in NAD Heart: normal S1 and S2; no rub Lungs: coarse breath sound with some bibasilar crackles Abdomen: soft, nontender, nondistended, positive bowel sounds Extremities: no cyanosis or clubbing; trace edema Skin: warm and intact Objective Data Vital Signs Vital Signs: Vital Signs Temp Pulse Resp BP Pulse Ox O2 Del Method O2 Flow Rate 06/30/24 12:00 62 06/30/24 09:35 95 Nasal Cannula 1 06/30/24 08:00 61 06/30/24 09:33 66 06/30/24 08:22 68 20 06/30/24 08:12 94 Nasal Cannula 1 06/30/24 08:10 67 20 06/30/24 05:15 97.1 F L 62 18 142/54 H 98 06/30/24 04:00 56 L 06/30/24 02:10 62 20 06/30/24 02:01 60 20 06/29/24 20:50 Nasal Cannula 3 06/30/24 00:00 62 06/29/24 20:00 61 06/29/24 20:05 97 Nasal Cannula 2 06/29/24 20:15 64 20 06/29/24 21:38 98.1 F
[2024-06-30 17:01] LABS: Glucose Point of Care 91 mg/dl (65-105)
[2024-06-30] MEDS: AZITHROMYCIN 500 MG/NS 250 ML 500 MG/250 ML BAG 250 MG IVPB (20:40)
[2024-06-30 21:02] LABS: Glucose Point of Care 209 mg/dl (65-105)
[2024-07-01] VITALS (20 sets, daily range): BP systolic 141–145; BP diastolic 41–50; PULSE 54–71; RESP 18–20; TEMP 36.6–36.9; O2SAT 94–96
[2024-07-01] MEDS: IPRATROPIUM 0.5 MG/ALBUTEROL SULFATE 2.5 MG AMPUL.NEB 3 ML INHALATION ×4 (02:12→20:47)
[2024-07-01] MEDS: guaiFENesin/DEXTROMETHORPHAN 10 ML UDC PO ×3 (04:29→17:15)
[2024-07-01 05:35] LABS: Hematocrit 33.5 % (37.0-47.0); Hemoglobin 9.9 g/dL (12.0-15.0); Mean Corpuscular HGB Conc 29.6 g/dl (32-36); Mean Corpuscular Hemoglobin 25.7 pg (26-34); Mean Platelet Volume 11.3 fl (7.4-10.4); Platelet Count Result 244 k/mm3 (150-375); Red Blood Count 3.85 M/mm3 (4.2-5.4); Red Cell Distribution Width 17.2 % (11.5-14.5); White Blood Count 11.3 K/mm3 (4.5-10.0)
[2024-07-01 05:53] LABS: Alanine Aminotransferase 17 U/L (6-35); Albumin Level 4.2 g/dL (3.5-5.1); Alkaline Phosphatase 82 U/L (38-126); Anion Gap 13 mmol/L (4-12); Aspartate Amino Transferase 18 U/L (14-36); Bilirubin,Total 0.2 mg/dL (0.2-1.3); Blood Urea Nitrogen 104 mg/dL (7-17); Calcium 7.7 mg/dL (8.4-10.2); Carbon Dioxide 23 mmol/L (22-30); Chloride 105 mmol/L (98-107); Estimated CRCL calculation 19 ml/min; Estimated Glomerular Filt Rate 16; Glucose 172 mg/dL (65-110); Potassium 4.6 mmol/L (3.4-5.0); Sodium 141 mmol/L (137-145)
[2024-07-01 08:16] LABS: Glucose Point of Care 141 mg/dl (65-105)
[2024-07-01] MEDS: INSULIN HUMAN ISOPHAN/REGULAR 70/30 (*BKC) 100 UNITS/ML 40 UNITS SUB-Q ×2 (09:05→17:15)
[2024-07-01] MEDS: PANTOPRAZOLE 40 MG TABLET PO (09:06)
[2024-07-01] MEDS: ASPIRIN 325 MG ENTERIC TABLET PO (09:06)
[2024-07-01] MEDS: ROSUVASTATIN 20 MG TABLET PO (09:06)
[2024-07-01] MEDS: TICAGRELOR 90 MG TABLET PO ×2 (09:06→20:16)
[2024-07-01] MEDS: BUMETANIDE 1 MG TABLET 2 MG PO (09:06)
[2024-07-01] MEDS: cloNIDine HCL 0.1 MG TABLET PO ×2 (09:06→17:15)
[2024-07-01] MEDS: FUROSEMIDE INJ 40 MG/4 ML VIAL IV PUSH ×2 (09:06→17:15)
[2024-07-01] MEDS: LOSARTAN POTASSIUM 100 MG TABLET PO (09:06)
[2024-07-01] MEDS: FAMOTIDINE 20 MG TABLET PO ×2 (09:07→17:15)
[2024-07-01] MEDS: LORATADINE 10 MG TABLET PO (09:07)
[2024-07-01] MEDS: FERROUS SULFATE 325 MG TABLET DR PO (09:07)
[2024-07-01] MEDS: amLODIPine BESYLATE 10 MG TABLET PO (09:07)
[2024-07-01] MEDS: carvediloL 12.5 MG TABLET PO ×2 (09:07→20:16)
[2024-07-01] MEDS: ISOSORBIDE MONONITRATE 60 MG TAB.ER.24H 120 MG PO (09:07)
[2024-07-01] MEDS: polyethylene glycoL 3350 17 GM POWD.PACK PO (09:10)
--- NOTE | 2024-07-01 10:49 | PM.IMPN ---
Progress Note: A&P Assessment and Plan (1) Acute exacerbation of chronic obstructive pulmonary disease: Code(s): J44.1 - Chronic obstructive pulmonary disease with (acute) exacerbation Status: Acute Assessment and Plan: SCHEDULED BREATHING TREATMENTS STARTED ON ROCEPHIN AND ZITHROMAX WBC 11.3 PT/OT ordered. Added guaifenesin/ DM 10 ml q 4 PRN. Encourage hydration. (2) Acute hypoxic respiratory failure: Code(s): J96.01 - Acute respiratory failure with hypoxia Status: Acute Assessment and Plan: ON SUPPLEMENTAL OXYGEN BY NASAL CANNULA. Wean to keep Sa02 >90%. 02@ 1LNC. (3) CHF (congestive heart failure): Code(s): I50.9 - Heart failure, unspecified Status: Acute Assessment and Plan: ECHOCARDIOGRAM unchanged: Summary 1. Complete two-dimensional, color flow and Doppler transthoracic echocardiogram is performed. 2. Concentric left ventricular hypertrophy with hyperdynamic systolic function and grade 1 diastolic noncompliance. 3. Calcified mitral valve annulus. 4. Sinus rhythm. 5. Compared with echocardiogram from December of this year nothing has changed. Left ventricular systolic function is hyperdynamic, estimated at >70%. WILL DIURESE DAILY INTAKE AND OUTPUT PATIENT WITH PEDAL AND ANKLE EDEMA ON PHYSICAL EXAM (4) Type 2 diabetes mellitus: Code(s): E11.9 - Type 2 diabetes mellitus without complications Status: Chronic Assessment and Plan: HOLDING MED FOR (5) Chronic kidney disease: Qualifiers: Chronic kidney disease stage: stage 4 (severe) Qualified Code(s): N18.4 - Chronic kidney disease, stage 4 (severe) Code(s): N18.9 - Chronic kidney disease, unspecified Status: Acute Assessment and Plan: BUN IS ELEVATED, Creatinine 2.90, GFR 16. CREATININE IS UNCHANGED CURRENTLY HOLDING MELOXICAM NEPHROLOGY CONSULT and following. Strict I&O's. (6) Hypertension: Qualifiers: Hypertension type: unspecified Qualified Code(s): I10 - Essential (primary) hypertension Code(s): I10 - Essential (primary) hypertension Status: Chronic Assessment and Plan: RESUME HOME MEDS (7) Tobacco abuse: Code(s): Z72.0 - Tobacco use Status: Acute Assessment and Plan: NICOTINE PATCH NEEDED (8) Vitamin D deficiency: Code(s): E55.9 - Vitamin D deficiency, unspecified Status: Acute Assessment and Plan: Vitamin D level 16.8. Start Ergocalciferol 50,000 units PO weekly. Encourage Vitamin D rich foods. (9) Constipation: Code(s): K59.00 - Constipation, unspecified Status: Acute Assessment and Plan: Add Miralax daily and Colace 100 mg PO q 12 PRN. Encourage hydration. Bowel movement today. Subjective Date/time seen: 07/01/24 10:49 Interval history: Patient is a 74 year old female with medical history significant for morbid obesity, COPD, tobacco dependence, HTN, GERD, Type 2 DM, Dyslipidemia, CKD, chronic pain syndrome, CAD, status post PTCI. Present to the ER on 06/27 with worsening SOB, wheezing, cough productive with white phlegm, and bilateral lower extremity swelling. Denies chest pain, palpitations, nausea, vomiting, or headache. Patient reports some dizziness when coughing. Patient report last bowel today. WBC 11.3, H&H 9.9/33.5, Creatinine 2.90 stable. Patient reports feeling better today. Nephrology following. Review of Systems Review of Systems: WHEEZING, SHORTNESS OF BREATH, PRODUCTIVE COUGH, CHILLS, POOR PER ORALLY INTAKE, GENERALIZED WEAKNESS, BILATERAL LOWER EXTREMITY EDEMA Constitutional: Constitutional: Denies chills and Denies headache(s) ENT: Denies headache(s) Cardiovascular: Cardiovascular: Denies chest pain, Denies palpitations and Reports dyspnea on exertion Comments: Telemetry 69. Respiratory: Respiratory: Reports cough and Reports dyspnea on exertion Gastrointestinal:
[2024-07-01 11:46] LABS: Glucose Point of Care 232 mg/dl (65-105)
[2024-07-01] MEDS: INSULIN ASPART (*BKC) 100 UNITS/ML SUB-Q (12:10)
--- NOTE | 2024-07-01 13:13 | PM.PNNEP ---
Progress Note: A&P Assessment and Plan (1) Chronic kidney disease, stage IV (severe): Code(s): N18.4 - Chronic kidney disease, stage 4 (severe) Status: Chronic Assessment and Plan: creatinine ~ 2.3mg/dl in March 2024 suspect this is her new baseline creatinine given her recent EMERITA/ARF on CKD in January 2024 previous baseline creatinine around 1.5mg/dl etiology of CKD due to hypertension, diabetes, vascular disease, age and leftovers from previous EMERITA/ARF suspect some fluctuations with use of IV diuretics follow trend of labs and UOP (2) Acute hypoxic respiratory failure: Code(s): J96.01 - Acute respiratory failure with hypoxia Status: Acute Assessment and Plan: presumably due to COPD and CHF exacerbation see #3 and #4 follow respiratory status (3) Acute exacerbation of chronic obstructive pulmonary disease: Code(s): J44.1 - Chronic obstructive pulmonary disease with (acute) exacerbation Status: Acute Assessment and Plan: on supplemental oxygen - wean as tolerated on scheduled nebulizer treatments on antibiotics (4) CHF (congestive heart failure): Code(s): I50.9 - Heart failure, unspecified Status: Acute Assessment and Plan: elevated BNP noted admission CXR with some fluid; noted associated with LE edema on IV diuretics follow dailys weights, I/Os, and exam repeat Echo results noted (5) Hypertension: Qualifiers: Hypertension type: unspecified Qualified Code(s): I10 - Essential (primary) hypertension Code(s): I10 - Essential (primary) hypertension Status: Chronic Assessment and Plan: reasonable control at this time follow trend of hemodynamics (6) Type 2 diabetes mellitus: Code(s): E11.9 - Type 2 diabetes mellitus without complications Status: Chronic Assessment and Plan: follow accu-cheks glycemic control per hospitalists Will continue to follow. Subjective Date/time seen: 07/01/24 13:13 Interval history: Follow-up for chronic kidney disease. Renal function/creatinine continues to fluctuate in the context of IV diuresis but good urine output noted; no apparent distress voiced at the time of my visit; slow and ongoing improvement in breathing/respiratory status noted. Exam Narrative: General: elderly but WD/WN female in NAD Heart: normal S1 and S2; no rub Lungs: coarse breath sound with some bibasilar crackles Abdomen: soft, nontender, nondistended, positive bowel sounds Extremities: no cyanosis or clubbing; trace edema Skin: no nodules Objective Data Vital Signs Vital Signs: Vital Signs Temp Pulse Resp BP Pulse Ox O2 Del Method O2 Flow Rate 07/01/24 13:01 62 18 07/01/24 12:00 58 L 07/01/24 08:00 68 07/01/24 09:07 60 07/01/24 07:30 59 L 18 07/01/24 07:20 67 18 07/01/24 07:20 95 Nasal Cannula 1 07/01/24 04:32 98.4 F 62 18 145/50 H 96 07/01/24 04:00 56 L 07/01/24 02:20 54 L 18 07/01/24 02:13 69 18 07/01/24 00:00 59 L 06/30/24 20:00 59 L 06/30/24 21:00 Nasal Cannula 1 06/30/24 20:57 68 20 06/30/24 20:47 61 20 06/30/24 20:47 94 Nasal Cannula 1 06/30/24 20:41 61 06/30/24 20:10 98.1 F 62 18 141/45 H 96 Intake/Output Intake/Output: Intake & Output 06/28/24 06/29/24 06/30/24 07/01/24 23:59 23:59 23:59 23:59 Intake Total 3010 1150 2860 610 Output Total 800 400 300 700 Balance 2210 750 2560 -90 Meds/Results Medications: Active Medications Generic Name Dose Route Start Last Admin Trade Name Agq PRN Reason Stop Dose Admin Acetaminophen 650 mg 06/30/24 12:35 06/30/24 22:07 Acetaminophen 325 Mg Tablet PO 650 mg Q4H PRN Administration Mild Pain (1-3) or Fever Albuterol/Ipratropium 3 ml 06/28/24 02:00 07/01/24 14:00 Ipratropium 0.5 Mg/Albu
--- NOTE | 2024-07-01 13:13 | P.PNNP_ITS ---
Progress Note: A&P Assessment and Plan (1) Chronic kidney disease, stage IV (severe): Code(s): N18.4 - Chronic kidney disease, stage 4 (severe) Status: Chronic Assessment and Plan: * creatinine ~ 2.3mg/dl in March 2024 * suspect this is her new baseline creatinine given her recent EMERITA/ARF on CKD in January 2024 * previous baseline creatinine around 1.5mg/dl * etiology of CKD due to hypertension, diabetes, vascular disease, age and leftovers from previous EMERITA/ARF * suspect some fluctuations with use of IV diuretics * follow trend of labs and UOP (2) Acute hypoxic respiratory failure: Code(s): J96.01 - Acute respiratory failure with hypoxia Status: Acute Assessment and Plan: * presumably due to COPD and CHF exacerbation * see #3 and #4 * follow respiratory status (3) Acute exacerbation of chronic obstructive pulmonary disease: Code(s): J44.1 - Chronic obstructive pulmonary disease with (acute) exacerbation Status: Acute Assessment and Plan: * on supplemental oxygen - wean as tolerated * on scheduled nebulizer treatments * on antibiotics (4) CHF (congestive heart failure): Code(s): I50.9 - Heart failure, unspecified Status: Acute Assessment and Plan: * elevated BNP noted * admission CXR with some fluid; noted associated with LE edema * on IV diuretics * follow dailys weights, I/Os, and exam * repeat Echo results noted (5) Hypertension: Qualifiers: Hypertension type: unspecified Qualified Code(s): I10 - Essential (primary) hypertension Code(s): I10 - Essential (primary) hypertension Status: Chronic Assessment and Plan: * reasonable control at this time * follow trend of hemodynamics (6) Type 2 diabetes mellitus: Code(s): E11.9 - Type 2 diabetes mellitus without complications Status: Chronic Assessment and Plan: * follow accu-cheks * glycemic control per hospitalists Will continue to follow. Subjective Date/time seen: 07/01/24 13:13 Interval history: Follow-up for chronic kidney disease. Renal function/creatinine continues to fluctuate in the context of IV diuresis but good urine output noted; no apparent distress voiced at the time of my visit; slow and ongoing improvement in breathing/respiratory status noted. Exam Narrative: General: elderly but WD/WN female in NAD Heart: normal S1 and S2; no rub Lungs: coarse breath sound with some bibasilar crackles Abdomen: soft, nontender, nondistended, positive bowel sounds Extremities: no cyanosis or clubbing; trace edema Skin: no nodules Objective Data Vital Signs Vital Signs: Vital Signs Temp Pulse Resp BP Pulse Ox O2 Del Method O2 Flow Rate 07/01/24 13:01 62 18 07/01/24 12:00 58 L 07/01/24 08:00 68 07/01/24 09:07 60 07/01/24 07:30 59 L 18 07/01/24 07:20 67 18 07/01/24 07:20 95 Nasal Cannula 1 07/01/24 04:32 98.4 F 62 18 145/50 H 96 07/01/24 04:00 56 L 07/01/24 02:20 54 L 18 07/01/24 02:13 69 18 07/01/24 00:00 59 L 06/30/24 20:00 59 L 06/30/24 21:00 Nasal Cannula 1 06/30/24 20:57 68 20 06/30/24 20:47 61 20 06/30/24 20:47
--- NOTE | 2024-07-01 13:14 | PCPTNOTE ---
Patient refused treatment this session. Patient reported she does not feel good and that she can't stop coughing. Educated patient on the importance of therapy and working with PT, patient continued to refuse and reported she wanted to see the hospitalist. RN aware.
[2024-07-01] MEDS: cefuroxime axetiL 250 MG TABLET PO ×2 (13:32→20:16)
[2024-07-01 16:44] LABS: Glucose Point of Care 179 mg/dl (65-105)
[2024-07-01 19:56] LABS: Glucose Point of Care 175 mg/dl (65-105)
[2024-07-01] MEDS: AZITHROMYCIN 500 MG/NS 250 ML 500 MG/250 ML BAG 250 MG IVPB (20:16)
[2024-07-02] VITALS (20 sets, daily range): BP systolic 137–143; BP diastolic 38–74; PULSE 54–67; RESP 14–18; TEMP 36.3–36.6; O2SAT 94–96
[2024-07-02] MEDS: IPRATROPIUM 0.5 MG/ALBUTEROL SULFATE 2.5 MG AMPUL.NEB 3 ML INHALATION ×4 (02:09→20:46)
[2024-07-02] MEDS: guaiFENesin/DEXTROMETHORPHAN 10 ML UDC PO (03:12)
[2024-07-02 06:23] LABS: Basophils Percent Auto 0.2 % (0.2-1.2); Eosinophils Absolute Auto 0.2 K/mm3 (0-0.3); Eosinophils Percent Auto 1.8 % (0-4.4); Hematocrit 33.7 % (37.0-47.0); Hemoglobin 10.1 g/dL (12.0-15.0); Immature Granulocyte Absolute 0.26 K/mm3 (0.00-0.031); Lymphocytes Absolute Auto 2.39 K/mm3 (0.9-3.2); Lymphocytes Percent Auto 18.2 % (18.3-44.2); Mean Corpuscular Hemoglobin 25.8 pg (26-34); Mean Corpuscular Volume 86.2 fl (80-100); Mean Platelet Volume 11.7 fl (7.4-10.4); Monocytes Absolute Auto 0.8 K/mm3 (0.1-0.6); Monocytes Percent Auto 6.4 % (2.6-8.5); Neutrophils Absolute Auto 9.4 K/mm3 (1.3-6.7); Neutrophils Percent Auto 71.4 % (45.5-73.1); Platelet Count Result 236 k/mm3 (150-375); Red Blood Count 3.91 M/mm3 (4.2-5.4); Red Cell Distribution Width 17.1 % (11.5-14.5); White Blood Count 13.1 K/mm3 (4.5-10.0)
[2024-07-02 06:56] LABS: Alanine Aminotransferase 18 U/L (6-35); Albumin Level 4.2 g/dL (3.5-5.1); Alkaline Phosphatase 79 U/L (38-126); Anion Gap 12 mmol/L (4-12); Aspartate Amino Transferase 19 U/L (14-36); Bilirubin,Total 0.3 mg/dL (0.2-1.3); Blood Urea Nitrogen 89 mg/dL (7-17); Calcium 8.2 mg/dL (8.4-10.2); Carbon Dioxide 27 mmol/L (22-30); Chloride 104 mmol/L (98-107); Estimated CRCL calculation 22 ml/min; Estimated Glomerular Filt Rate 20; Glucose 82 mg/dL (65-110); Potassium 4.6 mmol/L (3.4-5.0); Sodium 143 mmol/L (137-145)
[2024-07-02 07:52] LABS: Glucose Point of Care 117 mg/dl (65-105)
[2024-07-02] MEDS: INSULIN HUMAN ISOPHAN/REGULAR 70/30 (*BKC) 100 UNITS/ML 40 UNITS SUB-Q ×2 (09:01→17:37)
[2024-07-02] MEDS: polyethylene glycoL 3350 17 GM POWD.PACK PO (09:02)
[2024-07-02] MEDS: FERROUS SULFATE 325 MG TABLET DR PO (09:04)
[2024-07-02] MEDS: cloNIDine HCL 0.1 MG TABLET PO ×2 (09:04→17:36)
[2024-07-02] MEDS: cefuroxime axetiL 250 MG TABLET PO ×2 (09:04→20:42)
[2024-07-02] MEDS: ISOSORBIDE MONONITRATE 60 MG TAB.ER.24H 120 MG PO (09:04)
[2024-07-02] MEDS: ROSUVASTATIN 20 MG TABLET PO (09:04)
[2024-07-02] MEDS: TICAGRELOR 90 MG TABLET PO ×2 (09:04→20:42)
[2024-07-02] MEDS: FAMOTIDINE 20 MG TABLET PO ×2 (09:04→17:36)
[2024-07-02] MEDS: amLODIPine BESYLATE 10 MG TABLET PO (09:04)
[2024-07-02] MEDS: LOSARTAN POTASSIUM 100 MG TABLET PO (09:05)
[2024-07-02] MEDS: PANTOPRAZOLE 40 MG TABLET PO (09:05)
[2024-07-02] MEDS: BUMETANIDE 1 MG TABLET 2 MG PO (09:05)
[2024-07-02] MEDS: ASPIRIN 325 MG ENTERIC TABLET PO (09:05)
[2024-07-02] MEDS: LORATADINE 10 MG TABLET PO (09:05)
[2024-07-02] MEDS: carvediloL 12.5 MG TABLET PO ×2 (09:05→20:40)
[2024-07-02] MEDS: FUROSEMIDE INJ 40 MG/4 ML VIAL IV PUSH ×2 (09:10→17:36)
--- NOTE | 2024-07-02 10:23 | P.PNNP_ITS ---
Progress Note: A&P Assessment and Plan (1) Chronic kidney disease, stage IV (severe): Code(s): N18.4 - Chronic kidney disease, stage 4 (severe) Status: Chronic Assessment and Plan: * creatinine ~ 2.3mg/dl in March 2024 * suspect this is her new baseline creatinine given her recent EMERITA/ARF on CKD in January 2024 * previous baseline creatinine around 1.5mg/dl * etiology of CKD due to hypertension, diabetes, vascular disease, age and leftovers from previous EMERITA/ARF * suspect some fluctuations with use of IV diuretics * follow trend of labs and UOP (2) Acute hypoxic respiratory failure: Code(s): J96.01 - Acute respiratory failure with hypoxia Status: Acute Assessment and Plan: * presumably due to COPD and CHF exacerbation * see #3 and #4 * follow respiratory status (3) Acute exacerbation of chronic obstructive pulmonary disease: Code(s): J44.1 - Chronic obstructive pulmonary disease with (acute) exacerbation Status: Acute Assessment and Plan: * on supplemental oxygen - wean as tolerated * on scheduled nebulizer treatments * on antibiotics (4) CHF (congestive heart failure): Code(s): I50.9 - Heart failure, unspecified Status: Acute Assessment and Plan: * elevated BNP noted * admission CXR with some fluid; noted associated with LE edema * on IV diuretics * follow dailys weights, I/Os, and exam * repeat Echo results noted (5) Hypertension: Qualifiers: Hypertension type: unspecified Qualified Code(s): I10 - Essential (primary) hypertension Code(s): I10 - Essential (primary) hypertension Status: Chronic Assessment and Plan: * reasonable control at this time * follow trend of hemodynamics (6) Type 2 diabetes mellitus: Code(s): E11.9 - Type 2 diabetes mellitus without complications Status: Chronic Assessment and Plan: * follow accu-cheks * glycemic control per hospitalists Will continue to follow. Subjective Date/time seen: 07/02/24 10:23 Interval history: Follow-up for chronic kidney disease. Overall, seems to be doing better in general; still reports some cough with associated sputum production along with exertional shortness of breath; renal function/creatinine stable if not back to baseline with reasonable urine output noted with ongoing use of IV diuretics; no issues/events overnight or earlier this morning. Exam Narrative: General: elderly but WD/WN female in [facility] Heart: normal S1 and S2; no rub Lungs: coarse breath sound; few crackles at bases Abdomen: soft, nontender, nondistended, positive bowel sounds Extremities: no cyanosis or clubbing; trace edema Skin: warm and dry Objective Data Vital Signs Vital Signs: Vital Signs Temp Pulse Resp BP Pulse Ox O2 Del Method O2 Flow Rate 07/02/24 09:05 60 07/02/24 07:10 60 18 07/02/24 07:00 54 L 18 07/02/24 07:00 54 L 18 95 Nasal Cannula 1 07/02/24 04:52 97.6 F 60 18 137/74 94 07/02/24 04:00 62 07/02/24 02:24 67 18 07/02/24 02:11 62 18 07/02/24 00:00 55 L 07/01/24 20:00 Room Air 07/01/24 20:00 55 L 07/01/24 20:58 60 18 07/01/24 20:50 94 1 07/01/24 20:47 66 18
--- NOTE | 2024-07-02 10:23 | PM.PNNEP ---
Progress Note: A&P Assessment and Plan (1) Chronic kidney disease, stage IV (severe): Code(s): N18.4 - Chronic kidney disease, stage 4 (severe) Status: Chronic Assessment and Plan: creatinine ~ 2.3mg/dl in March 2024 suspect this is her new baseline creatinine given her recent EMERITA/ARF on CKD in January 2024 previous baseline creatinine around 1.5mg/dl etiology of CKD due to hypertension, diabetes, vascular disease, age and leftovers from previous EMERITA/ARF suspect some fluctuations with use of IV diuretics follow trend of labs and UOP (2) Acute hypoxic respiratory failure: Code(s): J96.01 - Acute respiratory failure with hypoxia Status: Acute Assessment and Plan: presumably due to COPD and CHF exacerbation see #3 and #4 follow respiratory status (3) Acute exacerbation of chronic obstructive pulmonary disease: Code(s): J44.1 - Chronic obstructive pulmonary disease with (acute) exacerbation Status: Acute Assessment and Plan: on supplemental oxygen - wean as tolerated on scheduled nebulizer treatments on antibiotics (4) CHF (congestive heart failure): Code(s): I50.9 - Heart failure, unspecified Status: Acute Assessment and Plan: elevated BNP noted admission CXR with some fluid; noted associated with LE edema on IV diuretics follow dailys weights, I/Os, and exam repeat Echo results noted (5) Hypertension: Qualifiers: Hypertension type: unspecified Qualified Code(s): I10 - Essential (primary) hypertension Code(s): I10 - Essential (primary) hypertension Status: Chronic Assessment and Plan: reasonable control at this time follow trend of hemodynamics (6) Type 2 diabetes mellitus: Code(s): E11.9 - Type 2 diabetes mellitus without complications Status: Chronic Assessment and Plan: follow accu-cheks glycemic control per hospitalists Will continue to follow. Subjective Date/time seen: 07/02/24 10:23 Interval history: Follow-up for chronic kidney disease. Overall, seems to be doing better in general; still reports some cough with associated sputum production along with exertional shortness of breath; renal function/creatinine stable if not back to baseline with reasonable urine output noted with ongoing use of IV diuretics; no issues/events overnight or earlier this morning. Exam Narrative: General: elderly but WD/WN female in NAD Heart: normal S1 and S2; no rub Lungs: coarse breath sound; few crackles at bases Abdomen: soft, nontender, nondistended, positive bowel sounds Extremities: no cyanosis or clubbing; trace edema Skin: warm and dry Objective Data Vital Signs Vital Signs: Vital Signs Temp Pulse Resp BP Pulse Ox O2 Del Method O2 Flow Rate 07/02/24 09:05 60 07/02/24 07:10 60 18 07/02/24 07:00 54 L 18 07/02/24 07:00 54 L 18 95 Nasal Cannula 1 07/02/24 04:52 97.6 F 60 18 137/74 94 07/02/24 04:00 62 07/02/24 02:24 67 18 07/02/24 02:11 62 18 07/02/24 00:00 55 L 07/01/24 20:00 Room Air 07/01/24 20:00 55 L 07/01/24 20:58 60 18 07/01/24 20:50 94 1 07/01/24 20:47 66 18 07/01/24 20:16 60 07/01/24 19:26 98.0 F 60 18 145/49 H 96 Intake/Output Intake/Output: Intake & Output 06/29/24 06/30/24 07/01/24 07/02/24 23:59 23:59 23:59 23:59 Intake Total 1150 2860 1230 920 Output Total 865 656 2914 400 Balance 750 2560 -270 520 Meds/Results Medications: Active Medications Generic Name Dose Route Start Last Admin Trade Name Freq PRN Reason Stop Dose Admin Acetaminophen 650 mg 06/30/24 12:35 06/30/24 22:07 Acetaminophen 325 Mg Tablet PO 650 mg Q4H PRN Administration Mild Pain (1-3) or Fever Albuterol/Ipratropium 3 ml 06/28/24 02:00 07/02/24 13:01 Ipratropium 0.5 Mg/Albuterol Sul
[2024-07-02 11:54] LABS: Glucose Point of Care 203 mg/dl (65-105)
--- NOTE | 2024-07-02 13:57 | PM.IMPN ---
Progress Note: A&P Assessment and Plan (1) Acute hypoxic respiratory failure: Code(s): J96.01 - Acute respiratory failure with hypoxia Status: Acute Assessment and Plan: 07/02/24: Likely due to acute exacerbation of COPD Continue breathing treatment Continue to wean O2 for sat greater than 92% Currently on 1 L nasal cannula Finish full course of Rocephin and Azithromycin while inpatient (2) Acute exacerbation of chronic obstructive pulmonary disease: Code(s): J44.1 - Chronic obstructive pulmonary disease with (acute) exacerbation Status: Acute Assessment and Plan: 07/02/24: Will add Flonase, Claritin, Singulair today Continue with breathing treatments Continue to wean O2 for sat greater than 92% Currently on 1 L nasal cannula Consult placed to Pulmonary Rehab (3) CHF (congestive heart failure): Code(s): I50.9 - Heart failure, unspecified Status: Acute Assessment and Plan: 07/02/24: Echo showed normal LV systolic function with an estimated EF of greater than 70%, grade 1 diastolic dysfunction Continue diuretics (4) Type 2 diabetes mellitus: Code(s): E11.9 - Type 2 diabetes mellitus without complications Status: Chronic Assessment and Plan: 07/02/24: Blood sugars ranging 117-203 Hgb A1C 6.0 Accu checks AC/HS High-dose SSI ordered hypoglycemic protocol in place Diabetic diet ordered (5) Chronic kidney disease: Qualifiers: Chronic kidney disease stage: stage 4 (severe) Qualified Code(s): N18.4 - Chronic kidney disease, stage 4 (severe) Code(s): N18.9 - Chronic kidney disease, unspecified Status: Acute Assessment and Plan: 07/02/24: Creatinine 2.4 which is patient's baseline (6) Hypertension: Qualifiers: Hypertension type: unspecified Qualified Code(s): I10 - Essential (primary) hypertension Code(s): I10 - Essential (primary) hypertension Status: Chronic Assessment and Plan: 07/02/24: Blood pressures ranging 137/70-141/41 Continue losartan and isosorbide Time Spent With Patient Time with patient: Greater than 35 minutes Subjective Date/time seen: 07/02/24 13:57 Interval history: Interval history: Patient is a 74-year-old female who presented to the hospital on 06/27/2024 with shortness of breath and dyspnea. Workup in the hospital included chest x-ray which shown minimal bibasilar pulmonary edema left worse than right. Initial labs showed a white blood cell count of 11.9, RBC 3.89, hemoglobin 10.2, potassium 5.3, bicarb 20, creatinine 2.4, EGFR 20, proBNP 998. An echocardiogram was obtained on 06/28/2024 and shown normal LV systolic function with an estimated EF of 70%, grade 1 diastolic dysfunction. She finished a course of Rocephin and azithromycin while inpatient. Subjective: Patient denies any fever, chills, nausea, vomiting, diarrhea, abdominal pain, chest pain. She reports a productive cough and shortness of breath with exertion. Labs and imaging reviewed. Review of Systems Review of Systems: All systems reviewed & are unremarkable except as noted in HPI and below Constitutional: Constitutional: Reports as per HPI and Reports no additional constitutional complaints Eyes: Eyes: Reports as per HPI and Reports no additional eye complaints ENT: Reports system reviewed and no additional complaints, except as documented and Reports as per HPI Cardiovascular: Cardiovascular: Reports as per HPI and Reports no additional cardiovascular complaints Respiratory: Respiratory: Reports as per HPI and Reports no additional respiratory complaints Gastrointestinal: Gastrointestinal: Reports as per HPI and Reports no additional gastrointestinal complaints Genitourinary: Genitourinary: Reports no additional female genitourinary complaints and Reports as per HPI Musculoskeletal: Musculoskeletal: Reports no additional musculoskeletal complaints and Reports as per
[2024-07-02 16:53] LABS: Glucose Point of Care 185 mg/dl (65-105)
[2024-07-02] MEDS: FLUTICASONE PROPIONATE 0.05% NA SPR 16 GM BTL (*BKC) 1 SPRAY NASAL (20:41)
[2024-07-02] MEDS: MONTELUKAST SODIUM 10 MG TABLET PO (20:42)
[2024-07-02 21:14] LABS: Glucose Point of Care 124 mg/dl (65-105)
--- NOTE | 2024-07-02 23:56 | PC.NURSE ---
[address] QUI[address]ONES NP NOTIFIED THAT PT STATES SHE IS SEEING BUGS CRAWLING ON THE COUCH AND THE WALL IN THE ROOM. NO NEW ORDERS. WILL MONITOR
[2024-07-03] VITALS (17 sets, daily range): BP systolic 98–155; BP diastolic 52–62; PULSE 53–92; RESP 16–20; TEMP 36.4–36.9; O2SAT 92–97
[2024-07-03] MEDS: IPRATROPIUM 0.5 MG/ALBUTEROL SULFATE 2.5 MG AMPUL.NEB 3 ML INHALATION ×3 (03:02→13:32)
[2024-07-03 05:31] LABS: Basophils Absolute Auto 0.1 K/mm3 (0.0-0.1); Basophils Percent Auto 0.4 % (0.2-1.2); Eosinophils Absolute Auto 0.5 K/mm3 (0-0.3); Eosinophils Percent Auto 3.4 % (0-4.4); Hematocrit 35.2 % (37.0-47.0); Hemoglobin 10.4 g/dL (12.0-15.0); Immature Granulocyte Absolute 0.23 K/mm3 (0.00-0.031); Immature Granulocyte Percent A 1.5 % (0-0.5); Lymphocytes Absolute Auto 2.28 K/mm3 (0.9-3.2); Lymphocytes Percent Auto 15.1 % (18.3-44.2); Mean Corpuscular HGB Conc 29.5 g/dl (32-36); Mean Corpuscular Hemoglobin 26.2 pg (26-34); Mean Corpuscular Volume 88.7 fl (80-100); Mean Platelet Volume 11.5 fl (7.4-10.4); Monocytes Absolute Auto 1.1 K/mm3 (0.1-0.6); Monocytes Percent Auto 7.4 % (2.6-8.5); Neutrophils Absolute Auto 10.9 K/mm3 (1.3-6.7); Neutrophils Percent Auto 72.2 % (45.5-73.1); Platelet Count Result 216 k/mm3 (150-375); Red Blood Count 3.97 M/mm3 (4.2-5.4); Red Cell Distribution Width 17.2 % (11.5-14.5); White Blood Count 15.1 K/mm3 (4.5-10.0)
[2024-07-03 05:48] LABS: Alanine Aminotransferase 17 U/L (6-35); Albumin Level 4.1 g/dL (3.5-5.1); Alkaline Phosphatase 87 U/L (38-126); Anion Gap 10 mmol/L (4-12); Aspartate Amino Transferase 19 U/L (14-36); Bilirubin,Total 0.2 mg/dL (0.2-1.3); Blood Urea Nitrogen 78 mg/dL (7-17); Calcium 8.2 mg/dL (8.4-10.2); Carbon Dioxide 28 mmol/L (22-30); Chloride 103 mmol/L (98-107); Estimated CRCL calculation 23 ml/min; Estimated Glomerular Filt Rate 21; Glucose 131 mg/dL (65-110); Potassium 4.2 mmol/L (3.4-5.0); Sodium 141 mmol/L (137-145)
[2024-07-03 05:54] LABS: Anisocytosis 1+; Hypochromasia 1+; Microcytosis 1+ (NORMAL); Ovalocytes 1+; Platelet Estimate Adequate (Adequate)
[2024-07-03 05:55] LABS: Schistocytes None Seen
[2024-07-03 07:55] LABS: Glucose Point of Care 171 mg/dl (65-105)
[2024-07-03] MEDS: LOSARTAN POTASSIUM 100 MG TABLET PO (08:46)
[2024-07-03] MEDS: LORATADINE 10 MG TABLET PO (08:46)
[2024-07-03] MEDS: ENOXAPARIN 40 MG/0.4 ML SYRINGE SUB-Q (08:46)
[2024-07-03] MEDS: carvediloL 12.5 MG TABLET PO ×2 (08:46→20:35)
[2024-07-03] MEDS: FUROSEMIDE INJ 40 MG/4 ML VIAL IV PUSH ×2 (08:46→17:27)
[2024-07-03] MEDS: cloNIDine HCL 0.1 MG TABLET PO ×2 (08:47→17:27)
[2024-07-03] MEDS: ASPIRIN 325 MG ENTERIC TABLET PO (08:47)
[2024-07-03] MEDS: PANTOPRAZOLE 40 MG TABLET PO (08:47)
[2024-07-03] MEDS: ISOSORBIDE MONONITRATE 60 MG TAB.ER.24H 120 MG PO (08:47)
[2024-07-03] MEDS: cefuroxime axetiL 250 MG TABLET PO ×2 (08:47→20:34)
[2024-07-03] MEDS: TICAGRELOR 90 MG TABLET PO ×2 (08:47→20:35)
[2024-07-03] MEDS: FERROUS SULFATE 325 MG TABLET DR PO (08:47)
[2024-07-03] MEDS: FAMOTIDINE 20 MG TABLET PO ×2 (08:47→17:27)
[2024-07-03] MEDS: INSULIN HUMAN ISOPHAN/REGULAR 70/30 (*BKC) 100 UNITS/ML 40 UNITS SUB-Q ×2 (08:48→17:27)
[2024-07-03] MEDS: polyethylene glycoL 3350 17 GM POWD.PACK PO (08:48)
[2024-07-03] MEDS: FLUTICASONE PROPIONATE 0.05% NA SPR 16 GM BTL (*BKC) 1 SPRAY NASAL ×2 (08:48→20:35)
[2024-07-03] MEDS: ROSUVASTATIN 20 MG TABLET PO (08:48)
[2024-07-03] MEDS: amLODIPine BESYLATE 10 MG TABLET PO (08:48)
[2024-07-03 12:09] LABS: Glucose Point of Care 293 mg/dl (65-105)
--- NOTE | 2024-07-03 12:16 | P.PNNP_ITS ---
Progress Note: A&P Assessment and Plan (1) Chronic kidney disease, stage IV (severe): Code(s): N18.4 - Chronic kidney disease, stage 4 (severe) Status: Chronic Assessment and Plan: * creatinine ~ 2.3mg/dl in March 2024 * suspect this is her new baseline creatinine given her recent EMERITA/ARF on CKD in January 2024 * previous baseline creatinine around 1.5mg/dl * etiology of CKD due to hypertension, diabetes, vascular disease, age and leftovers from previous EMERITA/ARF * Variation may occur her related to diet, fluid status, diuretics. * Check a renal panel in the morning (2) Acute hypoxic respiratory failure: Code(s): J96.01 - Acute respiratory failure with hypoxia Status: Acute Assessment and Plan: * presumably due to COPD and CHF exacerbation * see #3 and #4 * follow respiratory status (3) Acute exacerbation of chronic obstructive pulmonary disease: Code(s): J44.1 - Chronic obstructive pulmonary disease with (acute) exacerbation Status: Acute Assessment and Plan: * on supplemental oxygen. On 1liter/minute per nasal cannula * on scheduled nebulizer treatments * on antibiotics (4) CHF (congestive heart failure): Code(s): I50.9 - Heart failure, unspecified Status: Acute Assessment and Plan: * elevated BNP noted * admission CXR with some fluid; noted associated with LE edema * on IV diuretics: Furosemide 40mg IV b.i.d. * Intake/output negative by about 800cc * Continue diuretics since creatinine is stable (5) Hypertension: Qualifiers: Hypertension type: unspecified Qualified Code(s): I10 - Essential (primary) hypertension Code(s): I10 - Essential (primary) hypertension Status: Chronic Assessment and Plan: * Systolic in the 140s in rarely above 150. * Getting diuretics. * Systolic may come down with diuresis. (6) Type 2 diabetes mellitus: Code(s): E11.9 - Type 2 diabetes mellitus without complications Status: Chronic Assessment and Plan: * follow accu-cheks * glycemic control per hospitalists Subjective Date/time seen: 07/03/24 12:16 Interval history: Emma is feeling about the same. Still somewhat short of breath. No chest pain. Eating okay Exam Narrative: General: elderly but WD/WN female in NAD Heart: normal S1 and S2; no rub or gallop Lungs: coarse breath sound; few crackles at bases Abdomen: soft, nontender, nondistended, positive bowel sounds Extremities: no cyanosis or clubbing; trace edema Skin: No rash Objective Data Vital Signs Vital Signs: Vital Signs - 24 hr 07/02/24 13:03 07/02/24 13:13 07/02/24 14:48 Temperature 97.4 F L Pulse Rate 57 L 60 56 L Respiratory Rate 18 18 16 Blood Pressure 143/38 H Pulse Oximetry 95 Oxygen Delivery Oxygen Flow Rate 07/02/24 16:00 07/02/24 20:40 07/02/24 20:47 Temperature Pulse Rate 57 L 60 56 L Respiratory Rate 18 Blood Pressure Pulse Oximetry Oxygen Delivery Oxygen Flow Rate 07/02/24 20:48 07/02/24 20:55 07/02/24 20:00 Temperature Pulse Rate 58 L Respiratory Rate 18 18 Blood Pressure Pulse Oximetry 95 95 Oxygen [employer]
--- NOTE | 2024-07-03 12:16 | PM.PNNEP ---
Progress Note: A&P Assessment and Plan (1) Chronic kidney disease, stage IV (severe): Code(s): N18.4 - Chronic kidney disease, stage 4 (severe) Status: Chronic Assessment and Plan: creatinine ~ 2.3mg/dl in March 2024 suspect this is her new baseline creatinine given her recent EMERITA/ARF on CKD in January 2024 previous baseline creatinine around 1.5mg/dl etiology of CKD due to hypertension, diabetes, vascular disease, age and leftovers from previous EMERITA/ARF Variation may occur her related to diet, fluid status, diuretics. Check a renal panel in the morning (2) Acute hypoxic respiratory failure: Code(s): J96.01 - Acute respiratory failure with hypoxia Status: Acute Assessment and Plan: presumably due to COPD and CHF exacerbation see #3 and #4 follow respiratory status (3) Acute exacerbation of chronic obstructive pulmonary disease: Code(s): J44.1 - Chronic obstructive pulmonary disease with (acute) exacerbation Status: Acute Assessment and Plan: on supplemental oxygen. On 1liter/minute per nasal cannula on scheduled nebulizer treatments on antibiotics (4) CHF (congestive heart failure): Code(s): I50.9 - Heart failure, unspecified Status: Acute Assessment and Plan: elevated BNP noted admission CXR with some fluid; noted associated with LE edema on IV diuretics: Furosemide 40mg IV b.i.d. Intake/output negative by about 800cc Continue diuretics since creatinine is stable (5) Hypertension: Qualifiers: Hypertension type: unspecified Qualified Code(s): I10 - Essential (primary) hypertension Code(s): I10 - Essential (primary) hypertension Status: Chronic Assessment and Plan: Systolic in the 140s in rarely above 150. Getting diuretics. Systolic may come down with diuresis. (6) Type 2 diabetes mellitus: Code(s): E11.9 - Type 2 diabetes mellitus without complications Status: Chronic Assessment and Plan: follow accu-cheks glycemic control per hospitalists Subjective Date/time seen: 07/03/24 12:16 Interval history: Emma is feeling about the same. Still somewhat short of breath. No chest pain. Eating okay Exam Narrative: General: elderly but WD/WN female in NAD Heart: normal S1 and S2; no rub or gallop Lungs: coarse breath sound; few crackles at bases Abdomen: soft, nontender, nondistended, positive bowel sounds Extremities: no cyanosis or clubbing; trace edema Skin: No rash Objective Data Vital Signs Vital Signs: Vital Signs - 24 hr 07/02/24 13:03 07/02/24 13:13 07/02/24 14:48 Temperature 97.4 F L Pulse Rate 57 L 60 56 L Respiratory Rate 18 18 16 Blood Pressure 143/38 H Pulse Oximetry 95 Oxygen Delivery Oxygen Flow Rate 07/02/24 16:00 07/02/24 20:40 07/02/24 20:47 Temperature Pulse Rate 57 L 60 56 L Respiratory Rate 18 Blood Pressure Pulse Oximetry Oxygen Delivery Oxygen Flow Rate 07/02/24 20:48 07/02/24 20:55 07/02/24 20:00 Temperature Pulse Rate 58 L Respiratory Rate 18 18 Blood Pressure Pulse Oximetry 95 95 Oxygen Delivery Nasal Cannula Nasal Cannula Oxygen Flow Rate 1 1 07/02/24 22:00 07/02/24 20:00 07/03/24 00:00 Temperature 98 F Pulse Rate 60 55 L 61 Respiratory Rate 14 Blood Pressure 142/46 H Pulse Oximetry 96 Oxygen Delivery Oxygen Flow Rate 07/03/24 03:03 07/03/24 04:00 07/03/24 05:56 Temperature 98 F Pulse Rate 60 63 60 Respiratory Rate 18 20 Blood Pressure 151/56 H Pulse Oximetry 97 Oxygen Delivery Oxygen Flow Rate 07/03/24 07:46 07/03/24 07:46 07/03/24 08:16 Temperature Pulse Rate 64 64 92 Respiratory Rate 18 18 18 Blood Pressure Pulse Oximetry 92 Oxygen Delivery Nasal Cannula Oxygen Flow Rate 1 07/03/24 08:46 07/03/24 08:00 Temperature Pulse Rate 68 62 Respiratory Rate Bl
[2024-07-03] MEDS: INSULIN ASPART (*BKC) 100 UNITS/ML SUB-Q ×2 (12:48→20:33)
--- NOTE | 2024-07-03 13:43 | P.PNIM_ITS ---
Progress Note: A&P Assessment and Plan (1) Acute hypoxic respiratory failure: Code(s): J96.01 - Acute respiratory failure with hypoxia Status: Acute Assessment and Plan: 07/02/24: * Likely due to acute exacerbation of COPD * Continue breathing treatment * Continue to wean O2 for sat greater than 92% * Currently on 1 L nasal cannula * Finish full course of Rocephin and Azithromycin while inpatient 07/03/24: * Continue to wean O2 for sat greater than 92% * Currently on 1 L nasal cannula * Will give Lasix for extra diuresis today considering her peripheral edema (2) Acute exacerbation of chronic obstructive pulmonary disease: Code(s): J44.1 - Chronic obstructive pulmonary disease with (acute) exacerbation Status: Acute Assessment and Plan: 07/02/24: * Will add Flonase, Claritin, Singulair today * Continue with breathing treatments * Continue to wean O2 for sat greater than 92% * Currently on 1 L nasal cannula * Consult placed to Pulmonary Rehab 07/03/24: * Change to current treatment plan (3) CHF (congestive heart failure): Code(s): I50.9 - Heart failure, unspecified Status: Acute Assessment and Plan: 07/02/24: * Echo showed normal LV systolic function with an estimated EF of greater than 70%, grade 1 diastolic dysfunction * Continue diuretics 07/03/24: * No change to current treatment plan (4) Type 2 diabetes mellitus: Code(s): E11.9 - Type 2 diabetes mellitus without complications Status: Chronic Assessment and Plan: 07/02/24: * Blood sugars ranging 117-203 * Hgb A1C 6.0 * Accu checks AC/HS * High-dose SSI ordered * hypoglycemic protocol in place * Diabetic diet ordered 07/03/24: * No change to current treatment plan (5) Chronic kidney disease: Qualifiers: Chronic kidney disease stage: stage 4 (severe) Qualified Code(s): N18.4 - Chronic kidney disease, stage 4 (severe) Code(s): N18.9 - Chronic kidney disease, unspecified Status: Acute Assessment and Plan: 07/02/24: * Creatinine 2.4 which is patient's baseline 07/03/24: * No change, creatinine 2.3 (6) Hypertension: Qualifiers: Hypertension type: unspecified Qualified Code(s): I10 - Essential (primary) hypertension Code(s): I10 - Essential (primary) hypertension Status: Chronic Assessment and Plan: 07/02/24: * Blood pressures ranging 137/70-141/41 * Continue losartan and isosorbide 07/03/24: * No change to current treatment plan Time Spent With Patient Time with patient: 25 - 35 minutes Subjective Date/time seen: 07/03/24 13:43 Interval history: Interval history: Patient is a 74-year-old female who presented to the hospital on 06/27/2024 with shortness of breath and dyspnea. Workup in the hospital included chest x-ray which shown minimal bibasilar pulmonary edema left worse than right. Initial labs showed a white blood cell count of 11.9, RBC 3.89, hemoglobin 10.2, potassium 5.3, bicarb 20, creatinine 2.4, EGFR 20, proBNP 998. An echocardiogram was obtained on 06/28/2024 and shown normal LV systolic function with an estimated EF of 70%, grade 1 diastolic dysfunction. She finished a course of Rocephin and azithromycin while inpatient. Subjective: Patient denies any new complaints today. Labs reviewed. Currently on 1L AR Review of Systems Review of Systems: All systems reviewed & are unremarkable except as noted in HPI and below Constitutional: Constitutional: Reports a
--- NOTE | 2024-07-03 13:43 | PM.IMPN ---
Progress Note: A&P Assessment and Plan (1) Acute hypoxic respiratory failure: Code(s): J96.01 - Acute respiratory failure with hypoxia Status: Acute Assessment and Plan: 07/02/24: Likely due to acute exacerbation of COPD Continue breathing treatment Continue to wean O2 for sat greater than 92% Currently on 1 L nasal cannula Finish full course of Rocephin and Azithromycin while inpatient 07/03/24: Continue to wean O2 for sat greater than 92% Currently on 1 L nasal cannula Will give Lasix for extra diuresis today considering her peripheral edema (2) Acute exacerbation of chronic obstructive pulmonary disease: Code(s): J44.1 - Chronic obstructive pulmonary disease with (acute) exacerbation Status: Acute Assessment and Plan: 07/02/24: Will add Flonase, Claritin, Singulair today Continue with breathing treatments Continue to wean O2 for sat greater than 92% Currently on 1 L nasal cannula Consult placed to Pulmonary Rehab 07/03/24: Change to current treatment plan (3) CHF (congestive heart failure): Code(s): I50.9 - Heart failure, unspecified Status: Acute Assessment and Plan: 07/02/24: Echo showed normal LV systolic function with an estimated EF of greater than 70%, grade 1 diastolic dysfunction Continue diuretics 07/03/24: No change to current treatment plan (4) Type 2 diabetes mellitus: Code(s): E11.9 - Type 2 diabetes mellitus without complications Status: Chronic Assessment and Plan: 07/02/24: Blood sugars ranging 117-203 Hgb A1C 6.0 Accu checks AC/HS High-dose SSI ordered hypoglycemic protocol in place Diabetic diet ordered 07/03/24: No change to current treatment plan (5) Chronic kidney disease: Qualifiers: Chronic kidney disease stage: stage 4 (severe) Qualified Code(s): N18.4 - Chronic kidney disease, stage 4 (severe) Code(s): N18.9 - Chronic kidney disease, unspecified Status: Acute Assessment and Plan: 07/02/24: Creatinine 2.4 which is patient's baseline 07/03/24: No change, creatinine 2.3 (6) Hypertension: Qualifiers: Hypertension type: unspecified Qualified Code(s): I10 - Essential (primary) hypertension Code(s): I10 - Essential (primary) hypertension Status: Chronic Assessment and Plan: 07/02/24: Blood pressures ranging 137/70-141/41 Continue losartan and isosorbide 07/03/24: No change to current treatment plan Time Spent With Patient Time with patient: 25 - 35 minutes Subjective Date/time seen: 07/03/24 13:43 Interval history: Interval history: Patient is a 74-year-old female who presented to the hospital on 06/27/2024 with shortness of breath and dyspnea. Workup in the hospital included chest x-ray which shown minimal bibasilar pulmonary edema left worse than right. Initial labs showed a white blood cell count of 11.9, RBC 3.89, hemoglobin 10.2, potassium 5.3, bicarb 20, creatinine 2.4, EGFR 20, proBNP 998. An echocardiogram was obtained on 06/28/2024 and shown normal LV systolic function with an estimated EF of 70%, grade 1 diastolic dysfunction. She finished a course of Rocephin and azithromycin while inpatient. Subjective: Patient denies any new complaints today. Labs reviewed. Currently on [facility] Review of Systems Review of Systems: All systems reviewed & are unremarkable except as noted in HPI and below Constitutional: Constitutional: Reports as per HPI and Reports no additional constitutional complaints Eyes: Eyes: Reports as per HPI and Reports no additional eye complaints ENT: Reports system reviewed and no additional complaints, except as documented and Reports as per HPI Cardiovascular: Cardiovascular: Reports as per HPI, Reports no additional cardiovascular complaints, Denies chest pain, Reports palpitations and Reports dyspnea on exertion Respiratory: Respiratory: Reports as per HPI, Reports no additional
[2024-07-03 16:58] LABS: Glucose Point of Care 120 mg/dl (65-105)
[2024-07-03] MEDS: MONTELUKAST SODIUM 10 MG TABLET PO (20:34)
[2024-07-03 22:18] LABS: Glucose Point of Care 239 mg/dl (65-105)
[2024-07-03] MEDS: guaiFENesin/DEXTROMETHORPHAN 10 ML UDC PO (22:33)
[2024-07-04] VITALS (19 sets, daily range): BP systolic 137–149; BP diastolic 34–54; PULSE 57–74; RESP 18–20; TEMP 36.6–37.2; O2SAT 94–99
[2024-07-04] MEDS: IPRATROPIUM 0.5 MG/ALBUTEROL SULFATE 2.5 MG AMPUL.NEB 3 ML INHALATION ×4 (01:57→20:26)
[2024-07-04 05:24] LABS: Basophils Percent Auto 0.2 % (0.2-1.2); Eosinophils Absolute Auto 0.4 K/mm3 (0-0.3); Eosinophils Percent Auto 2.9 % (0-4.4); Hemoglobin 9.8 g/dL (12.0-15.0); Immature Granulocyte Absolute 0.18 K/mm3 (0.00-0.031); Immature Granulocyte Percent A 1.2 % (0-0.5); Lymphocytes Absolute Auto 2.86 K/mm3 (0.9-3.2); Mean Corpuscular HGB Conc 29.7 g/dl (32-36); Mean Corpuscular Hemoglobin 25.7 pg (26-34); Mean Corpuscular Volume 86.6 fl (80-100); Mean Platelet Volume 11.9 fl (7.4-10.4); Monocytes Absolute Auto 1.2 K/mm3 (0.1-0.6); Neutrophils Absolute Auto 10.3 K/mm3 (1.3-6.7); Neutrophils Percent Auto 68.7 % (45.5-73.1); Platelet Count Result 193 k/mm3 (150-375); Red Blood Count 3.81 M/mm3 (4.2-5.4); Red Cell Distribution Width 17.2 % (11.5-14.5)
[2024-07-04 05:34] LABS: Alanine Aminotransferase 18 U/L (6-35); Alkaline Phosphatase 87 U/L (38-126); Anion Gap 7 mmol/L (4-12); Aspartate Amino Transferase 19 U/L (14-36); Bilirubin,Total 0.3 mg/dL (0.2-1.3); Blood Urea Nitrogen 69 mg/dL (7-17); Calcium 8.5 mg/dL (8.4-10.2); Carbon Dioxide 33 mmol/L (22-30); Chloride 102 mmol/L (98-107); Estimated CRCL calculation 24 ml/min; Estimated Glomerular Filt Rate 22; Glucose 63 mg/dL (65-110); Sodium 142 mmol/L (137-145)
[2024-07-04 06:04] LABS: Anisocytosis 1+; Platelet Estimate Adequate (Adequate)
[2024-07-04 06:05] LABS: Schistocytes None Seen
[2024-07-04 07:46] LABS: Glucose Point of Care 81 mg/dl (65-105)
[2024-07-04] MEDS: ISOSORBIDE MONONITRATE 60 MG TAB.ER.24H 120 MG PO (08:47)
[2024-07-04] MEDS: ASPIRIN 325 MG ENTERIC TABLET PO (08:47)
[2024-07-04] MEDS: FUROSEMIDE INJ 40 MG/4 ML VIAL IV PUSH (08:47)
[2024-07-04] MEDS: ENOXAPARIN 40 MG/0.4 ML SYRINGE SUB-Q (08:47)
[2024-07-04] MEDS: polyethylene glycoL 3350 17 GM POWD.PACK PO (08:47)
[2024-07-04] MEDS: TICAGRELOR 90 MG TABLET PO ×2 (08:48→20:20)
[2024-07-04] MEDS: cefuroxime axetiL 250 MG TABLET PO ×2 (08:48→20:20)
[2024-07-04] MEDS: FERROUS SULFATE 325 MG TABLET DR PO (08:48)
[2024-07-04] MEDS: LORATADINE 10 MG TABLET PO (08:48)
[2024-07-04] MEDS: PANTOPRAZOLE 40 MG TABLET PO (08:48)
[2024-07-04] MEDS: ROSUVASTATIN 20 MG TABLET PO (08:48)
[2024-07-04] MEDS: FAMOTIDINE 20 MG TABLET PO ×2 (08:48→16:38)
[2024-07-04] MEDS: carvediloL 12.5 MG TABLET PO ×2 (08:48→20:19)
[2024-07-04] MEDS: LOSARTAN POTASSIUM 100 MG TABLET PO (08:48)
[2024-07-04] MEDS: amLODIPine BESYLATE 10 MG TABLET PO (08:48)
[2024-07-04] MEDS: cloNIDine HCL 0.1 MG TABLET PO ×2 (08:49→16:38)
[2024-07-04] MEDS: FLUTICASONE PROPIONATE 0.05% NA SPR 16 GM BTL (*BKC) 1 SPRAY NASAL ×2 (08:49→20:21)
--- NOTE | 2024-07-04 08:55 | P.PNIM_ITS ---
Progress Note: A&P Assessment and Plan (1) Acute hypoxic respiratory failure: Code(s): J96.01 - Acute respiratory failure with hypoxia Status: Acute Assessment and Plan: Secondary to acute COPD exacerbation and CHF * Has required up to 3 L supplemental O2 during admission, slowly able to be weaned down. Now on room air * CXR on presentation with minimal bibasilar pulmonary edema/atelectasis * Monitor O2 sats closely (2) Acute exacerbation of chronic obstructive pulmonary disease: Code(s): J44.1 - Chronic obstructive pulmonary disease with (acute) exacerbation Status: Acute Assessment and Plan: As above * Has improved without need for IV steroids * Continue albuterol/ipratropium breathing treatments q.6 * Continue supportive care measures. Will add incentive spirometry, Cornet valve, guaifenesin * Has been weaned to room air as above and tolerating well * Continue p.o. cefuroxime, will complete 7 day course of antibiotic today (3) CHF (congestive heart failure): Code(s): I50.9 - Heart failure, unspecified Status: Acute Assessment and Plan: Diastolic CHF with acute symptoms * Echo completed during admission showed normal LV systolic function with an estimated EF of greater than 70%, grade 1 diastolic dysfunction * Currently on IV Lasix 40 mg BID. Will plan to transition to PO Lasix today and consider discharge home tomorrow if continued symptomatic improvement * Continued on home Bumex (4) Type 2 diabetes mellitus: Code(s): E11.9 - Type 2 diabetes mellitus without complications Status: Chronic Assessment and Plan: Stable. Last A1c 6.0 * Blood sugars have been fairly well controlled throughout admission * Fasting blood sugar in normal range today at 80s * Will plan to transition to low-dose sliding scale insulin * Continue hypoglycemic protocol with Accu-Cheks achs * Diabetic diet (5) Chronic kidney disease: Qualifiers: Chronic kidney disease stage: stage 4 (severe) Qualified Code(s): N18.4 - Chronic kidney disease, stage 4 (severe) Code(s): N18.9 - Chronic kidney disease, unspecified Status: Acute Assessment and Plan: Renal function stable, consistent with baseline * Continue to monitor BMP closely with diuresis * Has been evaluated by Nephrology during admission (6) Hypertension: Qualifiers: Hypertension type: unspecified Qualified Code(s): I10 - Essential (primary) hypertension Code(s): I10 - Essential (primary) hypertension Status: Chronic Assessment and Plan: Blood pressure remains stable, 149/54 today * Continue losartan and isosorbide * Monitor BP trends Subjective Date/time seen: 07/04/24 08:55 Interval history: Giovanna is feeling improved today. States that her breathing seems less labored. She denies FRANK or conversational dyspnea. Denies wheezing. States that she is coughing frequently but cough is nonproductive. Feels she is not able to expectorates sputum. She has been off supplemental oxygen since yesterday afternoon in seems to be tolerating this well. She continues to complain of swelling in her lower extremities but states this is slightly improved. She denies chest pain. She denies abdominal pain, nausea, vomiting, fever, chills. She is ambulating without difficulty. She denies dizziness, lightheadedness, or weakness. She is tolerating her diet. Reports frequent urination with Lasix. Review of Systems Review of Systems: All systems reviewed & are
--- NOTE | 2024-07-04 08:55 | PM.IMPN ---
Progress Note: A&P Assessment and Plan (1) Acute hypoxic respiratory failure: Code(s): J96.01 - Acute respiratory failure with hypoxia Status: Acute Assessment and Plan: Secondary to acute COPD exacerbation and CHF Has required up to 3 L supplemental O2 during admission, slowly able to be weaned down. Now on room air CXR on presentation with minimal bibasilar pulmonary edema/atelectasis Monitor O2 sats closely (2) Acute exacerbation of chronic obstructive pulmonary disease: Code(s): J44.1 - Chronic obstructive pulmonary disease with (acute) exacerbation Status: Acute Assessment and Plan: As above Has improved without need for IV steroids Continue albuterol/ipratropium breathing treatments q.6 Continue supportive care measures. Will add incentive spirometry, Cornet valve, guaifenesin Has been weaned to room air as above and tolerating well Continue p.o. cefuroxime, will complete 7 day course of antibiotic today (3) CHF (congestive heart failure): Code(s): I50.9 - Heart failure, unspecified Status: Acute Assessment and Plan: Diastolic CHF with acute symptoms Echo completed during admission showed normal LV systolic function with an estimated EF of greater than 70%, grade 1 diastolic dysfunction Currently on IV Lasix 40 mg BID. Will plan to transition to PO Lasix today and consider discharge home tomorrow if continued symptomatic improvement Continued on home Bumex (4) Type 2 diabetes mellitus: Code(s): E11.9 - Type 2 diabetes mellitus without complications Status: Chronic Assessment and Plan: Stable. Last A1c 6.0 Blood sugars have been fairly well controlled throughout admission Fasting blood sugar in normal range today at 80s Will plan to transition to low-dose sliding scale insulin Continue hypoglycemic protocol with Accu-Cheks achs Diabetic diet (5) Chronic kidney disease: Qualifiers: Chronic kidney disease stage: stage 4 (severe) Qualified Code(s): N18.4 - Chronic kidney disease, stage 4 (severe) Code(s): N18.9 - Chronic kidney disease, unspecified Status: Acute Assessment and Plan: Renal function stable, consistent with baseline Continue to monitor BMP closely with diuresis Has been evaluated by Nephrology during admission (6) Hypertension: Qualifiers: Hypertension type: unspecified Qualified Code(s): I10 - Essential (primary) hypertension Code(s): I10 - Essential (primary) hypertension Status: Chronic Assessment and Plan: Blood pressure remains stable, 149/54 today Continue losartan and isosorbide Monitor BP trends Subjective Date/time seen: 07/04/24 08:55 Interval history: Giovanna is feeling improved today. States that her breathing seems less labored. She denies FRANK or conversational dyspnea. Denies wheezing. States that she is coughing frequently but cough is nonproductive. Feels she is not able to expectorates sputum. She has been off supplemental oxygen since yesterday afternoon in seems to be tolerating this well. She continues to complain of swelling in her lower extremities but states this is slightly improved. She denies chest pain. She denies abdominal pain, nausea, vomiting, fever, chills. She is ambulating without difficulty. She denies dizziness, lightheadedness, or weakness. She is tolerating her diet. Reports frequent urination with Lasix. Review of Systems Review of Systems: All systems reviewed & are unremarkable except as noted in HPI and below Exam Narrative: General: Well-nourished, well-appearing 74-year-old female, sitting up in bed, comfortable, NARD Neuro: awake, alert and oriented x4, speech clear, no focal neuro deficits noted HEENMT: normocephalic, atraumatic, EOMI, sclerae anicteric Respiratory: clear to auscultation bilaterally without crackles, rhonchi, or wheezes, nonlabored breathing Car
--- NOTE | 2024-07-04 09:19 | P.PNNP_ITS ---
Progress Note: A&P Assessment and Plan (1) Chronic kidney disease, stage IV (severe): Code(s): N18.4 - Chronic kidney disease, stage 4 (severe) Status: Chronic Assessment and Plan: * creatinine ~ 2.3mg/dl in March 2024 * suspect this is her new baseline creatinine given her recent EMERITA/ARF on CKD in January 2024 * previous baseline creatinine around 1.5mg/dl * etiology of CKD due to hypertension, diabetes, vascular disease, age and leftovers from previous EMERITA/ARF * Creatinine seems to be settling down in the low 2s. Today it is 2.2 * She says she will follow-up with Nephrology as an outpatient (2) Acute hypoxic respiratory failure: Code(s): J96.01 - Acute respiratory failure with hypoxia Status: Acute Assessment and Plan: * presumably due to COPD and CHF exacerbation * see #3 and #4 * She still has mildly high expiratory phase. She is getting nebulizers. * follow respiratory status (3) Acute exacerbation of chronic obstructive pulmonary disease: Code(s): J44.1 - Chronic obstructive pulmonary disease with (acute) exacerbation Status: Acute Assessment and Plan: * on supplemental oxygen. On 1liter/minute per nasal cannula * on scheduled nebulizer treatments * on cefuroxime (4) CHF (congestive heart failure): Code(s): I50.9 - Heart failure, unspecified Status: Acute Assessment and Plan: * elevated BNP noted * admission CXR with some fluid; noted associated with LE edema * Echo done this admission shows grade 1 diastolic dysfunction, normal systolic function, normal right heart. No change from the prior echo * on IV diuretics: Furosemide 40mg IV b.i.d. * Intake/output negative by about 800cc * Continue diuretics since creatinine is stable (5) Hypertension: Qualifiers: Hypertension type: unspecified Qualified Code(s): I10 - Essential (primary) hypertension Code(s): I10 - Essential (primary) hypertension Status: Chronic Assessment and Plan: * Systolic in the 140s in rarely above 150. * Getting diuretics. * Systolic may come down with diuresis. (6) Type 2 diabetes mellitus: Code(s): E11.9 - Type 2 diabetes mellitus without complications Status: Chronic Assessment and Plan: * follow accu-cheks * glycemic control per hospitalists Subjective Date/time seen: 07/04/24 09:19 Interval history: Emma feels okay. She is eager for discharge tomorrow Exam Narrative: General: elderly but WD/WN female in NAD Heart: normal S1 and S2; no rub or gallop Lungs: Fairly clear but mildly increased expiratory phase Abdomen: soft, nontender, nondistended, positive bowel sounds Extremities: no cyanosis or clubbing; trace edema Skin: No rash or subQ nodules Objective Data Vital Signs Vital Signs: Vital Signs - 24 hr 07/03/24 13:28 07/03/24 13:32 07/03/24 13:32 Temperature 98.4 F Pulse Rate 64 64 Respiratory Rate 20 16 Blood Pressure 98/62 L Pulse Oximetry 93 96 Oxygen Delivery Room Air Fraction of Inspired Oxygen 21 07/03/24 12:00 07/03/24 13:40 07/03/24 16:00 Temperature Pulse Rate 53 L 67 62 Respiratory Rate 16 Blood Pressure Pulse Oximetry Oxygen Delivery Fraction of Inspired Oxygen
--- NOTE | 2024-07-04 09:19 | PM.PNNEP ---
Progress Note: A&P Assessment and Plan (1) Chronic kidney disease, stage IV (severe): Code(s): N18.4 - Chronic kidney disease, stage 4 (severe) Status: Chronic Assessment and Plan: creatinine ~ 2.3mg/dl in March 2024 suspect this is her new baseline creatinine given her recent EMERITA/ARF on CKD in January 2024 previous baseline creatinine around 1.5mg/dl etiology of CKD due to hypertension, diabetes, vascular disease, age and leftovers from previous EMERITA/ARF Creatinine seems to be settling down in the low 2s. Today it is 2.2 She says she will follow-up with Nephrology as an outpatient (2) Acute hypoxic respiratory failure: Code(s): J96.01 - Acute respiratory failure with hypoxia Status: Acute Assessment and Plan: presumably due to COPD and CHF exacerbation see #3 and #4 She still has mildly high expiratory phase. She is getting nebulizers. follow respiratory status (3) Acute exacerbation of chronic obstructive pulmonary disease: Code(s): J44.1 - Chronic obstructive pulmonary disease with (acute) exacerbation Status: Acute Assessment and Plan: on supplemental oxygen. On 1liter/minute per nasal cannula on scheduled nebulizer treatments on cefuroxime (4) CHF (congestive heart failure): Code(s): I50.9 - Heart failure, unspecified Status: Acute Assessment and Plan: elevated BNP noted admission CXR with some fluid; noted associated with LE edema Echo done this admission shows grade 1 diastolic dysfunction, normal systolic function, normal right heart. No change from the prior echo on IV diuretics: Furosemide 40mg IV b.i.d. Intake/output negative by about 800cc Continue diuretics since creatinine is stable (5) Hypertension: Qualifiers: Hypertension type: unspecified Qualified Code(s): I10 - Essential (primary) hypertension Code(s): I10 - Essential (primary) hypertension Status: Chronic Assessment and Plan: Systolic in the 140s in rarely above 150. Getting diuretics. Systolic may come down with diuresis. (6) Type 2 diabetes mellitus: Code(s): E11.9 - Type 2 diabetes mellitus without complications Status: Chronic Assessment and Plan: follow accu-cheks glycemic control per hospitalists Subjective Date/time seen: 07/04/24 09:19 Interval history: Emma feels okay. She is eager for discharge tomorrow Exam Narrative: General: elderly but WD/WN female in NAD Heart: normal S1 and S2; no rub or gallop Lungs: Fairly clear but mildly increased expiratory phase Abdomen: soft, nontender, nondistended, positive bowel sounds Extremities: no cyanosis or clubbing; trace edema Skin: No rash or subQ nodules Objective Data Vital Signs Vital Signs: Vital Signs - 24 hr 07/03/24 13:28 07/03/24 13:32 07/03/24 13:32 Temperature 98.4 F Pulse Rate 64 64 Respiratory Rate 20 16 Blood Pressure 98/62 L Pulse Oximetry 93 96 Oxygen Delivery Room Air Fraction of Inspired Oxygen 07/03/24 12:00 07/03/24 13:40 07/03/24 16:00 Temperature Pulse Rate 53 L 67 62 Respiratory Rate 16 Blood Pressure Pulse Oximetry Oxygen Delivery Fraction of Inspired Oxygen 07/03/24 17:21 07/03/24 20:35 07/03/24 20:00 Temperature Pulse Rate 62 81 Respiratory Rate Blood Pressure 134/53 L Pulse Oximetry Oxygen Delivery Fraction of Inspired Oxygen 07/03/24 22:10 07/04/24 00:00 07/04/24 01:57 Temperature 97.6 F Pulse Rate 62 57 L 63 Respiratory Rate 16 18 Blood Pressure 155/52 H Pulse Oximetry 96 Oxygen Delivery Fraction of Inspired Oxygen 07/04/24 02:03 07/04/24 04:00 07/04/24 05:08 Temperature 98 F Pulse Rate 60 60 65 Respiratory Rate 18 18 Blood Pressure 149/54 H Pulse Oximetry 98 Oxygen Delivery Fraction of Inspired Oxygen 07/04/24 07:33 07/04/24 07:33 07/04/24 07:
[2024-07-04] MEDS: guaiFENesin 12 HR 600 MG TABCR PO ×2 (09:32→20:20)
[2024-07-04] MEDS: guaiFENesin/DEXTROMETHORPHAN 10 ML UDC PO ×2 (10:10→20:20)
[2024-07-04 11:50] LABS: Glucose Point of Care 254 mg/dl (65-105)
[2024-07-04] MEDS: INSULIN ASPART (*BKC) 100 UNITS/ML SUB-Q (11:55)
[2024-07-04] MEDS: FUROSEMIDE 40 MG TABLET PO (16:38)
[2024-07-04] MEDS: INSULIN HUMAN ISOPHAN/REGULAR 70/30 (*BKC) 100 UNITS/ML 40 UNITS SUB-Q (16:41)
[2024-07-04 16:47] LABS: Glucose Point of Care 134 mg/dl (65-105)
[2024-07-04 19:52] LABS: Glucose Point of Care 195 mg/dl (65-105)
[2024-07-04] MEDS: MELATONIN 3 MG TABLET PO (20:19)
[2024-07-04] MEDS: MONTELUKAST SODIUM 10 MG TABLET PO (20:20)
[2024-07-04] MEDS: DOCUSATE SODIUM 100 MG CAPSULE PO (20:20)
[2024-07-05] VITALS (16 sets, daily range): BP systolic 138–144; BP diastolic 50–52; PULSE 54–98; RESP 17–20; TEMP 36.6–36.8; O2SAT 90–92
[2024-07-05] MEDS: IPRATROPIUM 0.5 MG/ALBUTEROL SULFATE 2.5 MG AMPUL.NEB 3 ML INHALATION ×3 (02:37→13:33)
[2024-07-05 06:06] LABS: Hematocrit 30.8 % (37.0-47.0); Hemoglobin 9.5 g/dL (12.0-15.0); Mean Corpuscular HGB Conc 30.8 g/dl (32-36); Mean Corpuscular Hemoglobin 26.3 pg (26-34); Mean Corpuscular Volume 85.3 fl (80-100); Mean Platelet Volume 11.9 fl (7.4-10.4); Platelet Count Result 172 k/mm3 (150-375); Red Blood Count 3.61 M/mm3 (4.2-5.4); Red Cell Distribution Width 17.2 % (11.5-14.5); White Blood Count 13.8 K/mm3 (4.5-10.0)
[2024-07-05 06:27] LABS: Albumin Level 3.8 g/dL (3.5-5.1); Anion Gap 9 mmol/L (4-12); Blood Urea Nitrogen 65 mg/dL (7-17); Calcium 8.7 mg/dL (8.4-10.2); Carbon Dioxide 29 mmol/L (22-30); Chloride 102 mmol/L (98-107); Estimated CRCL calculation 24 ml/min; Estimated Glomerular Filt Rate 22; Glucose 78 mg/dL (65-110); Phosphorus 4.2 mg/dL (2.5-4.5); Potassium 3.7 mmol/L (3.4-5.0); Sodium 140 mmol/L (137-145)
[2024-07-05 08:01] LABS: Glucose Point of Care 101 mg/dl (65-105)
[2024-07-05] MEDS: polyethylene glycoL 3350 17 GM POWD.PACK PO (08:46)
[2024-07-05] MEDS: guaiFENesin 12 HR 600 MG TABCR PO (08:47)
[2024-07-05] MEDS: FUROSEMIDE 40 MG TABLET PO (08:48)
[2024-07-05] MEDS: LORATADINE 10 MG TABLET PO (08:48)
[2024-07-05] MEDS: cloNIDine HCL 0.1 MG TABLET PO (08:48)
[2024-07-05] MEDS: carvediloL 12.5 MG TABLET PO (08:48)
[2024-07-05] MEDS: ISOSORBIDE MONONITRATE 60 MG TAB.ER.24H 120 MG PO (08:48)
[2024-07-05] MEDS: ROSUVASTATIN 20 MG TABLET PO (08:48)
[2024-07-05] MEDS: FERROUS SULFATE 325 MG TABLET DR PO (08:48)
[2024-07-05] MEDS: amLODIPine BESYLATE 10 MG TABLET PO (08:48)
[2024-07-05] MEDS: TICAGRELOR 90 MG TABLET PO (08:48)
[2024-07-05] MEDS: LOSARTAN POTASSIUM 100 MG TABLET PO (08:48)
[2024-07-05] MEDS: FAMOTIDINE 20 MG TABLET PO (08:48)
[2024-07-05] MEDS: PANTOPRAZOLE 40 MG TABLET PO (08:48)
[2024-07-05] MEDS: ASPIRIN 325 MG ENTERIC TABLET PO (08:48)
[2024-07-05] MEDS: INSULIN HUMAN ISOPHAN/REGULAR 70/30 (*BKC) 100 UNITS/ML 40 UNITS SUB-Q (08:49)
[2024-07-05] MEDS: FLUTICASONE PROPIONATE 0.05% NA SPR 16 GM BTL (*BKC) 1 SPRAY NASAL (08:49)
[2024-07-05] MEDS: ENOXAPARIN 40 MG/0.4 ML SYRINGE SUB-Q (08:49)
--- NOTE | 2024-07-05 10:30 | PM.PNNEP ---
Progress Note: A&P Assessment and Plan (1) Chronic kidney disease, stage IV (severe): Code(s): N18.4 - Chronic kidney disease, stage 4 (severe) Status: Chronic Assessment and Plan: creatinine ~ 2.3mg/dl in March 2024 suspect this is her new baseline creatinine given her recent EMERITA/ARF on CKD in January 2024 previous baseline creatinine around 1.5mg/dl etiology of CKD due to hypertension, diabetes, vascular disease, age and leftovers from previous EMERITA/ARF creatinine seems to be settling down in the low 2s. she will need follow-up with Nephrology as an outpatient (2) Acute hypoxic respiratory failure: Code(s): J96.01 - Acute respiratory failure with hypoxia Status: Acute Assessment and Plan: presumably due to COPD and CHF exacerbation see #3 and #4 She still has mildly high expiratory phase. She is getting nebulizers. follow respiratory status (3) Acute exacerbation of chronic obstructive pulmonary disease: Code(s): J44.1 - Chronic obstructive pulmonary disease with (acute) exacerbation Status: Acute Assessment and Plan: on supplemental oxygen. On 1liter/minute per nasal cannula on scheduled nebulizer treatments on cefuroxime (4) CHF (congestive heart failure): Code(s): I50.9 - Heart failure, unspecified Status: Acute Assessment and Plan: elevated BNP noted admission CXR with some fluid; noted associated with LE edema Echo done this admission shows grade 1 diastolic dysfunction, normal systolic function, normal right heart. No change from the prior echo on IV diuretics: Furosemide 40mg IV b.i.d. Intake/output negative by about 800cc continue diuretics since creatinine is stable (5) Hypertension: Qualifiers: Hypertension type: unspecified Qualified Code(s): I10 - Essential (primary) hypertension Code(s): I10 - Essential (primary) hypertension Status: Chronic Assessment and Plan: Systolic in the 140s in rarely above 150. Getting diuretics. Systolic may come down with diuresis. (6) Type 2 diabetes mellitus: Code(s): E11.9 - Type 2 diabetes mellitus without complications Status: Chronic Assessment and Plan: follow accu-cheks glycemic control per hospitalists Will continue to follow. Subjective Date/time seen: 07/05/24 10:30 Interval history: Follow-up for chronic kidney disease. Chart reviewed since last seen -- renal function/creatinine remains relatively stable with good urine output noted; no apparent distress voiced at the time of my visit; slow and ongoing improvement in breathing/respiratory status as well; hoping for discharge today. Exam Narrative: General: elderly but WD/WN female in NAD Heart: normal S1 and S2; no rub or gallop Lungs: Fairly clear but mildly increased expiratory phase Abdomen: soft, nontender, nondistended, positive bowel sounds Extremities: no cyanosis or clubbing; trace edema Skin: No nodules Objective Data Vital Signs Vital Signs: Vital Signs Temp Pulse Resp BP Pulse Ox O2 Del Method 07/05/24 10:15 86 92 Room Air 07/05/24 10:05 98 90 Room Air 07/05/24 10:00 86 92 Room Air 07/05/24 08:48 80 07/05/24 08:20 88 20 07/05/24 08:12 87 20 07/05/24 08:12 92 Room Air 07/05/24 05:29 98.2 F 64 18 144/50 H 91 07/05/24 04:00 54 L 07/05/24 00:00 61 07/04/24 20:00 62 07/05/24 02:46 58 L 20 07/05/24 02:39 58 L 20 07/04/24 20:15 Room Air 07/04/24 20:37 60 20 07/04/24 20:28 59 L 20 07/04/24 20:19 61 07/04/24 19:56 97.9 F 62 18 137/45 L 94 07/04/24 16:03 63 07/04/24 14:00 98.9 F 62 18 141/34 H 99 07/04/24 14:00 65 20 07/04/24 13:52 68 20 Intake/Output Intake/Output: Intake & Output 07/02/24 07/03/24 07/04/24 07/05/24 23:59 23:59 23:59 23:59
--- NOTE | 2024-07-05 10:30 | P.PNNP_ITS ---
Progress Note: A&P Assessment and Plan (1) Chronic kidney disease, stage IV (severe): Code(s): N18.4 - Chronic kidney disease, stage 4 (severe) Status: Chronic Assessment and Plan: * creatinine ~ 2.3mg/dl in March 2024 * suspect this is her new baseline creatinine given her recent EMERITA/ARF on CKD in January 2024 * previous baseline creatinine around 1.5mg/dl * etiology of CKD due to hypertension, diabetes, vascular disease, age and leftovers from previous EMERITA/ARF * creatinine seems to be settling down in the low 2s. * she will need follow-up with Nephrology as an outpatient (2) Acute hypoxic respiratory failure: Code(s): J96.01 - Acute respiratory failure with hypoxia Status: Acute Assessment and Plan: * presumably due to COPD and CHF exacerbation * see #3 and #4 * She still has mildly high expiratory phase. She is getting nebulizers. * follow respiratory status (3) Acute exacerbation of chronic obstructive pulmonary disease: Code(s): J44.1 - Chronic obstructive pulmonary disease with (acute) exacerbation Status: Acute Assessment and Plan: * on supplemental oxygen. On 1liter/minute per nasal cannula * on scheduled nebulizer treatments * on cefuroxime (4) CHF (congestive heart failure): Code(s): I50.9 - Heart failure, unspecified Status: Acute Assessment and Plan: * elevated BNP noted * admission CXR with some fluid; noted associated with LE edema * Echo done this admission shows grade 1 diastolic dysfunction, normal systolic function, normal right heart. No change from the prior echo * on IV diuretics: Furosemide 40mg IV b.i.d. * Intake/output negative by about 800cc * continue diuretics since creatinine is stable (5) Hypertension: Qualifiers: Hypertension type: unspecified Qualified Code(s): I10 - Essential (primary) hypertension Code(s): I10 - Essential (primary) hypertension Status: Chronic Assessment and Plan: * Systolic in the 140s in rarely above 150. * Getting diuretics. * Systolic may come down with diuresis. (6) Type 2 diabetes mellitus: Code(s): E11.9 - Type 2 diabetes mellitus without complications Status: Chronic Assessment and Plan: * follow accu-cheks * glycemic control per hospitalists Will continue to follow. Subjective Date/time seen: 09/16/24 10:30 Interval history: Follow-up for chronic kidney disease. Chart reviewed since last seen -- renal function/creatinine remains relatively stable with good urine output noted; no apparent distress voiced at the time of my visit; slow and ongoing improvement in breathing/respiratory status as well; hoping for discharge today. Exam Narrative: General: elderly but WD/WN female in NAD Heart: normal S1 and S2; no rub or gallop Lungs: Fairly clear but mildly increased expiratory phase Abdomen: soft, nontender, nondistended, positive bowel sounds Extremities: no cyanosis or clubbing; trace edema Skin: No nodules Objective Data Vital Signs Vital Signs: Vital Signs Temp Pulse Resp BP Pulse Ox O2 Del Method 07/05/24 10:15 86 92 Room Air 07/05/24 10:05 98 90 Room Air 07/05/24 10:00 86 92 Room Air 07/05/24 08:48 80 07/05/24 08:20 88 20 07/05/24 08:12 87 20 07/05/24 08:12 92 Harleen
--- NOTE | 2024-07-05 11:17 | PM.DS ---
DS: Admitting Diagnosis Discharge Date 07/05/24 Admitting Diagnosis Acute exacerbation of chronic obstructive pulmonary disease Acute hypoxic respiratory failure CHF Type 2 diabetes mellitus Chronic kidney disease Hypertension Tobacco abuse DS: Summary Hospital Course Reason for hospitalization: Acute exacerbation of chronic obstructive pulmonary disease Acute hypoxic respiratory failure CHF Type 2 diabetes mellitus Chronic kidney disease Hypertension Tobacco abuse Hospital Course: Patient is a 74-year-old female who presented to the hospital on 06/27/2024 with shortness of breath and dyspnea. Workup in the hospital included chest x-ray which shown minimal bibasilar pulmonary edema left worse than right. Initial labs showed a white blood cell count of 11.9, RBC 3.89, hemoglobin 10.2, potassium 5.3, bicarb 20, creatinine 2.4, EGFR 20, proBNP 998. An echocardiogram was obtained on 06/28/2024 and shown normal LV systolic function with an estimated EF of 70%, grade 1 diastolic dysfunction. She finished a course of Rocephin and azithromycin while inpatient. During the course of her stay she was weaned off oxygen and had a home O2 evaluation done which she passed and does not require O2 with rest or activity. Labs reviewed. Chest x-ray today showing improvement. Her Lasix was increased to 40 mg twice a day. Patient denies any new complaints she is stable for discharge at this time. She will need to follow up with her primary care physician in 1 week. Final diagnosis: Acute hypoxic respiratory failure, acute exacerbation of COPD, acute exacerbation of CHF, community-acquired pneumonia Status at Discharge Cognitive/behavioral status at discharge: Alert oriented x4 Functional status at discharge: independent ambulation Overall status at discharge: patient is progressing back to baseline Time Spent with Patient Time attestation: Total time spent providing and/or coordinating discharge services: Time spent: Greater than 30 minutes Exam Narrative: General: In no acute distress, well nourished Cardiac: Normal S1 and S2. No murmur, gallops or friction rubs, peripheral pulses intact. Respiratory: Lungs clear, diminished in the bases currently on room air, shortness a breath with exertion Gastrointestinal: soft, non-distended, non-tender, normoactive bowel sounds. : voiding without difficulty, clear yellow urine Extremities: moves all extremities well, 1+ pitting edema BLE Neuro: Alert and oriented x4 DS: Data Data Completed and Pending Completed studies during hospitalization: Chest x-ray x5 Pending studies at discharge: None Labs on day of discharge: Labs from last 24 hours 07/05/24 07/05/24 07/04/24 07:54 05:27 19:30 WBC 13.8 H RBC 3.61 L Hgb 9.5 L Hct 30.8 L MCV 85.3 MCH 26.3 MCHC 30.8 L RDW 17.2 H Plt Count 172 MPV 11.9 H Sodium 140 Potassium 3.7 Chloride 102 Carbon Dioxide 29 Anion Gap 9 BUN 65 H Creatinine 2.20 H Estim Creat Clear Calc 24 Estimated GFR 22 L Glucose 78 POC Capillary Glucose 101 195 H Calcium 8.7 Phosphorus 4.2 Albumin 3.8 07/04/24 07/04/24 16:37 11:43 WBC RBC Hgb Hct MCV MCH MCHC RDW Plt Count MPV Sodium Potassium Chloride Carbon Dioxide Anion Gap BUN Creatinine Estim Creat Clear Calc Estimated GFR Glucose POC Capillary Glucose 134 H 254 H Calcium Phosphorus Albumin Procedures/Treatments: None Discharge Plan Discharge Attending physician on discharge: Jv Jaime Consulting providers: Mitchell Donato; Viviana Valle Discharging Clinician: Viviana Valle Anticipated Discharge Date/Time: 07/05/24 11:11 Patient Disposition: Home Health Service Activity: as tolerated Diet: as tolerated Discharge Instructions: Per Care Coordination. Patient to have [facility] for PT/OT eval and treat [phone]
[2024-07-05 12:21] LABS: Glucose Point of Care 167 mg/dl (65-105)
--- NOTE | 2024-07-05 12:48 | HOMEO2EVAL ---
Evaluation was performed at [facility] O[facility] Evaluation RC: Home Oxygen (O2) Evaluation Start: 07/05/24 08:14 Freq: ONCE Status: Active Protocol: RPE Activity Type Activity Date Activity User E-sign Co-sign Detail Recorded Client Recorded Date Recorded By Document 07/05/24 10:00 [email or web address] [email or web address] 07/05/24 12:48 DJO Document 07/05/24 10:05 [email or web address] [email or web address] 07/05/24 12:48 DJO Document 07/05/24 10:15 [email or web address] [email or web address] 07/05/24 12:48 DJO 07/05/24 07/05/24 07/05/24 10:00 10:05 10:15 Home O2 Evaluation [Oxygen] -Test Phase Resting Exercise Resting -Oxygen Delivery Room Air Room Air Room Air [Pulse Oximetry] -Pulse Oximetry (90-100 %) 92 90 92 [Pulse Rate] -Pulse Rate (60-100 beats/min) 86 98 86 [Evaluation] -Activity Tolerance Fair [Charges] -Evaluation Charges O2 Evaluation by Pulmonary
--- NOTE | 2024-07-05 12:48 | PCRCNOTE ---
HOME O2 EVAL COMPLETE, NO REQUIREMENTS
== END 2024-07-05 15:10 | disposition home health service (06) | DRG 190 ==
LOC: ANHED 06-28 00:23 → ANH2MED 06-28 00:29
PROVIDERS: Internal Medicine Nephrology; Nurse Practitioner Family; Physician Assistant; Admitting Provider Internal Medicine; Emergency Provider Emergency Medicine; PCP Emergency Medicine; Visit Provider Nurse Practitioner Acute Care
DX: J44.1 Chronic obstructive pulmonary disease with (acute) exacerbation (principal); I50.31 Acute diastolic (congestive) heart failure; J18.9 Pneumonia, unspecified organism; J96.01 Acute respiratory failure with hypoxia; I13.0 Hypertensive heart and chronic kidney disease with heart failure and stage 1 through stage 4 chronic kidney disease, or unspecified chronic kidney disease; N18.4 Chronic kidney disease, stage 4 (severe); J44.0 Chronic obstructive pulmonary disease with (acute) lower respiratory infection; E11.22 Type 2 diabetes mellitus with diabetic chronic kidney disease; E55.9 Vitamin D deficiency, unspecified; E78.5 Hyperlipidemia, unspecified; E66.01 Morbid (severe) obesity due to excess calories; F17.210 Nicotine dependence, cigarettes, uncomplicated; G89.29 Other chronic pain; I25.10 Atherosclerotic heart disease of native coronary artery without angina pectoris; J43.9 Emphysema, unspecified; K59.00 Constipation, unspecified; K21.9 Gastro-esophageal reflux disease without esophagitis; Z79.84 Long term (current) use of oral hypoglycemic drugs; Z79.4 Long term (current) use of insulin; Z90.49 Acquired absence of other specified parts of digestive tract; Z95.5 Presence of coronary angioplasty implant and graft; Z96.82 Presence of neurostimulator
CPT/HCPCS: 36415; 71045; 71046; 80048; 80053; 80069; 82306; 82948; 83735; 83880; 84484; 85025; 85027; 85380; 93005; 93306; 94618; 94640; 94667; 96361; 96374; 96375; 97110; 97116; 97161; 97166; 97530; 97535; 99284; 99291; A9270; J0456; J0696; J1650; J1815; J1940; J2919; J7120

== ENCOUNTER 2025-03-03 10:37 | Inpatient (IN) | payer MEDICARE, SELFPAY ==
[2025-03-03] VITALS (8 sets, daily range): BP systolic 119–153; BP diastolic 39–58; PULSE 54–84; RESP 16–28; TEMP 36.2–36.6; O2SAT 93–98; BMI 46.5
--- NOTE | ~2025-03-03 | US_ITS ---
EXAMINATION: US renal BI DATE: 03/04/2025 10:37 INDICATION: Acute on chronic kidney disease TECHNIQUE: Multiple ultrasound grayscale images of the kidneys were obtained. COMPARISON: None. FINDINGS: The right kidney measures 10.0 x 4.6 x 4.9 cm. The left kidney measures 11.8 x 4.4 x 6.2 cm. The kidn eys demonstrate normal echogenicity. There is no hydronephrosis in either kidney. No stones identifi ed. The bladder is normal. IMPRESSION: 1. Normal kidneys without hydronephrosis. Reviewed, dictated and finalized at location A.
--- NOTE | ~2025-03-03 | XR_ITS ---
Portable chest x-ray Comparison: 07/05/2024 Clinical History: Chest pain Findings: Suspected minimal pleural effusions and minimal bibasilar pulmonary edema. Cardiomediasti nal silhouette is stable. Bones and soft tissues are unremarkable, aside from stable neurostimulator device. Impression: Probable minimal pleural effusions and minimal bibasilar pulmonary edema. Reviewed, dictated and finalized at location . Impression: Probable minimal pleural effusions and minimal bibasilar pulmonary edema.
--- NOTE | ~2025-03-03 | XR_ITS ---
Portable chest x-ray Comparison: 03/03/2025 Clinical History: Shortness of breath Findings: Suggestion of minimal bibasilar pulmonary edema. Cardiomediastinal silhouette is stable. Bones and soft tissues are unremarkable. Impression: Probable minimal bibasilar pulmonary edema. Reviewed, dictated and finalized at [facility]. Impression: Probable minimal bibasilar pulmonary edema.
--- OUTSIDE RECORDS SUMMARY | 2025-03-03 10:42 | XMS_ITS | Clinical Summary ---
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 Role Phone Unavailable Primary Care Provider Unavailabl e Social History Tobacco Use Types Packs/Day Years Used Date Smoking Tobacco: Never Assessed Comments Unknown Sex and Gender Information Value Date Recorded Sex Assigned at Not on file Legal Sex Female 9:41 PM CDT Gender Identity Not on file Sexual Orientation Not on file Plan of Treatment Health Maintenance Due Date Last Done Comments Hepatitis C 02/04/1966 DTaP, Tdap and Td Vaccines ( 1 - Tdap) 02/04/1967 Pneumococcal Vaccine: 50+ Ye ars (1 of 1 - PCV) 02/04/1998 Zoster Vaccines (1 of 2) 02/04/1998 Dexa Scan (General) 02/04/2013 RSV Immunization or 60+ Years (1 - 1-dose 75+ series) 02/04/2023 COVID-19 Vaccine ( - 2023-2 5 season) 2024 Meningococcal B Vaccine Aged Out No l onger eligible based on patient's age to complete this topic Meningococcal Vaccine Aged Out No maria esther el eligible based on patient's age to complete this topic RSV Immunizations Under 20 Months Aged Out No longer eligible based on patient's age to complete this topic
--- OUTSIDE RECORDS SUMMARY | 2025-03-03 10:42 | XMS_ITS | Continuity of Care Document ---
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 [address] , [address], [place], [address], [place]. tel:[phone] Referring Provider: Belkis Faust, [facility] [place], [address]. tel:[phone] Family History Family Member Type Diagnosis Age At Onset No Information Payers Payer name Insurance type Covered alliance party ID Authoriza tizachariah(s) BCBS [place] Out Of [place] [id number] Social History Type Description Quantity Date Captured [...]
--- OUTSIDE RECORDS SUMMARY | 2025-03-03 10:42 | XMS_ITS | Referral Summary ---
Author Organization [facility] [address] Address [address] [place] [address] Care Team Providers Care Hammer Shop Supervisor Name Role Phone Morgan Santiago MD Primary Care Provide r Encounters Date Type Department Care Team Description 12/30/2024 Telephone [facility] Cardiology [address] [facility] [address] [place] [address] Wilfrido Hernandez MD Med Management from Last 3 Months Allergies Active Allergy Reactions Criticality Noted Date Comments Atorvastatin Other (See comments) Low Reaction: Legs hurt, Morphine Dizziness Low 08/12/2017 Simvastatin Other (See comments) Reaction: Legs hurt, Sulfa (Sulfonamide Antibiotics) Itching High Reaction: ITCHING Sulfanilamide Medications cloNIDine (CATAPRES) 0.1 mg tablet Take 1 tablet (0.1 mg total) by mouth 2 (two) times a day Active meloxicam (MOBIC) 7.5 mg tablet Take 1 tablet (7.5 mg total) by mouth daily 07/03/20 20 Active insulin NPH-insulin regular 70/30 (HumuLIN 70/30,NovoLIN 70/30) 100 unit/mL vial for injection Inject 40 Units under the skin every morning Active insulin NPH-insulin regular 70/30 (HumuLIN 70/30,NovoLIN 70/30) 100 unit/mL vial for injection Inject 40 Units under the skin every evening Active metFORMIN (GLUCOPHAGE) 1,000 mg tablet Take 1 tablet (1,000 mg total) by mouth 2 (two) times a day with meals Active fluticasone propion-salmeteroL (ADVAIR DISKUS) 250-50 mcg/dose diskus inhaler 03/03/20 23 Active fluticasone propionate (FLONASE) 50 mcg/actuation nasal spray USE 1 SPRAY(S) IN EACH NOSTRIL ONCE DAILY 02/06/20 23 Active lansoprazole (PREVACID) 30 mg capsule Take 1 capsule (30 mg total) by mouth daily 01/12/20 24 Active famotidine (PEPCID) 20 mg tablet Take 1 tablet (20 mg total) by mouth 2 (two) times a day 01/12/20 24 Active albuterol 2.5 mg /3 mL (0.083 %) nebulizer solution USE 1 VIAL IN NEBULIZER EVERY 4 TO 6 HOURS NEEDED FOR SHORTNESS OF BREATH FOR WHEEZING . APPOINTMENT REQUIRED FOR FUTURE REFILLS 01/06/20 24 Active loratadine (CLARITIN) 10 mg tablet Take 1 tablet (10 mg total) by mouth daily 12/25/19 24 Active FeroSuL 325 mg (65 mg iron) tablet Take 1 tablet (325 mg total) by mouth daily 03/04/20 24 Active losartan (COZAAR) 100 mg tabletIndications: Essential hypertension Take 1 tablet (100 mg total) by mouth daily 90 tablet 3 04/21/20 24 Active rosuvastatin (CRESTOR) 20 mg tabletIndications: Multiple-type hyperlipidemia Take 1 tablet (20 mg total) by mouth daily 90 tablet 3 04/21/20 24 Active nitroglycerin (NITROSTAT) 0.4 mg SL tabletIndications: Coronary artery disease of [place] artery of [place] heart with stable angina pectoris Place 1 tablet (0.4 mg total) under the tongue every 5 (five) minutes as needed for chest pain 25 tablet 1 04/21/20 24 Active bumetanide (BUMEX) 2 mg tabletIndications: Edema of both lower extremities Take 1 tablet (2 mg total) by mouth daily 90 tablet 3 04/21/20 24 Active Brilinta 90 mg tablet Take 1 tablet (90 mg total) by mouth 2 (two) times a day 60 tablet 11 04/21/20 24 Active aspirin 81 mg enteric coated tablet Take 1 tablet (81 mg total) by mouth daily 30 tablet 11 04/21/20 24 025 Active carvediloL (COREG) 12.5 mg tabletIndications: Coronary artery disease of [place] artery of [place] heart with stable angina pectoris,Hypertens ion associated with diabetes (HCC) Take 1 tablet by mouth twice daily 180 tablet 05/19/20 Active amLODIPine (NORVASC) 10 mg tablet Take 1 tablet by mouth once daily 90 tablet 2 08/10/20 Active isosorbide mononitrate ER (IMDUR) 120 mg 24 hr tablet Take 1 tablet by mouth once daily 90 tablet 12/13/19 25 Active Active Problems Problem Noted Date Diagnosed Date Morbid (severe) obesity due to excess calories 0 04/21/2024 Body mass index 40.0-44.9, adult (CMS/HCC) 04/21 Other chest pain 04/03/2023 Other emphysema 04/03/2023 Shortness of breath 04/02/2023 Epigastric pain 12/31/2021 Urinary incontinence 12/31/2021 Edema of both lower extremities 02/14/2020 Essential hypertension 08/12/2017 Assessment & Plan (01/30/2018 3:39 PM CDT): Hypertension isnot at goal today but pt has not take her morning meds yet. Assessment & Plan (08/12/2017 7:19 PM CDT): Hypertension is mildly elevated today. Usually runs better. GERD (gastroesophageal reflux disease) 7 Noncompliance 08/12/2017 Assessment & Plan (08/12/2017 7:20 PM CDT): Patient has a history of noncompliance at times related to knowledge deficit. Today did not bring a medication list or know her medications. Chronic back pain 08/12/2017 Assessment & Plan (01/30/2018 3:41 PM CDT): Pt thinks she may want surgery for back and will be seeing a surgeon soon. She is at risk for complications because of her extensive cardiac history and her smoking/vascular disease. She would not be a low-risk candidate. Class 3 obesity 08/12/2017 Assessment & Plan (01/30/2018 3:40 PM CDT): Pt unable to loose any significant weight; not able to be very active 2nd severe chronic back pain. Tobacco use 02/04/2017 Overview (03/14/2017): Tobacco abuse Assessment & Plan (01/30/2018 3:40 PM CDT): Unable to quit smoking. Heart that vapor cigarettes cause cancer so did not want to try them. Assessment & Plan (08/12/2017 7:19 PM CDT): Unable to quit smoking completely CKD stage 3 due to type 2 diabetes mellitus 05/2016 Overview (01/24/2017): Type 2 diabetes mellitus with hyperlipidemia Peripheral arterial occlusive disease 05/29/2015 Overview (01/24/2017): PAD (peripheral artery disease) Assessment & Plan (01/30/2018 3:38 PM CDT): Arterial Doppler study suggested small vessel disease of the feet. Doing fairly well, no significant symptoms Assessment & Plan (08/12/2017 7:18 PM CDT): Arterial Doppler study suggested small vessel disease of the feet. Doing fairly well, no significant symptoms. 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 LDL at goal on simvastatin 20 mg daily No myalgias although the patient is also taking gemfibrozil. Assessment & Plan (08/12/2017 7:21 PM CDT): 11/2015: Total cholesterol 135, TG 175, LDL 51 POC lipids today: Total cholesterol 148, TG 208, LDL 62. LDL at goal on simvastatin 20 mg daily No myalgias although the patient is also taking gemfibrozil. Coronary artery disease of [place] artery of [place] heart with stable angina pectoris 12/13/2013 Overview (01/23/2017): CRNRFederico BEE NATALEKS VSSL Assessment & Plan (01/30/2018 3:37 PM CDT): History of multiple interventions, particularly of the RCA, most recent being in November 2012. February 2015: Lexiscan showed a small area of ischemia in the inferolateral wall consistent with her chronic total occlusion of the OM . Psychological and physical stressors often will cause angina Seems to be doing remarkably well since she retired with no recent angina on current medical therapy Assessment & Plan (08/12/2017 7:17 PM CDT): History of multiple interventions, particularly of the RCA, most recent being in November 2012. February 2015: Lexiscan showed a small area of ischemia in the inferolateral wall consistent with her chronic total occlusion of the OM . Psychological and physical stressors often will cause angina Seems to be doing remarkably well with no angina for several months on current medical therapy. Post percutaneous transluminal coronary angiopla sty 12/13/2013 Overview (01/24/2017): STATUS-POST PTCA Resolved Problems Problem Noted Date Diagnosed Date Resolved Date Body mass index 40+ - severely obese 02/04/2017 08/12/2017 Overview (03/14/2017): Morbid obesity with BMI of 40.0-44.9, adult Acute ischemic heart disease 12/13/2013 08/12/2017 Overview (01/24/2017): AC ISCHEMIC HRT DIS NEC Tobacco dependence syndrome 12/13/2013 08/12/2017 Overview (01/25/2017): TOBACCO USE DISORDER Social History Tobacco Use Types Packs/Day Years Used Date Smoking Tobacco: Heavy Smoker Cigarettes 1 55 Smokeless Tobacco: Never Tobacco Cessation:Ready to Q uit: Not Asked; Counseling Given: Not Answered Comments:Smoking History Packs/day: 1 Packs Alcohol Use Standard Drinks/Week Comments No 0 (1 standard drink = 0.6 oz pur e alcohol) Comments Unknown Sex and Gender Information Value Date Recorded Sex Assigned at Not on file Legal Sex Female 1:40 AM DIRECTOR OPERATIONS Gender Identity Not on file Sexual Orientation Not on file Last Filed Vital Signs Vital Sign Reading Time Taken Comments Blood Pressure 152/52 04/21/2024 3:33 PM CDT Pulse 62 04/21/2024 3:33 PM CDT Temperature - - Respiratory Rate - - Oxygen Saturation 94% 04/21/2024 3:33 PM CDT Inhaled Oxygen Concentration - - Weight 114.3 kg (252 lb) 04/21/2024 3:33 PM CDT Height 160 cm (5' 3 ) 04/21/2024 3:33 PM CDT Body Mass Index 44.64 04/21/2024 3:33 PM CDT Plan of Treatment Not on file Procedures Procedure Name Priority Date/Time Associated Diagnosis Comments POCT LIPID PANEL Routine 04/21/2024 3:38 PM CDT Lipid screening COMPREHENSIVE METABOLIC PANEL Routine 04/29/2023 9:10 AM CDT Coronary artery disease of [place] artery of [place] heart with stable angina pectoris Essential hypertension Shortness of breath from Last 3 Months or Most Recently Relevant to Health Maintenance Results * POCT lipid panel (04/21/2024 3:38 PM CDT) Cholesterol, POC 118 mg/dL HDL, POC 37 mg/dL Triglycerides, POC 256 mg/dL LDL Cholesterol POC 30 mg/dL Chol/HDL Ratio, POC 0.8 Non-HDL Cholesterol, POC 81 mg/dL Cholesterol Total, POC 118 mg/dL Capillary blood 04/21/2024 3 :38 PM CDT Nery Kasper NP POINT OF CARE TEST ORDERABLE S Final Result * (ABNORMAL) Comprehensive metabolic panel (04/29/2023 9:10 AM CDT) Glucose 96 65 - 99 mg/dL [facility] Comment: Fasting reference interval BUN 35(H) 7 - 25 mg/dL [facility] Creatinine 1.54(H) 0.60 - 1.00 mg/dL [facility] eGFR 35(L) > OR = 60 mL/min/1.7 3m2 [facility] Comment: The eGFR is based on the CKD-EPI 2020 equation. To calculate the new eGFR from a previous Creatinine or Cystatin C result, go to https://www.kidney.org/professionals/ kdoqi/gfr%5Fcalculator BUN/creat ratio 23(H) 6 - 22 (calc) [facility] Sodium 142 135 - 146 mmol/L [facility] Potassium, pl 4.9 3.5 - 5.3 mmol/L [facility] Chloride 106 98 - 110 mmol/L [facility] CO2 24 20 - 32 mmol/L [facility] Calcium 9.1 8.6 - 10.4 mg/dL [facility] Protein, sr 7.4 6.1 - 8.1 g/dL [facility] Albumin 4.0 3.6 - 5.1 g/dL [facility] GLOBULIN 3.4 1.9 - 3.7 g/dL (calc) [facility] Alb/glob ratio 1.2 1.0 - 2.5 (calc) [facility] Bilirubin, total 0.2 0.2 - 1.2 mg/dL [facility] Alk phos 94 37 - 153 U/L [facility] AST 9(L) 10 - 35 U/L [facility] ALT (SGPT) 10 6 - 29 U/L [facility] Blood 04/29/2023 9:10 AM CDT 04/29/2023 9:11 AM CDT Narrative [facility] - 04/30/2023 4:57 PM CDT FASTING:YES FASTING: YES us Abbie Garcia MD LAB BLOOD ORDERABLES Final Result [facility] [id number] [phone] from Last 3 Months or Most Recently Relevant to Health Maintenance Insurance [facility] MEDICARE ADVANTAGE [place] [id number] [place] [id number] Care Teams Hammer Shop Supervisor Relationship Specialty Start Date End Date Morgan Santiago MD [address] [place] [address] PCP - General 01/17/17
--- OUTSIDE RECORDS SUMMARY | 2025-03-03 10:43 | XMS_ITS | Encounter Summary ---
Author Organization [facility] Address [address] [place] [address] Care Team Providers Care Hand Salter Name Role Phone Julio Lr MD Primary Care Provider + Encounter Details Date Type Department Care Team (Late st Contact Info) Description 12/19/2006 [facility] [address] [place] [address] Varghese Redman MD NO ADDRESS ON FILE Social History Tobacco Use Types Packs/Day Years Used Date Smoking Tobacco: Never Assessed Comments Unknown Sex and Gender Information Value Date Recorded Sex Assigned at Not on file Legal Sex Female 5:05 AM OFFICE NURSE Gender Identity Not on file Sexual Orientation Not on file documented as of this encounter Plan of Treatment Not on file documented as of this encounter Visit Diagnoses Not on filedocumented in this encounter Care Teams Hand Salter Relationship Specialty Start Date End Date Julio Lr MD [address] [place] [phone] PCP - General 12/19/06 documented as of this encounter
--- OUTSIDE RECORDS SUMMARY | 2025-03-03 10:43 | XMS_ITS | Encounter Summary ---
Author Organization [employer] Address [address] [place] [address] Care Team Providers Care Crab Fisher Name Role Phone Julio Lr MD Primary Care Provider + Encounter Details Date Type Department Care Team (Latest Contact Info) Description 09/23/2006 Inpatient Historical HIS PATIENT IN A BED Preet Hale MD [address] [facility] [address] [place], [place] [id number] Coronary Atherosclerosis of [place] Coronary Artery (Primary Dx) Social History Tobacco Use Types Packs/Day Years Used Date Smoking Tobacco: Never Assessed Comments Unknown Sex and Gender Information Value Date Recorded Sex Assigned at Not on file Legal Sex Female 5:05 AM 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 Gender Identity Not on file Sexual Orientation Not on file documented as of this encounter Plan of Treatment Not on file documented as of this encounter Procedures Procedure Name Priority Date/Time Associated Diagnosis Comments PT AND APTT Routine 09/23/2006 12:41 PM PIPE CLEANING 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 CBC WITH DIFFERENTIAL Routine 09/23/2006 12:41 PM PIPE CLEANING 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 CBC WITH DIFFERENTIAL Routine 09/23/2006 12:41 PM PIPE CLEANING 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 BASIC METABOLIC PANEL Routine 09/23/2006 12:41 PM PIPE CLEANING 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 documented in this encounter Results * CBC WITH DIFFERENTIAL (09/23/2006 12:41 PM PIPE CLEANING 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) NEUTROPHILS 53 45 - 70 % INTERFAC E SYSTEM LYMPHOCYTES 41 16 - 45 % INTERFAC E SYSTEM MONOCYTES 4 3 - 13 % INTERFACE SYSTEM EOSINOPHILS 2 0 - 7 % INTERFAC E SYSTEM BASOPHILS 0 0 - 2 % INTERFACE SYSTEM NEUTROPHIL ABSOLUTE 3.27 1.90 - 7.00 K/uL INTERFACE SYSTEM LYMPHOCYTE ABSOLUTE 2.54 0.70 - 4.50 K/uL INTERFACE SYSTEM MONOCYTE ABSOLUTE 0.23 0.10 - 1.30 K/uL INTERFACE SYSTEM EOSINOPHIL ABSOLUTE 0.13 0.00 - 0.70 K/uL INTERFACE SYSTEM BASOPHILS ABSOLUTE 0.02 0.00 - 0.20 K/uL INTERFACE SYSTEM 09/23/2006 12:4 1 PM PIPE CLEANING 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 Preet Hale MD HEMATOLOGY ORDERABLES Final Result Performing Organization Address City/[facility] Co de Phone Number INTERFACE SYSTEM Refer to clinic/hospital department * (ABNORMAL) CBC WITH DIFFERENTIAL (09/23/2006 12:41 PM PIPE CLEANING 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) WBC 6.2 4.0 - 9.8 K/uL INTERFACE SYSTEM RBC 4.94(H) 3.90 - 4.90 M/uL INTERFACE SYSTEM HEMOGLOBIN 14.9(H) 11.8 - 14.8 g/dL INTERFACE SYSTEM HEMATOCRIT 44.7(H) 35.5 - 44.0 % INTERFACE SYSTEM MCV 90.5 82.0 - 99.0 fL INTERFACE SYSTEM MCH 30.2 27.2 - 32.6 pg INTERFACE SYSTEM MCHC 33.3 31.5 - 35.5 % INTERFACE SYSTEM RDW 14.6(H) 11.5 - 14.5 % INTERFACE SYSTEM RDW-STDEV 48.6 37.1 - 48.7 fL INTERFACE SYSTEM PLATELETS 192 140 - 350 K/uL INTERFACE SYSTEM MPV 11.7 9.3 - 12.4 fL INTERFACE SYSTEM 09/23/2006 12:4 1 PM PIPE CLEANING 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 Preet Hale MD HEMATOLOGY ORDERABLES Final Result Performing Organization Address City/[facility]/ZIP Co de Phone Number INTERFACE SYSTEM Refer to clinic/hospital department * BASIC METABOLIC PANEL (09/23/2006 12:41 PM PIPE CLEANING 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) GLUCOSE 95 65 - 99 mg/dL INTERFACE SYSTEM CREATININE 0.65 0.51 - 0.95 mg/dL INTERFACE SYSTEM Comment:Note: Effective 08/20 New Methodolgy and Reference Ranges CALCIUM 9.0 8.4 - 10.2 mg/dL INTERFACE SYSTEM BUN 11 6 - 20 mg/dL INTERFACE SYSTEM SODIUM 138 135 - 145 mmol/L INTERFACE SYSTEM POTASSIUM 4.9 3.5 - 4.9 mmol/L INTERFACE SYSTEM Comment: Moderate hemolysis present. Can cause significant falsely elevated result. Clinical judgement necessary. Redraw if indicated. CHLORIDE 105 96 - 108 mmol/L INTERFACE SYSTEM CO2 25 22 - 30 mmol/L INTERFACE SYSTEM GFR, >60 >=60 mL/min/1.7 sq meter INTERFACE SYSTEM GFR >60 >=60 mL/min/1.7 sq meter INTERFACE SYSTEM Comment: Estimated GFR rate interpretative information for both Americans and non- Americans is available on the [facility] Intranet at: [email or web address] Select: Lab Policies and Procedures Select: Reference Ranges - GFR 09/23/2006 12:4 1 PM PIPE CLEANING 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 Preet Hale MD CHEMISTRY ORDERABLES Final R esult INTERFACE SYSTEM Refer to clinic/hospital department * PT AND APTT (09/23/2006 12:41 PM PIPE CLEANING 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) PROTIME 14.3 12.7 - 15.1 Seconds INTERFACE SYSTEM INR 1.1 0.9 - 1.1 INTERFACE SYSTEM Comment: INR Therapeutic Range: Adult: 2.0 - 3.0 for pulmonary embolism or prophylaxis against venous thrombosis or systemic embolization. 2.0 - 3.0 for patients with tissue heart valves. 2.5 - 3.5 for patients with mechanical heart valves or post VA. Pediatric (12 years and under): 1.5 - 3.0 Although the target range in children is not well established , INR values of 1.5 - 3.0 are recommended for most patients. Higher values have been used in children with prosthetic cardiac valves and hereditary clotting disorders. (<3 days) therapeutic ranges have not been established. PTT 30.8 24.4 - 36.4 Seconds INTERFACE SYSTEM Comment: PTT Therapeutic Range: Heparin Level PTT (seconds) <0.10 units/mL <53 0.10 - 0.30 units/mL 53 - 67 0.30 - 0.70 units/mL* 67 - 95* 0.70 - 1.00 units/mL 95 - 116 *corresponds to therapeutic range for unfractionated heparin 09/23/2006 12:4 1 PM PIPE CLEANING 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 us Preet Hale MD HEMATOLOGY ORDERABLES Final Result INTERFACE SYSTEM Refer to clinic/hospital department documented in this encounter Visit Diagnoses Diagnosis Coronary atherosclerosis of [place] coronary artery- Primary documented in this encounter Care Teams Crab Fisher Relationship Specialty Start Date End Date Julio Lr MD [address] [place] [phone] PCP - General 12/19/06 documented as of this encounter
--- OUTSIDE RECORDS SUMMARY | 2025-03-03 10:43 | XMS_ITS | Encounter Summary ---
Author Organization [employer] Address [address] [place] [address] Care Team Providers Care Box Fabricator Name Role Phone Julio Lr MD Primary Care Provider + Encounter Details Date Type Department Care Team (Latest Contact Info) Description 12/19/2006 Outpatient Historical HIS CARD FINGERPRINT TECHNICIAN Preet Hale MD [address] [facility] [address] [place] [address] Coronary Atherosclerosis of [place] Coronary Artery (Primary Dx) Social History Tobacco Use Types Packs/Day Years Used Date Smoking Tobacco: Never Assessed Comments Unknown Sex and Gender Information Value Date Recorded Sex Assigned at Not on file Legal Sex Female 5:05 AM MANAGER ANIMAL Gender Identity Not on file Sexual Orientation Not on file documented as of this encounter Plan of Treatment Not on file documented as of this encounter Procedures Procedure Name Priority Date/Time Associated Diagnosis Comments POC ACTIVATED CLOTTING TIME Routine 12/19/2006 10:46 AM MANAGER ANIMAL documented in this encounter Results * POC ACTIVATED CLOTTING TIME (12/19/2006 10:46 AM MANAGER ANIMAL) [facility] ACT POC 362 Seconds INTERFACE SYSTEM Comment: Note sheath pull range change effective 04/11/2006. ACT value for sheath pull at [facility] has been established to be < or = to 1 40. (See also Nursing Procedures for sheath pull in related nursing areas) 12/19/2006 10:4 6 AM MANAGER ANIMAL us Preet Hale MD POINT OF CARE TESTING Edited INTERFACE SYSTEM Refer to clinic/hospital department documented in this encounter Visit Diagnoses Diagnosis Coronary atherosclerosis of [place] coronary artery- Primary documented in this encounter Care Teams Box Fabricator Relationship Specialty Start Date End Date Julio Lr MD [address] [place] [phone] PCP - General 12/19/06 documented as of this encounter
--- OUTSIDE RECORDS SUMMARY | 2025-03-03 10:43 | XMS_ITS | Clinical Summary ---
Author Organization [facility] [address] Address [address] [place] [address] Care Team Providers Care Sample Washer Name Role Phone Morgan Santiago MD Primary Care Provide r Allergies Active Allergy Reactions Criticality Noted Date [...] mg SL tabletIndications: Coronary artery disease of [place] artery of [place] de[place] heart with stable angina pectoris Place 1 [...] 12.5 mg tabletIndications: Coronary artery disease of [place] artery of [place] de[place] heart with stable angina pectoris,Hypertens ion associated with diabetes (HCC) Take 1 tablet by mouth twice daily 180 tablet 05/19/20 24 Active amLODIPine (NORVASC) 10 mg tablet Take 1 tablet by mouth once daily 90 tablet 2 08/10/20 24 Active isosorbide mononitrate ER (IMDUR) 120 mg 24 hr tablet Take 1 tablet by mouth once daily 90 tablet 12/13/19 25 Active Active Problems Problem Noted Date Diagnosed Date Morbid (severe) obesity due to excess calories 0 04/21/2024 Body mass index 40.0-44.9, adult ([facility]) 04/21 Other chest pain 04/03/2023 Other emphysema [...] artery disease of n ative artery of [place] dehe heart with stable angina pectoris 12/13/2013 Overview (01/23/2017): KRISTIAN PAYNE VSSL Assessment & Plan (01/30/2018 3:37 PM [...] 12/13/2013 08/12/2017 Overview (01/25/2017): TOBACCO USE DISORDER Encounters Date Type Department Care Team Description 12/30/2024 Telephone [facility] Cardiology [address] [place] [address] Wilfrido Hernandez MD Med Management from Last 3 Months Surgical History Surgery Date Site/Laterality Comments CHOLECYSTECTOMY 1990 Cholecystectomy CHOLECYSTECTOMY Cholecystectomy Medical History Medical History Date Comments Hx Other Medical s/p stents Hypertension Hypertension Hyperlipidemia Hyperlipidemia Type 2 diabetes mellitus (HCC) D iabetes type 2 Chronic coronary artery disease Coronary artery disease Diabetes mellitus (HCC) diabetes mellitus Hx Other Medical Bronchitis & pn uemonia Hx Other Medical spur heel Family History Medical History Relation Name Comments Diabetes type II Other 1 Family hist ory of Diabetes -Type 2; Other Other 2 No family histo ry of Thyroid disorder; Relation Name Status Comments Other 1 Other 2 Social History Tobacco Use Types Packs/Day Years [...] on file 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 Gender Identity Not on file Sexual Orientation Not on file Obstetrics History Last Filed Vital Signs Vital Sign Reading [...] 04/21/2024 3:33 PM CDT Plan of Treatment Health Maintenance Due Date Last Done Comments Albumin Creatinine Ratio, Urine 1948 Depression Screening 1948 Fall Risk Assessment 1948 Hemoglobin A1C 1948 Hepatitis C Screening 1948 Osteoporosis Screening-Bone Density Scan 1948 Dilated Eye Exam 1948 Foot Exam 1948 DTaP/Tdap/Td Vaccine (1 - Tdap) 02/04/1959 Hepatitis B Screening 02/04/1966 Pneumococcal vaccine 65+ (1 of 2 - PCV) 02/04/1967 Lung Cancer Screening 02/04/1998 Zoster Vaccine (1 of 2) 02/04/1998 Well Visit 65+ 02/04/2013 eGFR 04/29/2024 04/29/2023, 12/26/2021 Lipid Panel 04/21/2025 04/21/2024, 0601/2023, 12/26/2021, Additional history exists Influenza Vaccine (Season Ended) 2025 Procedures Procedure Name Priority Date/Time Associated Diagnosis Comments POCT LIPID PANEL Routine 04/21/2024 3:38 PM CDT Lipid screening COMPREHENSIVE METABOLIC PANEL Routine 04/29/2023 9:10 AM CDT Coronary artery disease of [place] de[place] artery of [place] de[place] heart with stable angina pectoris Essential hypertension [...] 04/30/2023 4:57 PM CDT FASTING:YES FASTING: YES Abbie Garcia MD LAB BLOOD ORDERABLES Final Result [facility] [address] [address] from Last 3 Months or Most Recently Relevant to Health Maintenance Insurance [facility] [place] [address] [facility] [place] [address] Care Teams Sample Washer Relationship Specialty Start Date End Date Morgan Santiago MD [address] [place] [address] PCP - General 01/17/17
--- OUTSIDE RECORDS SUMMARY | 2025-03-03 10:43 | XMS_ITS | Encounter Summary ---
Author Organization [employer] Address [address] [place] [address] Care Team Providers Care Client Service Associate Name Role Phone Julio Lr MD Primary Care Provider + Encounter Details Date Type Department Care Team (Late st Contact Info) Description 09/23/[address] [facility] Support Serv. (Adt Cardiology-[facility]) [address] 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
--- OUTSIDE RECORDS SUMMARY | 2025-03-03 10:43 | XMS_ITS | Encounter Summary ---
Author Organization [employer] Address [address] [place] [address] Care Team Providers Care Surgical Corsetier Name Role Phone Julio Lr MD Primary Care Provider + Encounter Details Date Type Department Care Team (Late st Contact Info) Description 12/20/2006 [facility] [address] 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
--- OUTSIDE RECORDS SUMMARY | 2025-03-03 10:43 | XMS_ITS | Clinical Summary ---
Author Organization [facility] Address [address] Attn: Epic Prelude [place]T [place] [address] Care Team Providers Care Pc Installation Engineer Name Role Phone Julio Lr MD Primary Care Provider + Social History Tobacco Use Types Packs/Day Years Used Date Smoking Tobacco: Never Assessed Comments Unknown Sex and Gender Information Value Date Recorded Sex Assigned at Not on file Legal Sex Female 5:05 AM STATION AGENT Gender Identity Not on file Sexual Orientation Not on file Plan of Treatment Health Maintenance Due Date Last Done Comments DTAP/TDAP/TD VACCINES (1 - Tdap) 02/04/1967 PNEUMOCOCCAL VACCINE 50+ YEARS (1 of 1 - PCV) 02/04/19 98 ZOSTER VACCINE (1 of 2) 02/04/1998 OSTEOPOROSIS SCREENING 02/04/2013 RSV VACCINE (60+ or ) (1 - 1-dose 75+ series) 02/04/2023 INFLUENZA VACCINE (#1) 2024 Care Teams Pc Installation Engineer Relationship Specialty Start Date End Date Julio Lr MD [address] [place] [address] PCP - General 12/19/06
[2025-03-03] MEDS: DEXTROSE 50% 25 GM/50 ML SYRINGE IV PUSH (11:11)
[2025-03-03] MEDS: GLUCOSE ORAL GEL 15 GM OF GLUCSE IN 37.5 GM TUBE PO (11:11)
--- NOTE | 2025-03-03 11:15 | PC.NURSE ---
Addendum entered by Angie Hobson RN 03/03/25 11:59: initial blood glucose 36 not 27 Original Note: pt arrives to ED room with crane service technician and reports that they took insulin this morning and did not eat after and requests blood glucose. crane service technician delegates task to this RN who get blood glucose of 27. this RN notifies provider and gets order for oral glucose and orange juice while trying to get IV access. after IV access established Dextrose 50% was administered. pt was axo4 during this.
--- OUTSIDE RECORDS SUMMARY | 2025-03-03 11:17 | XMS_ITS | Clinical Summary ---
Author Organization [facility] Address [address] [facility] [address] [facility] Attn: Epic Prelude ADT [place] [address] Care Team Providers Care Radio Repair Teacher Name Role Phone Julio Lr MD Primary Care Provider + Social History Tobacco Use Types Packs/Day Years Used Date Smoking Tobacco: Never Assessed Comments Unknown Sex and Gender Information Value Date Recorded Sex Assigned at Not on file Legal Sex Female 5:05 AM RADIO INTERFERENCE EXPERT Gender Identity Not on file Sexual Orientation Not on file Plan of Treatment Health Maintenance Due Date Last Done Comments DTAP/TDAP/TD VACCINES (1 - Tdap) 02/04/1967 PNEUMOCOCCAL VACCINE 50+ YEARS (1 of 1 - PCV) 02/04/19 98 ZOSTER VACCINE (1 of 2) 02/04/1998 OSTEOPOROSIS SCREENING 02/04/2013 RSV VACCINE (60+ or ) (1 - 1-dose 75+ series) 02/04/2023 INFLUENZA VACCINE (#1) 2024 Care Teams Radio Repair Teacher Relationship Specialty Start Date End Date Julio Lr MD [address] [place] [address] PCP - General 12/19/06
--- OUTSIDE RECORDS SUMMARY | 2025-03-03 11:17 | XMS_ITS | Encounter Summary ---
Author Organization [employer] Address [address] [place] [address] Care Team Providers Care Real Estate Broker Associate Name Role Phone Julio Lr MD Primary Care Provider + Encounter Details Date Type Department Care Team (Late st Contact Info) Description 12/19/2006 [facility] [address] 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
--- OUTSIDE RECORDS SUMMARY | 2025-03-03 11:17 | XMS_ITS | Encounter Summary ---
Author Organization [employer] Address [address] [place] [address] Care Team Providers Care Quality Control Inspector Name Role Phone Julio Lr MD Primary Care Provider + Encounter Details Date Type Department Care Team (Late st Contact Info) Description 12/20/2006 [facility] [address] 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
--- OUTSIDE RECORDS SUMMARY | 2025-03-03 11:17 | XMS_ITS | Encounter Summary ---
Author Organization [employer] Address [address] [place] [address] Care Team Providers Care Fire Equipment Repairer Inspector Name Role Phone Julio Lr MD Primary Care Provider + Encounter Details Date Type Department Care Team (Latest Contact Info) Description 12/19/2006 Outpatient Historical HIS CARD DEVELOPMENT TEAM LEAD Preet Hale MD [address] [facility] [facility] [place] [address] Coronary Atherosclerosis of [place] Coronary Artery (Primary Dx) Social History Tobacco Use Types Packs/Day Years Used Date Smoking Tobacco: Never Assessed Comments Unknown Sex and Gender Information Value Date Recorded Sex Assigned at Not on file Legal Sex Female 5:05 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 ACT value for sheath pull at [facility] has been established to be < or = to 1 40. (See also Nursing Procedures for sheath pull in related nursing areas) 12/19/2006 10:4 6 AM FHA UNDERWRITER us Preet Hale MD POINT OF CARE TESTING Edited INTERFACE SYSTEM Refer to clinic/hospital department documented in this encounter Visit Diagnoses Diagnosis Coronary atherosclerosis of [place] coronary artery- Primary documented in this encounter Care Teams Fire Equipment Repairer Inspector Relationship Specialty Start Date End Date Julio Lr MD [address] [place] [address] PCP - General 12/19/06 documented as of this encounter
--- OUTSIDE RECORDS SUMMARY | 2025-03-03 11:17 | XMS_ITS | Encounter Summary ---
Author Organization [employer] Address [address] [place] [address] Care Team Providers Care Printing Press Operator Name Role Phone Julio Lr MD Primary Care Provider + Encounter Details Date Type Department Care Team (Latest Contact Info) Description 09/23/2006 Inpatient Historical HIS PATIENT IN A BED Preet Hale MD [address] [facility] [place], [place] [id number] Coronary Atherosclerosis of [place] Coronary Artery (Primary Dx) Social History Tobacco Use Types Packs/Day Years Used Date Smoking Tobacco: Never Assessed Comments Unknown Sex and Gender Information Value Date Recorded Sex Assigned at Not on file Legal Sex Female 5:05 AM OPTICAL GLASS SAWYER Gender Identity Not on file Sexual Orientation Not on file documented as of this encounter Plan of Treatment Not on file documented as of this encounter Procedures Procedure Name Priority Date/Time Associated Diagnosis Comments PT AND APTT Routine 09/23/2006 12:41 PM OPTICAL GLASS SAWYER CBC WITH DIFFERENTIAL Routine 09/23/2006 12:41 PM OPTICAL GLASS SAWYER CBC WITH DIFFERENTIAL Routine 09/23/2006 12:41 PM OPTICAL GLASS SAWYER BASIC METABOLIC PANEL Routine 09/23/2006 12:41 PM OPTICAL GLASS SAWYER documented in this encounter Results * CBC WITH DIFFERENTIAL (09/23/2006 12:41 PM OPTICAL GLASS SAWYER) NEUTROPHILS 53 45 - 70 % INTERFAC [...] K/uL INTERFACE SYSTEM 09/23/2006 12:4 1 PM OPTICAL GLASS SAWYER Preet Hale MD HEMATOLOGY ORDERABLES Final Result Performing Organization Address City/[facility] Co de Phone Number INTERFACE SYSTEM Refer to clinic/hospital department * (ABNORMAL) CBC WITH DIFFERENTIAL (09/23/2006 12:41 PM OPTICAL GLASS SAWYER) WBC 6.2 4.0 - 9.8 K/uL INTERFACE [...] fL INTERFACE SYSTEM 09/23/2006 12:4 1 PM OPTICAL GLASS SAWYER Preet Hale MD HEMATOLOGY ORDERABLES Final Result Performing Organization Address City/[facility]/ZIP Co de Phone Number INTERFACE SYSTEM Refer to clinic/hospital department * BASIC METABOLIC PANEL (09/23/2006 12:41 PM OPTICAL GLASS SAWYER) GLUCOSE 95 65 - 99 mg/dL INTERFACE [...] and non- Americans is available on the [facility] Intranet at: [email or web address] Select: Lab Policies and Procedures Select: Reference Ranges - GFR 09/23/2006 12:4 1 PM OPTICAL GLASS SAWYER Preet Hale MD CHEMISTRY ORDERABLES Final R esult INTERFACE SYSTEM Refer to clinic/hospital department * PT AND APTT (09/23/2006 12:41 PM OPTICAL GLASS SAWYER) PROTIME 14.3 12.7 - 15.1 Seconds INTERFACE SYSTEM INR 1.1 0.9 - 1.1 INTERFACE SYSTEM Comment: INR Therapeutic Range: Adult: 2.0 - 3.0 for pulmonary embolism or prophylaxis against venous thrombosis or systemic embolization. 2.0 - 3.0 for patients with tissue heart valves. 2.5 - 3.5 for patients with mechanical heart valves or post MA. Pediatric (12 years and under): 1.5 - [...] for unfractionated heparin 09/23/2006 12:4 1 PM OPTICAL GLASS SAWYER us Preet Hale MD HEMATOLOGY ORDERABLES Final Result INTERFACE SYSTEM Refer to clinic/hospital department documented in this encounter Visit Diagnoses Diagnosis Coronary atherosclerosis of [place] coronary artery- Primary documented in this encounter Care Teams Printing Press Operator Relationship Specialty Start Date End Date Julio Lr MD [address] [place] [phone] PCP - General 12/19/06 documented as of this encounter
--- OUTSIDE RECORDS SUMMARY | 2025-03-03 11:17 | XMS_ITS | Clinical Summary ---
Author Organization [facility] Address [address] [place] [address] Care Team Providers Care Boat Washer Name Role Phone Unavailable Primary Care Provider [...]
--- OUTSIDE RECORDS SUMMARY | 2025-03-03 11:17 | XMS_ITS | Clinical Summary ---
Author Organization [facility] [address] Address [address] [place] [address] Care Team Providers Care Scheduling Coordinator Name Role Phone Morgan Santiago MD Primary [...] mg SL tabletIndications: Coronary artery disease of [place] artery of [place] heart with stable angina pectoris Place 1 [...] 12.5 mg tabletIndications: Coronary artery disease of [place] artery of [place] heart with stable angina pectoris,Hypertens ion associated [...] 0 04/21/2024 Body mass index 40.0-44.9, adult ([facility]) 04/21 Other chest pain 04/03/2023 Other emphysema [...] artery disease of n ative artery of [place] heart with stable angina pectoris 12/13/2013 Overview [...] Type Department Care Team Description 12/30/2024 Telephone [facility] Cardiology [address] [place] [address] Wilfrido Hernandez MD Med Management [...] on file Legal Sex Female 1:40 AM DATA 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 Gender Identity Not on file Sexual Orientation [...] 9:10 AM CDT Coronary artery disease of [place] artery of [place] heart with stable angina pectoris Essential hypertension [...] LAB BLOOD ORDERABLES Final Result [facility] [address] [address] from Last 3 Months or Most Recently Relevant to Health Maintenance Insurance [facility] MEDIC[facility] ADVANTAGE [facility] MEDIC[facility] AD[facility]ANTAGE Care Teams Scheduling Coordinator Relationship Specialty Start Date End Date Morgan Santiago MD [address] [place] [address] PCP - General 01/17/17
--- OUTSIDE RECORDS SUMMARY | 2025-03-03 11:17 | XMS_ITS | Continuity of Care Document ---
Author Organization [facility] Address [address] [place] [address] [address] [place] [address] Phone Care Team Providers Care Sheet Metal Pattern Cutter Name Role Phone Dias OD, Vivek Unavailable Unavailable Procedures Procedure Date Eye Exam, New Patient Refraction Advance Directives Directive Yes / No Effective Date File Name No Information Encounters Encounter Description Practice Location Reason(s) For Visit Diagnoses Date Provider Providers Copied on Encounter [facility], [address] [place] [address] [address], [place], [place], [id number], [place] tel:[phone] [facility] No Information 7-201 0 Dias OD Vivek. [address], [place], [address], [place]. tel:[phone] Referring Provider: Belkis Faust, [facility] [place], [address]. tel:[phone] Family History Family Member Type Diagnosis Age At Onset No Information Payers Payer name Insurance type Covered constitution party ID Authoriza tizachariah(s) [place] Out [place] [id number] Social History Type Description Quantity Date Captured [...]
--- OUTSIDE RECORDS SUMMARY | 2025-03-03 11:17 | XMS_ITS | Encounter Summary ---
Author Organization [employer] Address [address] [place] [address] Care Team Providers Care Therapeutic Recreation Specialist Name Role Phone Julio Lr MD Primary Care Provider + Encounter Details Date Type Department Care Team (Late st Contact Info) Description 09/23/[address] [facility] Support Serv. (Adt Cardiology-[facility]) [address] [place] [address] Varghese Hsu MD [address] [place] [address] Social History Tobacco Use Types Packs/Day Years Used Date Smoking Tobacco: Never Assessed Comments Unknown Sex and Gender Information Value Date Recorded Sex Assigned at Not on file Legal Sex Female 5:05 AM MANAGER HOUSEKEEPING Gender Identity Not on file Sexual Orientation Not on file documented as of this encounter Plan of Treatment Not on file documented as of this encounter Visit Diagnoses Not on filedocumented in this encounter Care Teams Therapeutic Recreation Specialist Relationship Specialty Start Date End Date Julio Lr MD [address] [place] [address] PCP - General 12/19/06 documented as of this encounter
--- OUTSIDE RECORDS SUMMARY | 2025-03-03 11:17 | XMS_ITS | Referral Summary ---
Author Organization [facility] [address] [facility] [address] [place] [address] Care Team Providers Care Retail Assistant Name Role Phone Morgan Santiago MD Primary Care Provide r Encounters Date Type Department Care Team Description 12/30/2024 Telephone [facility] Cardiology [address] [place] [address] Wilfrido Hernandez MD Med Management [...] mg SL tabletIndications: Coronary artery disease of [place] artery of [place] heart with stable angina pectoris Place 1 [...] 12.5 mg tabletIndications: Coronary artery disease of [place] artery of [place] heart with stable angina pectoris,Hypertens ion associated [...] artery disease of n ative artery of [place] heart with stable angina pectoris 12/13/2013 Overview [...] on file Legal Sex Female 1:40 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 Gender Identity Not on file Sexual Orientation [...] 9:10 AM CDT Coronary artery disease of [place] artery of [place] heart with stable angina pectoris Essential hypertension [...] MD LAB BLOOD ORDERABLES Final Result [facility] [address] [address] from Last 3 Months or Most Recently Relevant to Health Maintenance Insurance [facility] MEDICARE ADVANTAGE [place] [id number] [place] [id number] Care Teams Retail Assistant Relationship Specialty Start Date End Date Morgan Santiago MD [address] [place] [address] PCP - General 01/17/17
[2025-03-03 11:20] LABS: Basophils Percent Auto 0.5 % (0.2-1.2); Eosinophils Absolute Auto 0.2 K/mm3 (0-0.3); Eosinophils Percent Auto 2.5 % (0-4.4); Hematocrit 31.8 % (37.0-47.0); Hemoglobin 9.3 g/dL (12.0-15.0); Immature Granulocyte Absolute 0.03 K/mm3 (0.00-0.031); Immature Granulocyte Percent A 0.5 % (0-0.5); Lymphocytes Absolute Auto 2.47 K/mm3 (0.9-3.2); Lymphocytes Percent Auto 38.2 % (18.3-44.2); Mean Corpuscular HGB Conc 29.2 g/dl (32-36); Mean Corpuscular Volume 88.8 fl (80-100); Monocytes Absolute Auto 0.5 K/mm3 (0.1-0.6); Monocytes Percent Auto 7.7 % (2.6-8.5); Neutrophils Absolute Auto 3.3 K/mm3 (1.3-6.7); Neutrophils Percent Auto 50.6 % (45.5-73.1); Platelet Count Result 200 k/mm3 (150-375); Red Blood Count 3.58 M/mm3 (4.2-5.4); Red Cell Distribution Width 17.6 % (11.5-14.5); White Blood Count 6.5 K/mm3 (4.5-10.0)
[2025-03-03] MEDS: ALBUTEROL SULFATE NEB 2.5 MG/3 ML INH (11:25)
[2025-03-03 11:27] LABS: Glucose Point of Care 27 mg/dl (65-105)
[2025-03-03 11:28] LABS: Glucose Point of Care 205 mg/dl (65-105)
[2025-03-03] MEDS: ALBUTEROL SULFATE NEB 2.5 MG/3 ML INH 5 MG INHALATION (11:29)
[2025-03-03 11:37] LABS: Alanine Aminotransferase 15 U/L (6-35); Alkaline Phosphatase 84 U/L (38-126); Anion Gap 10 mmol/L (4-12); Aspartate Amino Transferase 20 U/L (14-36); Bilirubin,Total 0.3 mg/dL (0.2-1.3); Blood Urea Nitrogen 75 mg/dL (7-17); Calcium 8.2 mg/dL (8.4-10.2); Carbon Dioxide 19 mmol/L (22-30); Chloride 112 mmol/L (98-107); Estimated CRCL calculation 15 ml/min; Estimated Glomerular Filt Rate 13; Glucose 36 mg/dL (65-110); Potassium 5.3 mmol/L (3.4-5.0); Sodium 141 mmol/L (137-145)
[2025-03-03 11:45] LABS: NT Pro B Type Natriuretic Pept 1520 pg/mL (19.9-100); Troponin I < 0.012 ng/mL (0.000-0.034)
[2025-03-03 11:53] LABS: Atypical Lymphocytes Present; Hypochromasia 1+; Platelet Estimate Adequate (Adequate); Schistocytes None Seen
[2025-03-03] MEDS: FUROSEMIDE INJ 40 MG/4 ML VIAL IV PUSH (12:04)
--- NOTE | 2025-03-03 12:50 | ADMGEN ---
This patient, Giovanna Hurtado, was admitted to 2 Medical Room 257-. Patient/family oriented to hospital policies and general routines including ID bracelet, bed and alarms, visiting hours, pain management, procedures, bathroom and other care routines, personal items, smoking policy, room service/diet, and visiting hours. Information on how to activate the Rapid Response Team has been discussed. Patient/Family are encouraged to report perceived risks to care and to ask questions if they do not understand what they are told or what they should do.
--- NOTE | 2025-03-03 12:54 | PM.IMHP ---
H&P: HPI History of Present Illness Date/Time: 03/03/25 12:54 Chief Complaint: Shortness of Breath Narrative: 75 y/o F with PMH of CKD, CHF, DM, HTN, HLD, chronic anemia, and CAD presents here with shortness of breath. The patient presents here from home for further evaluation of shortness of breath. She reports onset approximately 3 days ago. She states this was precipitated by the discontinuation of her diuretic - she is unsure of name. She reports she had her regular nephrology appointment back in December. During this visit, her allergy physician Kleber, discontinued her diuretic and Pioglitazone as her swelling had improved from a previous CHF exacerbation that occurred in June of 2024 in the hopes her renal function would improve. The patient's amlodipine was also reduced as her blood pressure has been well controlled. She reports accompanying cough that is intermittently productive, congestion, and ankle swelling. She denies fever, chills, body aches, or weight gain. Initial VS at presentation: 97.6° F, HR 58, RR 20, 119/39, and 94% on RA. ED workup showed: No leukocytosis, hemoglobin 9.3 (at baseline), potassium 5.3, creatinine 3.52, GFR 13, magnesium 3.0, BNP 1520, initial troponin negative. CXR showed probable minimal pleural effusions and minimal bibasilar pulmonary edema. Review of Systems Review of Systems: All systems reviewed & are unremarkable except as noted in HPI and below PMFSH Past Medical History Medical History Chronic anemia Atherosclerosis Scattered atherosclerotic calcification with 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 Chronic kidney disease Chronic pain syndrome Osteoarthritis Chronic obstructive pulmonary disease Type 2 diabetes mellitus Coronary artery disease Hyperlipidemia Urinary frequency Hypertension Tobacco abuse Surgical History Surgical History History of cholecystectomy History of tonsillectomy History of coronary artery stent placement Stents to right coronary artery x4, left anterior descending, circumflex, 2nd marginal, and known occlusion of stent to 1st marginal branch. History of cardiac catheterization Status post insertion of spinal cord stimulator Family History Family History Mother Family history of malignant neoplasm Patient's mother is Ovarian cancer Father Family history of diabetes mellitus in first degree relative Patient's father is Coronary atherosclerosis of bypass graft Social History Social History Social History: Surrogate medical decision maker: Serina Campos, daughter. Code status: Full code. Smoking packs per day: 1 Smoking cigarettes per day: 20.0 Years smoked: 50 Smoking pack-years: 50.00 Smoking status: Current every day smoker Tobacco type: cigarettes Second hand tobacco smoke exposure: Yes Alcohol intake: never Substance use: never Substance use type: does not use Do You Feel Safe in your Home?: Yes Lack of Transportation: No Lack of Food: Never True Current Housing: I Have Housing Concerned About Future Housing: No Difficulty Paying Gas/Electric Bills: No Difficulty Paying for Meds: No Currently Unemployed: No Education: High School Diploma/GED Difficulty w/ Childcare or Family Care: No Spiritual care concerns: No Meds Home Medications and Allergies Home Medications Medication Instructions Recorded Confirmed Type rosuvastatin 20 mg tablet 20 mg PO DAILY 10/30/19 03/03/25 History losartan 100 mg tablet 100 mg PO DAILY #90 tabs 11/11/22 03/03/25 Rx carvedilol 12.5 mg tablet 12.5 mg PO DAILY 12/30/23 03/03/25 History ticagrelor 90 mg tablet (Brilinta) 90 mg PO Q12HR #180 tabs 01/13/24 03/03/25 Rx isosorbide mononitrate 120 mg 120 mg PO QAM #90 tabs 01/14/24 03/03/25 Rx tablet,extended release 24 hr lansoprazole 30 mg capsule,delayed 30 mg PO DAILY #90 caps 02/18/24 03/03/25 Rx release (Prevacid) aspirin 81 mg tablet,delayed 325 mg PO QAM 06/28/24 03/03/25 History release insulin human U-100 NPH-regulr 40 unit subcut BID 06/28/24 03/03/25 History 70-30 mix 100 unit/mL subcutaneous susp (Novolin 70/30 U-100 Insulin) loratadine 10 mg tablet (Allergy 10 mg PO DAILY 06/28/24 03/03/25 History Relief (loratadine)) fluticasone propionate 50 1 spray intranasal Q12HR #1 07/05/24 03/03/25 Rx mcg/actuation nasal applicator spray,suspension ipratropium 0.5 mg-albuterol 3 mg 3 ml inhalation Q6HRT #30 doses 07/05/24 03/03/25 Rx (2.5 mg base)/3 mL nebulization soln clonidine HCl 0.1 mg tablet See Rx Instructions .Route 09/10/24 03/03/25 Rx .COMPLEX #180 tabs ferrous sulfate 325 mg (65 mg 325 mg PO DAILY #90 tabs 11/26/24 03/03/25 Rx iron) tablet,delayed release furosemide 40 mg tablet 40 mg PO BID #180 tabs 12/13/24 03/03/25 Rx amlodipine 5 mg tablet 5 mg PO DAILY 01/04/25 03/03/25 History insulin syringe-needle U-100 0.5 #200 ea 02/07/25 03/03/25 Rx mL 31 gauge x 16 bumetanide 2 mg tablet 2 mg PO DAILY 03/03/25 03/03/25 History meloxicam 7.5 mg tablet 7.5 mg PO DAILY 03/03/25 03/03/25 History pioglitazone 15 mg tablet 15 mg PO DAILY 03/03/25 03/03/25 History Allergies Allergy/AdvReac Type Severity Reaction Status Date / Time morphine Allergy Unknown Itching Verified 02/18/25 12:39 Sulfa (Sulfonamide Allergy Unknown HIVES Verified 02/18/25 12:39 Antibiotics) Vital Signs Vital Signs - 24 hr 03/03/25 10:43 03/03/25 11:21 03/03/25 11:25 Temperature 97.6 F Pulse Rate 58 L 84 Respiratory Rate 20 28 H Blood Pressure 119/39 L Pulse Oximetry 94 95 Oxygen Delivery Room Air Room Air 03/03/25 11:41 03/03/25 12:11 Temperature Pulse Rate 57 L 54 L Respiratory Rate 22 H 20 Blood Pressure 135/55 L Pulse Oximetry 98 Oxygen Delivery Exam Const: General: comfortable and no acute distress Other: , female, chronically ill-appearing HENMT: Face/Nose/Sinus: Normal nares present Mouth: Yes moist mucous membranes Eyes: General: appearance normal, both eyes and all related structures Sclera: sclerae normal Pupils: Equal, round and reactive pupils present EOM: EOMs intact bilaterally Resp: Effort & Inspection: normal respiratory effort Auscultation: clear to auscultation bilaterally Cardio: Rate: regular rate Rhythm: regular rhythm Other: S1-S2 present without murmur, rub, ectopy GI: Other: Abdomen soft, nondistended, nontender. Normoactive bowel sounds in all quadrants. Skin: General skin exam: normal color and no rashes or lesions noted Wounds: no wounds Neuro: Speech: normal speech Motor exam (neuro): 5/5 motor strength present throughout Sensory Exam: normal sensation Other: A&O x4 Extrem: Other: 2+ pitting edema to bilateral feet/ankles, symmetric. Psych: Mental Status: mental status grossly normal Affect: normal affect Other: Fair insight and judgment, pleasant H&P: Results Labs Labs: Short CBC 03/03/25 Range/Units 11:08 WBC 6.5 (4.5-10.0) K/mm3 Hgb 9.3 L (12.0-15.0) g/dL Hct 31.8 L (37.0-47.0) % Plt Count 200 (150-375) k/mm3 BMP 03/03/25 11:08 Sodium 141 Potassium 5.3 H Chloride 112 H Carbon Dioxide 19 L BUN 75 H D Creatinine 3.52 H Glucose 36 L* Calcium 8.2 L Cardiac Enzymes 03/03/25 Range/Units 11:08 Troponin I < 0.012 (0.000-0.034) ng/mL Liver Function 03/03/25 Range/Units 11:08 Total Bilirubin 0.3 (0.2-1.3) mg/dL AST 20 (14-36) U/L ALT 15 (6-35) U/L Alkaline Phosphatase 84 (38-126) U/L Albumin 4.0 (3.5-5.1) g/dL Assessment and Plan Assessment and plan (1) Acute exacerbation of CHF (congestive heart failure): Qualifiers: Heart failure type: diastolic Qualified Code(s): I50.33 - Acute on chronic diastolic (congestive) heart failure Code(s): I50.9 - Heart failure, unspecified Status: Acute Assessment and Plan: Acute on chronic. BNP elevated at 1520. CXR showed probable minimal pleural effusions and minimal bibasilar pulmonary edema. No hypoxia. Recently had diuretic discontinued in the hopes of improving renal function. Given 40 of Lasix IV in the ED, given additional Bumex 2 mg IV by Nephrology. Will hold on further IV diuresis, reassess renal function in a.m. for toleration. Continue Bumex 2 mg p.o.. Monitor I&Os daily weights. Last echo in June of 2024 showed grade 1 diastolic noncompliance, concentric LVH with hyperdynamic systolic function with estimated EF greater than 70%, Calcified mitral valve annulus. (2) Chronic kidney disease, stage IV (severe): Code(s): N18.4 - Chronic kidney disease, stage 4 (severe) Status: Chronic Assessment and Plan: Creatinine 3.52, BUN 75, GFR 13. Previously 3.28, BUN 70, GFR 14 on 02/14/2025. Mild EMERITA, suspected secondary to volume overload. Given 40 mg of Lasix IV and Bumex 2 mg IV. Continue Bumex 2 mg daily p.o., hold Lasix p.o.. Nephrology consulted. Monitor renal function and electrolytes. Mild hyperkalemia noted, repeat this evening. 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 Hemoglobin 9.3, at baseline. Monitor. (5) Hypertension: Qualifiers: Hypertension type: unspecified Qualified Code(s): I10 - Essential (primary) hypertension Code(s): I10 - Essential (primary) hypertension Status: Chronic Assessment and Plan: Chronic, currently 151/43. Continue home medications: Losartan, Imdur, clonidine, Coreg, amlodipine. Monitor. Plan Diet: Heart healthy GI Prophylaxis: Not indicated DVT Prophylaxis: SCDs IV fluids: None Lines/Tubes: Peripheral IV Code Status: full code Quality VTE Prophylaxis VTE prophylaxis: mechanical ordered Hospitalist MIPS Advance Care Plan I have confirmed that the patient's Advanced Care Plan is present, code status is documented, or surrogate decision maker is listed in patient medical record.: Yes Medication Reconciliation I have utilized all available resources to obtain, update and review the patients current medications (includes all prescriptions, OTC, herbals, cannabis, and nutritional supplements).: Yes
[2025-03-03 13:09] LABS: Glucose Point of Care 102 mg/dl (65-105)
--- NOTE | 2025-03-03 13:14 | ED_ITS ---
HPI - SOB/Dyspnea General Chief Complaint: Shortness of Breath/Dyspnea Stated Complaint: SOB Time Seen by Provider: 03/03/25 10:47 History of Present Illness HPI Narrative: Patient has history of CKD, CHF, COPD, last week was taken off of her Lasix by her profiling machine setup operator and since then has had increasing shortness of breath, and swelling to her legs to the point where she can put her shoes on. She does still smoke. Related Data Home Medications Medication Instructions Recorded Confirmed Last Taken Type rosuvastatin 20 mg tablet 20 mg PO DAILY 10/30/19 03/01/25 Unknown History carvedilol 12.5 mg tablet 12.5 mg PO DAILY 12/30/23 03/01/25 Unknown History aspirin 81 mg tablet,delayed 325 mg PO QAM 06/28/24 03/01/25 Unknown History release insulin human U-100 NPH-regulr 40 unit subcut BID 06/28/24 03/01/25 Unknown History 70-30 mix 100 unit/mL subcutaneous susp (Novolin 70/30 U-100 Insulin) loratadine 10 mg tablet (Allergy 10 mg PO DAILY 06/28/24 03/01/25 Unknown History Relief (loratadine)) pantoprazole 40 mg tablet,delayed 40 mg PO DAILY 06/28/24 03/01/25 Unknown History release amlodipine 5 mg tablet 5 mg PO DAILY 01/04/25 03/01/25 Unknown History Allergies Allergy/AdvReac Type Severity Reaction Status Date / Time morphine Allergy Unknown Itching Verified 02/18/25 12:39 Sulfa (Sulfonamide Allergy Unknown HIVES Verified 02/18/25 12:39 Antibiotics) Review of Systems 2 Review of Systems: All systems reviewed & are unremarkable except as noted in HPI and below PMFSH Past Medical History Medical History Chronic anemia Atherosclerosis Scattered atherosclerotic calcification with 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 Chronic kidney disease Chronic pain syndrome Osteoarthritis Chronic obstructive pulmonary disease Type 2 diabetes mellitus Coronary artery disease Hyperlipidemia Urinary frequency Hypertension Tobacco abuse Surgical History Surgical History History of cholecystectomy History of tonsillectomy History of coronary artery stent placement Stents to right coronary artery x4, left anterior descending, circumflex, 2nd marginal, and known occlusion of stent to 1st marginal branch. History of cardiac catheterization Status post insertion of spinal cord stimulator Family History Family History Mother Family history of malignant neoplasm Patient's mother is Ovarian cancer Father Family history of diabetes mellitus in first degree relative Patient's father is Coronary atherosclerosis of bypass graft Social History Social History Social History: Surrogate medical decision maker: Serina Campos, daughter. Code status: Full code. Smoking packs per day: 1 Smoking cigarettes per day: 20.0 Years smoked: 50 Smoking pack-years: 50.00 Smoking status: Current every day smoker Tobacco type: cigarettes Second hand tobacco smoke exposure: Yes Alcohol intake: never Substance use: never Substance use type: does not use Do You Feel Safe in your Home?: Yes Lack of Transportation: No Lack of Food: Never True Current Housing: I Have Housing Concerned About Future Housing: No Difficulty Paying Gas/Electric Bills: No Difficulty Paying for Meds: No Currently Unemployed: No Education: High School Diploma/GED Difficulty w/ Childcare or Family Care: No Spiritual care concerns: No Exam 2 Narrative: EXAMINATION OF ORGAN SYSTEMS/BODY AREAS: Constitutional: Vital signs per nursing GENERAL:[No acute distress, non-toxic appearing.] HEAD: Normal with no signs of head trauma. EYES: EOMI, conjunctiva normal ENT: Hearing grossly intact LUNGS: Some crackles and wheezing bilaterally lungs HEART: [Regular rate and rhythm] ABD: [Soft], [nontender to palpation] EXT: Bilateral pitting lower extremity edema SKIN: [No rashes or lesions.] NEURO: [Alert and oriented x 3. No gross focal sensory or strength deficits.] PSYCH: Normal affect Course Vital Signs Vital signs: Vital Signs Temperature 97.6 F 03/03/25 10:43 Pulse Rate 58 L 03/03/25 10:43 Respiratory Rate 03/03/25 10:43 Blood Pressure 119/39 L 03/03/25 10:43 Pulse Oximetry 94 03/03/25 10:43 Oxygen Delivery Room Air 03/03/25 10:43 Temperature 97.2 F L 03/03/25 13:03 Pulse Rate 62 03/03/25 13:03 Respiratory Rate 20 03/03/25 13:03 Blood Pressure 151/43 H 03/03/25 13:03 Pulse Oximetry 93 03/03/25 13:03 Oxygen Delivery Room Air 03/03/25 11:21 MDM - SOB/Dyspnea MDM Narrative Medical decision making narrative: 75-year-old male presenting to the emergency department with chest tightness, dyspnea, orthopnea and edema, presentation and history of CHF, consistent with most likely CHF exacerbation vs ACS, COPD exacerbation, pneumonia. Patient initially was looking ill, found to have very low blood sugar and she states that she had for the on to eat after taking her insulin, so she is given oral glucose and then D50 after which her glucose improved and she feels much better. IV is established. Chest x-ray is performed and remarkable for [cardiomegaly with pulmonary vascular congestion]. Patient is started on lasix. Given DuoNebs with improvement in symptoms. Labs consistent with seizure exacerbation with BNP 1520, negative troponin, creatinine 3.5 though she does have CKD, I did discuss this with profiling machine setup operator Dr. Donato per hospitalist request. [The patient will be admitted for CHF exacerbation and further management.] Patient agreeable to this plan Lab Data 03/03/25 11:08 03/03/25 11:08 Labs: Lab Results 03/03/25 03/03/25 03/03/25 Range/Units 10:56 11:08 11:18 WBC 6.5 (4.5-10.0) K/mm3 RBC 3.58 L (4.2-5.4) M/mm3 Hgb 9.3 L (12.0-15.0) g/dL Hct 31.8 L (37.0-47.0) % MCV 88.8 (80-100) fl MCH 26.0 (26-34) pg MCHC 29.2 L (32-36) g/dl RDW 17.6 H (11.5-14.5) % Plt Count 200 (150-375) k/mm3 MPV 12.0 H (7.4-10.4) fl Immature Gran % (Auto) 0.5 (0-0.5) % Neut % (Auto) 50.6 (45.5-73.1) % Lymph % (Auto) 38.2 (18.3-44.2) % Haines % (Auto) 7.7 (2.6-8.5) % Eos % (Auto) 2.5 (0-4.4) % Baso % (Auto) 0.5 (0.2-1.2) % Lymph # (Auto) 2.47 (0.9-3.2) K/mm3 Haines # (Auto) 0.5 (0.1-0.6) K/mm3 Eos # (Auto) 0.2 (0-0.3) K/mm3 Baso # (Auto) 0.0 (0.0-0.1) K/mm3 Abs Immat Gran (auto) 0.03 (0.00-0.031) K/mm3 Absolute Neuts (auto) 3.3 (1.3-6.7) K/mm3 Absolute Nucleated RBC 0.000 (0.0-0.012) K/mm3 Band Neutrophils % Not Reportable Nucleated RBC % 0.0 (0.0-0.2) % Atypical Lymphocytes Present Platelet Estimate Adequate (Adequate) Hypochromasia 1+ Schistocytes None seen Sodium 141 (137-145) mmol/L Potassium 5.3 H (3.4-5.0) mmol/L Chloride 112 H (98-107) mmol/L Carbon Dioxide 19 L (22-30) mmol/L Anion Gap 10 (4-12) mmol/L BUN 75 H D (7-17) mg/dL Creatinine 3.52 H (0.7-1.0) mg/dL Estim Creat Clear Calc 15 ml/min Estimated GFR 13 L (59 - ) Glucose 36 L* (65-110) mg/dL POC Capillary Glucose 27 L* 205 H (65-105) mg/dl Calcium 8.2 L (8.4-10.2) mg/dL Magnesium 3.0 H (1.6-2.3) mg/dL Total Bilirubin 0.3 (0.2-1.3) mg/dL AST 20 (14-36) U/L ALT 15 (6-35) U/L Alkaline Phosphatase 84 (38-126) U/L Troponin I < 0.012 (0.000-0.034) ng/mL NT-Pro-B Natriuret Pep 1520 H (19.9-100) pg/mL Total Protein 7.0 (6.3-8.2) g/dL Albumin 4.0 (3.5-5.1) g/dL Discharge Plan Discharge Clinical Impression: Acute exacerbation of chronic obstructive pulmonary disease, CKD (chronic kidney disease) Acute exacerbation of CHF (congestive heart failure) Qualifiers: Heart failure type: diastolic Qualified Code(s): I50.33 - Acute on chronic diastolic (congestive) heart failure Patient Disposition: Still a Patient Condition: Stable
--- NOTE | 2025-03-03 14:17 | P.CONNP_ITS ---
Assessment and Plan Assessment and plan (1) Acute kidney injury: Code(s): N17.9 - Acute kidney failure, unspecified Status: Acute Assessment and Plan: * rising creatinine noted by outpatient labs and on admission * due to CHF exacerbation(?) * cannot discount the possibility of CKD progression... * may worsen further with diuresis (see #3) * check renal ultrasound, CPK, and urine studies * follow trend of repeat labs and UOP (2) Stage 4 chronic kidney disease: Code(s): N18.4 - Chronic kidney disease, stage 4 (severe) Status: Chronic Assessment and Plan: * baseline creatinine seems to run around 2.2 - 2.9mg/dl in the last year * due to hypertension, diabetes, vascular disease, and age-related change (3) Acute exacerbation of CHF (congestive heart failure): Qualifiers: Heart failure type: diastolic Qualified Code(s): I50.33 - Acute on chronic diastolic (congestive) heart failure Code(s): I50.9 - Heart failure, unspecified Status: Acute Assessment and Plan: * appears acute on chronic: * elevated BNP * CXR with probablyminimal pleural effusions and minimal bibasilar pulmonary edema. * possibly precipitated by discontinuation of diuretic therapy * however, no evidence of hypoxia * component of COPD/reactive airway disease playing a role(?) * s/p IV diuretics today * follow I/Os and daily weights * follow clinical status (4) Anemia: Code(s): D64.9 - Anemia, unspecified Status: Acute Assessment and Plan: * chronic issue * related to CKD * check anemia studies * follow trend of H/H (5) Hypertension: Qualifiers: Hypertension type: unspecified Qualified Code(s): I10 - Essential (primary) hypertension Code(s): I10 - Essential (primary) hypertension Status: Chronic Assessment and Plan: * reasonable control * may improve further with diuresis * continue home medications * follow trend of hemodynamics (6) Diabetes mellitus: Qualifiers: Diabetes mellitus complication status: without complication Diabetes mellitus usp insulin use: without usp use Diabetes mellitus type: t ype 2 Qualified Code(s): E11.9 - Type 2 diabetes mellitus without complications Code(s): E11.9 - Type 2 diabetes mellitus without complications Status: Acute Assessment and Plan: * follow accu-cheks * glycemic control per hospitalist I will continue to follow the patient with you while she remains hospitalized and make further recommendations as deemed necessary. Thank you for allowing me to participate in the care of this patient. L History of Present Illness Reason for Consult Consult date: 03/03/25 Reason for consult: acute renal failure (on chronic kidney disease) Chief Complaint Chief complaint: CHF/COPD Exac/ EMERITA/CKD History of Present Illness Narrative: The patient is a 75-year-old female with a past medical history as outlined below who presented to [facility] Emergency Room with complaints of shortness of The patient states that her shortness of breath started about 3 or 4 days ago. She seems to indicate that the symptoms started after she was instructed to hold her diuretics. On further questioning, she apparently had outpatient labs done about a week ago that showed worsening of her renal function. On the assumption that over-diuresis was to blame for this change she was instructed to hold her diuretic therapy in the hopes this would stabilize her renal function. Along with her diuretics, her amlodipine was also decreased as well as she had recurrent issues with lower extremity swelling / edema In the context of well- controlled blood pressure. She denies any other symptoms with regard to fevers, chills, diaphoresis, body aches, weight gain, palpitations, lightheadedness, or dizziness. Accompany the shortness of breath was a intermittent productive cough and upper airway congestion as well. Given the symptoms continued to progressively get worse, she came to the emergency room for further assessment. Workup and evaluation emergency room demonstrated the patient be hemodynamically stable in no acute distress than complaints of shortness of. Routine blood work demonstrated CBC with evidence of her known chronic anemia a hemoglobin 9.3 normal white blood cell count and a chemistry panel consistent with her known history chronic kidney disease with no critical electrolyte abnormalities although her creatinine was a bit higher than baseline reading of 3.52 mg/dL. Her BNP was mildly elevated at 15 20 and her initial troponin was negative. Her chest x-ray showed probable minimal pleural effusions and minimal bibasilar pulmonary edema. She was given a dose of IV Lasix and subsequently admitted to hospital presumed CHF exacerbation. Since her admission, she states her breathing is slightly improved but still not back to baseline. She still feels short of breath both at rest and with exertional activities. Renal consultation was requested due to her acute kidney injury/acute renal failure on top of her baseline chronic kidney disease. The patient normally follows with Dr. Pan Shahid for management of her chronic kidney disease. Her baseline creatinine in the last years been running around 2.2 - 2.9 mg/dL and is thought to be due to her hypertension, diabetes, vascular disease, and age-related change coupled with the need for diuretic therapy to maintain her volume status. She had high patient labs in late January that showed her creatinine up to 3.3 mg/dL which prompted the strategy to hold her diuretic therapy the assumption this with stabilize her kidney function. Unfortunately, as mentioned above, this resulted in her shortness of breath and subsequent presentation to the ER. Currently, at the time my evaluation, she does not appear to be in any acute distress. Review of Systems 2 Review of Systems: As per HPI. 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 Chronic kidney disease Chronic pain syndrome Osteoarthritis Chronic obstructive pulmonary disease Type 2 diabetes mellitus Coronary artery disease Hyperlipidemia Urinary frequency Hypertension Tobacco abuse Surgical History Surgical History History of cholecystectomy History of tonsillectomy History of coronary artery stent placement Stents to right coronary artery x4, left anterior descending, circumflex, 2nd marginal, and known occlusion of stent to 1st marginal branch. History of cardiac catheterization Status post insertion of spinal cord stimulator Family History Family History Mother Family history of malignant neoplasm Patient's mother is Ovarian cancer Father Family history of diabetes mellitus in first degree relative Patient's father is Coronary atherosclerosis of bypass graft Social History Social History Social History: Surrogate medical decision maker: Serina Campos, daughter. Code status: Full code. Smoking packs per day: 1 Smoking cigarettes per day: 20.0 Years smoked: 50 Smoking pack-years: 50.00 Smoking status: Current every day smoker Tobacco type: cigarettes Second hand tobacco smoke exposure: Yes Alcohol intake: never Substance use: never Substance use type: does not use Do You Feel Safe in your Home?: Yes Lack of Transportation: No Lack of Food: Never True Current Housing: I Have Housing Concerned About Future Housing: No Difficulty Paying Gas/Electric Bills: No Difficulty Paying for Meds: No Currently Unemployed: No Education: High School Diploma/GED Difficulty w/ Childcare or Family Care: No Spiritual care concerns: No Meds Home Medications and Allergies Home Medications Medication Instructions Recorded Confirmed Type rosuvastatin 20 mg tablet 20 mg PO DAILY 10/30/19 03/03/25 History losartan 100 mg tablet 100 mg PO DAILY #90 tabs 11/11/22 03/03/25 Rx carvedilol 12.5 mg tablet 12.5 mg PO DAILY 12/30/23 03/03/25 History ticagrelor 90 mg tablet (Brilinta) 90 mg PO Q12HR #180 tabs 01/13/24 03/03/25 Rx isosorbide mononitrate 120 mg 120 mg PO QAM #90 tabs 01/14/24 03/03/25 Rx tablet,extended release 24 hr lansoprazole 30 mg capsule,delayed 30 mg PO DAILY #90 caps 02/18/24 03/03/25 Rx release (Prevacid) aspirin 81 mg tablet,delayed 325 mg PO QAM 06/28/24 03/03/25 History release insulin human U-100 NPH-regulr 40 unit subcut BID 06/28/24 03/03/25 History 70-30 mix 100 unit/mL subcutaneous susp (Novolin 70/30 U-100 Insulin) loratadine 10 mg tablet (Allergy 10 mg PO DAILY 06/28/24 03/03/25 History Relief (loratadine)) ipratropium 0.5 mg-albuterol 3 mg 3 ml inhalation Q6HRT #30 doses 07/05/24 03/03/25 Rx (2.5 mg base)/3 mL nebulization soln clonidine HCl 0.1 mg tablet See Rx Instructions .Route 09/10/24 03/03/25 Rx .COMPLEX #180 tabs ferrous sulfate 325 mg (65 mg 325 mg PO DAILY #90 tabs 11/26/24 03/03/25 Rx iron) tablet,delayed release furosemide 40 mg tablet 40 mg PO BID #180 tabs 12/13/24 03/03/25 Rx amlodipine 5 mg tablet 5 mg PO DAILY 01/04/25 03/03/25 History insulin syringe-needle U-100 0.5 #200 ea 02/07/25 03/03/25 Rx mL 31 gauge x 03/04 bumetanide 2 mg tablet 2 mg PO DAILY 03/03/25 03/03/25 History meloxicam 7.5 mg tablet 7.5 mg PO DAILY 03/03/25 03/03/25 History pioglitazone 15 mg tablet 15 mg PO DAILY 03/03/25 03/03/25 History fluticasone propionate 50 See Rx Instructions .Route 03/07/25 Rx mcg/actuation nasal .COMPLEX #48 grams spray,suspension Allergies Allergy/AdvReac Type Severity Reaction Status Date / Time morphine Allergy Unknown Itching Verified 02/18/25 12:39 Sulfa (Sulfonamide Allergy Unknown HIVES Verified 02/18/25 12:39 Antibiotics) Vital Signs Vital Signs Temp Pulse Resp BP Pulse Ox O2 Del Method 03/03/25 13:03 97.2 F L 62 20 151/43 H 93 03/03/25 13:00 93 Room Air 03/03/25 12:11 54 L 20 135/55 L 98 03/03/25 11:41 57 L 22 H 03/03/25 11:25 84 28 H 03/03/25 11:21 95 Room Air 03/03/25 10:43 97.6 F 58 L 20 119/39 L 94 Room Air Exam 2 Narrative: GENERAL APPEARANCE: large and elderly female in no acute distress HEENT: normocephalic, atraumatic, normal conjunctiva and sclera, nares patient NECK: no lymphadenopathy, thyromegaly, or JVD MOUTH: normal lips, teeth, and gums CARDIOVASCULAR: RRR, normal S1 and S2, no rub RESPIRATORY: coarse breath sound with bibasilar crackles and a few scattered wheezes noted ABDOMEN: soft, nontender, nondistended, positive bowel sounds present EXTREMITIES: no evidence of cyanosis, clubbing, 2+ edema NEUROLOGICAL: alert and oriented x 3; CN II - XII intact bilaterally; no focal deficits noted Results Lab Results 03/04/25 05:08 03/04/25 05:08 Lab results: Most recent lab results Calcium 8.2 mg/dL (8.4-10.2) L 03/03/25 11:08 Magnesium 3.0 mg/dL (1.6-2.3) H 03/03/25 11:08
[2025-03-03 16:51] LABS: Glucose Point of Care 83 mg/dl (65-105)
[2025-03-03] MEDS: BUMETANIDE INJ 1 MG/4 ML VIAL 2 MG IV PUSH (17:53)
[2025-03-03] MEDS: BENZONATATE 100 MG CAPSULE PO (21:35)
[2025-03-03] MEDS: MELATONIN 3 MG TABLET PO (21:35)
[2025-03-03 22:18] LABS: Glucose Point of Care 186 mg/dl (65-105)
[2025-03-03] MEDS: IBUPROFEN 400 MG TABLET 800 MG PO (23:09)
[2025-03-04 03:05] VITALS: PULSE 63; RESP 20
[2025-03-04] MEDS: IPRATROPIUM 0.5 MG/ALBUTEROL SULFATE 2.5 MG AMPUL.NEB 3 ML INHALATION ×3 (03:05→13:33)
[2025-03-04 03:15] VITALS: PULSE 65; RESP 20
[2025-03-04] MEDS: BENZONATATE 100 MG CAPSULE PO ×2 (05:01→09:48)
[2025-03-04 05:07] VITALS: BP 155/57; PULSE 60; RESP 16; TEMP 36.5; O2SAT 93
[2025-03-04 05:27] LABS: Basophils Absolute Auto 0.1 K/mm3 (0.0-0.1); Basophils Percent Auto 0.6 % (0.2-1.2); Eosinophils Absolute Auto 0.3 K/mm3 (0-0.3); Eosinophils Percent Auto 3.7 % (0-4.4); Hematocrit 33.3 % (37.0-47.0); Hemoglobin 9.7 g/dL (12.0-15.0); Immature Granulocyte Absolute 0.04 K/mm3 (0.00-0.031); Immature Granulocyte Percent A 0.5 % (0-0.5); Lymphocytes Absolute Auto 2.43 K/mm3 (0.9-3.2); Mean Corpuscular HGB Conc 29.1 g/dl (32-36); Mean Corpuscular Hemoglobin 25.5 pg (26-34); Mean Corpuscular Volume 87.4 fl (80-100); Mean Platelet Volume 11.1 fl (7.4-10.4); Monocytes Absolute Auto 0.6 K/mm3 (0.1-0.6); Monocytes Percent Auto 6.3 % (2.6-8.5); Neutrophils Absolute Auto 5.3 K/mm3 (1.3-6.7); Neutrophils Percent Auto 60.9 % (45.5-73.1); Platelet Count Result 197 k/mm3 (150-375); Red Blood Count 3.81 M/mm3 (4.2-5.4); Red Cell Distribution Width 17.7 % (11.5-14.5); White Blood Count 8.7 K/mm3 (4.5-10.0)
[2025-03-04 05:47] LABS: Creatine Kinase 74 U/L (30-135)
[2025-03-04 05:48] LABS: Alanine Aminotransferase 16 U/L (6-35); Albumin Level 4.1 g/dL (3.5-5.1); Alkaline Phosphatase 94 U/L (38-126); Anion Gap 12 mmol/L (4-12); Aspartate Amino Transferase 18 U/L (14-36); Band Neutrophils Percent 0 % (0-6); Bilirubin,Total 0.3 mg/dL (0.2-1.3); Blood Urea Nitrogen 77 mg/dL (7-17); Calcium 8.2 mg/dL (8.4-10.2); Carbon Dioxide 19 mmol/L (22-30); Chloride 111 mmol/L (98-107); Estimated CRCL calculation 14 ml/min; Estimated Glomerular Filt Rate 11; Glucose 88 mg/dL (65-110); Magnesium 2.9 mg/dL (1.6-2.3); Potassium 5.5 mmol/L (3.4-5.0); Sodium 142 mmol/L (137-145)
[2025-03-04 05:49] LABS: Anisocytosis 1+; Hypochromasia 1+; Ovalocytes 1+; Platelet Estimate Adequate (Adequate); Schistocytes None Seen
[2025-03-04 05:51] LABS: Iron 45 ug/dL (37-170)
[2025-03-04 06:00] LABS: Percent Iron Saturation 14 % (20-50)
[2025-03-04 06:59] VITALS: PULSE 64; RESP 20
[2025-03-04 07:58] LABS: Glucose Point of Care 99 mg/dl (65-105)
[2025-03-04 08:01] LABS: Folic Acid 3.4 ng/mL (2.76->20)
--- NOTE | 2025-03-04 08:15 | P.CDI_ITS ---
CDI Query Clarification Request Patient with a BMI of 46.9 please provide a diagnosis to accompany this finding: * Overweight * Obesity * Morbid Obesity * Other/Unknown <Kaylynn Christina RN - Last Filed: 03/04/25 08:16> Clarified Diagnosis Clarified Diagnosis: * Morbid Obesity <Cristian Mota MD - Last Filed: 03/04/25 08:51>
--- NOTE | 2025-03-04 08:15 | WPDCDIQUERY2 ---
CDI Query Clarification Request Patient with a BMI of 46.9 please provide a diagnosis to accompany this finding: Overweight Obesity Morbid Obesity Other/Unknown <Kaylynn Christina RN - Last Filed: 03/04/25 08:16> Clarified Diagnosis Clarified Diagnosis: Morbid Obesity <Cristian Mota MD - Last Filed: 03/04/25 08:51>
[2025-03-04] MEDS: LORATADINE 10 MG TABLET PO (09:44)
[2025-03-04] MEDS: amLODIPine BESYLATE 5 MG TABLET PO (09:44)
[2025-03-04] MEDS: FERROUS SULFATE 325 MG TABLET DR PO (09:44)
[2025-03-04] MEDS: TICAGRELOR 90 MG TABLET PO (09:44)
[2025-03-04] MEDS: ASPIRIN 325 MG ENTERIC TABLET PO (09:44)
[2025-03-04 09:45] VITALS: PULSE 72
[2025-03-04] MEDS: carvediloL 12.5 MG TABLET PO (09:45)
[2025-03-04] MEDS: FLUTICASONE PROPIONATE 0.05% NA SPR 16 GM BTL (*BKC) 1 SPRAY NASAL (09:45)
[2025-03-04] MEDS: LOSARTAN POTASSIUM 100 MG TABLET PO (09:45)
[2025-03-04] MEDS: ROSUVASTATIN 20 MG TABLET PO (09:45)
[2025-03-04] MEDS: ISOSORBIDE MONONITRATE 60 MG TAB.ER.24H 120 MG PO (09:45)
[2025-03-04] MEDS: MELOXICAM 7.5 MG TABLET PO (09:45)
[2025-03-04] MEDS: cloNIDine HCL 0.1 MG TABLET PO (09:45)
[2025-03-04] MEDS: BUMETANIDE INJ 1 MG/4 ML VIAL IV PUSH (09:45)
[2025-03-04] MEDS: PANTOPRAZOLE 40 MG TABLET PO (09:45)
[2025-03-04] MEDS: PIOGLITAZONE HCL 15 MG TAB PO (09:46)
[2025-03-04 11:07] LABS: Creatinine Urine 48.5 mg/dL
[2025-03-04 11:09] LABS: Creatinine Urine 46.9 mg/dL; Total Protein Urine Random 23 mg/dL; Ur Ttl Prot Creatinine Ratio 0.49 mg/mg (0-0.20)
[2025-03-04 11:35] LABS: Total Protein Urine Random 23 mg/dL; Urea Random Urine 559 MG/DL
--- NOTE | 2025-03-04 11:37 | PM.IMPN ---
Progress Note: A&P Assessment and Plan (1) Acute exacerbation of CHF (congestive heart failure): Qualifiers: Heart failure type: diastolic Qualified Code(s): I50.33 - Acute on chronic diastolic (congestive) heart failure Code(s): I50.9 - Heart failure, unspecified Status: Acute Assessment and Plan: Acute on chronic. BNP elevated at 1520. CXR showed probable minimal pleural effusions and minimal bibasilar pulmonary edema. No hypoxia. Recently had diuretic discontinued in the hopes of improving renal function. Given 40 of Lasix IV in the ED, given additional Bumex 2 mg IV by Nephrology.June of 2024 showed grade 1 diastolic noncompliance, concentric LVH with hyperdynamic systolic function with estimated EF greater than 70% \ Nephrology is concerned about diuresis compromising renal function t thus will defer diuresis to Nephrology Nephrology following (2) Chronic kidney disease, stage IV (severe): Code(s): N18.4 - Chronic kidney disease, stage 4 (severe) Status: Deleted Assessment and Plan: Creatinine 3.52, BUN 75, GFR 13. Previously 3.28, BUN 70, GFR 14 on 02/14/2025. Mild EMERITA, suspected secondary to volume overload. s/p 40 mg of Lasix IV and Bumex 2 mg IV. Renal ultrasound, CPK and urine studies pending Nephrology following (3) Diabetes mellitus: Qualifiers: Diabetes mellitus type: type 2 Diabetes mellitus rodent exterminator insulin use: without rodent exterminator use Diabetes mellitus complication status: without complication Qualified Code(s): E11.9 - Type 2 diabetes mellitus without complications Code(s): E11.9 - Type 2 diabetes mellitus without complications Status: Acute Assessment and Plan: - hypoglycemia protocol - POC blood glucose ACHS - home medication: Novolin 70/30 40 units SQ b.i.d., Actos - correct regimen ordered - high dose TIDWM, based off BMI - A1C 5.6% on 02/06/2025 (4) Chronic anemia: Code(s): D64.9 - Anemia, unspecified Status: Acute Assessment and Plan: Chronic anemia secondary to CKD. Hemoglobin 9.3, at baseline. Monitor. (5) Hypertension: Qualifiers: Hypertension type: unspecified Qualified Code(s): I10 - Essential (primary) hypertension Code(s): I10 - Essential (primary) hypertension Status: Chronic Assessment and Plan: Chronic, currently 151/43. Continue home medications: Losartan, Imdur, clonidine, Coreg, amlodipine. Monitor. Plan Diet: Heart healthy GI Prophylaxis: Not indicated DVT Prophylaxis: SCDs IV fluids: None Lines/Tubes: Peripheral IV Code Status: full code Subjective Date/time seen: 03/04/25 11:37 Interval history: Comfortable at bedside Review of Systems Review of Systems: All systems reviewed & are unremarkable except as noted in HPI and below Exam Narrative: 1+ pitting to ankles anf feet bilat. Const: General: comfortable and no acute distress Other: , female, chronically ill-appearing HENMT: Face/Nose/Sinus: Normal nares present Mouth: Yes moist mucous membranes Eyes: General: appearance normal, both eyes and all related structures Sclera: sclerae normal Pupils: Equal, round and reactive pupils present EOM: EOMs intact bilaterally Resp: Effort & Inspection: normal respiratory effort Auscultation: clear to auscultation bilaterally Cardio: Rate: regular rate Rhythm: regular rhythm Other: S1-S2 present without murmur, rub, ectopy GI: Other: Abdomen soft, nondistended, nontender. Normoactive bowel sounds in all quadrants. Skin: General skin exam: normal color and no rashes or lesions noted Wounds: no wounds Neuro: Cranial nerves: Yes Equal, round and reactive pupils present Speech: normal speech Motor exam (neuro): 5/5 motor strength present throughout Sensory Exam: normal sensation Other: A&O x4 Extrem: Other: 2+ pitting edema to bilateral feet/ankles, symmetric. Psych: Mental Status: mental status grossly normal Affect: normal affect Other: Fair insight and judgment, pleasant Objective Data Vital Signs Vital Signs: Vital Signs - 24 hr 03/03/25 11:41 03/03/25 12:11 03/03/25 13:00 Temperature Pulse Rate 57 L 54 L Respiratory Rate 22 H 20 Blood Pressure 135/55 L Pulse Oximetry 98 93 Oxygen Delivery Room Air 03/03/25 13:03 03/03/25 20:00 03/03/25 20:40 Temperature 97.2 F L 97.9 F Pulse Rate 62 60 Respiratory Rate 20 16 Blood Pressure 151/43 H 153/58 H Pulse Oximetry 93 94 Oxygen Delivery Room Air 03/04/25 03:05 03/04/25 03:15 03/04/25 05:07 Temperature 97.7 F Pulse Rate 63 65 60 Respiratory Rate 20 20 16 Blood Pressure 155/57 H Pulse Oximetry 93 Oxygen Delivery 03/04/25 06:59 03/04/25 09:40 03/04/25 09:45 Temperature Pulse Rate 64 72 Respiratory Rate 20 Blood Pressure Pulse Oximetry Oxygen Delivery Room Air Intake/Output Intake/Output: Intake & Output 03/01/25 03/02/25 03/03/25 03/04/25 23:59 23:59 23:59 23:59 Intake Total 390 680 Balance 390 680 Meds/Results Medications: Active Medications Generic Name Dose Route Start Last Admin Trade Name Freq PRN Reason Stop Dose Admin Acetaminophen 650 mg 03/03/25 13:06 Acetaminophen 325 Mg Tablet PO Q6H PRN Mild Pain (1-3) or Fever Albuterol/Ipratropium 3 ml 03/04/25 02:00 03/04/25 06:58 Ipratropium 0.5 Mg/Albuterol Sulfate 2.5 Mg Ampul.Neb 3 Ml INHALATION 3 ml Q6HRT ADRIAN Administration Amlodipine Besylate 5 mg 03/04/25 09:00 03/04/25 09:44 Amlodipine Besylate 5 Mg Tablet PO 5 mg DAILY ADRIAN Administration Aspirin 325 mg 03/04/25 09:00 03/04/25 09:44 Aspirin 325 Mg Enteric Tablet PO 325 mg QAM ADRIAN Administration Benzonatate 100 mg 03/03/25 20:22 03/04/25 09:48 Benzonatate 100 Mg Capsule PO 100 mg TID PRN Administration Cough Bumetanide 1 mg 03/04/25 09:00 03/04/25 09:45 Bumetanide Inj 1 Mg/4 Ml Vial IV PUSH 1 mg BID ADRIAN Administration Carvedilol 12.5 mg 03/04/25 09:00 03/04/25 09:45 Carvedilol 12.5 Mg Tablet PO 12.5 mg DAILY ADRIAN Administration Clonidine HCl 0.1 mg 03/04/25 09:00 03/04/25 09:45 Clonidine Hcl 0.1 Mg Tablet PO 0.1 mg BID ADRIAN Administration Dextrose 12.5 gm 03/03/25 13:03 Dextrose 50% 25 Gm/50 Ml Syringe IV PUSH PRN PRN Hypoglycemia Protocol Docusate Sodium 100 mg 03/03/25 13:06 Docusate Sodium 100 Mg Capsule PO Q12H PRN Constipation Ferrous Sulfate 325 mg 03/04/25 09:00 03/04/25 09:44 Ferrous Sulfate [address] PO 325 mg DAILY ADRIAN Administration Fluticasone Propionate 1 spray 03/04/25 09:00 03/04/25 09:45 Fluticasone Propionate 0.05% Na Spr 16 Gm Btl (*Bkc) NASAL 1 spray Q12HR ADRIAN Administration Glucagon 1 mg 03/03/25 13:03 Glucagon For Inj 1 Mg Vial IM PRN PRN Hypoglycemia Protocol Glucose 15 gm 03/03/25 13:03 Glucose Oral Gel 15 Gm Of Glucse In 37.5 Gm Tube PO PRN PRN Hypoglycemia Protocol Dextrose 1,000 mls @ 100 mls/hr 03/03/25 13:03 Dextrose 5% 1,000 Ml IVPB PRN PRN Hypoglycemia Protocol Insulin Aspart 4 - 8 units 03/03/25 17:00 03/04/25 08:00 Insulin Aspart (*Bkc) 100 Units/Ml SUB-Q Not Given TIDWM ADRIAN Protocol Insulin Human Isoph/Insulin Regular 40 units 03/04/25 09:00 03/04/25 09:46 Insulin Human Isophan/Regular 70/30 (*Bkc) 100 Units/Ml SUB-Q Not Given BID ADRIAN Isosorbide Mononitrate 120 mg 03/04/25 09:00 03/04/25 09:45 Isosorbide Mononitrate 60 Mg Tab.Er.24h PO 120 mg QAM ADRIAN Administration Loratadine 10 mg 03/04/25 09:00 03/04/25 09:44 Loratadine 10 Mg Tablet PO 10 mg DAILY ADRIAN Administration Losartan Potassium 100 mg 03/04/25 09:00 03/04/25 09:45 Losartan Potassium 100 Mg Tablet PO 100 mg DAILY ADRIAN Administration Melatonin 3 mg 03/03/25 21:00 03/03/25 21:35 Melatonin 3 Mg Tablet PO 3 mg HS ADRIAN Administration Meloxicam 7.5 mg 03/04/25 09:00 03/04/25 09:45 Meloxicam 7.5 Mg Tablet PO 7.5 mg DAILY ADRIAN Administration Ondansetron HCl 4 mg 03/03/25 13:06 Ondansetron Inj 4 Mg/2 Ml Vial IV PUSH Q6H PRN Nausea And Vomiting Pantoprazole Sodium 40 mg 03/04/25 09:00 03/04/25 09:45 Pantoprazole 40 Mg Tablet PO 40 mg QAM ADRIAN Administration Pioglitazone HCl 15 mg 03/04/25 09:00 03/04/25 09:46 Pioglitazone Hcl 15 Mg Tab PO 15 mg DAILY ADRIAN Administration Rosuvastatin Calcium 20 mg 03/04/25 09:00 03/04/25 09:45 Rosuvastatin 20 Mg Tablet PO 20 mg DAILY ADRIAN Administration Ticagrelor 90 mg 03/04/25 09:00 03/04/25 09:44 Ticagrelor 90 Mg Tablet PO 90 mg Q12HR ADRIAN Administration Radiology Results: ITS Impressions Chest X-Ray 03/04/25 05:30 Impression: Probable minimal bibasilar pulmonary edema. Renal Ultrasound 03/04/25 10:55 IMPRESSION: 1. Normal kidneys without hydronephrosis. Labs Labs: Laboratory Results - last 24 hr 03/03/25 03/03/25 03/03/25 11:08 13:06 16:46 WBC 6.5 RBC 3.58 L Hgb 9.3 L Hct 31.8 L MCV 88.8 MCH 26.0 MCHC 29.2 L RDW 17.6 H Plt Count 200 MPV 12.0 H Immature Gran % (Auto) 0.5 Neut % (Auto) 50.6 Lymph % (Auto) 38.2 [place] % (Auto) 7.7 Eos % (Auto) 2.5 Baso % (Auto) 0.5 Lymph # (Auto) 2.47 [place] # (Auto) 0.5 Eos # (Auto) 0.2 Baso # (Auto) 0.0 Abs Immat Gran (auto) 0.03 Absolute Neuts (auto) 3.3 Absolute Nucleated RBC 0.000 Band Neutrophils % Not Reportable Nucleated RBC % 0.0 Atypical Lymphocytes Present Platelet Estimate Adequate Hypochromasia 1+ Anisocytosis Ovalocytes Schistocytes None seen Sodium 141 Potassium 5.3 H Chloride 112 H Carbon Dioxide 19 L Anion Gap 10 BUN 75 H D Creatinine 3.52 H Estim Creat Clear Calc 15 Estimated GFR 13 L Glucose 36 L* POC Capillary Glucose 102 83 Calcium 8.2 L Magnesium 3.0 H Iron TIBC % Saturation Ferritin Total Bilirubin 0.3 AST 20 ALT 15 Alkaline Phosphatase 84 Total Creatine Kinase Troponin I < 0.012 NT-Pro-B Natriuret Pep 1520 H Total Protein 7.0 Albumin 4.0 Vitamin B12 Folate U Random Total Protein Ur Random Urea Urine Creatinine 03/03/25 03/04/25 03/04/25 20:42 05:08 07:49 WBC 8.7 RBC 3.81 L Hgb 9.7 L Hct 33.3 L MCV 87.4 MCH 25.5 L MCHC 29.1 L RDW 17.7 H Plt Count 197 MPV 11.1 H Immature Gran % (Auto) 0.5 Neut % (Auto) 60.9 Lymph % (Auto) 28.0 [place] % (Auto) 6.3 Eos % (Auto) 3.7 Baso % (Auto) 0.6 Lymph # (Auto) 2.43 [place] # (Auto) 0.6 Eos # (Auto) 0.3 Baso # (Auto) 0.1 Abs Immat Gran (auto) 0.04 H Absolute Neuts (auto) 5.3 Absolute Nucleated RBC 0.000 Band Neutrophils % 0 Nucleated RBC % 0.0 Atypical Lymphocytes Platelet Estimate Adequate Hypochromasia 1+ Anisocytosis 1+ Ovalocytes 1+ Schistocytes None seen Sodium 142 Potassium 5.5 H Chloride 111 H Carbon Dioxide 19 L Anion Gap 12 BUN 77 H Creatinine 3.85 H Estim Creat Clear Calc 14 Estimated GFR 11 L Glucose 88 POC Capillary Glucose 186 H 99 Calcium 8.2 L Magnesium 2.9 H Iron 45 TIBC 332 % Saturation 14 L Ferritin 17.10 Total Bilirubin 0.3 AST 18 ALT 16 Alkaline Phosphatase 94 Total Creatine Kinase 74 Troponin I NT-Pro-B Natriuret Pep Total Protein 8.0 Albumin 4.1 Vitamin B12 551.0 Folate 3.4 U Random Total Protein Ur Random Urea Urine Creatinine 03/04/25 03/04/25 03/04/25 10:21 10:22 10:22 WBC RBC Hgb Hct MCV MCH MCHC RDW Plt Count MPV Immature Gran % (Auto) Neut % (Auto) Lymph % (Auto) [place] % (Auto) Eos % (Auto) Baso % (Auto) Lymph # (Auto) [place] # (Auto) Eos # (Auto) Baso # (Auto) Abs Immat Gran (auto) Absolute Neuts (auto) Absolute Nucleated RBC Band Neutrophils % Nucleated RBC % Atypical Lymphocytes Platelet Estimate Hypochromasia Anisocytosis Ovalocytes Schistocytes Sodium Potassium Chloride Carbon Dioxide Anion Gap BUN Creatinine Estim Creat Clear Calc Estimated GFR Glucose POC Capillary Glucose Calcium Magnesium Iron TIBC % Saturation Ferritin Total Bilirubin AST ALT Alkaline Phosphatase Total Creatine Kinase Troponin I NT-Pro-B Natriuret Pep Total Protein Albumin Vitamin B12 Folate U Random Total Protein 23 23 Ur Random Urea 559 Urine Creatinine 48.5 46.9 Quality VTE Prophylaxis VTE prophylaxis: mechanical ordered
[2025-03-04 11:47] LABS: Sodium Urine Random 78 meq/L
--- NOTE | 2025-03-04 11:53 | P.PNNP_ITS ---
Progress Note: A&P Assessment and Plan (1) Acute kidney injury: Code(s): N17.9 - Acute kidney failure, unspecified Status: Acute Assessment and Plan: * worsen noted * rising creatinine noted by outpatient labs and on admission * due to CHF exacerbation(?) * cannot discount the possibility of CKD progression... * worsening noted with ongoing diuresis (see #3) * evaluation to date noted: * renal ultrasound normal * urine eosinophils negative * urine electrolyte non-prerenal * ~ 500mg of proteinuria * CPK normal * follow trend of repeat labs and UOP (2) Stage 4 chronic kidney disease: Code(s): N18.4 - Chronic kidney disease, stage 4 (severe) Status: Chronic Assessment and Plan: * baseline creatinine seems to run around 2.2 - 2.9mg/dl in the last year * due to hypertension, diabetes, vascular disease, and age-related change (3) Acute exacerbation of CHF (congestive heart failure): Qualifiers: Heart failure type: diastolic Qualified Code(s): I50.33 - Acute on chronic diastolic (congestive) heart failure Code(s): I50.9 - Heart failure, unspecified Status: Acute Assessment and Plan: * appears acute on chronic: * elevated BNP * CXR with probably minimal pleural effusions and minimal bibasilar pulmonary edema. * possibly precipitated by discontinuation of diuretic therapy * however, no evidence of hypoxia * component of COPD/reactive airway disease playing a role(?) * on IV diuretics * follow I/Os and daily weights * follow clinical status (4) Anemia: Code(s): D64.9 - Anemia, unspecified Status: Acute Assessment and Plan: * chronic issue * related to CKD * anemia studies with iron deficiency * assuming no evidence of infection, start IV venofer * follow trend of H/H (5) Hypertension: Qualifiers: Hypertension type: unspecified Qualified Code(s): I10 - Essential (primary) hypertension Code(s): I10 - Essential (primary) hypertension Status: Chronic Assessment and Plan: * reasonable control * may improve further with diuresis * continue home medications * may need to consider holding losartan with ongoing diuresis * follow trend of hemodynamics (6) Diabetes mellitus: Qualifiers: Diabetes mellitus complication status: without complication Diabetes mellitus correction insulin use: without intermodal truck driver use Diabetes mellitus type: t ype 2 Qualified Code(s): E11.9 - Type 2 diabetes mellitus without complications Code(s): E11.9 - Type 2 diabetes mellitus without complications Status: Acute Assessment and Plan: * follow accu-cheks * glycemic control per hospitalist Will continue to follow. L Subjective Date/time seen: 03/04/25 11:53 Interval history: Follow-up for acute kidney injury/acute renal failure on chronic kidney disease. Breathing/respiratory status seems a bit better if not improved in comparison to admission; appears to have responded to IV diuresis but, unfortunately, at the expense of her renal function/creatinine given worsening as noted by AM labs. Exam 2 Narrative: General: elderly but WD/WN female in NAD Heart: normal S1 and S2; no rub Lungs: clear anteriorly but decreased at bases Abdomen: soft, nontender, nondistended, positive bowel sounds Extremities: no cyanosis or clubbing; 1+ edema Skin: warm and dry Objective Data Vital Signs Vital Signs: Vital Signs Temp Pulse Resp BP Pulse Ox O2 Del Method 03/04/25 09:45 72 03/04/25 09:40 Room Air 03/04/25 06:59 64 20 03/04/25 05:07 97.7 F 60 16 155/57 H 93 03/04/25 03:15 65 20 03/04/25 03:05 63 20 Intake/Output Intake/Output: Intake & Output 03/01/25 03/02/25 03/03/25 03/04/25 23:59 23:59 23:59 23:59 Intake Total 390 800 Balance 390 800 Meds/Results Medications: Medications: Active Medications Generic Name Dose Route Start Last Admin Trade Name Claudio PRN Reason Stop Dose Admin Acetaminophen 650 mg 03/03/25 13:06 Acetaminophen 325 Mg Tablet PO Q6H PRN Mild Pain (1-3) or Fever Albuterol/Ipratropium 3 ml 03/04/25 02:00 03/04/25 06:58 Ipratropium 0.5 Mg/Albuterol Sulfate 2.5 Mg Ampul.Neb 3 Ml INHALATION 3 ml Q6HRT ADRIAN Administration Amlodipine Besylate 5 mg 03/04/25 09:00 03/04/25 09:44 Amlodipine Besylate 5 Mg Tablet PO 5 mg DAILY ADRIAN Administration Aspirin 325 mg 03/04/25 09:00 03/04/25 09:44 Aspirin 325 Mg Enteric Tablet PO 325 mg QAM ADRIAN Administration Benzonatate 100 mg 03/03/25 20:22 03/04/25 09:48 Benzonatate 100 Mg Capsule PO 100 mg TID PRN Administration Cough Bumetanide 1 mg 03/04/25 09:00 03/04/25 09:45 Bumetanide Inj 1 Mg/4 Ml Vial IV PUSH 1 mg BID ADRIAN Administration Carvedilol 12.5 mg 03/04/25 09:00 03/04/25 09:45 Carvedilol 12.5 Mg Tablet PO 12.5 mg DAILY ADRIAN Administration Clonidine HCl 0.1 mg 03/04/25 09:00 03/04/25 09:45 Clonidine Hcl 0.1 Mg Tablet PO 0.1 mg BID ADRIAN Administration Dextrose 12.5 gm 03/03/25 13:03 Dextrose 50% 25 Gm/50 Ml Syringe IV PUSH PRN PRN Hypoglycemia Protocol Docusate Sodium 100 mg 03/03/25 13:06 Docusate Sodium 100 Mg Capsule PO Q12H PRN Constipation Ferrous Sulfate 325 mg 03/04/25 09:00 03/04/25 09:44 Ferrous Sulfate [address] PO 325 mg DAILY ADRIAN Administration Fluticasone Propionate 1 spray 03/04/25 09:00 03/04/25 09:45 Fluticasone Propionate 0.05% Na Spr 16 Gm Btl (*Bkc) NASAL 1 spray Q12HR ADRIAN Administration Glucagon 1 mg 03/03/25 13:03 Glucagon For Inj 1 Mg Vial IM PRN PRN Hypoglycemia Protocol Glucose 15 gm 03/03/25 13:03 Glucose Oral Gel 15 Gm Of Glucse In 37.5 Gm Tube PO PRN PRN Hypoglycemia Protocol Dextrose 1,000 mls @ 100 mls/hr 03/03/25 13:03 Dextrose 5% 1,000 Ml IVPB PRN PRN Hypoglycemia Protocol Insulin Aspart 4 - 8 units 03/03/25 17:00 03/04/25 08:00 Insulin Aspart (*Bkc) 100 Units/Ml SUB-Q Not Given TIDWM ADRIAN Protocol Insulin Human Isoph/Insulin Regular 40 units 03/04/25 09:00 03/04/25 09:46 Insulin Human Isophan/Regular 70/30 (*Bkc) 100 Units/Ml SUB-Q Not Given BID ADRIAN Isosorbide Mononitrate 120 mg 03/04/25 09:00 03/04/25 09:45 Isosorbide Mononitrate 60 Mg Tab.Er.24h PO 120 mg QAM ADRIAN Administration Loratadine 10 mg 03/04/25 09:00 03/04/25 09:44 Loratadine 10 Mg Tablet PO 10 mg DAILY ADRIAN Administration Losartan Potassium 100 mg 03/04/25 09:00 03/04/25 09:45 Losartan Potassium 100 Mg Tablet PO 100 mg DAILY ADRIAN Administration Melatonin 3 mg 03/03/25 21:00 03/03/25 21:35 Melatonin 3 Mg Tablet PO 3 mg HS ADRIAN Administration Meloxicam 7.5 mg 03/04/25 09:00 03/04/25 09:45 Meloxicam 7.5 Mg Tablet PO 7.5 mg DAILY ADRIAN Administration Ondansetron HCl 4 mg 03/03/25 13:06 Ondansetron Inj 4 Mg/2 Ml Vial IV PUSH Q6H PRN Nausea And Vomiting Pantoprazole Sodium 40 mg 03/04/25 09:00 03/04/25 09:45 Pantoprazole 40 Mg Tablet PO 40 mg QAM ADRIAN Administration Pioglitazone HCl 15 mg 03/04/25 09:00 03/04/25 09:46 Pioglitazone Hcl 15 Mg Tab PO 15 mg DAILY ADRIAN Administration Rosuvastatin Calcium 20 mg 03/04/25 09:00 03/04/25 09:45 Rosuvastatin 20 Mg Tablet PO 20 mg DAILY ADRIAN Administration Ticagrelor 90 mg 03/04/25 09:00 03/04/25 09:44 Ticagrelor 90 Mg Tablet PO 90 mg Q12HR ADRIAN Administration Radiology Results: ITS Impressions Chest X-Ray 03/04/25 05:30 Impression: Probable minimal bibasilar pulmonary edema. Renal Ultrasound 03/04/25 10:55 IMPRESSION: 1. Normal kidneys without hydronephrosis. Labs Labs: Laboratory Tests 03/04/25 05:08 03/04/25 05:08 Calcium 8.2 L Magnesium 2.9 H Iron 45 TIBC 332 % Saturation 14 L Ferritin 17.10 Total Bilirubin 0.3 AST 18 ALT 16 Alkaline Phosphatase 94 Total Creatine Kinase 74 Total Protein 8.0 Albumin 4.1 Vitamin B12 551.0 Folate 3.4
[2025-03-04 11:58] LABS: Glucose Point of Care 158 mg/dl (65-105)
[2025-03-04 12:53] LABS: Eosinophil Urine None Seen % (None Seen); Urine Eos QC 2nd Tech Confirmed
[2025-03-04 13:35] VITALS: PULSE 646; RESP 20
== END 2025-03-04 14:50 | disposition left against medical advice (07) | DRG 291 ==
LOC: ANHED 11:55 → ANH2MED 12:41
PROVIDERS: Internal Medicine Nephrology; Student in an Organized Health Care Education/Training Program; Admitting Provider Internal Medicine; Emergency Provider Emergency Medicine; PCP Emergency Medicine; Visit Provider Internal Medicine
DX: I13.0 Hypertensive heart and chronic kidney disease with heart failure and stage 1 through stage 4 chronic kidney disease, or unspecified chronic kidney disease (principal); I50.33 Acute on chronic diastolic (congestive) heart failure; N18.4 Chronic kidney disease, stage 4 (severe); K55.1 Chronic vascular disorders of intestine; Z68.42 Body mass index [BMI] 45.0-49.9, adult; D63.1 Anemia in chronic kidney disease; J44.9 Chronic obstructive pulmonary disease, unspecified; E11.22 Type 2 diabetes mellitus with diabetic chronic kidney disease; E78.5 Hyperlipidemia, unspecified; E66.01 Morbid (severe) obesity due to excess calories; M19.90 Unspecified osteoarthritis, unspecified site; G89.4 Chronic pain syndrome; F17.210 Nicotine dependence, cigarettes, uncomplicated; Z95.5 Presence of coronary angioplasty implant and graft; Z79.82 Long term (current) use of aspirin; Z79.4 Long term (current) use of insulin; Z96.82 Presence of neurostimulator
CPT/HCPCS: 36415; 71045; 76775; 80053; 81050; 82550; 82570; 82607; 82728; 82746; 82948; 83540; 83550; 83735; 83880; 84156; 84300; 84484; 84540; 85025; 85999; 94640; 96374; 99285; A9270; J1938; J1939

== ENCOUNTER 2025-07-05 10:05 | Emergency (ER) | payer MEDICARE, SELFPAY ==
--- OUTSIDE RECORDS SUMMARY | 2010-07-06 04:15 | XMS_ITS | Continuity of Care Document ---
Author Organization [facility] Address [address] [place] [address] [address] [place] [address] Phone Care Team Providers Care Toll Collector Name Role Phone Dias OD, Vivek Unavailable Unavailable Procedures Procedure Date Eye Exam, New Patient Refraction Advance Directives Directive Yes / No Effective Date File Name No Information Encounters Encounter Description Practice Location Reason(s) For Visit Diagnoses Date Provider Providers Copied on Encounter [facility], [address] [place] [address] [address], [place], [place], [id number], [place] tel:[phone] [facility] No Information 7-201 0 Dias OD Vivek. [address] , [address], [place], [address], [place]. tel:[phone] Referring Provider: Belkis Faust, [place], [address]. tel:[phone] Family History Family Member Type Diagnosis Age At Onset No Information Payers Payer name Insurance type Covered alliance party ID Authoriza tizachariah(s) [place] [id number] Social History Type Description Quantity Date Captured Comments Sex Female Smoking Status No Information Chief Complaint And Reason For Visit No Information Reason For Referral Reason For Referral No Information History Of Present Illness Encounter Date Complaint History Of Prese nt Illness No Information Functional Status Date Functional Assessmen t No Information Instructions Date Instruction Additional Infor mation No Information Assessments Type Assessment Date No Information Patient Care Teams Name Effective Dates (start - stop) Status Members No Information
--- OUTSIDE RECORDS SUMMARY | 2010-07-06 04:15 | XMS_ITS | Continuity of Care Document ---
Author Organization [facility] Address [address] [place] [address] [address] [place] [address] Phone Care Team Providers Care Collective Bargaining Specialist Name Role Phone Dias OD, Vivek Unavailable Unavailable Procedures Procedure Date Eye Exam, New Patient Refraction Advance Directives Directive Yes / No Effective Date File Name No Information Encounters Encounter Description Practice Location Reason(s) For Visit Diagnoses Date Provider Providers Copied on Encounter [facility], [address] [place] [address] [address], [place], [place], [id number], [place] tel:[phone] [facility] No Information 7-201 0 Dias OD Vivek. [address] , [address], [place], [address], [place]. tel:[phone] Referring Provider: Belkis Faust, [facility] [place], [address]. tel:[phone] Family History Family Member Type Diagnosis Age At Onset No Information Payers Payer name Insurance type Covered green party ID Authoriza tizachariah(s) [place] [id number] Social History Type Description Quantity Date Captured [...]
--- NOTE | ~2025-07-05 | US_ITS ---
LEFT LOWER EXTREMITY VENOUS DUPLEX Clinical History: left leg, calf pain COMPARISON: None TECHNIQUE: Grayscale, color, duplex/spectral Doppler sonography left leg FINDINGS: Left leg common femoral, femoral, popliteal, and calf veins compressible and color Doppler patent. Normal augmentation with distal compression. No internal echoes. 2.6 cm Harris's cyst. IMPRESSION: 1. No left leg DVT. 2. 2.6 cm Harris's cyst. Reviewed, dictated and finalized at location R.
--- NOTE | ~2025-07-05 | XR_ITS ---
EXAMINATION: XR hip LT 2V w AP pelvis, 07/05/2025 11:50 CDT HISTORY: pain TO LT LOW LEG RADIATING INTO HIP, NKI X 3 WKS COMPARISON: No comparisons available. Findings: No acute fracture or malalignment. No significant degenerative changes. Soft tissues unremarkable. Impression: No acute fracture or malalignment. Reviewed, dictated and finalized at location A. Impression: No acute fracture or malalignment.
[2025-07-05 10:09] VITALS: BP 120/49; PULSE 60; RESP 19; TEMP 36.4; O2SAT 95
--- NOTE | 2025-07-05 11:13 | PC.NURSE ---
patient to radiology for imaging and ultrasound at this time
--- OUTSIDE RECORDS SUMMARY | 2025-07-05 11:40 | XMS_ITS | Encounter Summary ---
Author Organization [employer] Address 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 Preet Hale MD [address] [facility] [address] [place] [address] Coronary Atherosclerosis of [place] Coronary Artery (Primary Dx) Social History Tobacco Use Types Packs/Day Years Used Date Smoking Tobacco: Never Assessed Comments Unknown Sex and Gender Information Value Date Recorded Sex Assigned at Not on file Legal 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 ACT value for sheath pull at [facility] has been established to be < or = to 1 40. (See also Nursing Procedures for sheath pull in related nursing areas) 12/19/2006 10:4 6 AM MACHINE FORMER us Preet Hale MD POINT OF CARE TESTING Edited INTERFACE SYSTEM Refer to clinic/hospital department documented in this encounter Visit Diagnoses Diagnosis Coronary atherosclerosis of [place] coronary artery- Primary documented in this encounter Care Teams Surgery Aide Relationship Specialty Start Date End Date Julio Lr MD [address] [place] [id number] PCP - General 12/19/06 documented as of this encounter
--- OUTSIDE RECORDS SUMMARY | 2025-07-05 11:40 | XMS_ITS | Encounter Summary ---
Author Organization [email or web address] Address [address] [place] [address] Care Team Providers Care Ocean Forwarder Name Role Phone Julio Lr MD Primary Care Provider + Encounter Details Date Type Department Care Team (Late st Contact Info) Description 12/19/2006 [facility] [place] [place] [facility] [address] 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
--- OUTSIDE RECORDS SUMMARY | 2025-07-05 11:40 | XMS_ITS | Clinical Summary ---
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
--- OUTSIDE RECORDS SUMMARY | 2025-07-05 11:40 | XMS_ITS | Clinical Summary ---
Author Organization [facility] Address [address] [place] [address] Care Team Providers Care Prison Librarian Name Role Phone Unavailable Primary Care Provider [...] COVID-19 Vaccine ( - 2023-2 5 season) 2025 Meningococcal B Vaccine Aged Out No l onger eligible based on patient's age to complete this topic Meningococcal Vaccine Aged Out No maria esther el eligible based on patient's age to complete this topic RSV Immunizations Under 20 Months Aged Out No longer eligible based on patient's age to complete this topic
--- OUTSIDE RECORDS SUMMARY | 2025-07-05 11:40 | XMS_ITS | Encounter Summary ---
Author Organization [employer] Address [address] [place] [address] Care Team Providers Care Block Breaker Name Role Phone Julio Lr MD Primary Care Provider + Encounter Details Date Type Department Care Team (Latest Contact Info) Description 09/23/2006 Inpatient Historical HIS PATIENT IN A BED Preet Hale MD [address] [facility] [address] [place], [place] [id number] Coronary Atherosclerosis of [place] Coronary Artery (Primary Dx) Social History Tobacco Use Types Packs/Day Years Used Date Smoking Tobacco: Never Assessed Comments Unknown Sex and Gender Information Value Date Recorded Sex Assigned at Not on file Legal Sex Female 5:05 AM SECRETARY TO THE VICE PRESIDENT Gender Identity Not on file Sexual Orientation Not on file documented as of this encounter Plan of Treatment Not on file documented as of this encounter Procedures Procedure Name Priority Date/Time Associated Diagnosis Comments PT AND APTT Routine 09/23/2006 12:41 PM SECRETARY TO THE VICE PRESIDENT CBC WITH DIFFERENTIAL Routine 09/23/2006 12:41 PM SECRETARY TO THE VICE PRESIDENT CBC WITH DIFFERENTIAL Routine 09/23/2006 12:41 PM SECRETARY TO THE VICE PRESIDENT BASIC METABOLIC PANEL Routine 09/23/2006 12:41 PM SECRETARY TO THE VICE PRESIDENT documented in this encounter Results * CBC WITH DIFFERENTIAL (09/23/2006 12:41 PM SECRETARY TO THE VICE PRESIDENT) NEUTROPHILS 53 45 - 70 % INTERFAC [...] K/uL INTERFACE SYSTEM 09/23/2006 12:4 1 PM SECRETARY TO THE VICE PRESIDENT Preet Hale MD HEMATOLOGY ORDERABLES Final Result Performing Organization Address City/[facility] Co de Phone Number INTERFACE SYSTEM Refer to clinic/hospital department * (ABNORMAL) CBC WITH DIFFERENTIAL (09/23/2006 12:41 PM SECRETARY TO THE VICE PRESIDENT) WBC 6.2 4.0 - 9.8 K/uL INTERFACE [...] fL INTERFACE SYSTEM 09/23/2006 12:4 1 PM SECRETARY TO THE VICE PRESIDENT Preet Hale MD HEMATOLOGY ORDERABLES Final Result Performing Organization Address City/[facility]/ZIP Co de Phone Number INTERFACE SYSTEM Refer to clinic/hospital department * BASIC METABOLIC PANEL (09/23/2006 12:41 PM SECRETARY TO THE VICE PRESIDENT) GLUCOSE 95 65 - 99 mg/dL INTERFACE [...] and non- Americans is available on the [facility] Intranet at: [email or web address] Select: Lab Policies and Procedures Select: Reference Ranges - GFR 09/23/2006 12:4 1 PM SECRETARY TO THE VICE PRESIDENT Preet Hale MD CHEMISTRY ORDERABLES Final R esult INTERFACE SYSTEM Refer to clinic/hospital department * PT AND APTT (09/23/2006 12:41 PM SECRETARY TO THE VICE PRESIDENT) PROTIME 14.3 12.7 - 15.1 Seconds INTERFACE SYSTEM INR 1.1 0.9 - 1.1 INTERFACE SYSTEM Comment: INR Therapeutic Range: Adult: 2.0 - 3.0 for pulmonary embolism or prophylaxis against venous thrombosis or systemic embolization. 2.0 - 3.0 for patients with tissue heart valves. 2.5 - 3.5 for patients with mechanical heart valves or post DE. Pediatric (12 years and under): 1.5 - [...] for unfractionated heparin 09/23/2006 12:4 1 PM SECRETARY TO THE VICE PRESIDENT us Preet Hale MD HEMATOLOGY ORDERABLES Final Result INTERFACE SYSTEM Refer to clinic/hospital department documented in this encounter Visit Diagnoses Diagnosis Coronary atherosclerosis of [place] coronary artery- Primary documented in this encounter Care Teams Block Breaker Relationship Specialty Start Date End Date Julio Lr MD [address] [place] [phone] PCP - General 12/19/06 documented as of this encounter
--- OUTSIDE RECORDS SUMMARY | 2025-07-05 11:40 | XMS_ITS | Encounter Summary ---
Author Organization [employer] Address [address] [place] [address] Care Team Providers Care Toe Stripper Name Role Phone Julio Lr MD Primary Care Provider + Encounter Details Date Type Department Care Team (Late st Contact Info) Description 12/20/2006 [facility] [address] 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
--- OUTSIDE RECORDS SUMMARY | 2025-07-05 11:40 | XMS_ITS | Clinical Summary ---
Author Organization [facility] [address] Address [address] [place] [address] Care Team Providers Care Soldering Inspector Name Role Phone Morgan Santiago MD Primary Care Provide r Allergies Active Allergy Reactions Criticality Noted Date Comments Atorvastatin Other (See comments) Low Reaction: Legs hurt, Morphine Dizziness Low 08/12/2017 Simvastatin Other (See comments) Reaction: Legs hurt, Sulfa (Sulfonamide Antibiotics) Itching High Reaction: ITCHING Sulfanilamide Medications cloNIDine (CATAPRES) 0.1 mg tabletIndicatio ns:hypertension Take 1 tablet by mouth 2 (two) times a day Active insulin NPH-insulin regular 70/30 (HumuLIN 70/30,NovoLIN 70/30) 100 unit/mL vial for injectionIndica tions:type 2 diabetes mellitus Inject 40 Units under the skin every morning Active insulin NPH-insulin regular 70/30 (HumuLIN 70/30,NovoLIN 70/30) 100 unit/mL vial for injectionIndica tions:type 2 diabetes mellitus Inject 40 Units under the skin every evening Active fluticasone propion-salmete roL (ADVAIR DISKUS) 250-50 mcg/dose diskus inhalerIndicati ons:Bronchospas m Prevention with COPD Inhale 1 puff 2 (two) times a day 03/03/20 Active fluticasone propionate (FLONASE) 50 mcg/actuation nasal sprayIndication s:Allergic Rhinitis USE 1 SPRAY(S) IN EACH NOSTRIL ONCE DAILY 02/06/20 23 Active albuterol 2.5 mg /3 mL (0.083 %) nebulizer solutionIndicat ions:Chronic Obstructive Pulmonary Disease USE 1 VIAL IN NEBULIZER EVERY 4 TO 6 HOURS NEEDED FOR SHORTNESS OF BREATH FOR WHEEZING . APPOINTMENT REQUIRED FOR FUTURE REFILLS 01/06/20 24 Active loratadine (CLARITIN) 10 mg tabletIndicatio ns:Allergic Rhinitis Take 1 tablet by mouth daily as needed for allergies currently does not have in home and is not taking,wants to discuss w/her PCP 1st 12/25/19 24 Active FeroSuL 325 mg (65 mg iron) tabletIndicatio ns:Iron Deficiency Anemia Take 1 tablet (325 mg total) by mouth daily 03/04/20 24 Active rosuvastatin (CRESTOR) 20 mg tabletIndicatio ns:hyperlipidem ia Take 1 tablet (20 mg total) by mouth daily 90 tablet 3 04/21/20 24 Active nitroglycerin (NITROSTAT) 0.4 mg SL tabletIndicatio ns:Pre-Exertion al Prophylaxis of Angina Pectoris Place 1 tablet (0.4 mg total) under the tongue every 5 (five) minutes as needed for chest pain 25 tablet 1 04/21/20 24 Active aspirin 81 mg enteric coated tabletIndicatio ns:Myocardial Reinfarction Prevention [The details of the medication are not available because there are pending changes by a home health clinician.] 30 tablet 11 04/21/20 24 Active Additional Information Patient taking differently:81 mg oral Daily,Pt is taking 325mg, Indications: Myocardial Reinfarction Prevention, Reported on 03/18/2025 carvediloL (COREG) 12.5 mg tabletIndicatio ns:hypertension Take 1 tablet by mouth twice daily 180 tablet 05/19/20 24 Active amLODIPine (NORVASC) 10 mg tabletIndicatio ns:hypertension [The details of the medication are not available because there are pending changes by a home health clinician.] 90 tablet 2 08/10/20 24 Active Additional Information Patient taking differently: 5 mgoral Daily, Indications: hypertension, Reported on 03/18/2025 calcitRIOL (ROCALTROL) 0.25 mcg capsuleIndicati ons:Vitamin D Deficiency Take 1 capsule (0.25 mcg total) by mouth daily 30 capsule 1 03/11/20 25 2025 Active cholecalciferol (VITAMIN D-3) 5,000 unit capsuleIndicati ons:Vitamin D Deficiency Take 1 capsule (5,000 Units total) by mouth daily 30 capsule 03/11/20 Active folic acid (FOLVITE) 1 mg tabletIndicatio ns:Folate Deficiency Take 1 tablet (1 mg total) by mouth daily 30 tablet 03/11/20 25 2025 Active furosemide (LASIX) 80 mg tabletIndicatio ns:hypertension ,Peripheral Edema due to Chronic Heart Failure,Pulmona ry Edema due to Chronic Heart Failure Take 1 tablet (80 mg total) by mouth 2 (two) times a day 60 tablet 03/10/202025 Active guaiFENesin (ROBITUSSIN) syrup 100 mg/5 mLIndications:C marcellus [The details of the medication are not available because there are pending changes by a home health clinician.] 120 mL 03/10/20 Active Additional Information Patient not taking.Reason: Other (does not currently have and wants to discuss w/PCP 1st), Informant: Self, Reported on 03/14/[address] (PROTONIX) 40 mg EC tabletIndicatio ns:Stress Ulcer Prophylaxis Take 40 mg by mouth daily. Indications: Stress Ulcer Prophylaxis Active pioglitazone (ACTOS) 15 mg tabletIndicatio ns:type 2 diabetes mellitus Take 15 mg by mouth daily. Indications: type 2 diabetes mellitus Active clopidogreL (PLAVIX) 75 mg tabletIndicatio ns:myocardial infarction prevention Take 1 tablet (75 mg total) by mouth daily 30 tablet 03/21/202025 Active buPROPion SR (ZYBAN) 150 mg 12 hr tabletIndicatio ns:Smoking Cessation Take 150 mg by mouth 2 (two) times a day. Indications: stop smoking Active polyethylene glycol (MIRALAX) 17 gram/dose bulk powderIndicatio ns:constipation Take 17 g by mouth daily. Indications: constipation Active isosorbide mononitrate ER (IMDUR) 120 mg 24 hr tablet Take 1 tablet by mouth once daily 30 tablet 06/27/20 25 Active isosorbide mononitrate ER (IMDUR) 120 mg 24 hr tabletIndicatio ns:Prevention of Bleeding Esophageal Varices Take 1 tablet (120 mg total) by mouth daily 90 tablet 03/30/20 25 2024 Discontinued Active Problems Problem Noted Date Diagnosed Date CKD (chronic kidney disease) stage 4, GFR 15-29 ml/min 03/06/2025 COPD exacerbation 03/05/2025 Morbid (severe) obesity due to excess calories 0 04/21/2024 Body mass index 40.0-44.9, adult ([facility]) 04/21 Other chest pain 04/03/2023 Other emphysema [...] artery disease of n ative artery of [place] heart with stable angina pectoris 12/13/2013 Overview [...] Encounters Date Type Department Care Team Description 04/11/2025 TCC Subsequent Outreach [facility] [address] [place], [place] [id number] Kelby Gonsalez RN 04/06/2025 1:00 PM CDT Home Care Visit [address] [place] [address] Adriana Hughes RN SN OASIS DISCHARGE from Last 3 Months Surgical History Surgery Date Site/Laterality Comments CHOLECYSTECTOMY 1990 Cholecystectomy CHOLECYSTECTOMY Cholecystectomy Medical History Medical History Date Comments Hx Other Medical s/p stents Hypertension Hypertension Hyperlipidemia Hyperlipidemia Type 2 diabetes mellitus Diabete s type 2 Chronic coronary artery disease Coronary [...] drink = 0.6 oz pur e alcohol) OASIS D0700: Social Isolation Answer Da te Recorded Frequency of experiencing loneliness or isolatio n Never 04/06/2025 OASIS A1250: Transportation Answer Date Recorded Lack of Transportation (Medical) No 04/06/2025 Lack of Transportation (Non-Medical) No 04/06/2025 Patient Unable or Declines to Respond No 04/06/2025 OASIS B1300: Health Literacy Answer Dioni e Recorded Frequency of needing help to read materials from doctor or pharmacy Always 04/06/2025 [facility] Utilities Answer Date Recorded In the past 12 months has [employer], oil, or water [employer] threatened to shut off services in your home? No 03/07/2025 Social Connection and Isolation Panel Answer Date Recorded In a typical week, how many times do you talk on the phone with family, friends, or neighbors? Three times a week 03/07/2025 How often do you get togethe r with friends or relatives? Twice a week 03/07/2025 How often do you attend chur or evangelical services? Never 03/07/2025 Do you belong to any clubs o r organizations such as sabianism groups, unions, fraternal or athletic groups, or school groups? No 03/07/2025 How often do you attend meet ings of the clubs or organizations you belong to? Never 03/07/2025 Are you , , di vorced, , never , or living with a partner? 03/07/2025 Overall Financial Resource Strain (CARDIA) Answe r Date Recorded How hard is it for you to pa y for the very basics like food, housing, medical care, and heating? Not very hard 03/07/2025 Hunger Vital Sign Answer Date Recorded Within the past 12 months, y ou worried that your food would run out before you got the money to buy more. Never true 03/07/20 25 Within the past 12 months, t he food you bought just didn't last and you didn't have money to get more. Never true 03/07/2025 PRAPARE - Transportation Answer Date Re corded In the past 12 months, has l ack of transportation kept you from medical appointments or from getting medications? No 02/17 In the past 12 months, has l ack of transportation kept you from meetings, work, or from getting things needed for daily living? No 03/07/2025 Housing Stability Vital Sign Answer Dioni e Recorded In the last 12 months, was t here a time when you were not able to pay the mortgage or rent on time? No 03/07/2025 In the past 12 months, how m any times have you moved where you were living? 0 03/07/2025 At any time in the past 12 m [facility], were you homeless or living in a detention (including now)? No 03/07/2025 Personal Safety Answer Date Recorded Have you ever been in or are you currently in a harmful physical or emotional relationship or is someone making you feel afraid or unsafe? 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 Gender Identity Not on file Sexual Orientation Not on file Obstetrics History Last Filed Vital Signs Vital Sign Reading Time Taken Comments Blood Pressure 130/55 04/06/2025 12:46 PM CDT Pulse 57 04/06/2025 12:46 PM CDT Temperature 36.7 C (98.1 F) 04/06/2025 12:46 PM CDT Respiratory Rate 20 04/06/2025 12:46 PM CDT Oxygen Saturation 95% 04/06/2025 12:46 PM CDT Inhaled Oxygen Concentration - - Weight 112 kg (247 lb) 03/30/2025 1:09 PM CDT Height 160 cm (5' 2.99) 03/07/2025 3:31 PM CDT Body Mass Index 43.77 03/07/2025 3:31 PM CDT Plan of Treatment Health Maintenance Due Date Last Done Comments Depression Screening 1950 Hepatitis C Screening 1950 Osteoporosis Screening-Bone Density Scan 1950 Dilated Eye Exam 1950 Foot Exam 1950 DTaP/Tdap/Td Vaccine (1 - Tdap) 02/04/1959 Hepatitis B Screening 02/04/1966 Pneumococcal vaccine 65+ (1 of 2 - PCV) 02/04/1967 Lung Cancer Screening 02/04/1998 Zoster Vaccine (1 of 2) 02/04/1998 Well Visit 65+ 02/04/2013 Lipid Panel 04/21/2025 04/21/2024, 03/20, 12/26/2021, Additional history exists Influenza Vaccine (#1) 2025 Hemoglobin A1C 09/05/2025 03/05/2025 Albumin Creatinine Ratio, Urine 03/06/2026 Fall Risk Assessment 03/10/2026 03/10/2025 eGFR 03/10/2026 03/10/2025, 0510/2024, 03/08/2025, Additional history exists Procedures Procedure Name Priority Date/Time Associated Diagnosis Comments EGFR Routine 03/10/2025 5:40 AM CDT ALBUMIN CREATININE RATIO, URINE Routine 03/06/2025 5:15 PM CDT HEMOGLOBIN A1C Routine 03/05/2025 5:16 PM CDT POCT LIPID PANEL Routine 04/21/2024 3:38 PM CDT Lipid screening from Last 3 Months or Most Recently Relevant to Health Maintenance Results * (ABNORMAL) eGFR (03/10/2025 5:40 AM CDT) eGFR 14(L) >=60 mL/min/1. 73 m2 Comment: Interpretive Data Reference Interval Normal >/= 90 mL/min/1.73m2 Mildly decreased* 60 - 89 mL/min/1.73m2 Mildly to moderately decreased 45 - 59 mL/min/1.73m2 Moderately to severely decreased 30 - 44 mL/min/1.73m2 Severely decreased 15 - 29 mL/min/1.73m2 Kidney Failure < 15 mL/min/1.73m2 *Relative to young adult level Estimated glomerular filtration rate is determined by the 2020 CKD-EPI equation recommended by the National Kidney Foundation (A Unifying Approach to GFR Estimation: Recommendations of the NKF-ASK Task Force on Reassessing the Inclusion of Race in Diagnosing Kidney Disease, JASN 2020). The CKD-EPI equation should not be used for patients with unstable renal function and has not been validated in children and those over 70. Current interpretive data was last reviewed 2021. Blood 03/10/2025 5:40 AM CDT 03/10/2025 5:58 AM CDT us Lewis Hoang NP LAB BLOOD ORDERABLES Final R esult ANDIE [address] [facility] Department [place] [address] * Albumin Creatinine Ratio, Urine (03/06/2025 5:15 PM CDT) Albumin Ur <12.0 mg/L Comment: Interpretive Data No reference range established. Current interpretive data was last revised 2019. Creatinine Ur 41.7 mg/dL ANDIE Comment: Interpretive Data No reference range established. Current interpretive data was last revised 2019. Albumin Creatinine Ratio, Ur <29 1 - 29 mg/g ANDIE Urine 03/06/2025 5:15 PM CDT 03/06/2025 5:23 PM CDT us Beltran Rowell MD LAB URINE ORDERABLES Final Re sult Performing Organization Address [facility] Co de Phone Number [address] [address] * Hemoglobin A1c (03/05/2025 5:16 PM CDT) Pathologist [facility] Hgb A1C 5.5 4.0 - 5.6 % Estimated Average Glucose 111 mg/dL [facility] Comment: The ADA recommends reporting an estimated Average Glucose (eAG) with all Hemoglobin A1c results using the equation derived from a study of 507 normal and diabetic adults. Minority populations were underrepresented and children were not included. (Diabetes Care 31:6060-2476, 2008). The eAG is not equivalent to a fasting glucose. Blood 03/05/2025 5:16 PM CDT 03/05/2025 5:24 PM CDT us Lewis Hoang NP LAB BLOOD ORDERABLES Final R esult Performing Organization Address [facility] Co de Phone Number [address] [address] * POCT lipid panel (04/21/2024 3:38 PM CDT) [facility] Cholesterol, POC 118 mg/dL HDL, POC 37 mg/dL Triglycerides, POC 256 mg/dL LDL Cholesterol POC 30 mg/dL Chol/HDL Ratio, POC 0.8 Non-HDL Cholesterol, POC 81 mg/dL Cholesterol Total, POC 118 mg/dL Capillary blood 04/21/2024 3 :38 PM CDT us Nery Kasper NP POINT OF CARE TEST ORDERABLE S Final Result from Last 3 Months or Most Recently Relevant to Health Maintenance Insurance [facility] Advance Directives For more information, please contact: [phone] * Full Code (Latest Code Status on File) Date Activated Date Inactivated Comments 03/05/2025 4:56 PM 03/10/2025 3:54 PM Care Teams Soldering Inspector Relationship Specialty Start Date End Date Morgan Santiago MD [address] [place], [place] [phone] PCP - General 01/17/17
--- OUTSIDE RECORDS SUMMARY | 2025-07-05 11:40 | XMS_ITS | Encounter Summary ---
Author Organization [employer] Address [address] [place] [address] Care Team Providers Care Silk Trimmer Name Role Phone Julio Lr MD Primary Care Provider + Encounter Details Date Type Department Care Team (Late st Contact Info) Description 09/23/[address] [facility] Support Serv. ([facility]) [address] 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
--- NOTE | 2025-07-05 12:06 | ED.LOWEXIN ---
HPI - Extremity Injury (Lower) General Chief Complaint: Extremity Injury, Lower Stated Complaint: left leg, right hand pain Time Seen by Provider: 07/05/25 11:26 Source: patient Mode of arrival: ambulatory Limitations: no limitations History of Present Illness HPI Narrative: 75 years old white female came to the ED by private car from home complaining of left lower leg pain and left hip pain started 3 weeks ago, no trauma, no new physical activities, no chest pain or shortness of breath, referred to the emergency room by her family physician for further evaluation. Patient currently on Plavix and aspirin. Related Data Home Medications ?Medication ?Instructions ?Recorded ?Confirmed ?Last Taken ?Type rosuvastatin 20 mg tablet 20 mg PO DAILY 10/30/19 05/03/25 Unknown History carvedilol 12.5 mg tablet 12.5 mg PO DAILY 12/30/23 05/03/25 Unknown History insulin human U-100 NPH-regulr 40 unit subcut BID 06/28/24 05/03/25 Unknown History 70-30 mix 100 unit/mL subcutaneous susp (Novolin 70/30 U-100 Insulin) folic acid 1 mg tablet 1 mg PO DAILY 03/22/25 05/03/25 Unknown History amlodipine 10 mg tablet 10 mg PO DAILY 03/24/25 05/03/25 Unknown History aspirin 81 mg tablet,delayed 81 mg PO QAM 03/24/25 05/03/25 Unknown History release calcitriol 0.25 mcg capsule 0.25 mcg PO DAILY 03/24/25 05/03/25 Unknown History cholecalciferol (vitamin D3) 125 125 mcg PO DAILY 03/24/25 05/03/25 Unknown History mcg (5,000 unit) capsule clopidogrel 75 mg tablet (Plavix) 75 mg PO DAILY 03/24/25 05/03/25 Unknown History dextromethorphan polistirex 30 10 ml PO Q4H PRN 03/24/25 05/03/25 Unknown History mg/5 mL oral susp ext.release 12hr (Robitussin ER) fluticasone propionate 50 1 spray intranasal DAILY 03/24/25 05/03/25 Unknown History mcg/actuation nasal spray,suspension (Flonase Allergy Relief) loratadine 10 mg tablet (Claritin) 10 mg PO DAILY 03/24/25 05/03/25 Unknown History nitroglycerin 0.4 mg sublingual 0.4 mg sublingual Q5M PRN 03/24/25 05/03/25 Unknown History tablet Allergies Allergy/AdvReac Type Severity Reaction Status Date / Time morphine Allergy Unknown Itching Verified 07/05/25 10:09 Sulfa (Sulfonamide Allergy Unknown HIVES Verified 07/05/25 10:09 Antibiotics) Review of Systems Review of Systems: All systems reviewed & are unremarkable except as noted in HPI and below PMFSH Past Medical History Medical History Chronic anemia Atherosclerosis Scattered atherosclerotic calcification with 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 Chronic kidney disease Chronic pain syndrome Osteoarthritis Chronic obstructive pulmonary disease Type 2 diabetes mellitus Coronary artery disease Hyperlipidemia Urinary frequency Hypertension Tobacco abuse Surgical History Surgical History History of cholecystectomy History of tonsillectomy History of coronary artery stent placement Stents to right coronary artery x4, left anterior descending, circumflex, 2nd marginal, and known occlusion of stent to 1st marginal branch. History of cardiac catheterization Status post insertion of spinal cord stimulator Family History Family History Mother Family history of malignant neoplasm Patient's mother is Ovarian cancer Father Family history of diabetes mellitus in first degree relative Patient's father is Coronary atherosclerosis of bypass graft Social History Social History Social History: Surrogate medical decision maker: Serina Campos, daughter. Code status: Full code. Smoking packs per day: 1 Smoking cigarettes per day: 20.0 Years smoked: 50 Smoking pack-years: 50.00 Smoking status: Current every day smoker Tobacco type: cigarettes Second hand tobacco smoke exposure: Yes Alcohol intake: never Substance use: never Substance use type: does not use Do You Feel Safe in your Home?: Yes Lack of Transportation: No Lack of Food: Never True Current Housing: I Have Housing Concerned About Future Housing: No Difficulty Paying Gas/Electric Bills: No Difficulty Paying for Meds: No Currently Unemployed: No Education: High School Diploma/GED Difficulty w/ Childcare or Family Care: No Spiritual care concerns: No Exam Narrative: General appearance: Well-developed, well-nourished Skin: Normal color Head: Normocephalic, nontraumatic Eyes: Clear conjunctiva ENT: Oropharynx normal, ears normal, nose normal Neck: Supple, nontender Chest and respiratory: Airway patent, no respiratory distress, no accessory muscle use Heart: Regular rate/rhythm Abdomen: Soft, nontender, no organomegaly, quiet bowel sounds Vascular: Normal peripheral pulses, normal capillary refill. Musculoskeletal: Mild tenderness at the back of left knee, no erythema, no swelling, no rash, calf muscle is soft, nontender. Neurologic: Alert and oriented ?3, REHABILITATION ENGINEER is normal as tested, no gross motor deficit Course Vital Signs Vital signs: Vital Signs Temperature 36.4 C L 07/05/25 10:09 Pulse Rate 60 07/05/25 10:09 Respiratory Rate 19 07/05/25 10:09 Blood Pressure 120/49 L 07/05/25 10:09 Pulse Oximetry 95 07/05/25 10:09 Oxygen Delivery Room Air 07/05/25 10:09 Temperature 36.4 C L 07/05/25 10:09 Pulse Rate 60 07/05/25 10:09 Respiratory Rate 19 07/05/25 10:09 Blood Pressure 120/49 L 07/05/25 10:09 Pulse Oximetry 95 07/05/25 10:09 Oxygen Delivery Room Air 07/05/25 10:09 MDM - Extremity Injury (Lower) MDM Narrative Medical decision making narrative: Left lower leg pain Differential diagnosis include muscle pain, arthritis, Harris cyst, deep vein thrombosis Venous Doppler showed no blood clot X-ray of the left hip and pelvis showed no acute abnormality Imaging Data Radiologist's impression: Impressions Venous Doppler Study 07/05/25 11:43 IMPRESSION: 1. No left leg DVT. 2. 2.6 cm Harris's cyst. Hip/Pelvis X-Ray 07/05/25 11:57 Impression: No acute fracture or malalignment. Critical Care Time Critical Care Time Critical Care Time: No Discharge Plan Discharge Clinical Impression: Harris's cyst, unruptured, Acute leg pain Patient Disposition: Home Condition: Stable Instructions: Harris Cyst (ED) Patient Language: German Prescriptions: New diclofenac sodium 75 mg tablet,delayed release (DR/EC) 75 mg PO BID PRN (Reason: pain) Qty: 10 0RF pantoprazole [Protonix] 20 mg tablet,delayed release (DR/EC) 20 mg PO QAM 28 Days Qty: 28 0RF No Action rosuvastatin 20 mg tablet 20 mg PO DAILY folic acid 1 mg tablet 1 mg PO DAILY bupropion HCl (smoking deter) 150 mg tablet extended release 12 hr See Rx Instructions .ROUTE .COMPLEX Qty: 180 2RF Rx Instructions: Take 1 tablet by mouth daily for days 1 to 3 then increase to BID carvedilol 12.5 mg tablet 12.5 mg PO DAILY Rx Instructions: must administer with a meal/food isosorbide mononitrate 120 mg tablet extended release 24 hr 120 mg PO QAM Qty: 90 3RF Novolin 70/30 U-100 Insulin 100 unit/mL (70-30) Suspension 40 unit SUBCUT BID ferrous sulfate 325 mg (65 mg iron) tablet,delayed release (DR/EC) 325 mg PO DAILY Qty: 90 2RF (DME) insulin syringe-needle U-100 0.5 mL 31 gauge x 5/16 syringe See Rx Instructions .Route Qty: 200 5RF Rx Instructions: use syringe twice daily pantoprazole 40 mg tablet,delayed release (DR/EC) See Rx Instructions .ROUTE .COMPLEX Qty: 90 2RF Dose Instruction: Take 1 tablet by mouth once daily Rx Instructions: Take 1 tablet by mouth once daily clopidogrel [Plavix] 75 mg tablet 75 mg PO DAILY aspirin 81 mg tablet,delayed release (DR/EC) 81 mg PO QAM amlodipine 10 mg tablet 10 mg PO DAILY calcitriol 0.25 mcg capsule 0.25 mcg PO DAILY cholecalciferol (vitamin D3) 125 mcg (5,000 unit) capsule 125 mcg PO DAILY fluticasone propionate [Flonase Allergy Relief] 50 mcg/actuation spray,suspension 1 spray intranasal DAILY Rx Instructions: administer into each nostril dextromethorphan polistirex [Robitussin ER] 30 mg/5 mL suspension,extended rel 12 hr 10 ml PO Q4H PRN loratadine [Claritin] 10 mg tablet 10 mg PO DAILY nitroglycerin 0.4 mg tablet, sublingual 0.4 mg sublingual Q5M PRN Rx Instructions: do not exceed 3 doses per episode fluticasone propion-salmeterol 250-50 mcg/dose blister with device See Rx Instructions .ROUTE .COMPLEX Qty: 180 2RF Dose Instruction: INHALE 1 PUFF BY MOUTH TWICE DAILY IN THE MORNING AND IN THE EVENING APPROXIMATELY 12 HOURS APART Rx Instructions: INHALE 1 PUFF BY MOUTH TWICE DAILY IN THE MORNING AND IN THE EVENING APPROXIMATELY 12 HOURS APART budesonide-formoterol [Symbicort] 160-4.5 mcg/actuation HFA aerosol inhaler 2 puff inhalation Q12H Qty: 30.6 2RF albuterol sulfate 2.5 mg /3 mL (0.083 %) solution for nebulization See Rx Instructions .ROUTE .COMPLEX Qty: 180 2RF Dose Instruction: USE 1 VIAL IN NEBULIZER EVERY 4 TO 6 HOURS NEEDED FOR SHORTNESS OF BREATH OR WHEEZING Rx Instructions: USE 1 VIAL IN NEBULIZER EVERY 4 TO 6 HOURS NEEDED FOR SHORTNESS OF BREATH OR WHEEZING furosemide 80 mg tablet 80 mg PO BID Qty: 60 2RF clonidine HCl 0.1 mg tablet See Rx Instructions .ROUTE .COMPLEX Qty: 180 2RF Dose Instruction: Take 1 tablet by mouth twice daily Rx Instructions: Take 1 tablet by mouth twice daily Follow-up/Referrals: Morgan Santiago MD [Primary Care Provider, Internal Medicine]
[2025-07-05] MEDS: ONDANSETRON HCL ODT 4 MG TABLET PO (12:32)
[2025-07-05] MEDS: HYDROcodone/acetaminophen (*CRX) 5-325 MG TABLET 1 TAB PO (12:32)
--- OUTSIDE RECORDS SUMMARY | 2025-07-05 13:32 | XMS_ITS | Encounter Summary ---
Author Organization [employer] Address 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 Preet Hale MD [address] [facility] [address] [place] [address] Coronary Atherosclerosis of [place] Coronary Artery (Primary Dx) Social History Tobacco Use Types Packs/Day Years Used Date Smoking Tobacco: Never Assessed Comments Unknown Sex and Gender Information Value Date Recorded Sex Assigned at Not on file Legal Sex Female 5:05 AM FORMING PRESS OPERATOR Gender Identity Not on file Sexual Orientation Not on file documented as of this encounter Plan of Treatment Not on file documented as of this encounter Procedures Procedure Name Priority Date/Time Associated Diagnosis Comments POC ACTIVATED CLOTTING TIME Routine 12/19/2006 10:46 AM FORMING PRESS OPERATOR documented in this encounter Results * POC ACTIVATED CLOTTING TIME (12/19/2006 10:46 AM FORMING PRESS OPERATOR) [facility] ACT POC 362 Seconds INTERFACE SYSTEM Comment: Note sheath pull range change effective 04/11/2006. ACT value for sheath pull at [facility] has been established to be < or = to 1 40. (See also Nursing Procedures for sheath pull in related nursing areas) 12/19/2006 10:4 6 AM FORMING PRESS OPERATOR us Preet Hale MD POINT OF CARE TESTING Edited INTERFACE SYSTEM Refer to clinic/hospital department documented in this encounter Visit Diagnoses Diagnosis Coronary atherosclerosis of [place] coronary artery- Primary documented in this encounter Care Teams Relay Repairer Relationship Specialty Start Date End Date Julio Lr MD [address] [place] [phone] PCP - General 12/19/06 documented as of this encounter
--- OUTSIDE RECORDS SUMMARY | 2025-07-05 13:32 | XMS_ITS | Encounter Summary ---
Author Organization [employer] Address [address] [place] [address] Care Team Providers Care Freedom Of Information Officer Name Role Phone Julio Lr MD Primary Care Provider + Encounter Details Date Type Department Care Team (Late st Contact Info) Description 12/19/2006 [facility] [address] [place] [address] Varghese Redman MD NO ADDRESS ON FILE Social History Tobacco Use Types Packs/Day Years Used Date Smoking Tobacco: Never Assessed Comments Unknown Sex and Gender Information Value Date Recorded Sex Assigned at Not on file Legal Sex Female 5:05 AM SHIRRER Gender Identity Not on file Sexual Orientation Not on file documented as of this encounter Plan of Treatment Not on file documented as of this encounter Visit Diagnoses Not on filedocumented in this encounter Care Teams Freedom Of Information Officer Relationship Specialty Start Date End Date Julio Lr MD [address] [place] [phone] PCP - General 12/19/06 documented as of this encounter
--- OUTSIDE RECORDS SUMMARY | 2025-07-05 13:32 | XMS_ITS | Clinical Summary ---
Author Organization [facility] Address [address] Attn: Epic Prelude [place]T [place] [address] Care Team Providers Care Armored Truck Driver Name Role Phone Julio Lr MD Primary Care Provider + Social History Tobacco Use Types Packs/Day Years Used Date Smoking Tobacco: Never Assessed Comments Unknown Sex and Gender Information Value Date Recorded Sex Assigned at Not on file Legal Sex Female 5:05 AM MONORAIL HOOKER Gender Identity Not on file Sexual Orientation Not on file Plan of Treatment Health Maintenance Due Date Last Done Comments DTAP/TDAP/TD VACCINES (1 - Tdap) 02/04/1967 PNEUMOCOCCAL VACCINE 50+ YEARS (1 of 1 - PCV) 02/04/19 98 ZOSTER VACCINE (1 of 2) 02/04/1998 OSTEOPOROSIS SCREENING 02/04/2013 RSV VACCINE (60+ or ) (1 - 1-dose 75+ series) 02/04/2023 INFLUENZA VACCINE (#1) 2025 Care Teams Armored Truck Driver Relationship Specialty Start Date End Date Julio Lr MD [address] [place] [phone] PCP - General 12/19/06
--- OUTSIDE RECORDS SUMMARY | 2025-07-05 13:32 | XMS_ITS | Clinical Summary ---
Author Organization [facility] [address] Address [address] [place] [address] Care Team Providers Care Cabin Cleaning Supervisor Name Role Phone Morgan Santiago MD [...] 0 04/21/2024 Body mass index 40.0-44.9, adult ([facility]) 04/21 Other chest pain 04/03/2023 Other [...] artery disease of n ative artery of [place] heart with stable angina pectoris 12/13/2013 Overview [...] Care Team Description 04/11/2025 TCC Subsequent Outreach [facility] [address] [place], [place] [id number] Kelby Gonsalez RN 04/06/2025 1:00 PM CDT Home Care Visit [address] [place] [address] Adriana Hughes RN SN OASIS DISCHARGE from [...] materials from doctor or pharmacy Always 04/06/2025 [facility] Utilities Answer Date Recorded In the past 12 months has [employer], oil, or water [employer] threatened to shut off services in your home? No 03/07/2025 Social Connection and Isolation Panel Answer Date Recorded In a typical week, how many times do you talk on the phone with family, friends, or neighbors? Three times a week 03/07/2025 How often do you get togethe r with friends or relatives? Twice a week 03/07/2025 How often do you attend chur or spiritism services? Never 03/07/2025 Do you belong to any clubs o r organizations such as hinduism groups, unions, fraternal or athletic groups, or [...] any time in the past 12 [facility], were you homeless or living in a senior care (including now)? No 03/07/2025 Personal Safety Answer Date Recorded Have you ever been in or are you currently in a harmful physical or emotional relationship or is someone making you feel afraid or unsafe? Denies 03/05/2025 Comments Unknown Sex and Gender Information Value Date Recorded Sex Assigned at Not on file Legal Sex Female 1:40 AM SET UP MOLD TECHNICIAN Gender Identity Not on file Sexual [...] LAB BLOOD ORDERABLES Final R esult ANDIE [address] [facility] Department [place] [address] * Albumin Creatinine Ratio, Urine [...] ORDERABLES Final Re sult Performing Organization Address [facility] Co de Phone Number [address] [address] * Hemoglobin A1c (03/05/2025 5:16 PM CDT) Pathologist [facility] Hgb A1C 5.5 4.0 - 5.6 % Estimated Average Glucose 111 mg/dL [facility] Comment: The ADA recommends reporting an estimated Average Glucose (eAG) with all Hemoglobin A1c results using the equation derived from a study of 507 normal and diabetic adults. Minority populations were underrepresented and children were not included. (Diabetes Care 31:0289-4409, 2008). The eAG is not equivalent to a fasting glucose. Blood 03/05/2025 5:16 PM CDT 03/05/2025 5:24 PM CDT us Lewis Hoang NP LAB BLOOD ORDERABLES Final R esult Performing Organization Address [facility] Co de Phone Number [address] [address] * POCT lipid panel (04/21/2024 3:38 PM CDT) [facility] Cholesterol, POC 118 mg/dL HDL, POC 37 mg/dL Triglycerides, POC 256 mg/dL LDL Cholesterol POC 30 mg/dL Chol/HDL Ratio, POC 0.8 Non-HDL Cholesterol, POC 81 mg/dL Cholesterol Total, POC 118 mg/dL Capillary blood 04/21/2024 3 :38 PM CDT us Nery Kasper NP POINT OF CARE TEST ORDERABLE S Final Result from Last 3 Months or Most Recently Relevant to Health Maintenance Insurance [facility] MEDICARE ADVANTAGE [facility] MEDICARE ADVANTAGE Advance Directives For more information, please contact: [phone] * Full Code (Latest Code Status on File) Date Activated Date Inactivated Comments 03/05/2025 4:56 PM 03/10/2025 3:54 PM Care Teams Cabin Cleaning Supervisor Relationship Specialty Start Date End Date Morgan Santiago MD [address] [place], [place] [phone] PCP - General 01/17/17
--- OUTSIDE RECORDS SUMMARY | 2025-07-05 13:32 | XMS_ITS | Encounter Summary ---
Author Organization [employer] Address [address] [place] [address] Care Team Providers Care Head Athletic Trainer Name Role Phone Julio Lr MD Primary Care Provider + Encounter Details Date Type Department Care Team (Latest Contact Info) Description 09/23/2006 Inpatient Historical HIS PATIENT IN A BED Preet Hale MD [address] [facility] [address] [place], [place] [phone] Coronary Atherosclerosis of [place] Coronary Artery (Primary Dx) Social History Tobacco Use Types Packs/Day Years Used Date Smoking Tobacco: Never Assessed Comments Unknown Sex and Gender Information Value Date Recorded Sex Assigned at Not on file Legal Sex Female 5:05 AM SUPERVISOR MACHINE SETTER Gender Identity Not on file Sexual Orientation Not on file documented as of this encounter Plan of Treatment Not on file documented as of this encounter Procedures Procedure Name Priority Date/Time Associated Diagnosis Comments PT AND APTT Routine 09/23/2006 12:41 PM SUPERVISOR MACHINE SETTER CBC WITH DIFFERENTIAL Routine 09/23/2006 12:41 PM SUPERVISOR MACHINE SETTER CBC WITH DIFFERENTIAL Routine 09/23/2006 12:41 PM SUPERVISOR MACHINE SETTER BASIC METABOLIC PANEL Routine 09/23/2006 12:41 PM SUPERVISOR MACHINE SETTER documented in this encounter Results * CBC WITH DIFFERENTIAL (09/23/2006 12:41 PM SUPERVISOR MACHINE SETTER) NEUTROPHILS 53 45 - 70 % INTERFAC [...] K/uL INTERFACE SYSTEM 09/23/2006 12:4 1 PM SUPERVISOR MACHINE SETTER Preet Hale MD HEMATOLOGY ORDERABLES Final Result Performing Organization Address City/[facility] Co de Phone Number INTERFACE SYSTEM Refer to clinic/hospital department * (ABNORMAL) CBC WITH DIFFERENTIAL (09/23/2006 12:41 PM SUPERVISOR MACHINE SETTER) WBC 6.2 4.0 - 9.8 K/uL INTERFACE [...] fL INTERFACE SYSTEM 09/23/2006 12:4 1 PM SUPERVISOR MACHINE SETTER Preet Hale MD HEMATOLOGY ORDERABLES Final Result Performing Organization Address City/[facility]/ZIP Co de Phone Number INTERFACE SYSTEM Refer to clinic/hospital department * BASIC METABOLIC PANEL (09/23/2006 12:41 PM SUPERVISOR MACHINE SETTER) GLUCOSE 95 65 - 99 mg/dL INTERFACE [...] and non- Americans is available on the [facility] Intranet at: [email or web address] Select: Lab Policies and Procedures Select: Reference Ranges - GFR 09/23/2006 12:4 1 PM SUPERVISOR MACHINE SETTER Preet Hale MD CHEMISTRY ORDERABLES Final R esult INTERFACE SYSTEM Refer to clinic/hospital department * PT AND APTT (09/23/2006 12:41 PM SUPERVISOR MACHINE SETTER) PROTIME 14.3 12.7 - 15.1 Seconds INTERFACE SYSTEM INR 1.1 0.9 - 1.1 INTERFACE SYSTEM Comment: INR Therapeutic Range: Adult: 2.0 - 3.0 for pulmonary embolism or prophylaxis against venous thrombosis or systemic embolization. 2.0 - 3.0 for patients with tissue heart valves. 2.5 - 3.5 for patients with mechanical heart valves or post NC. Pediatric (12 years and under): 1.5 - [...] for unfractionated heparin 09/23/2006 12:4 1 PM SUPERVISOR MACHINE SETTER us Preet Hale MD HEMATOLOGY ORDERABLES Final Result INTERFACE SYSTEM Refer to clinic/hospital department documented in this encounter Visit Diagnoses Diagnosis Coronary atherosclerosis of [place] coronary artery- Primary documented in this encounter Care Teams Head Athletic Trainer Relationship Specialty Start Date End Date Julio Lr MD [address] [place] [phone] PCP - General 12/19/06 documented as of this encounter
--- OUTSIDE RECORDS SUMMARY | 2025-07-05 13:32 | XMS_ITS | Encounter Summary ---
Author Organization [employer] Address [address] [place] [address] Care Team Providers Care Supervisor Byproducts Name Role Phone Julio Lr MD Primary Care Provider + Encounter Details Date Type Department Care Team (Late st Contact Info) Description 12/20/2006 [facility]patient [facility] [address] [place] [address] Varghese Redman MD NO ADDRESS ON FILE Social History Tobacco Use Types Packs/Day Years Used Date Smoking Tobacco: Never Assessed Comments Unknown Sex and Gender Information Value Date Recorded Sex Assigned at Not on file Legal Sex Female 5:05 AM HAT AND CAP PARTS CUTTER HAND Gender Identity Not on file Sexual Orientation Not on file documented as of this encounter Plan of Treatment Not on file documented as of this encounter Visit Diagnoses Not on filedocumented in this encounter Care Teams Supervisor Byproducts Relationship Specialty Start Date End Date Julio Lr MD [address] [place] [phone] PCP - General 12/19/06 documented as of this encounter
--- OUTSIDE RECORDS SUMMARY | 2025-07-05 13:32 | XMS_ITS | Encounter Summary ---
Author Organization [employer] Address [address] [place] [address] Care Team Providers Care Industrial Safety Engineer Name Role Phone Julio Lr MD Primary Care Provider + Encounter Details Date Type Department Care Team (Late st Contact Info) Description 09/23/[address] [facility] [facility] Support Serv. (Adt Cardiology-[facility]) [address] [place] [address] Varghese Hsu MD [address] [facility] [address] [place] [address] Social History Tobacco Use Types Packs/Day Years Used Date Smoking Tobacco: Never Assessed Comments Unknown Sex and Gender Information Value Date Recorded Sex Assigned at Not on file Legal Sex Female 5:05 AM FRANCHISE BUSINESS CONSULTANT Gender Identity Not on file Sexual Orientation Not on file documented as of this encounter Plan of Treatment Not on file documented as of this encounter Visit Diagnoses Not on filedocumented in this encounter Care Teams Industrial Safety Engineer Relationship Specialty Start Date End Date Julio Lr MD [address] [place] [address] PCP - General 12/19/06 documented as of this encounter
--- OUTSIDE RECORDS SUMMARY | 2025-07-05 13:32 | XMS_ITS | Clinical Summary ---
Author Organization [facility] Address [address] [place] [address] Care Team Providers Care Belt Splicer Name Role Phone Unavailable Primary Care Provider [...]
== END 2025-07-05 12:35 | disposition home or self-care (01) ==
PROVIDERS: Emergency Provider Emergency Medicine; PCP Emergency Medicine
DX: M71.22 Synovial cyst of popliteal space [Baker], left knee (principal); M79.662 Pain in left lower leg; I70.90 Unspecified atherosclerosis; E11.22 Type 2 diabetes mellitus with diabetic chronic kidney disease; I12.9 Hypertensive chronic kidney disease with stage 1 through stage 4 chronic kidney disease, or unspecified chronic kidney disease; N18.9 Chronic kidney disease, unspecified; J44.9 Chronic obstructive pulmonary disease, unspecified; I25.10 Atherosclerotic heart disease of native coronary artery without angina pectoris; E78.5 Hyperlipidemia, unspecified; D64.9 Anemia, unspecified; G89.4 Chronic pain syndrome; F17.210 Nicotine dependence, cigarettes, uncomplicated; Z95.5 Presence of coronary angioplasty implant and graft; Z96.82 Presence of neurostimulator; Z90.49 Acquired absence of other specified parts of digestive tract; Z79.02 Long term (current) use of antithrombotics/antiplatelets; Z79.82 Long term (current) use of aspirin; Z79.4 Long term (current) use of insulin; Z79.899 Other long term (current) drug therapy
CPT/HCPCS: 73502; 93971; 99284; A9270

== ENCOUNTER 2025-07-12 11:25 | Outpatient (CLI) | payer MEDICARE, SELFPAY ==
--- NOTE | ~2025-07-12 | XR_ITS ---
EXAMINATION: XR knee LT min 4V, 07/12/2025 12:00 CDT HISTORY: M71.20 - Synovial cyst of popliteal space [Harris], unspec... COMPARISON: No comparisons available. Findings: No acute fracture or malalignment. Moderate tricompartmental degenerative changes, small effusion Soft tissues unremarkable. Impression: No acute fracture or malalignment. Reviewed, dictated and finalized at location A. Impression: No acute fracture or malalignment.
--- OUTSIDE RECORDS SUMMARY | 2025-07-12 12:09 | XMS_ITS | Encounter Summary ---
Author Organization [facility] Address [address] [place] [address] Care Team Providers Care Licensed Nurse Practitioner Name Role Phone Julio Lr MD Primary Care Provider + Encounter Details Date Type Department Care Team (Late st Contact Info) Description 09/23/[address] [facility] Support Serv. (Adt Cardiology-[facility]) [address] 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
--- OUTSIDE RECORDS SUMMARY | 2025-07-12 12:09 | XMS_ITS | Clinical Summary ---
Author Organization [facility] Address [address] [place] [address] Care Team Providers Care Sound Editor Name Role Phone Unavailable Primary Care Provider [...]
--- OUTSIDE RECORDS SUMMARY | 2025-07-12 12:09 | XMS_ITS | Encounter Summary ---
Author Organization [employer] Address 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 Preet Hale MD [address] [facility] [address] [place] [address] Coronary Atherosclerosis of [place] Coronary Artery (Primary Dx) Social History Tobacco Use Types Packs/Day Years Used Date Smoking Tobacco: Never Assessed Comments Unknown Sex and Gender Information Value Date Recorded Sex Assigned at Not on file Legal Sex Female 5:05 AM BOTANICAL TECHNICAL OFFICER Gender Identity Not on file Sexual Orientation Not on file documented as of this encounter Plan of Treatment Not on file documented as of this encounter Procedures Procedure Name Priority Date/Time Associated Diagnosis Comments POC ACTIVATED CLOTTING TIME Routine 12/19/2006 10:46 AM BOTANICAL TECHNICAL OFFICER documented in this encounter Results * POC ACTIVATED CLOTTING TIME (12/19/2006 10:46 AM BOTANICAL TECHNICAL OFFICER) [facility] ACT POC 362 Seconds INTERFACE SYSTEM Comment: Note sheath pull range change effective 04/11/2006. ACT value for [facility] pull [facility] has been established to be < or = to 1 40. (See also Nursing Procedures for sheath pull in related nursing areas) 12/19/2006 10:4 6 AM BOTANICAL TECHNICAL OFFICER us Preet Hale MD POINT OF CARE TESTING Edited INTERFACE SYSTEM Refer to clinic/hospital department documented in this encounter Visit Diagnoses Diagnosis Coronary atherosclerosis of [place] coronary artery- Primary documented in this encounter Care Teams Piercing Specialist Relationship Specialty Start Date End Date Julio Lr MD [address] [place] [phone] PCP - General 12/19/06 documented as of this encounter
--- OUTSIDE RECORDS SUMMARY | 2025-07-12 12:09 | XMS_ITS | Encounter Summary ---
Author Organization [employer] Address [address] [place] [address] Care Team Providers Care Produce Department Supervisor Name Role Phone Julio Lr MD Primary Care Provider + Encounter Details Date Type Department Care Team (Late st Contact Info) Description 12/20/2006 [facility] ([facility]) [address] [place] [phone] Varghese Redman MD NO ADDRESS ON FILE Social History Tobacco Use Types Packs/Day Years Used Date Smoking Tobacco: Never Assessed Comments Unknown Sex and Gender Information Value Date Recorded Sex Assigned at Not on file Legal Sex Female 5:05 AM JAVA GROOVY DEVELOPER Gender Identity Not on file Sexual Orientation Not on file documented as of this encounter Plan of Treatment Not on file documented as of this encounter Visit Diagnoses Not on filedocumented in this encounter Care Teams Produce Department Supervisor Relationship Specialty Start Date End Date Julio Lr MD [address] [place] [phone] PCP - General 12/19/06 documented as of this encounter
--- OUTSIDE RECORDS SUMMARY | 2025-07-12 12:09 | XMS_ITS | Encounter Summary ---
Author Organization [employer] Address [address] [place] [address] Care Team Providers Care Commodity Analyst Name Role Phone Julio Lr MD Primary Care Provider + Encounter Details Date Type Department Care Team (Late st Contact Info) Description 12/19/2006 [facility] [address] 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
--- OUTSIDE RECORDS SUMMARY | 2025-07-12 12:09 | XMS_ITS | Clinical Summary ---
Author Organization [facility] [address] Address [address] [place] [address] Care Team Providers Care Healthcare Project Manager Name Role Phone Morgan Santiago MD Primary [...] 0 04/21/2024 Body mass index 40.0-44.9, adult ([facility]) 04/21 Other chest pain 04/03/2023 [...] artery disease of n ative artery of [place] heart with stable angina pectoris 12/13/2013 Overview [...] Care Team Description 04/11/2025 TCC Subsequent Outreach [facility] [address] [place], [place] [id number] Kelby Gonsalez RN from Last 3 Months Surgical History Surgery [...] materials from doctor or pharmacy Always 04/06/2025 [facility] Utilities Answer Date Recorded In the past 12 months has th e Careerise, gas, oil, or water gopogo threatened to shut off services in your home? No 03/07/2025 Social Connection and Isolation Panel Answer Date Recorded In a typical week, how many times do you talk on the phone with family, friends, or neighbors? Three times a week 03/07/2025 How often do you get togethe r with friends or relatives? Twice a week 03/07/2025 How often do you attend chur ch or tenriism services? Never 03/07/2025 Do you belong to any clubs o r organizations such as nondenominational groups, unions, fraternal or athletic groups, or [...] any time in the past 12 m [facility], were you homeless or living in a assisted (including now)? No 03/07/2025 Personal Safety Answer Date Recorded Have you ever been in or are you currently in a harmful physical or emotional relationship or is someone making you feel afraid or unsafe? Denies 03/05/2025 Comments Unknown Sex and Gender Information Value Date Recorded Sex Assigned at Not on file Legal Sex Female 1:40 AM PAYROLL ANALYST Gender Identity Not on file Sexual Orientation [...] Risk Assessment 03/10/2026 03/10/2025 eGFR 03/10/2026 03/10/2025, 02/18, 03/08/2025, Additional history exists Procedures Procedure Name [...] 03/10/2025 5:58 AM CDT us Lewis Hoang FREELANCE WEB DESIGNER LAB BLOOD ORDERABLES Final R esult Performing Organization Address [facility] Co de Phone Number [address] [place] [address] * Albumin Creatinine Ratio, Urine (03/06/2025 5:15 PM CDT) Albumin Ur <12.0 mg/L Comment: Interpretive Data No reference range established. Current interpretive data was last revised 2019. Creatinine Ur 41.7 mg/dL [facility] Comment: Interpretive Data No reference range established. Current interpretive data was last revised 2019. Albumin Creatinine Ratio, Ur <29 1 - 29 mg/g ANDIE Urine 03/06/2025 5:15 PM CDT 03/06/2025 5:23 PM CDT us Beltran Rowell MD LAB URINE ORDERABLES Final Re sult Performing Organization Address [facility] Co de Phone Number [facility] [address] [facility] [place] [address] * Hemoglobin A1c (03/05/2025 5:16 PM CDT) Hgb A1C 5.5 4.0 - 5.6 % Estimated Average Glucose 111 mg/dL ANDIE JENSEN Comment: The ADA recommends reporting an estimated Average Glucose (eAG) with all Hemoglobin A1c results using the equation derived from a study of 507 normal and diabetic adults. Minority populations were underrepresented and children were not included. (Diabetes Care 31:2936-6089, 2008). The eAG is not equivalent to a fasting glucose. Blood 03/05/2025 5:16 PM CDT 03/05/2025 5:24 PM CDT us Lewis Hoang NP LAB BLOOD ORDERABLES Final R esult ANDIE [address] [facility] Department [place] [address] * POCT lipid panel (04/21/2024 3:38 PM [...] Most Recently Relevant to Health Maintenance Insurance [facility] MEDICARE ADVANTAGE [employer] MEDICARE ADVANTAGE Advance Directives For more information, please contact: [phone] * Full Code (Latest Code Status on File) Date Activated Date Inactivated Comments 03/05/2025 4:56 PM 03/10/2025 3:54 PM Care Teams Healthcare Project Manager Relationship Specialty Start Date End Date Morgan Santiago MD [address] [place], [place] [phone] PCP - General 01/17/17
--- OUTSIDE RECORDS SUMMARY | 2025-07-12 12:09 | XMS_ITS | Clinical Summary ---
Author Organization [facility] Address [address] [facility] Attn: Epic Prelude [place]T [place] [address] Care Team Providers Care Carton Making Machinist Name Role Phone Julio Lr MD Primary Care Provider + Social History Tobacco Use Types Packs/Day Years Used Date Smoking Tobacco: Never Assessed Comments Unknown Sex and Gender Information Value Date Recorded Sex Assigned at Not on file Legal Sex Female 5:05 AM WEB APPLICATION DEVELOPER Gender Identity Not on file Sexual [...] 02/04/2023 INFLUENZA VACCINE (#1) 2025 Care Teams Carton Making Machinist Relationship Specialty Start Date End Date Julio Lr MD [address] [place] [phone] PCP - General 12/19/06
--- OUTSIDE RECORDS SUMMARY | 2025-07-12 12:09 | XMS_ITS | Encounter Summary ---
Author Organization [employer] Address [address] [place] [address] Care Team Providers Care Electrician Office Name Role Phone Julio Lr MD Primary Care Provider + Encounter Details Date Type Department Care Team (Latest Contact Info) Description 09/23/2006 Inpatient Historical HIS PATIENT IN A BED Preet Hale MD [address] [facility] [address] [place], [place] [id number] Coronary Atherosclerosis of [place] Coronary Artery (Primary Dx) Social History Tobacco Use Types Packs/Day Years Used Date Smoking Tobacco: Never Assessed Comments Unknown Sex and Gender Information Value Date Recorded Sex Assigned at Not on file Legal Sex Female 5:05 AM PRINTER MACHINE Gender Identity Not on file Sexual Orientation Not on file documented as of this encounter Plan of Treatment Not on file documented as of this encounter Procedures Procedure Name Priority Date/Time Associated Diagnosis Comments PT AND APTT Routine 09/23/2006 12:41 PM PRINTER MACHINE CBC WITH DIFFERENTIAL Routine 09/23/2006 12:41 PM PRINTER MACHINE CBC WITH DIFFERENTIAL Routine 09/23/2006 12:41 PM PRINTER MACHINE BASIC METABOLIC PANEL Routine 09/23/2006 12:41 PM PRINTER MACHINE documented in this encounter Results * CBC WITH DIFFERENTIAL (09/23/2006 12:41 PM PRINTER MACHINE) NEUTROPHILS 53 45 - 70 % INTERFAC [...] K/uL INTERFACE SYSTEM 09/23/2006 12:4 1 PM PRINTER MACHINE Preet Hale MD HEMATOLOGY ORDERABLES Final Result Performing Organization Address [facility] Co de Phone Number INTERFACE SYSTEM Refer to clinic/hospital department * (ABNORMAL) CBC WITH DIFFERENTIAL (09/23/2006 12:41 PM PRINTER MACHINE) WBC 6.2 4.0 - 9.8 K/uL INTERFACE [...] fL INTERFACE SYSTEM 09/23/2006 12:4 1 PM PRINTER MACHINE Preet Hale MD HEMATOLOGY ORDERABLES Final Result Performing Organization Address [facility]/ZIP Co de Phone Number INTERFACE SYSTEM Refer to clinic/hospital department * BASIC METABOLIC PANEL (09/23/2006 12:41 PM PRINTER MACHINE) GLUCOSE 95 65 - 99 mg/dL INTERFACE [...] and non- Americans is available on the [facility] Intranet at: [email or web address] Select: Lab Policies and Procedures Select: Reference Ranges - GFR 09/23/2006 12:4 1 PM PRINTER MACHINE Preet Hale MD CHEMISTRY ORDERABLES Final R esult INTERFACE SYSTEM Refer to clinic/hospital department * PT AND APTT (09/23/2006 12:41 PM PRINTER MACHINE) PROTIME 14.3 12.7 - 15.1 Seconds INTERFACE SYSTEM INR 1.1 0.9 - 1.1 INTERFACE SYSTEM Comment: INR Therapeutic Range: Adult: 2.0 - 3.0 for pulmonary embolism or prophylaxis against venous thrombosis or systemic embolization. 2.0 - 3.0 for patients with tissue heart valves. 2.5 - 3.5 for patients with mechanical heart valves or post IN. Pediatric (12 years and under): 1.5 - [...] for unfractionated heparin 09/23/2006 12:4 1 PM PRINTER MACHINE us Preet Hale MD HEMATOLOGY ORDERABLES Final Result INTERFACE SYSTEM Refer to clinic/hospital department documented in this encounter Visit Diagnoses Diagnosis Coronary atherosclerosis of [place] coronary artery- Primary documented in this encounter Care Teams Electrician Office Relationship Specialty Start Date End Date Julio Lr MD [address] [place] [phone] PCP - General 12/19/06 documented as of this encounter
== END 2025-07-12 11:26 | disposition home or self-care (01) ==
PROVIDERS: PCP Emergency Medicine; Visit Provider Emergency Medicine
DX: M71.20 Synovial cyst of popliteal space [Baker], unspecified knee (principal)
CPT/HCPCS: 73564